=== PATIENT | male | born 1960 | race Caucasian/White ===

== ENCOUNTER 2020-04-20 11:35 | Inpatient (IN) | payer MEDICAID, SELFPAY ==
[2020-04-20] VITALS (10 sets, daily range): BP systolic 98–158; BP diastolic 64–92; PULSE 75–85; RESP 16–21; TEMP 36.3–36.9; O2SAT 93–100; BMI 27.6; BMI 27.1
--- NOTE | 2020-04-20 12:10 | EKG12_ITS ---
Test Reason : DIZZY Blood Pressure : / mmHG Vent. Rate : 075 BPM Atrial Rate : 075 BPM P-R Int : 174 ms QRS Dur : 104 ms QT Int : 422 ms P-R-T Axes : 024 -09 149 degrees QTc Int : 471 ms Normal sinus rhythm T wave abnormality, consider lateral ischemia Prolonged QT Abnormal ECG Confirmed by ANDRES CASTELAN, JEYSON ([id number]), editorial cartoonist LAST GARRETT ([id number]) on 04/25/2020 2:17:21 PM Referred By: SUNNI Confirmed By:JEYSON CAMPOS MD
[2020-04-20] MEDS: 0.9% Normal Saline 1,000 ML 1000 ML IV (12:20)
--- NOTE | 2020-04-20 12:25 | RAD_ITS ---
STUDY: X-RAY CHEST REASON FOR EXAM: Male, 59 years old. Presyncope TECHNIQUE: Single AP portable view of the chest. COMPARISON: None. FINDINGS: EKG electrodes are seen. Hyperinflation. The lungs are clear. There is no demonstrated pleural abnormality. Normal size heart. Normal mediastinum and maryellen. Normal visualized pulmonary arteries. Normal visualized aortic arch and descending thoracic aorta. There are degenerative changes of the visualized thoracic spine. Normal visualized ribs, clavicles, and shoulders. There is no demonstrated abnormality of the visualized soft tissue structures of the upper abdomen. RAD/Chest 1 View (Portable) IMPRESSION: Hyperinflation. The lungs are clear. Electronically Signed: Raad Escobar MD at 12:47 EST , Service support ,
[2020-04-20 12:29] LABS: Absolute Lymphocyte Count 2.58 X10^3/uL (0.83-4.51); Absolute Neutrophil Count 13.5 X10^3/uL (2.0-7.7); Basophil# 0.08 X10^3/uL; Basophil% 0.5 % (0-1); Eosinophils% 1.1 % (0-5); Hematocrit 45.9 % (40-54); Hemoglobin 15.4 g/dL (13.0-16.5); Lymphocyte # 2.58 X10^3/ul (4.0); Lymphocyte % 14.7 % (19-41); Mean Corp Hgb Conc 33.6 g/dL (32-36); Mean Corpuscular Volume 86.4 fL (80-94); Mean Platelet Vol. 9.9 fl (6.2-12.0); Monocyte# 1.03 X10^3/uL; Monocyte% 5.9 % (0-10); NRBC Flagged by Analyzer 0 % (0-5); Neutrophil % 77.1 % (47-70); Platelet Count 568 K/mm3 (150-450); RBC Distribution Width CV 12.9 % (11.6-14.6); RBC Distribution Width SD 40.2 fl (35.1-43.9); Red Blood Count 5.31 M/mm3 (4.6-6.2); White Blood Count 17.5 K/mm3 (4.4-11.0)
[2020-04-20] MEDS: 0.9% Normal Saline 1,000 ML 999 ML IV (12:31)
[2020-04-20 12:42] LABS: Anion Gap 8 (5-15); BUN 20 mg/dL (7-18); BUN/Creat Ratio 15.7 RATIO (10-20); Calcium,Total 9.6 mg/dL (8.5-10.1); Chloride 104 mmol/L (98-107); Creatinine, Serum 1.27 mg/dL (0.70-1.30); EST Glomerular Filtration Rate 62 mL/min (>60); Est Glom Filt Rate - Afr Amer 75 mL/min (>60); Estimated Creatinine Clearance 70.44 ml/min; Glucose 197 mg/dL (74-106); Potassium 4.1 mmol/L (3.5-5.1); Sodium Level 138 mmol/L (136-145)
[2020-04-20 12:58] LABS: Lactic Acid 3.4 mmol/L (0.4-1.9)
[2020-04-20] MEDS: Aspirin 81 MG TAB.CHEW PO (13:17)
--- NOTE | 2020-04-20 13:25 | ED.DCSUM_ITS ---
History of Present Illness Chief Complaint: Dizziness Narrative: Patient presenting for evaluation secondary to lightheadedness. Patient has an underlying history of diabetes. Patient states that he was undergoing work-up for surgical clearance for amputation of his left great toe. Patient tells me that he was at the outpatient office and was noted to be hypotensive, to feel lightheaded, and to be acting abnormally. He was recommended to come to the emergency department. Patient denies any history of heart disease and denies any is having any sort of chest pain. Denies that he is having any sort of fevers nausea vomiting or diarrhea associated with this. Patient denies any laterality to his weakness, states that it was general weakness. Review of systems otherwise negative. Past Medical History - Allergies and Home Meds Allergies/Adverse Reactions: Allergies No Known Allergies Allergy (Verified 04/20/20 11:50) Primary Care Physician: Rosalva Grijalva MD [Primary Care Provider] - Prior records reviewed: Yes Past Medical History: - - Pretension, diabetes, hyperlipidemia Lives: Alone Smoking Status: Current every day smoker Alcohol: None Drugs: None Review of Systems All systems negative except as indicated General: Reports: Malaise, - - Lightheadedness Eyes: Denies: Visual changes - bilaterally, Diplopia ENT: Denies: Rhinorrhea, Sore throat Cardiovascular: Denies: Chest pain, Palpitations Respiratory: Denies: Dyspnea, Cough, Dyspnea on exertion Gastrointestinal: Denies: Abdominal pain, Nausea, Vomiting, Diarrhea, Melena, Hematochezia Genitourinary: Denies: Dysuria, Hematuria, Frequency Musculoskeletal: Denies: Back pain, Extremity Pain Skin: Denies: Rash, Wounds Neurological: Denies: Headache, Weakness, Numbness Physical Exam Vital Signs/Narrative: Vital Signs Temp Pulse Pulse Pulse Resp BP BP 04/20/20 13:20 75 85 142/82 H 04/20/20 13:11 97.4 F L 78 18 145/86 H 04/20/20 11:46 97.4 F L 83 19 H 98/67 04/20/20 11:43 97.4 F L 83 21 H 101/64 BP Pulse Ox 04/20/20 13:20 122/83 H 04/20/20 13:11 95 04/20/20 11:46 100 04/20/20 11:43 96 Inital Vital Signs reviewed: Yes General: Well nourished, Well developed, No Acute Distress, - - Unkempt Head: Normocephalic, Atraumatic Eyes: Perrl, EOMI ENT: Moist mucous membranes, No rhinorrhea Neck: Supple, Nontender Cardiovascular: Regular rate, Regular rhythm, No murmurs, - - 2+ radial pulses bilaterally symmetric, 1+ DP pulses bilaterally symmetric Respiratory: No distress, CTA bilaterally, Chest nontender Abdomen: Soft, Nontender, Nondistended, Normal bowel sounds Back: Nontender, Normal Inspection Extremities: Nontender, No edema, - - Dry gangrene is noted of the left great toe Skin: Normal color, No rash Neurological: Alert, Oriented x3, Cranial nerves II-XII grossly intact, Normal Strength, Normal Sensation Psychological: Normal affect, Normal Mood Diagnostic/Tx/Re-eval Chest X-Ray - ED: 1 View, Read by ED Physician, - - Hyperinflation Clinical Impression(s) from Imaging Studies Chest X-Ray 04/20/20 12:25 IMPRESSION: Hyperinflation. The lungs are clear. Electronically Signed: Raad Escobar MD at 12:47 EST , Service support , Laboratory Data 04/20/20 04/20/20 04/20/20 11:44 11:44 12:25 WBC 17.5 H RBC 5.31 Hgb 15.4 Hct 45.9 MCV 86.4 MCH 29.0 MCHC 33.6 RDW Std Deviation 40.2 RDW Coeff of Corina 12.9 Plt Count 568 H MPV 9.9 Immature Gran % (Auto) 0.700 Neut % (Auto) 77.1 H Lymph % (Auto) 14.7 L [place] % (Auto) 5.9 Eos % (Auto) 1.1 Baso % (Auto) 0.5 Absolute Neuts (auto) 13.5 H Absolute Lymphs (auto) 2.58 Nucleated RBC % 0 Sodium 138 Potassium 4.1 Chloride 104 Carbon Dioxide 26.0 Anion Gap 8 BUN 20 H Creatinine 1.27 Estim Creat Clear Calc 70.44 Est GFR (MDRD) Af Amer 75 Est GFR (MDRD) Non-Af 62 BUN/Creatinine Ratio 15.7 Glucose 197 H Lactic Acid 3.4 H* Calcium 9.6 Troponin I 0.020 - EKG Initial EKG Interpretation: - - Sinus rhythm at 75 with significant T wave inversions noted laterally. QTC mildly prolonged at 471. No evidence of significant ST segment deviation. - Medical Decision Making Patient presented secondary to hypotension and feeling lightheaded in the outpatient office. He was given IV fluid boluses and did have improvement of his resting blood pressure but remains orthostatic positive. Patient was noted to have a leukocytosis of 17,000. His troponin was not found to be elevated but his EKG was significantly abnormal compared to a prior EKG in 2002. Patient's lactic acid was also elevated at 3.4 likely indicative that the patient did have significant hypotension. Patient was given Unasyn empirically for the possibility of infection although his toe appears to have dry gangrene and does not appear to be a source of infection currently. He was given aspirin due to his EKG changes. I believe the patient requires admission. - Critical Care Time Critical care time (excluding procedures): 30-74 minutes ED Disposition - Plan for ED Patient: Disposition: Acute Care Hospital [facility] Diagnosis: Hypotension, Acute electrocardiogram changes, Dry gangrene, Leukocytosis, Lactic acidosis
--- NOTE | 2020-04-20 14:29 | HP.PCM_ITS ---
Problem List (1) Hypotension Status: Acute (2) Acute electrocardiogram changes Status: Acute (3) Dry gangrene Status: Acute (4) Leukocytosis Status: Acute (5) Lactic acidosis Status: Acute History of Present Illness Date of Admission: 04/20/20 Chief Complaint: lightheaded The patient is a 59 year old M who for months has been feeling dizzy practically daily. Patient states that he feels dizzy when he stands up he sits or lays down and gets better. Today just was not getting better and apparently was having trouble speaking as well. Presented to Dr. Eldridge's office for preop clearance for dry gangrene. Patient was not looking well and sent to the emergency room. In the emergency room, patient had abnormal labs showing lactic acid of 3.4 white count of 17.5. Patient had dry gangrene on his left great toe I did receive the Unasyn but no cultures were drawn. Patient did receive IV fluids. The hospital service was contacted for admission. Patient did also have a T wave inversions in the lateral leads. Patient is denying any chest pain. [] Past Medical History Medical History: Medical History (Last Updated 04/20/20 @ 14:[address] Virgilio Dunn, DO) DM2 (diabetes mellitus, type 2) E11.9 Neuropathy G62.9 PAD (peripheral artery disease) I73.9 Allergies No Known Allergies Allergy (Verified 04/20/20 11:50) Home Medications: Ambulatory Orders Medication Instructions Recorded Amlodipine [Norvasc] 10 mg PO DAILY 04/20/20 Aspirin E.C. [Ecotrin] 81 mg PO DAILY@0800 04/20/20 Atorvastatin Calcium 20 mg PO QHS 04/20/20 Clopidogrel Bisulfate [Clopidogrel] 75 mg PO DAILY 04/20/20 Glimepiride 8 mg PO DAILY 04/20/20 Lisinopril/Hydrochlorothiazide 1 ea PO BID 04/20/20 [Lisinopril-Hctz 20-12.5 mg Tab] Multivitamin with Minerals 1 tab PO DAILY 04/20/20 [Multiple Vitamin] metFORMIN (XR) [Glucophage Xr] 1,000 mg PO DAILY 04/20/20 Lives: Alone Smoking Status: Current every day smoker Tobacco Use: Cigarettes, Cigars, Chew Alcohol: None Drugs: None - *Family History Maternal History Items: - - no heart dz or stroke Review of Systems Constitutional: Denies: Anorexia, Chills, Fever, Night Sweats, Malaise, Weakness Eyes: Denies: Blurred vision, Double vision HEENT: Denies: Head Aches, Sinus Congestion, Sinus Drainage Cardiovascular: Denies: Chest Pain, Palpitations Respiratory: Denies: Cough, Shortness of breath at rest, Sputum production Gastrointestinal: Denies: Abdominal Pain, Nausea, Vomiting Genitourinary: Denies: Dysuria Musculoskeletal: Denies: Joint Pain, Joint Tenderness Skin: Denies: Rash, Wounds Hematologic/ Lymphatic: Denies: Easy Bruising, Easy Bleeding, Hx of blood clot Comment: All review of systems were negative except as mentioned above in the history of present illness and the other review of systems. VTE Information - Inpt Only VTE Present on Admission: No VTE Mechan Device Prophylaxis: None VTE Pharm Prophylaxis ordered?: Yes Reason prophylaxis not ordered:: Treatment Not Indicated Patient Problems: Active and Suspected Problems Hypotension (Acute) Acute electrocardiogram changes (Acute) Dry gangrene (Acute) Leukocytosis (Acute) Lactic acidosis (Acute) - Physical Exam Vitals/I&O's: Vital Signs Temp Pulse Resp BP Pulse Ox 36.6 C 78 20 H 152/71 H 93 04/20/20 14:09 04/20/20 14:09 04/20/20 14:09 04/20/20 14:09 04/20/20 14:09 Oxygen Delivery Method Room Air Weight: 90.7 kg Body Mass Index (BMI) 27.1 Intake and Output for Last 24 Hours 04/18/20 04/19/20 04/20/20 23:59 23:59 23:59 Intake Total 1999 Balance 1999 General: Alert, No apparent distress, Well developed, Well nourished HEENT: Atraumatic, PERRLA, EOMI, Normocephalic Oral: Moist Mucosa, No Gingival or Mucosal Lesions/ Ulcerations Neck: No Nodes, Thyroid Normal Size and Texture Lungs: Clear to auscultation, Normal air movement, No rhonchi, No wheeze, No rales Cardiovascular: Regular rate, Regular Rhythm, Normal S1, Normal S2, No murmurs Abdomen: Bowel Sounds Present, Soft, Non Tender, Non-Distended, No Hepato- splenomegaly Extremities: No edema, No Calf Tenderness, Diminished Peripheral Pulses - Dorsalis pedal bilaterally Skin: No rashes, No breakdown Musculoskeletal: No Tenderness to Palpation of Joints or Extremities, No Muscle Wasting Neurological: Cranial nerves II-XII grossly intact, Motor Exam 5/5 strength throughout Psych/Mental Status: Normal Affect, Appropriate Laboratory Results 04/20/20 11:44: WBC 17.5 H, RBC 5.31, Hgb 15.4, Hct 45.9, MCV 86.4, MCH 29.0, MCHC 33.6, RDW Std Deviation 40.2, RDW Coeff of Corina 12.9, Plt Count 568 H, MPV 9.9, Immature Gran % (Auto) 0.700, Neut % (Auto) 77.1 H, Lymph % (Auto) 14.7 L, [place] % (Auto) 5.9, Eos % (Auto) 1.1, Baso % (Auto) 0.5, Absolute Neuts (auto) 13.5 H, Absolute Lymphs (auto) 2.58, Nucleated RBC % 0 04/20/20 11:44: Sodium 138, Potassium 4.1, Chloride 104, Carbon Dioxide 26.0, Anion Gap 8, BUN 20 H, Creatinine 1.27, Estim Creat Clear Calc 70.44, Est GFR (MDRD) Af Amer 75, Est GFR (MDRD) Non-Af 62, BUN/Creatinine Ratio 15.7, Glucose 197 H, Calcium 9.6, Troponin I 0.020 04/20/20 12:25: Lactic Acid 3.4 H* Chest x-ray personally reviewed showed no acute process with infiltrate or effusions. EKG first reviewed showed normal sinus rhythm with lateral T wave inversions. Current Medications Sodium Chloride (0.9% Saline Lock 10 Ml Syringe) 10 - 40 ml IV UD PRN PRN Reason: SALINE FLUSH Assessment/Plan All Active Problems Hypotension (Acute) Acute electrocardiogram changes (Acute) Dry gangrene (Acute) Leukocytosis (Acute) Lactic acidosis (Acute) 1. Near syncope Appears the patient has been having what sounds like orthostatic hypotension has been going on for months possibly exacerbated by his underlying antihypertensive medications but patient had a protracted case today. Whether or not that was just related with his orthostatic hypotension or some other disease process is unclear at this time. Plan: * Hold his antihypertensives for now which is amlodipine and lisinopril/HCTZ * Check orthostatic vital signs * Patient does not have any focal deficits but will check a head CT. If that is negative would not proceed with any additional neurologic work-up unless new deficits arise. 2. Abnormal EKG Unclear if new versus old Plan: * Patient already on aspirin and clopidogrel and will continue * Check a nuclear chemical stress test in the morning, this will also serve as preop clearance for his ventral right great toe gangrene * Cycle troponins 3. Systemic inflammatory response syndrome Do not suspect any active infectious process the patient did receive ampicillin/sulbactam in the emergency room. Plan * Hold off antibiotics for now * Check blood cultures * Follow-up labs 4. Lactic acidosis I do not suspect severe sepsis as patient clinically appears very stable at this time I am concerned that the Metformin that the patient is taking was at least a contributing factor to the lactic acidosis and that will be held 5. Dry gangrene of the left great toe Patient is already seen vascular surgery and has been referred to Dr. Allen of podiatry. Plan is for the patient follow-up with Dr. Allen as outpatient unless acute needs arise that warrant urgent podiatry involvement while in the hospital. 6. VTE prophylaxis: With low molecular weight heparin 7. Advanced care planning: Discussed with the patient. Patient wishes to be full CODE STATUS at this time. Inpatient E&M: 76580 Init Hosp L3
--- NOTE | 2020-04-20 15:29 | CT_ITS ---
STUDY: CT BRAIN WITHOUT CONTRAST REASON FOR EXAM: Male, 59 years old. syncope RADIATION DOSAGE (If Supplied By Facility): CTDIvol = ( 44.99 ) mGy, DLP = ( 914.22 ) mGycm TECHNIQUE: Transaxial CT imaging of the brain was performed without administration of intravenous contrast material. Individualized dose optimization techniques were used for this CT. COMPARISON: No relevant priors. FINDINGS: Normal soft tissue structures. Normal calvarium. Normal size ventricles and extra-axial spaces for the patient''s age. Mild periventricular white matter ischemic changes.. Normal basal ganglia and thalami. Normal brainstem. Normal cerebellum. There is no intracranial hemorrhage. There are no findings of an acute ischemic infarction. Postsurgical changes of left orbit. Normal visualized paranasal sinuses. CT/Brain/Head without Contrast IMPRESSION: Mild curvature white matter ischemic changes. No evidence for acute bleed . If concern for acute infarct MRI recommended. Electronically Signed: David Perera MD at 16:50 EST , Service support ,
--- NOTE | 2020-04-20 15:29 | EKG12_ITS ---
Test Reason : AM EKG Blood Pressure : / mmHG Vent. Rate : 074 BPM Atrial Rate : 074 BPM P-R Int : 174 ms QRS Dur : 104 ms QT Int : 406 ms P-R-T Axes : 028 -11 053 degrees QTc Int : 450 ms Normal sinus rhythm Nonspecific T wave abnormality Abnormal ECG Confirmed by ANDRES CASTELAN, JEYSNO ([id number]), publishing editor LAST GARRETT ([id number]) on 04/25/2020 2:46:30 PM Referred By: KEKE Confirmed By:JEYSON CAMPOS MD
[2020-04-20 16:28] LABS: Reflex Lactate? Y
[2020-04-20 17:01] LABS: Bacteria 0 SEEN /hpf (None Seen); Mucous, Urine 0 SEEN /hpf (<or=2+); Red Blood Cells-Urine 0 SEEN /hpf (0-5); Squamous Epithelial Cells - UA 0 SEEN /hpf (0-5); White Blood Cells 0 SEEN /hpf (0-5)
[2020-04-20 17:04] LABS: Color, Urine Yellow (Yellow); Glucose, Dipstick Normal (Normal); Ketone-Dipstick Negative (Negative); Leukocyte Esterase-Dipstick Negative /ul (Negative); Nitrite-Dipstick Negative (Negative); Occult Blood-Urine Negative /ul (Negative); Protein-Dipstick 30 mg/dl (Negative); Urine Bilirubin Dipstick Negative (Negative); Urine Clarity Clear (Clear); Urine Urobilinogen Normal (Normal)
[2020-04-20 17:20] LABS: Lactic Acid 1.1 mmol/L (0.4-1.9)
[2020-04-20 17:35] LABS: Bedside Glucose 140 mg/dL (70-110)
[2020-04-20] MEDS: 0.9% Normal Saline 1,000 ML 150 ML IV (18:27)
[2020-04-20 22:15] LABS: Bedside Glucose 135 mg/dL (70-110)
[2020-04-20] MEDS: Atorvastatin Calcium 20 MG Tablet PO (22:16)
[2020-04-21] VITALS (8 sets, daily range): BP systolic 142–164; BP diastolic 76–95; PULSE 65–94; RESP 16–18; TEMP 36.3–36.9; O2SAT 97–100
--- NOTE | 2020-04-21 05:36 | EKG12_ITS ---
Test Reason : CP ADMIT Blood Pressure : / mmHG Vent. Rate : 077 BPM Atrial Rate : 077 BPM P-R Int : 170 ms QRS Dur : 100 ms QT Int : 390 ms P-R-T Axes : 022 007 123 degrees QTc Int : 441 ms Normal sinus rhythm T wave abnormality, consider inferolateral ischemia Abnormal ECG Confirmed by ANDRES CASTELAN, JEYSON ([id number]), restaurant expeditor LAST GARRETT ([id number]) on 04/25/2020 2:47:44 PM Referred By: KEKE Confirmed By:JEYSON CAMPOS MD
[2020-04-21] MEDS: Aspirin E.C. 81 MG Tablet PO (06:30)
[2020-04-21] MEDS: Clopidogrel Bisulfate 75 MG Tablet PO (06:30)
[2020-04-21 06:56] LABS: Absolute Lymphocyte Count 2.99 X10^3/uL (0.83-4.51); Absolute Neutrophil Count 10.3 X10^3/uL (2.0-7.7); Basophil# 0.09 X10^3/uL; Basophil% 0.6 % (0-1); Eosinophil# 0.31 X10^3/uL; Eosinophils% 2.1 % (0-5); Hematocrit 43.1 % (40-54); Hemoglobin 14.4 g/dL (13.0-16.5); Lymphocyte # 2.99 X10^3/ul (4.0); Lymphocyte % 20.5 % (19-41); Mean Corp Hgb Conc 33.4 g/dL (32-36); Mean Corpuscular Hgb 28.9 pg (27.0-32.0); Mean Corpuscular Volume 86.4 fL (80-94); Mean Platelet Vol. 9.5 fl (6.2-12.0); Monocyte# 0.81 X10^3/uL; Monocyte% 5.5 % (0-10); NRBC Flagged by Analyzer 0 % (0-5); Neutrophil # 10.32 X10^3/uL (2.7-7.7); Neutrophil % 70.6 % (47-70); Platelet Count 490 K/mm3 (150-450); RBC Distribution Width CV 12.9 % (11.6-14.6); Red Blood Count 4.99 M/mm3 (4.6-6.2); White Blood Count 14.6 K/mm3 (4.4-11.0)
[2020-04-21 07:06] LABS: Bedside Glucose 165 mg/dL (70-110)
[2020-04-21 07:24] LABS: Anion Gap 5 (5-15); BUN 19 mg/dL (7-18); Calcium,Total 8.9 mg/dL (8.5-10.1); Chloride 109 mmol/L (98-107); Cholesterol 118 mg/dL (200); Creatinine, Serum 0.76 mg/dL (0.70-1.30); EST Glomerular Filtration Rate 112 mL/min (>60); Est Glom Filt Rate - Afr Amer 136 mL/min (>60); Glucose 145 mg/dL (74-106); High Density Lipoprotein 29 mg/dL; Potassium 3.7 mmol/L (3.5-5.1); Sodium Level 140 mmol/L (136-145); Triglycerides 161 mg/dL; Very Low Density Lipoprotein 32 mg/dL (5-40)
--- NOTE | 2020-04-21 11:30 | CASEMGMT ---
HALEY SANTOS assessment: Face to Face with patient for initial transition planning/care coordination assessment. RN DANIELLE introduced self and role at [facility], pt voices understanding and consents to assessment. Pt is lying in bed on room air in no distress. Pt is A/Ox4 and answers all questions appropriately at this time. Pt was at Dr. Eldridge's office getting med clearance for toe surgery scheduled for 04/28/[address] Allen and was sent to [facility] ED. Care providers, pharmacy, and demographics verified. Presentation: Pt sent by PCP for weakness/dizziness, hypotensive per EMS. Pt states this started after shower this am. Pt states has only had coffee today. Admitting dx: Syncope, Falls, SIRS, Toe gangrene PCP: Valentine Specialists: Tiffany, podiatry; Caleb Vascular surgeon Preferred Pharmacy: [facility] Insurance: [employer]z Prescription Benefit: Schulz Living Will/HPOA: Pt states does not have LW/HPOA and declines AD info at this time. LNOK: Lesly Hernandez, mother Living Arrangements: Pt states lives alone in apartment with 17 steps to enter and states no concerns at home. Pt states is normally independent with ADL's. Transportation: Pt states he can drive but his cousin drives most of time and states no transportation concerns. DME/HHC: Pt states has a cane and shower chair. Pt states no need for any further DME. Pt states no hx of HHC or SNF in the past. Pt states no concerns with going home at time of discharge. Pt states is currently unemployed. Pt states smokes cigarettes 'off and on' and states does not drink ETOH. Pt states no further concerns/needs. CM to follow for any further discharge planning/needs. Advised pt to ask for CM if any further questions/concerns/needs arise, voices understanding. Pt Goal: Home Plan: [place] HALEY SANTOS
--- NOTE | 2020-04-21 11:30 | PCM.PN.HOSP ---
Patient Problems: Active and Suspected Problems (Last Updated 04/20/20 @ 14:[address] Virgilio Dunn, DO) Hypotension (Acute) Acute electrocardiogram changes (Acute) Dry gangrene (Acute) Leukocytosis (Acute) Lactic acidosis (Acute) Vitals/I&O's: Vital Signs Temp Pulse Resp BP Pulse Ox 97.5 F L 73 16 149/76 H 100 04/21/20 10:23 04/21/20 11:18 04/21/20 10:23 04/21/20 10:23 04/21/20 10:23 Oxygen Delivery Method Room Air Weight: 90.7 kg Body Mass Index (BMI) 27.1 Intake and Output for Last 24 Hours 04/19/20 04/20/20 04/21/20 23:59 23:59 23:59 Intake Total 2290 / 2410 1120 / 1120 Output Total 200 / 200 Balance 2290 / 2210 920 / 920 Laboratory Results 04/20/20 11:44: WBC 17.5 H, RBC 5.31, Hgb 15.4, Hct 45.9, MCV 86.4, MCH 29.0, MCHC 33.6, RDW Std Deviation 40.2, RDW Coeff of Corina 12.9, Plt Count 568 H, MPV 9.9, Immature Gran % (Auto) 0.700, Neut % (Auto) 77.1 H, Lymph % (Auto) 14.7 L, [place] % (Auto) 5.9, Eos % (Auto) 1.1, Baso % (Auto) 0.5, Absolute Neuts (auto) 13.5 H, Absolute Lymphs (auto) 2.58, Nucleated RBC % 0 04/20/20 11:44: Sodium 138, Potassium 4.1, Chloride 104, Carbon Dioxide 26.0, Anion Gap 8, BUN 20 H, Creatinine 1.27, Estim Creat Clear Calc 70.44, Est GFR (MDRD) Af Amer 75, Est GFR (MDRD) Non-Af 62, BUN/Creatinine Ratio 15.7, Glucose 197 H, Calcium 9.6, Troponin I 0.020 04/20/20 12:25: Lactic Acid 3.4 H* 04/20/20 16:19: Troponin I 0.018 04/20/20 16:40: Lactic Acid 1.1 04/20/20 16:55: Urine Color Yellow, Urine Clarity Clear, Urine pH 6.0, Ur Specific [place] 1.010, Urine Protein 30 H, Urine Glucose (UA) Normal, Urine Ketones Negative, Urine Occult Blood Negative, Urine Nitrite Negative, Urine Bilirubin Negative, Urine Urobilinogen Normal, Ur Leukocyte Esterase Negative, Urine RBC 0 SEEN, Urine WBC 0 SEEN, Ur Squamous Epith Cells 0 SEEN, Urine Bacteria 0 SEEN, Urine Mucus 0 SEEN 04/20/20 17:05: POC Glucose 140 H 04/20/20 18:37: Troponin I 0.019 04/20/20 22:10: POC Glucose 135 H 04/20/20 22:30: Troponin I 0.023 04/21/20 06:25: WBC 14.6 H, RBC 4.99, Hgb 14.4, Hct 43.1, MCV 86.4, MCH 28.9, MCHC 33.4, RDW Std Deviation 40.0, RDW Coeff of Corina 12.9, Plt Count 490 H, MPV 9.5, Immature Gran % (Auto) 0.700, Neut % (Auto) 70.6 H, Lymph % (Auto) 20.5, [place] % (Auto) 5.5, Eos % (Auto) 2.1, Baso % (Auto) 0.6, Absolute Neuts (auto) 10.3 H, Absolute Lymphs (auto) 2.99, Nucleated RBC % 0 04/21/20 06:25: Sodium 140, Potassium 3.7, Chloride 109 H, Carbon Dioxide 26.0, Anion Gap 5, BUN 19 H, Creatinine 0.76, Estim Creat Clear Calc 117.70, Est GFR (MDRD) Af Amer 136, Est GFR (MDRD) Non-Af 112, BUN/Creatinine Ratio 25.0 H, Glucose 145 H, Calcium 8.9, Triglycerides 161, Cholesterol 118, LDL Cholesterol 57, VLDL Cholesterol 32, HDL Cholesterol 29 L 04/21/20 06:36: POC Glucose 165 H Current Medications Acetaminophen (Acetaminophen 325 Mg Tablet) 650 mg PO Q6H PRN PRN PRN Reason: Pain Score 1-10/Temp > 100.7 F Aspirin (Aspirin E.C. 81 Mg Tablet) 81 mg PO DAILY@0800 [place] Last Admin: 04/21/20 06:30 Dose: 81 mg Documented by: Atorvastatin Calcium (Atorvastatin Calcium 20 Mg Tablet) 20 mg PO QHS [facility] Last Admin: 04/20/20 22:16 Dose: 20 mg Documented by: Clopidogrel Bisulfate (Clopidogrel Bisulfate 75 Mg Tablet) 75 mg PO DAILY [facility] Last Admin: 04/21/20 06:30 Dose: 75 mg Documented by: Enoxaparin Sodium (Enoxaparin 40 Mg/0.4 Ml Syringe) 40 mg SC DAILY [facility] Glimepiride (Glimepiride 4 Mg Tablet) 8 mg PO DAILYCM [facility] Insulin Human Lispro (Insulin Lispro 100 Unit/Ml Insuln.Pen) 0 unit SC TIDAC [facility]; Protocol Last Admin: 04/21/20 06:38 Dose: Not Given Documented by: Multivitamins/Minerals (Multivitamins,Ther W-Minerals Tablet) 1 tablet PO DAILY@0800 [facility] Nitroglycerin (Nitroglycerin (Inpatient Use) 0.4 Mg Tab.Subl) 0.4 mg SUBLINGUAL Q5M PRN PRN Reason: CARDIAC/CHEST PAIN Ondansetron HCl (Ondansetron 4 Mg/2 Ml Vial) 4 mg IV Q8H PRN PRN PRN Reason: NAUSEA/VOMITING STROKE Vital Signs/Narrative: Vital Signs Temp Pulse Resp BP Pulse Ox 04/21/20 11:18 73 04/21/20 10:23 97.5 F L 65 16 149/76 H 100 Medical Necessity - Tobacco Use Smoking Status: Current every day smoker Tobacco Use: Cigarettes, Cigars, Chew Assessment/Plan All Active Problems (Last Updated 04/20/20 @ 14:[address] Virgilio Dunn, DO) Hypotension (Acute) Acute electrocardiogram changes (Acute) Dry gangrene (Acute) Leukocytosis (Acute) Lactic acidosis (Acute) Inpatient E&M: 85949 Subs Hosp L2
[2020-04-21] MEDS: Glimepiride 4 MG Tablet 8 MG PO (12:32)
[2020-04-21] MEDS: Multivitamins,Ther W-Minerals Tablet 1 TABLET PO (12:33)
--- NOTE | 2020-04-21 13:15 | STRESSREP ---
Stress Test Report Date: 04-21-2020 Procedure: Pharmacologic stress nuclear imaging study Indications: Abnormal ECG Consent: Per the patient Procedure: The patient underwent pharmacologic (Regadenoson 0.4mg ) evaluation with a peak heart rate of 105 beats per minute (64%predicted maximal heart rate) and a peak blood pressure of 160/90 mmHg. The baseline ECG demonstrated sinus rhythm; nonspecific ST/T wave abnormality. The peak pharmacologic ECG demonstrated no obvious ECG changes. There were no cardiac dysrhythmias pretest, during pharmacologic infusion, or recovery. There was no complaint of chest discomfort during pharmacologic infusion or recovery. The examination was discontinued secondary to completion of protocol. Impression: 1. Pharmacologic (Regadenoson) evaluation 2. Peak pharmacologic ECG with no obvious ECG changes. 3. There were no cardiac dysrhythmias pretest, during pharmacologic infusion, or recovery. 4. Nuclear images pending Myocardial perfusion imaging study: Technique: The patient was injected with 11.7 millicuries of technetium 99m Cardiolite and subsequently rest SPECT Cardiolite nuclear imaging was obtained in the horizontal long, vertical long, and short axis views. The patient underwent pharmacologic (Regadenoson) evaluation with a peak heart rate of 105 beats per minute (64% percent predicted maximal heart rate) and a peak blood pressure of 160/90 mmHg. The patient was injected with 34.2 millicuries of technetium 99m Cardiolite and subsequently stress SPECT Cardiolite nuclear imaging was obtained in the horizontal long, vertical long, and short axis views. A gated Cardiolite study at peak stress was not obtained. Interpretation: Rest and stress SPECT Cardiolite nuclear imaging status post realignment, normalization, and attenuation correction demonstrate relative uniform tracer uptake and myocardial perfusion appearing within normal limits. Impression: 1. Rest and stress SPECT Cardiolite nuclear imaging demonstrate relative uniform tracer uptake and myocardial perfusion appearing within normal limits. 2. The gated Cardiolite study at peak stress was not obtained. This note was generated with iSSimpleation software. It may contain incorrect words, spelling, and punctuation that were not noted in checking the note before signing.
[2020-04-21 14:51] LABS: Bedside Glucose 175 mg/dL (70-110)
--- NOTE | 2020-04-21 15:11 | CHAPLAIN ---
Type of Pastoral Visit _x__ Initial Visit ___ Follow-up Visit ___ On-call Visit ___ General Patient Visit ___ Spiritual Assessment ___ Family Conference ___ Bereavement ___ Rapid Response ___ Code Blue ___ Other (describe below) Pastoral Care Referral From _x__ Patient ___ Family ___ Nurse ___ Physician ___ Air Sealing Technician ___ Advisory Services Associate ___ Other (describe below) Sacrament/Intervention _x__ Active listening ___ Anointing ___ Gnosticism ___ Bereavement ___ Communion ___ Holley exploration ___ _x__ Life review _x__ Prayer ___ Reconciliation ___ Sacrament of Sick _x__ Supportive presence ___ Wedding ___ Other (describe below) Pastoral Comments patient speaks of needing to know information
--- NOTE | 2020-04-21 17:04 | DCINST_ITS ---
- Discharge Diagnoses Current Active Problems: Current Active and Chronic Problems (Last Updated 04/20/20 @ 14:[address] Virgilio Dunn, DO) Hypotension (Acute) Acute electrocardiogram changes (Acute) Dry gangrene (Acute) Leukocytosis (Acute) Lactic acidosis (Acute) Reason(s) for Visit for Discharge Instructions: Near syncope You will use the following diet at home:: Cardiac Your food should be the consistency of: Regular Your liquids should be the consistency of: Regular/Thin Discharge Activity: Return to Normal Activity Additional Instructions: Take of changes in your medications. Your metformin has been held because your lactic acid was elevated at admission. Allergies/Adverse Reactions: Allergies No Known Allergies Allergy (Verified 04/20/20 11:50) Medications to take at Discharge Amlodipine [Norvasc] 10 mg PO DAILY 04/20/20 Aspirin E.C. [Ecotrin] 81 mg PO DAILY@0800 04/20/20 Atorvastatin Calcium 20 mg PO QHS 04/20/20 Clopidogrel Bisulfate [Clopidogrel] 75 mg PO DAILY 04/20/20 Lisinopril/Hydrochlorothiazide [Lisinopril-Hctz 20-12.5 mg Tab] 1 ea PO BID 04/20/20 Multivitamin with Minerals [Multiple Vitamin] 1 tab PO DAILY 04/20/20 Glimepiride 8 mg PO DAILY 30 Days #60 tab 04/21/20 Primary Care Physician: Rosalva Grijalva MD [Primary Care Provider] - Please follow up with your Primary Care Physician in: within 1 weeks Test Results: Test results from this visit will be discussed in further detail at your follow- up appointment, if applicable. Please Follow Up With: Bharti Allen DPM When: follow-up as scheduled Proposed Discharge Date: 04/21/20
--- NOTE | 2020-04-21 17:20 | DS.PCM_ITS ---
Discharge Date and Diagnosis - Problem List Patient Problems: Active and Suspected Problems (Last Updated 04/20/20 @ 14:[address] Virgilio Dunn DO) Hypotension (Acute) Acute electrocardiogram changes (Acute) Dry gangrene (Acute) Leukocytosis (Acute) Lactic acidosis (Acute) Date of Admission: 04/20/20 Date of Discharge: 04/21/20 - Primary Discharge Diagnosis Acute Problems: Active Problems (Last Updated 04/20/20 @ 14:[address] Virgilio Dunn DO) Near syncope Orthostatic hypotension Abnormal EKG Lactic acidosis Dry gangrene of the left great toe Hospital Course and Treatment Imaging Results: Clinical Impression(s) from Imaging Studies Chest X-Ray 04/20/20 12:25 IMPRESSION: Hyperinflation. The lungs are clear. Electronically Signed: Raad Escobar MD at 12:47 EST , Service support , Brain CT 04/20/20 15:29 IMPRESSION: Mild curvature white matter ischemic changes. No evidence for acute bleed . If concern for acute infarct MRI recommended. Electronically Signed: David Perera MD at 16:50 EST , Service support , Podiatry Operations: None Procedures: Stress test Summary of Care Provided: The patient is a 59 year old M male with past medical history of type II DM complicated by peripheral neuropathy, PAD who presents to his primary care doctor's office for preop clearance for dry gangrene. Patient had complained of feeling dizzy when he stands up or sits up. It gets better when he lays down. This persisted and he was sent to the emergency room. In the emergency room, his WBC count was 17.5, lactic acid was 3.4. Patient did have some T wave inversions in the lateral leads. He denied any chest pain. His antihypertensives were held at discharge. CT of the head was unremarkable. Patient underwent a nuclear stress test and that was unremarkable. His orthostatic vitals were rechecked He received IV fluids. Discussed with podiatry, patient already has a scheduled appointment in the o utpatient. He was discharged to follow-up as scheduled. Patient Problems: Active and Suspected Problems (Last Updated 04/20/20 @ 14:[address] Virgilio Dunn, DO) Hypotension (Acute) Acute electrocardiogram changes (Acute) Dry gangrene (Acute) Leukocytosis (Acute) Lactic acidosis (Acute) Subjective: On the day of discharge, patient was seen and examined. Denied any pain in his foot. He had a stress test that was negative. Discussed in detail with Dr. Allen, patient to be followed up in the outpatient. Objective: Physical exam: General: Alert, No apparent distress, Well developed, Well nourished HEENT: Atraumatic, PERRLA, EOMI, Normocephalic Oral: Moist Mucosa, No Gingival or Mucosal Lesions/ Ulcerations Neck: No Nodes, Thyroid Normal Size and Texture Lungs: Clear to auscultation, Normal air movement, No rhonchi, No wheeze, No rales Cardiovascular: Regular rate, Regular Rhythm, Normal S1, Normal S2, No murmurs Abdomen: Bowel Sounds Present, Soft, Non Tender, Non-Distended, No Hepato- splenomegaly Extremities: No edema, No Calf Tenderness, Diminished Peripheral Pulses - Dorsalis pedal bilaterally Skin: No rashes, No breakdown Musculoskeletal: No Tenderness to Palpation of Joints or Extremities, No Muscle Wasting Neurological: Cranial nerves II-XII grossly intact, Motor Exam 5/5 strength throughout Psych/Mental Status: Normal Affect, Appropriate - Physical Exam Vitals/I&O's: Vital Signs Temp Pulse Resp BP Pulse Ox 97.5 F L 94 16 149/76 H 100 04/21/20 10:23 04/21/20 15:00 04/21/20 10:23 04/21/20 10:23 04/21/20 10:23 Oxygen Delivery Method Room Air Weight: 90.7 kg Body Mass Index (BMI) 27.1 Intake and Output for Last 24 Hours 04/19/20 04/20/20 04/21/20 23:59 23:59 23:59 Intake Total 2290 / 2410 1120 / 1120 Output Total 200 / 200 Balance 2290 / 2210 920 / 920 Laboratory Results 04/20/20 16:40: Lactic Acid 1.1 04/20/20 16:55: Urine RBC 0 SEEN, Urine WBC 0 SEEN, Ur Squamous Epith Cells 0 SEEN, Urine Bacteria 0 SEEN, Urine Mucus 0 SEEN 04/20/20 17:05: POC Glucose 140 H 04/20/20 18:37: Troponin I 0.019 04/20/20 22:10: POC Glucose 135 H 04/20/20 22:30: Troponin I 0.023 04/21/20 06:25: WBC 14.6 H, RBC 4.99, Hgb 14.4, Hct 43.1, MCV 86.4, MCH 28.9, MCHC 33.4, RDW Std Deviation 40.0, RDW Coeff of Corina 12.9, Plt Count 490 H, MPV 9.5, Immature Gran % (Auto) 0.700, Neut % (Auto) 70.6 H, Lymph % (Auto) 20.5, Bleckley % (Auto) 5.5, Eos % (Auto) 2.1, Baso % (Auto) 0.6, Absolute Neuts (auto) 10.3 H, Absolute Lymphs (auto) 2.99, Nucleated RBC % 0 04/21/20 06:25: Sodium 140, Potassium 3.7, Chloride 109 H, Carbon Dioxide 26.0, Anion Gap 5, BUN 19 H, Creatinine 0.76, Estim Creat Clear Calc 117.70, Est GFR (MDRD) Af Amer 136, Est GFR (MDRD) Non-Af 112, BUN/Creatinine Ratio 25.0 H, Glucose 145 H, Calcium 8.9, Triglycerides 161, Cholesterol 118, LDL Cholesterol 57, VLDL Cholesterol 32, HDL Cholesterol 29 L 04/21/20 06:36: POC Glucose 165 H 04/21/20 12:31: POC Glucose 175 H Current Medications Acetaminophen (Acetaminophen 325 Mg Tablet) 650 mg PO Q6H PRN PRN PRN Reason: Pain Score 1-10/Temp > 100.7 F Aspirin (Aspirin E.C. 81 Mg Tablet) 81 mg PO DAILY@0800 [facility] Last Admin: 04/21/20 06:30 Dose: 81 mg Documented by: Atorvastatin Calcium (Atorvastatin Calcium 20 Mg Tablet) 20 mg PO QHS [facility] Last Admin: 04/20/20 22:16 Dose: 20 mg Documented by: Clopidogrel Bisulfate (Clopidogrel Bisulfate 75 Mg Tablet) 75 mg PO DAILY [facility] Last Admin: 04/21/20 06:30 Dose: 75 mg Documented by: Enoxaparin Sodium (Enoxaparin 40 Mg/0.4 Ml Syringe) 40 mg SC DAILY [facility] Glimepiride ([facility] 4 Mg Tablet) [facility] Admin: 04/21/20 12:32 Dose: 8 mg Documented by: Insulin Human Lispro (Insulin Lispro 100 Unit/Ml Insuln.Pen) 0 unit SC TIDAC [facility]; Protocol Last Admin: 04/21/20 12:33 Dose: Not Given Documented by: Multivitamins/Minerals (Multivitamins,Ther W-Minerals Tablet) 1 tablet PO DAILY@0800 [facility] Last Admin: 04/21/20 12:33 Dose: 1 tablet Documented by: Nitroglycerin (Nitroglycerin (Inpatient Use) 0.4 Mg Tab.Subl) 0.4 mg SUBLINGUAL Q5M PRN PRN Reason: CARDIAC/CHEST PAIN Ondansetron HCl (Ondansetron 4 Mg/2 Ml Vial) 4 mg IV Q8H PRN PRN PRN Reason: NAUSEA/VOMITING Discharge Diet: Low fat/ Low Cholesterol, 2000 mg Sodium Diet Discharge Activity: Return to Normal Activity Home Medications: Medications to take at Discharge Amlodipine [Norvasc] 10 mg PO DAILY 04/20/20 Aspirin E.C. [Ecotrin] 81 mg PO DAILY@0800 04/20/20 Atorvastatin Calcium 20 mg PO QHS 04/20/20 Clopidogrel Bisulfate [Clopidogrel] 75 mg PO DAILY 04/20/20 Lisinopril/Hydrochlorothiazide [Lisinopril-Hctz 20-12.5 mg Tab] 1 ea PO BID 04/20/20 Multivitamin with Minerals [Multiple Vitamin] 1 tab PO DAILY 04/20/20 Glimepiride 8 mg PO DAILY 30 Days #60 tab 04/21/20 Following Prescriptions Were Given to Patient: Glimepiride 8 mg PO DAILY 30 Days #60 tab Transmission Status: Received by [id number] Primary Care Physician: Rosalva Grijalva MD [Primary Care Provider] - Please follow up with your Primary Care Physician in: within 1 weeks Please Follow Up With: Bharti Allen DPM When: follow-up as scheduled Disposition: Home Minutes spent on discharge:: 40 Patient Condition:: Stable Medical Necessity - Tobacco Use Smoking Status: Current every day smoker Tobacco Use: Cigarettes, Cigars, Chew Meaningful Use Info Meaningful Use Diagnoses (Choose all that apply): None applicable Inpatient E&M: 38364 Disch Hosp
== END 2020-04-21 18:34 | disposition home or self-care (01) | DRG 204 ==
LOC: ED 13:31 → PCU 14:32
PROVIDERS: Emergency Provider Emergency Medicine; PCP Family Medicine; Visit Provider Internal Medicine
DX: I95.1 Orthostatic hypotension (principal); R94.31 Abnormal electrocardiogram [ECG] [EKG]; E87.2 Acidosis; E11.52 Type 2 diabetes mellitus with diabetic peripheral angiopathy with gangrene; E11.42 Type 2 diabetes mellitus with diabetic polyneuropathy; Z79.84 Long term (current) use of oral hypoglycemic drugs; F17.210 Nicotine dependence, cigarettes, uncomplicated; F17.220 Nicotine dependence, chewing tobacco, uncomplicated; R65.10 Systemic inflammatory response syndrome (SIRS) of non-infectious origin without acute organ dysfunction
CPT/HCPCS: 36415; 70450; 71045; 78452; 80048; 80061; 81001; 82962; 83605; 84484; 85025; 87040; 93005; 93017; 99285; A9500; J7030; A4216; J2785; J3490

== ENCOUNTER 2020-04-28 13:35 | Day surgery (SDC) | payer MEDICAID, SELFPAY ==
[2020-04-20 14:16] VITALS: BMI 27.1
[2020-04-28] VITALS (10 sets, daily range): BP systolic 94–133; BP diastolic 56–83; PULSE 80–94; RESP 16–18; TEMP 36.4–37.1; O2SAT 96–100; BMI 26.6
[2020-04-28 14:06] LABS: Bedside Glucose 178 mg/dL (70-110)
[2020-04-28] MEDS: Lactated Ringers 1,000 ML 100 ML IV (14:30)
--- NOTE | 2020-04-28 14:36 | DCINST_ITS ---
Discharge Diet: No Restrictions Discharge Activity: - - Nonweightbearing to surgical limb to minimal heel weightbearing patient has walker at home that he is to use Weight Bearing Status: No weight bearing Keep extremity elevated above heart level: Operative Extremity Call your doctor if your incision/area has: Sudden Increased Bleeding, Increased Pain/ Swelling, Increased Redness, Foul Smelling Discharge Call your doctor if you observe: Fever of 101 or Higher, Shortness of breath, Dizziness, Fainting spells, Chest pain, Increased palpitations (irregular heartbeat), Uncontrolled pain Cleanse incision/area with: Keep Dressing Clean & Dry Allergies/Adverse Reactions: Allergies No Known Allergies Allergy (Verified 04/25/20 14:59) Medications to take at Discharge Amlodipine [Norvasc] 10 mg PO DAILY 04/20/20 Aspirin E.C. [Ecotrin] 81 mg PO DAILY@0800 04/20/20 Atorvastatin Calcium 20 mg PO QHS 04/20/20 Clopidogrel Bisulfate [Clopidogrel] 75 mg PO DAILY 04/20/20 Lisinopril/Hydrochlorothiazide [Lisinopril-Hctz 20-12.5 mg Tab] 1 ea PO BID 04/20/20 Multivitamin with Minerals [Multiple Vitamin] 1 tab PO DAILY 04/20/20 Glimepiride 8 mg PO DAILY 30 Days #60 tab 04/21/20 Hydrocodone Bitart/Apap 5-325 [Crosby 5MG-325MG] 1 tablet PO Q6H PRN PRN 7 Days #40 tablet 04/28/20 The following prescriptions were given: Hydrocodone Bitart/Apap 5-325 [Crosby 5MG-325MG] 1 tablet PO Q6H PRN PRN 7 Days #40 tablet PRN Reason: Pain Transmission Status: Sent to [id number] Primary Care Physician: Rosalva Grijalva MD [Primary Care Provider] - Test Results: Test results from this visit will be discussed in further detail at your follow- up appointment, if applicable. Please Follow Up With: Bharti Allen DPM When: 1 week Proposed Discharge Date: 04/28/20
--- NOTE | 2020-04-28 14:39 | PCM.OPRPT ---
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 Pain left foot. PVD. Nicotine abuse Post-Operative Diagnosis: Same Surgery/Procedure Performed:: Amputation partial first ray left foot Description of Surgical Findings:: Materials 3-0 Vicryl, 4-0 Vicryl, 3-0 nylon Hemostasis: Ankle tourniquet 200 mmHg Gangrenous changes left great toe natural resources technician: Bharti Allen - Surgeon: Bharti Allen D.P.M., certified first assistant: Karma Barr PGY1 Type of Anesthesia:: Local MAC Specimen's removed: Left great toe Estimated Blood Loss (mL): <10cc Description of Procedure: Indication for procedure: Patient was seen in the clinical setting for worsening gangrene to the left great toe. Patient has been seen Dr. Ellis a vascular surgeon for intervention. Patient is currently optimized for amputation of the left great toe. Patient is a chronic smoker. Patient has been counseled on the importance of smoking cessation. Discussed with patient that given the severity of his gangrene that is unlikely that patient will be able to heal the wound. It should be noted that the wound has demarcated at this time. Discussed that this would need to be removed surgically and that given his approval from his vascular surgeon that we can proceed with that at this time. There is currently no signs of infection. Discussed all risks, benefits, alternatives, and complications including but not limited to infection delayed healing nonhealing need for further surgery or amputation with the patient. No guarantees were given or implied. Patient agreed to proceed with the procedure. Patient relates that his cousin Krishna will take him to and from surgery. All questions answered. Description of the procedure: Patient was seen in the preoperative holding area where the chart was reviewed and patient was examined all questions were answered to patient satisfaction. Patient was then transferred to the OR placed on the OR table in the supine position. After administration of IV line IV sedation an additional 10 cc of local anesthetic was injected in a Lara block type fashion patient's left foot. A well-padded ankle tourniquet was applied but not inflated at this time. The left foot and ankle wre then prepped and draped in the usual sterile fashion. A racquet type incision was drawn out to the first metatarsal phalangeal joint area encompassing completely all the necrotic tissue. A 15 blade was then introduced and going down to level of bone through the dermal and epidermal and subcutaneous tissue with all vital neurovascular retracted or cauterized as necessary. The toe was disarticulated at the level of the metatarsophalangeal joint. The site was then inspected and there was noted that there is adequate skin coverage to allow for skin closure without necessitating further resection of bone. The toe was sent to pathology as specimen. The remaining first metatarsal head was healthy in appearance with no signs of infection noted. The site was then closed after being flushed with copious muscle normal sterile saline and layered suture fashion. This was accomplished with 3-0 Vicryl and 3-0 nylon in a layered suture fashion with deep closure of subcutaneous tissue and skin closure. The skin edges at the incision line had some bleeding noted but not as much as I would expect in a non-PVD patient. It should be noted that patient was instructed to continue anticoagulation medications up to and through surgery. It should be noted that the wound edges had prompt brisk capillary refill time. It should be noted the tourniquet was never inflated. The patient was then transferred from the OR to PACU with vital signs stable and vascular status intact. It was brought to my attention after the surgery that the patient while having a ride to and from the hospital is not going to have anyone to stay with him or to stay with anyone after the surgery. This was also not discovered during preoperative evaluation. I was under the impression the patient would have his cousin who is his ride with him initially after surgery. The cousin was contacted and verbally stated that this is not the case. The cousin also expressed concerns over patient being able to take care of himself at home and states that his house is messy. The cousin has some concern about the patient being able to do any dressing changes at home or any other needed care for his foot. I discussed with the cousin that the dressing placed today should stay on his foot until his follow-up appointment next week. Cousin related that he would be the one bringing the patient to his follow-up appointment. Discussed with the nursing staff about getting case management involved to see if there is anything that they might be able to do to assist with the patient and his home living situation. Unfortunately case management was gone for the day but the on-will call order clerk was contacted and we were told that there would be nothing that they would be able to do for the patient. While this is not an ideal situation patient is of sound mind and is oriented and expresses desire to return home. Patient will be discharged with the following written and oral postoperative instructions: 1 patient is to keep dressing clean, dry, and intact 2 patient is to follow-up in office in [address] Allen 3 patient take all medications as prescribed 4 patient is to be nonweightbearing to the operative limb 5 patient is to watch for signs of infection including nausea, fever, vomiting, chills, chest pain, or shortness of breath and if seen patient is contact doctor's office or the emergency room. Patient is also contact doctor's office if there is any questions or concerns. It should be noted that a significant portion of the above procedure was performed by the attending physician with basic simple parts such as closure performed by the resident physician under the direct supervision of the attending physician - Complications none - Admit VTE Documentation VTE Mechan Device Prophylaxis: SCD's VTE Pharm Prophylaxis ordered?: Yes
[2020-04-28] MEDS: Cefazolin 2 GM in 0.9% Normal Saline 100 ML IV (14:56)
--- NOTE | 2020-04-28 15:00 | BON_PTH ---
PATIENT: JO ANN MADDOX LOC: [facility] – [place] U#:[id number] AGE/SX: 59/M ROOM: RE04/28/[address]: Dr. Bharti Allen DPM : 1960 BED: DIS: 04/28/2020 SPEC #: [id number] RECD: 04/29/20 07:51 STATUS: SOFÍA REGabriela #: [id number] MUKUND: 04/28/20 15:[address]: Bharti Allen DEPT: SURGICAL PATHOLOGY RECD BY: Kenzie Craig ENTERED: 04/29/20 08:30 SP TYPE: Bone OTHR DR: Dr. Rosalva Grijalva MD Tissues: Toe, NOS Procedures: Decalcification bone/plaque Surgery Specimen Level IV HEADER OPERATION: Amputation, partial first ray, possible bone biopsy PRE-OP DIAGNOSIS: Gangrene of toe left foot; dry gangrene TISSUE SUBMITTED: Left great toe MICROSCOPIC DIAGNOSIS Left great toe, amputation: Skin and soft tissue with ulceration, acute and chronic inflammation and gangrenous necrosis. Bone with acute osteomyelitis. AM:blanche 05/04/2020 MICROSCOPIC DESCRIPTION Slides are reviewed. GROSS DESCRIPTION Received in fixative is one container labeled with the patient's name and designated left great toe. The specimen consists of a portion of toe measuring 7 x 3 x 2.5 cm. Most of the skin shows brownish-black gangrenous area including plantar pathways and also tip and dorsal surface. The nail appears atrophic. Assignment Editor sections are submitted in four cassettes as follows: 1 - gangrenous area, 2 - resection margin, 3 & 4 - longitudinal section of the toe after decalcification. / JN:blanche 04/29/20 TC:2 CPT: 58149, 69160
[2020-04-28] MEDS: Lidocaine 1% (20 ml mdv) 20 ML Vial INFILT (15:20)
[2020-04-28] MEDS: Bupivacaine Mpf 0.5% 30 ML VIAL INFILT (15:20)
--- NOTE | 2020-04-28 16:13 | EKG12_ITS ---
Test Reason : POST OP Blood Pressure : / mmHG Vent. Rate : 080 BPM Atrial Rate : 080 BPM P-R Int : 166 ms QRS Dur : 102 ms QT Int : 420 ms P-R-T Axes : 029 013 000 degrees QTc Int : 484 ms Sinus rhythm with frequent Premature ventricular complexes in a pattern of bigeminy Nonspecific T wave abnormality Prolonged QT Abnormal ECG When compared with ECG of 21-APR-2020 05:49, Premature ventricular complexes are now Present Confirmed by ZACK CASTELAN, AL ([id number]), editor in chief LAST GARRETT ([id number]) on 05/02/2020 11:54:07 A M Referred By: Bharti Allen Confirmed By:KASI DIXON MD
--- NOTE | 2020-04-28 16:20 | RAD_ITS ---
STUDY: X-RAY - LEFT FOOT CLINICAL: Male, 59 years old. Postop. TECHNIQUE: 3 view(s) of the foot. COMPARISON: None. FINDINGS: Normal talus, calcaneus, and tarsal bones. Probable talus and tarsal bones. Normal metatarsi. There is absence of the great toe at the level of the metatarsophalangeal joint. There is slight irregularity of overlying soft tissues. Normal second through fifth metatarsophalangeal joints. Normal interphalangeal joints and phalanges of the lesser toes. The soft tissue structures are unremarkable. RAD/Foot min 3 Views IMPRESSION: Absent great toe with mildly irregular overlie soft tissue. Electronically Signed: Alton Tay DO at 17:16 EST Tel [phone], Service support ,
[2020-04-28 17:51] LABS: Potassium 3.8 mmol/L (3.5-5.1)
== END 2020-04-28 18:10 | disposition home or self-care (01) ==
LOC: SDC 13:36 → AC 13:37
PROVIDERS: Anesthesiology; PCP Family Medicine; Referring Provider Podiatrist Foot & Ankle Surgery; Visit Provider Podiatrist Foot & Ankle Surgery
PROC: (CPT 28820; principal; 2020-04-28 14:45)
DX: E11.52 Type 2 diabetes mellitus with diabetic peripheral angiopathy with gangrene (principal); I96 Gangrene, not elsewhere classified; E11.69 Type 2 diabetes mellitus with other specified complication; M86.172 Other acute osteomyelitis, left ankle and foot; E78.00 Pure hypercholesterolemia, unspecified; F32.9 Major depressive disorder, single episode, unspecified; I10 Essential (primary) hypertension; F17.210 Nicotine dependence, cigarettes, uncomplicated; Z79.84 Long term (current) use of oral hypoglycemic drugs; Z20.822 Contact with and (suspected) exposure to COVID-19; Z79.899 Other long term (current) drug therapy
CPT/HCPCS: 28820; 73630; 82962; 83735; 84132; 84484; 87426; 88305; 88311; 93005; C9803

== ENCOUNTER → 2021-12-04 | Outpatient (CLI) | payer MEDICAID, SELFPAY ==
--- NOTE | 2021-12-04 13:13 | VDLE_ITS ---
Reason For Study: PVD RIGHT LEFT GSV is normal. GSV is normal. CFV is compressible, spontaneous, phasic, CFV is compressible, spontaneous, phasic, competent and demonstrates normal competent, and demonstrates normal augmentation. augmentation. FV is compressible, spontaneous, phasic, FV is compressible, spontaneous, phasic, competent and demonstrates normal competent and demonstrates normal augmentation. augmentation. POP V is compressible, spontaneous, phasic, POP V is compressible, spontaneous, phasic, competent and demonstrates normal competent and demonstrates normal augmentation. augmentation. T/P Trunk is compressible. T/P Trunk is compressible. PTV is compressible. PTV is compressible. RT PerV is compressible. LT PerV is compressible. Lymph Node noted in right inguinal canal Lymph Node noted in left inguinal canal measuring approximately 1.84cm x 0.92cm. measuring approximately 2.18cm x 0.75cm. Procedure This is a venous duplex using B-mode, color flow and spectral Doppler. Exam performed in department. The exam was diagnostic. A preliminary report was called and/or faxed to Office of Dr. Noble Khan. VL/Venous Duplex US - José Extrem Interpretation Summary Deep veins of the lower extremities are bilaterally patent and compressible seg mentally. There is no evidence of deep vein thrombosis on either side. Valvular competence appears in tact within the proximal deep venous systems bilaterally. The great saphenous veins appear bila terally patent and compressible segmentally. An enlarged lymph node is noted in the right and left inguinal region, with dimensions as noted above. Clinical correlation is advised. Ordering Physician: Noble Khan Referring Physician: Noble Khan Performed By: Raghu Ochoa, T
[2021-12-04 14:09] LABS: Vitamin B12 770 pg/mL (211-911); Vitamin D,25 Hydroxy 12.5 ng/mL
[2021-12-04 14:12] LABS: Erythrocyte Sedimentation Rate 9 mm/hr (0-20)
[2021-12-04 14:14] LABS: Absolute Lymphocyte Count 2.77 X10^3/uL (0.83-4.51); Absolute Neutrophil Count 10.6 X10^3/uL (2.0-7.7); Basophil# 0.12 X10^3/uL; Basophil% 0.8 % (0-1); Eosinophil# 0.48 X10^3/uL; Eosinophils% 3.2 % (0-5); Hematocrit 40.6 % (40-54); Hemoglobin 13.4 g/dL (13.0-16.5); Lymphocyte # 2.77 X10^3/ul (0.83-4.51); Lymphocyte % 18.7 % (19-41); Mean Corpuscular Hgb 29.5 pg (27.0-32.0); Mean Corpuscular Volume 89.2 fL (80-94); Mean Platelet Vol. 10.6 fl (6.2-12.0); Monocyte% 5.4 % (0-10); NRBC Flagged by Analyzer 0 % (0-5); Neutrophil # 10.56 X10^3/uL (2.7-7.7); Neutrophil % 71.5 % (47-70); Platelet Count 458 K/mm3 (150-450); RBC Distribution Width CV 15.2 % (11.6-14.6); RBC Distribution Width SD 50.4 fl (35.1-43.9); Red Blood Count 4.55 M/mm3 (4.6-6.2); White Blood Count 14.8 K/mm3 (4.4-11.0)
[2021-12-04 14:19] LABS: ALB/GLOB Ratio 0.9 RATIO (0.9-2.4); AST(SGOT) 12 U/L (15-37); Alanine Aminotransfer ALT/SGPT 17 U/L (16-61); Albumin, Serum 3.4 g/dL (3.2-5.0); Alkaline Phosphatase 104 U/L (45-117); Anion Gap 5 (5-15); BUN 19 mg/dL (7-18); BUN/Creat Ratio 21.5 RATIO (10-20); CRP 3.57 mg/L (0.0-3.0); Chloride 109 mmol/L (98-107); Creatinine, Serum 0.88 mg/dL (0.70-1.30); EST Glomerular Filtration Rate 94 mL/min (>60); Est Glom Filt Rate - Afr Amer 113 mL/min (>60); Free T3 1.9 pg/mL (2.18-3.98); Globulin 3.9 g/dL (2.2-4.2); Glucose 138 mg/dL (74-106); Protein, Total 7.3 g/dL (6.4-8.2); Sodium Level 142 mmol/L (136-145); T4 Total, Thyroxin 8.6 ug/dL (4.5-12.1); Thyroid Stim Hormone (TSH) 1.85 uIU/mL (0.358-3.74)
[2021-12-04 14:31] LABS: Hemoglobin A1c 5.7 % (3.8-5.6)
== END | disposition home or self-care (01) ==
PROVIDERS: PCP Physician Assistant; Referring Provider Student in an Organized Health Care Education/Training Program; Visit Provider Student in an Organized Health Care Education/Training Program
DX: I73.89 Other specified peripheral vascular diseases (principal); E11.42 Type 2 diabetes mellitus with diabetic polyneuropathy
CPT/HCPCS: 36415; 80053; 82306; 82607; 82746; 83036; 84436; 84439; 84443; 84481; 85025; 85652; 86140; 93970

== ENCOUNTER 2021-12-27 10:13 | Outpatient (CLI) | payer MEDICAID, SELFPAY ==
[2021-12-27] VITALS (9 sets, daily range): BP systolic 170–185; BP diastolic 75–89; PULSE 70–88; RESP 15–28; TEMP 36.6–36.8; O2SAT 93–99; BMI 29.5
--- NOTE | 2021-12-27 10:23 | ART_ITS ---
Reason For Study: PVD Procedure A bilateral lower extremity continuous wave Doppler with analog waveform analysis,segmental pressures,and ankle brachial indexes without exercise. Left Segmental Pressures Left brachial= 185mmHg. Left thigh = 193mmHg. Left calf = 156mmHg. Left posterior tibial artery = 171mmHg. Left dorsalis pedis artery = 159mmHg. The left dorsalis pedis waveforms are biphasic. The left posterior tibial artery waveforms are triphasic. Right Segmental Pressures Right brachial= 186mmHg. Right thigh = 167mmHg. Right calf = 100mmHg. Right posterior tibial artery = 72mmHg. Right dorsalis pedis artery = 75mmHg. The right dorsalis pedis waveforms are monophasic. The right posterior tibial artery waveforms are monophasic. Indices The right ankle brachial index by the dorsalis pedis is 0.40. The right ankle brachial index by the posterior tibial artery is 0.39. The left ankle brachial index by the dorsalis pedis is 0.85. The left ankle brachial index by the posterior tibial artery is 0.92. VL/Lower Ext Art Exam w/o Exercis Interpretation Summary Right NED 0.4, severe arterial insufficiency. Doppler/PVR waveforms of the righ t leg reveal distal SFA/popliteal disease. Left NED 0.92, mild arterial insufficieny. Doppler/PVR waveforms of the left le g reveal distal SFA/popliteal disease Ordering Physician: Noble Khan Referring Physician: Herberth Abdalla Performed By: Tamie Hatfield RVT
--- NOTE | 2021-12-27 18:23 | OP.PCM_ITS ---
Report of Operation Date of Procedure: 12/27/21 Pre-Operative Diagnosis: Atherosclerosis with gangrene of the right lower extre mity Post-Operative Diagnosis: Same Surgery/Procedure Performed:: Aortogram right lower extremity runoff Atherectomy drug-coated balloon angioplasty and stenting of the right above-knee popliteal artery Description of Surgical Findings:: Short segment above-knee popliteal occlusion with otherwise preserved right lower extremity vasculature. Pedal level disease. Surgeon: Virgilio Sol Type of Anesthesia: Sedation,Conscious Estimated Blood Loss (mL): 10 Description of Procedure: HPI: Patient is a 61-year-old male who developed right fifth digit dry gangrene. He was seen by podiatry who found him to have absent pedal pulses and monophasic signals. He had preoperative noninvasive vascular labs which revealed severe arterial insufficiency with distal SFA popliteal distribution. He is taken now for aortogram with right lower extremity runoff and possible invention. Description of procedure: Upon obtaining form consent and verification correct patient procedure site patient was taken to the Fixed Capital Clerk where he was positioned prepped and draped in usual fashion. Time was then performed and conscious sedation administered with intermittent doses of Versed and fentanyl. Also used evaluate the left common femoral artery which was patent with some anterior calcification. Skin was anesthetized 1% lidocaine and the common femoral artery accessed in retrograde fashion a microneedle wire. This was changed out for micropuncture sheath through which injection femoral angiogram revealed satisfactory placement with no extravasation or dissection. Through the micro sheath Bentson wire was advanced abdominal aorta and micropuncture sheath exchanged out for a short 5 Malawian sheath. Through the 5 Malawian sheath a Omni Flush catheter advanced abdominal aorta and the distraction aortogram pelvic angiogram was performed. With a navigated contralateral external leg artery with a Bentson wire and Omni Flush catheter and performed sequential right lower extremity subtraction angiography. This revealed a short segment popliteal occlusion was felt to be appropriate for endovascular intervention. Bentson wires and readvanced the Omni Flush catheter advanced into the distal SFA. Omni Flush catheter then withdrawn and the short 5 Malawian sheath exchanged out for a 6 Malawian destination sheath. This was advanced into the mid superficial femoral artery, and the patient was then heparinized lasted for 3 minutes. Through the new 6 Malawian sheath Bentson wire and angled glide catheter used to navigate and traverse the occlusion maintaining true lumen. Cath was then advanced and the wire withdrawn with backbleeding through the catheter, and injection subtraction angiography confirmed true lumen beyond the occlusion. An 0.014 wire was advanced and the glide catheter withdrawn. A Hernandez Spangler rotational atherectomy device was then brought in the field and prepped for manufactures instructions. This was then advanced over the wire and positioned above the lesion. This was then engaged in 4 quadrants across the lesion and the device withdrawn. Repeat angiography revealed luminal gain and flow channel through the occlusion. Next the occlusion and a distal lesion were balloon angioplastied with scoring balloon 5 x 100. This inflated for 3 minutes then deflated withdrawn. Repeat angiography revealed significant luminal gain with no residual stenosis, however there was focal dissection at 2 locations. Hope was these will be improved with prolonged balloon inflation, so a 5 x 60 Bard paclitaxel coated balloon was brought into the field and prep for news technical director instructions. This was then advanced to the distal extent of the lesion inflated further to 3 minutes then deflated withdrawn. This was then followed by a 6 x 60 Bard paclitaxel coated balloon advanced the proximal extent of the lesion, inflated for 3 minutes then deflated withdrawn. Unfortunately continue persistent dissection, so a Intean [place] arterial tack device and then brought to field prep for news technical director instructions. This was then deployed with a single tack at the distal dissection and to tack to the proximal dissection. This was then postdilated 6 mm balloon, and completion angiography revealed resolution of the dissection. There is now brisk contrast flow across the area of treatment and no residual stenosis. The long 6 Malawian sheath and exchanged for short 6 Malawian sheath, and a minx closure device deployed followed by 2 minutes of manual pressure with satisfactory stasis noted. The inclusion the case patient was awakened with sedation taken to the PCU for observation and bedrest before discharge. Radiograph interpretation: Aorta normal caliber with no significant atherosclerosis or stenosis. Left common and external iliac arteries patent with no significant atherosclerosis or stenosis Left common femoral artery widely patent lessening of atherosclerosis or stenosis. Proximal profunda and superficial femoral arteries with moderate focal atherosclerosis. Right common iliac and external leg arteries widely patent with no atherosclerosis or stenosis Right common femoral profundofemoral and superficial femoral arteries patent with no significant atherosclerosis or stenosis. Short segment total occlusion of the above-knee popliteal approximately 4 cm in length, with reconstitution of the more distal above-knee popliteal with some mild focal disease. Distal popliteal, tibioperoneal trunk, anterior tibial and posterior tibial arteries patent with no significant atherosclerosis or stenosis. The pedal arch was visualized, however, there were no visualized branches exiting the pedal arch into the digit vessels. This may have been due to impaired inflow as it was not reimaged after intervention.
--- NOTE | 2021-12-27 20:55 | NURSING ---
patient d/c and IV removed after post heart cath walk. Discharge plans went over w/ the patient and being picked up by sister. pt. ambulated out of hospital.
== END 2021-12-27 20:52 | disposition home or self-care (01) ==
LOC: CVS 17:38 → PCU 17:50
PROVIDERS: PCP Physician Assistant; Referring Provider Surgery Trauma Surgery; Visit Provider Surgery Trauma Surgery
DX: I73.9 Peripheral vascular disease, unspecified (principal)
CPT/HCPCS: 93923

== ENCOUNTER 2021-12-27 10:15 | Day surgery (SDC) | payer MEDICAID, SELFPAY ==
[2021-12-26 09:07] VITALS: BMI 32.3
--- NOTE | 2021-12-27 18:47 | EKG12_ITS ---
Test Reason : post pcii Blood Pressure : / mmHG Vent. Rate : 073 BPM Atrial Rate : 073 BPM P-R Int : 180 ms QRS Dur : 102 ms QT Int : 414 ms P-R-T Axes : 023 -03 029 degrees QTc Int : 456 ms Normal sinus rhythm Normal ECG When compared with ECG of 28-APR-2020 16:24, Premature ventricular complexes are no longer Present Nonspecific T wave abnormality has replaced inverted T waves in Lateral leads Confirmed by JACLYN CASTELAN, MARLENE ([id number]), editor news LAST GARRETT ([id number]) on 01/05/2022 7:22:48 AM Referred By: Bill Confirmed By:MARLENE ANAYA MD
== END 2021-12-27 23:59 | disposition home or self-care (01) ==
PROVIDERS: PCP Physician Assistant; Visit Provider Surgery Trauma Surgery
DX: I96 Gangrene, not elsewhere classified (principal); E11.51 Type 2 diabetes mellitus with diabetic peripheral angiopathy without gangrene; E11.42 Type 2 diabetes mellitus with diabetic polyneuropathy; I73.9 Peripheral vascular disease, unspecified; F17.200 Nicotine dependence, unspecified, uncomplicated; Z79.899 Other long term (current) drug therapy
CPT/HCPCS: 36200; 36245; 37225; 37227; 75625; 75710; 76937; 93005; 93923; 99152; 99153; C1724; C1725; C1760; C1769; C2623; J7040; Q9967; C1876; C1887; C1894

== ENCOUNTER → 2022-01-18 | Outpatient (CLI) | payer MEDICAID, SELFPAY ==
[2022-01-18 12:18] LABS: Absolute Lymphocyte Count 2.54 X10^3/uL (0.83-4.51); Basophil# 0.13 X10^3/uL; Basophil% 0.9 % (0-1); Eosinophil# 0.45 X10^3/uL; Eosinophils% 3.2 % (0-5); Hematocrit 38.8 % (40-54); Hemoglobin 12.5 g/dL (13.0-16.5); Lymphocyte # 2.54 X10^3/ul (0.83-4.51); Mean Corp Hgb Conc 32.2 g/dL (32-36); Mean Corpuscular Hgb 28.4 pg (27.0-32.0); Mean Corpuscular Volume 88.2 fL (80-94); Mean Platelet Vol. 10.3 fl (6.2-12.0); Monocyte# 0.95 X10^3/uL; Monocyte% 6.7 % (0-10); NRBC Flagged by Analyzer 0 % (0-5); Neutrophil # 10.01 X10^3/uL (2.7-7.7); Neutrophil % 70.8 % (47-70); Platelet Count 417 K/mm3 (150-450); RBC Distribution Width CV 14.6 % (11.6-14.6); RBC Distribution Width SD 47.3 fl (35.1-43.9); White Blood Count 14.1 K/mm3 (4.4-11.0)
== END | disposition home or self-care (01) ==
LOC: LAB 11:34
PROVIDERS: PCP Physician Assistant; Visit Provider Physician Assistant
DX: I96 Gangrene, not elsewhere classified (principal)
CPT/HCPCS: 36415; 85025

== ENCOUNTER → 2022-02-13 | Outpatient (CLI) | payer MEDICAID, SELFPAY ==
[2022-02-13 15:09] LABS: Absolute Lymphocyte Count 1.96 X10^3/uL (0.83-4.51); Absolute Neutrophil Count 7.8 X10^3/uL (2.0-7.7); Basophil# 0.08 X10^3/uL; Basophil% 0.7 % (0-1); Eosinophil# 0.56 X10^3/uL; Hematocrit 41.6 % (40-54); Hemoglobin 13.2 g/dL (13.0-16.5); Lymphocyte # 1.96 X10^3/ul (0.83-4.51); Lymphocyte % 17.4 % (19-41); Mean Corp Hgb Conc 31.7 g/dL (32-36); Mean Corpuscular Hgb 28.1 pg (27.0-32.0); Mean Corpuscular Volume 88.7 fL (80-94); Mean Platelet Vol. 10.8 fl (6.2-12.0); Monocyte% 7.1 % (0-10); NRBC Flagged by Analyzer 0 % (0-5); Neutrophil # 7.82 X10^3/uL (2.7-7.7); Neutrophil % 69.4 % (47-70); Platelet Count 398 K/mm3 (150-450); RBC Distribution Width CV 14.6 % (11.6-14.6); RBC Distribution Width SD 47.3 fl (35.1-43.9); Red Blood Count 4.69 M/mm3 (4.6-6.2); White Blood Count 11.3 K/mm3 (4.4-11.0)
[2022-02-13 15:43] LABS: ALB/GLOB Ratio 0.9 RATIO (0.9-2.4); AST(SGOT) 10 U/L (15-37); Alanine Aminotransfer ALT/SGPT 28 U/L (16-61); Albumin, Serum 3.4 g/dL (3.2-5.0); Alkaline Phosphatase 101 U/L (45-117); Anion Gap 8 (5-15); BUN 23 mg/dL (7-18); BUN/Creat Ratio 24.2 RATIO (10-20); Calcium,Total 8.8 mg/dL (8.5-10.1); Chloride 104 mmol/L (98-107); Creatinine, Serum 0.95 mg/dL (0.70-1.30); EST Glomerular Filtration Rate 86 mL/min (>60); Est Glom Filt Rate - Afr Amer 104 mL/min (>60); Globulin 3.6 g/dL (2.2-4.2); Glucose 146 mg/dL (74-106); Potassium 3.3 mmol/L (3.5-5.1); Sodium Level 139 mmol/L (136-145); Thyroid Stim Hormone (TSH) 1.48 uIU/mL (0.358-3.74)
== END | disposition home or self-care (01) ==
LOC: BIMLAB 13:17
PROVIDERS: PCP Internal Medicine; Referring Provider Nurse Practitioner Family; Visit Provider Nurse Practitioner Family
DX: Z01.818 Encounter for other preprocedural examination (principal); I10 Essential (primary) hypertension
CPT/HCPCS: 36415; 80053; 84443; 85025

== ENCOUNTER 2022-02-16 11:17 | Day surgery (SDC) | payer MEDICAID, SELFPAY ==
--- NOTE | 2022-02-13 13:45 | RAD_ITS ---
STUDY: X-RAY CHEST REASON FOR EXAM: Male, 61 years old. Preoperative migration. TECHNIQUE: Frontal and lateral views of the chest. COMPARISON: April 20, 2020. FINDINGS: The lungs are clear and expanded. There is no demonstrated pleural abnormality. Stable cardiomegaly. Normal mediastinum and maryellen. Normal visualized pulmonary arteries. Aortic tortuosity unchanged. Diffuse mild thoracic spondylosis, unchanged. Stable bone island in the proximal left humerus. There is no demonstrated abnormality of the visualized soft tissue structures of the upper abdomen. RAD/Chest PA and Lateral IMPRESSION: Stable cardiomegaly with aortic tortuosity. No active or acute cardiopulmonary disease. Electronically Signed: Tucker Lombardo, at 14:04 EST ,
[2022-02-16 11:54] VITALS: BP 155/88; PULSE 78; RESP 16; TEMP 36.6; O2SAT 100; BMI 31.1
--- NOTE | 2022-02-16 12:00 | RAD_ITS ---
STUDY: X-RAY RIGHT FOOT, FIFTH TOE REASON FOR EXAM: Male, 61 years old. Fifth toe amputation. TECHNIQUE: 7 intraoperative digital documentation view(s) of the toe were obtained. COMPARISON: None. FINDINGS: 7 intraoperative digital documentation views show amputation of the phalanges of the right fifth metatarsal. RAD/Toe(s) Min 2 Views IMPRESSION: Digital documentation views of amputation as described. Electronically Signed: Tucker Lombardo, at 14:10 EST ,
[2022-02-16] MEDS: Lactated Ringers 1,000 ML 15 ML IV (12:01)
[2022-02-16 12:35] LABS: Bedside Glucose 119 mg/dL (74-106)
--- NOTE | 2022-02-16 13:00 | TISS_PTH ---
PATIENT: JO ANN MADDOX LOC: [facility] U#:[id number] AGE/SX: 61/M ROOM: RE02/16/[address]: Dr. Noble Khan DPM : 1960 BED: DIS: 02/16/2022 SPEC #: [id number] RECD: 02/20/22 09:34 STATUS: SOFÍA REGabriela #: [id number] MUKUND: 02/16/22 13:[address]: Noble Khan DEPT: SURGICAL PATHOLOGY RECD BY: Kenzie Craig ENTERED: 02/20/22 09:35 SP TYPE: Tissue Bx NIK DR: MD Ridge Alaniz SOLAR PV INSTALLER-C Tissues: A - Toe, NOS B - Toe, NOS Procedures: Decalcification bone/plaque Surgery Specimen Level III Surgery Specimen Level IV HEADER OPERATION: Fifth toe amputation PRE-OP DIAGNOSIS: Arthrosclerosis right lower extremity with gangrene fifth digit TISSUE SUBMITTED: A ? Fifth digit tissue right foot, B - Fifth digit bone right foot MICROSCOPIC DIAGNOSIS A. Fifth digit tissue right foot: Focal ulceration and associated fibrinopurulent exudation and acute and chronic inflammation. Pseudoepitheliomatous hyperplasia. B. Fifth digit bone right foot: Pieces of bone with chronic inflammation and reactive changes. Negative for acute osteomyelitis. SJ:blanche 02/26/2022 MICROSCOPIC DESCRIPTION Slides are reviewed. GROSS DESCRIPTION A - Received in fixative is one container labeled with the patient's name and designated fifth digit tissue. The specimen consists of two irregular fragments of skin with attached soft tissue that in aggregate measure 3 x 1.5 x 0.7 cm. Both fragments are bisected and totally submitted in one cassette. B - Received in fixative is one container labeled with the patient's name and designated fifth digit bone. The specimen consists of two irregular fragments of welch bone ranging in size from 1.5 to 1.7 cm. No mass lesions are identified. Competitive Shopper sections from both bones are submitted in one cassette after decalcification. / AM:blanche 02/20/2022 The rest of the specimen is submitted in one cassette after decalcification. / SJ:blanche 02/23/2022 TC:2 CPT: 49521, 55714, 42287
[2022-02-16] MEDS: Cefazolin 2 GM in 0.9% Normal Saline 100 ML IV (13:13)
[2022-02-16] MEDS: Lidocaine 1% (20 ml mdv) 20 ML Vial (13:20)
--- NOTE | 2022-02-16 14:05 | DCINST_ITS ---
Discharge Instructions Diet Discharge Diet: No restrictions Activity Discharge Activity: May Shower (utilize cast bag covering on right foot. Keep dressings, clean, dry, and intact to right foot) Weight Bearing Status: Partial weight bearing (Weight bearing to Right heel in surgical shoe) Keep extremity elevated above heart level: Right Leg (Elevevate lower extremity at all times of rest.) Dressing / Incision Call your doctor if you observe: Fever of 101 or Higher, Chest pain, Calf discomfort and Uncontrolled pain Change Dressing in: leave in place till F/U (Physician will change dressings at first post-op visit) Remove Dressing in: leave in place till F/U (DO NOT CHANGE DRESSINGS) Cleanse incision/area with: Do not get Incision Wet and Keep Dressing Clean & Dry (Keep dressing clean, dry, and intact to right foot) Follow Up Care Please Follow Up With: Noble Khan DPM When: Patient has first post-operative appointment Test Results: Test results from this visit will be discussed in further detail at your follow- up appointment, if applicable. Discharge Plan Admission Attending Provider: Noble Khan Primary Care Provider: Kylie Anderson Consulting Providers: Ridge [address] DEPARTMENT DISPATCHER Discharge Orders/Prescriptions Prescriptions: New oxycodone-acetaminophen 5-325 mg tablet 1 tab PO Q6H PRN (Reason: pain) 7 Days Qty: 28 0RF No Action atorvastatin [Lipitor] 20 mg tablet 40 mg PO QHS Qty: 180 3RF lisinopril-hydrochlorothiazide 20-25 mg tablet 1 tab PO DAILY Qty: 90 1RF ergocalciferol (vitamin D2) 1,250 mcg (50,000 unit) capsule 50,000 unit PO QWEEK Qty: 8 1RF varenicline [Chantix Starting Month Box] 0.5 mg (11)- 1 mg (42) tablets,dose pack See Rx Instructions PO PER PKG DIR Qty: 53 0RF Rx Instructions: PO PER PKG DIR clopidogrel [Plavix] 75 mg tablet 75 mg PO DAILY Qty: 90 3RF aspirin 81 mg Tablet,Chewable 81 mg PO DAILY cholecalciferol (vitamin D3) [Vitamin D3] 125 mcg (5,000 unit) Tablet 50,000 unit PO TU lisinopril 20 mg tablet 20 mg PO QHS potassium chloride 10 mEq capsule, extended release 10 meq PO DAILY Qty: 90 1RF Referrals / Follow Up: Kylie Anderson MD [Primary Care Provider] - Disposition Disposition (needs filled in before D/C Order can be placed): Home, Self Care
--- NOTE | 2022-02-16 14:12 | OP.PCM_ITS ---
Problems Associated Problem List Diagnoses (1) Osteomyelitis, unspecified: (2) Dry gangrene: Report of Operation Date of Procedure: 02/16/22 Pre-Operative Diagnosis: Osteomyelitis distal fifth digit, Right foot Post-Operative Diagnosis: Osteomyelitis fifth digit right foot Surgery/Procedure Performed:: Fifth digit amputation of the right foot Description of Surgical Findings:: See operative note for findings Surgeon: Noble Khan transmissions systems operator: Chris Landis DPM PGY-2 Type of Anesthesia: Local (10 cc 1%Lidocaine plain and 10cc 0.25% Marcaine plain) and MAC Specimen's removed: Tissue fifth digit Right foot Bone fifth digit Right foot Drains: None Estimated Blood Loss (mL): < 5mL Description of Procedure: HPI\Indication: Patient is a 61-year-old male who presented to the office in November 2021 with a gangrenous right fifth digit. He has history of diabetes with peripheral polyneuropathy and peripheral vascular disease. Digit was dark and necrotic in nature extending from the proximal phalanx to the distal tip. On examination had absent pedal pulses and complained of cramping in the legs while walking. Referral was made to vascular surgeon and patient underwent vascular intervention on 12/27/2021. Blood flow was successfully reestablished to the right lower extremity. There was improvement noted in tissue perfusion and healing of the fifth digit at the time of our surgical discussion with only the distal tip gangrenous with exposed fifth distal phalanx. Discussion was had that this is not an elective procedure and is a limb salvage procedure to amputate the fifth digit to prevent further spread of osteomyelitis. Patient voiced understanding and was agreeable to this. Procedure was discussed in great detail. I discussed all possible risks with the patient included but not limited to: Pain, continued pain, CRPS, phantom pain, infection, recurrence, swelling, neuritis, numbness, scarring, poor cosmetic result, need for further surgery/procedure, nonhealing/delayed healing, dehiscence, blood clots, allergic reaction, transfer lesions, loss of function, stroke, loss of limb, and loss of life. Patient voices understanding of these and was able to repeat these back. Patient is in agreement and wishes to proceed forward with the surgical intervention. Surgery was delayed until he could establish a primary care physician as he previously did not follow with a physician. He was established with a new PCP and underwent surgical clearance. He was scheduled to undergo amputation of the fifth digit of the right foot at [facility] on 02/16/2022. Procedure: Under mild sedation patient was brought in the operating placed on table in supine position. Following induction of IV anesthesia a pneumatic ankle tourniquet was placed about the patient's right ankle. A local anesthetic block was then performed about the fifth metatarsal consisting of 10 cc 1% lidocaine plain. The foot was then scrubbed, prepped, and draped in the usual aseptic manner. Pneumatic tourniquet was in place however never inflated during the duration of this case. At this time attention was directed to the to the fifth digit of the right foot. Fluoroscopic imaging was obtained prior to incision in multiple views confirming presence of osteomyelitis of the distal phalanx and middle phalanx of the fifth digit. A racquet shaped incision was then performed utilizing a #15 blade straight to bone overlying the fifth metatarsal head carried distally and encompassing the fifth digit. During sharp dissection it was noted that the head of the proximal phalanx of the fifth digit was dusky in appearance and soft consistent with osteomyelitis. Thus the digit was sharply disarticulated at the fifth metatarsophalangeal joint and transferred from the operative field to the table in toto. Swab cultures were obtained about the fifth metatarsal head to be sent to microbiology. Tissue culture of the fifth digit was also obtained with 1 sample going to microbiology and another going to pathology for analysis. The distal phalanx and middle phalanx were sent to microbiology for analysis with the head of the proximal phalanx sent to pathology for analysis. Any nonviable tissue remaining was sharply debrided from the surgical site to healthy bleeding viable tissue. The site was then irrigated with 3000 cc pulse lavage. The head of the fifth metatarsal was then inspected with the cartilage intact and shiny in appearance with the head of the fifth metatarsal noted to be of hard viability consistent with healthy bone. The remaining tissue appeared to be healthy and with viable bleeding. All tendons to the fifth digit were identified and transected sharply as far proximal as possible. The site was then again irrigated with copious amounts of normal sterile saline. The subcutaneous tissue was then closed with a 4-0 Monocryl and the skin was reapproximated with a 3-0 Prolene. Patient tolerated the anesthesia and procedure well and was transported to PACU with vital signs stable and vascular status intact to the Right foot. Patient was instructed to be nonweightbearing with assistance of crutches to the right foot however he may utilize the right heel to aid in balance as he stands. He was instructed to elevate the foot at all times of rest and keep his dressings clean, dry, and intact. He understands his postoperative course from our discussion and also knows that this is outlined in his postoperative discharge instructions. He has his first postoperative appointment in office next week. Grafts/Implants Used: None Complications None Admit VTE Documentation VTE Present on Admission: No VTE Mechan Device Prophylaxis: SCD's VTE Pharm Prophylaxis ordered?: No Reason prophylaxis not ordered:: Procedure Not Indicated
[2022-02-16 14:15] VITALS: BP 137/79; BP 155/88; PULSE 65; RESP 16; TEMP 36.6; O2SAT 96
[2022-02-16 14:20] VITALS: BP 142/79; BP 155/88; PULSE 65; RESP 16; O2SAT 96
[2022-02-16 14:25] VITALS: BP 138/80; BP 155/88; PULSE 62; RESP 16; O2SAT 96
[2022-02-16 14:30] VITALS: BP 155/88; BP 176/86; PULSE 60; RESP 16; TEMP 36.7; O2SAT 96
--- NOTE | 2022-02-16 14:30 | RAD_ITS ---
STUDY: X-RAY - RIGHT FOOT CLINICAL: Male, 61 years old. Postop, with fifth digit amputation. TECHNIQUE: 3 view(s) of the foot. COMPARISON: Right toes, February 16, 2022. FINDINGS: There is a plantar calcaneal spur. Normal visualized subtalar, talonavicular, calcaneocuboid, tarsal and tarsometatarsal articulations. Normal metatarsi. Normal metatarsophalangeal joint of the great toe. Normal tibial and fibular sesamoid bones. Normal interphalangeal joint of the great toe. Normal phalanges of the great toe. Normal second through fourth metatarsophalangeal joints. Normal second through fourth interphalangeal joints and phalanges of the lesser toes. Is amputation of the fifth digit at the level of the metatarsophalangeal joint. The soft tissue structures are unremarkable. RAD/Foot min 3 Views IMPRESSION: Status post amputation of the fifth toe. Electronically Signed: Alton Tay DO at 16:27 EST ,
[2022-02-16 15:00] VITALS: BP 155/88
== END 2022-02-16 15:05 | disposition home or self-care (01) ==
LOC: SDC 11:17 → AC 11:18
PROVIDERS: PCP Internal Medicine; Referring Provider Internal Medicine; Visit Provider Student in an Organized Health Care Education/Training Program
PROC: (CPT 28820; principal; 2022-02-16 12:45)
DX: M86.9 Osteomyelitis, unspecified (principal); I70.261 Atherosclerosis of native arteries of extremities with gangrene, right leg; E11.42 Type 2 diabetes mellitus with diabetic polyneuropathy; I10 Essential (primary) hypertension; E55.9 Vitamin D deficiency, unspecified; E78.00 Pure hypercholesterolemia, unspecified; F17.210 Nicotine dependence, cigarettes, uncomplicated
CPT/HCPCS: 28820; 01470; 71046; 73630; 73660; 76000; 82962; 87015; 87070; 87075; 87102; 87116; 87176; 87205; 87206; 88304; 88305; 88311; J7120; J2405

== ENCOUNTER → 2022-05-10 | Outpatient (CLI) | payer MEDICAID, SELFPAY | END | disposition home or self-care (01) | LOC: LAB 12:36 | PROVIDERS: PCP Internal Medicine; Referring Provider Physician Assistant; Visit Provider Physician Assistant | DX: Z00.00 Encounter for general adult medical examination without abnormal findings (principal) | CPT/HCPCS: 36415; 82565 ==

== ENCOUNTER → 2022-05-15 | Outpatient (CLI) | payer MEDICAID, SELFPAY ==
--- NOTE | 2022-05-15 12:31 | ART_ITS ---
Reason For Study: S/P Rt Pop A Stent Procedure A bilateral lower extremity continuous wave Doppler with analog waveform analysis and ankle brachial indexes. Left Segmental Pressures Left brachial= 145mmHg. Left posterior tibial artery = 28mmHg. Left dorsalis pedis artery = 54mmHg. Left digit = 0 mmHg. The left posterior tibial artery waveforms are monophasic. The left dorsalis pedis waveforms are monophasic. Right Segmental Pressures Right brachial= 144mmHg. Right posterior tibial artery = 135mmHg. Right dorsalis pedis artery = 143mmHg. The right posterior tibial artery waveforms are triphasic. The right dorsalis pedis waveforms are triphasic. Indices The right ankle brachial index by the posterior tibial artery is 0.19. The right ankle brachial index by the dorsalis pedis is 0.37. The left ankle brachial index by the posterior tibial artery is 0.93. The left ankle brachial index by the dorsalis pedis is 0.99. VL/Ankle Brachial Index Interpretation Summary Right NED 0.37, severe arterial insufficiency. Doppler/PVR waveforms severely d iminished. Left NED 0.99, mild arterial insufficiency. Doppler/PVR waveforms of the left a nkle normal at rest. Ordering Physician: Beth Matta Referring Physician: Kylie Anderson Performed By: Raghu Ochoa RVT
--- NOTE | 2022-05-15 12:31 | ADUL_ITS ---
Reason For Study: S/P Rt Pop Stent Right Velocities Ext. Iliac Artery, dist = 128.3 cm./sec. Common Femoral Artery, mid = 178.6 cm./sec. Supf Femoral Artery, prox = 43.4 cm./sec. Supf Femoral Artery, mid = 45.3 cm./sec. Supf Femoral Artery, dist. = 22.0 cm./sec. Profunda Femoral Artery = 77.2 cm./sec. Prox/Mid Pop A stent appears occluded. Collateral flow noted and appears to reconstitute at Distal Pop A. Popliteal Artery, dist = 13.5 cm./sec. Post. Tibial Artery, prox = 27.7 cm./sec. Post. Tibial Artery, mid = 16.6 cm./sec. Post. Tibial Artery, dist = 20.1 cm./sec. Peroneal Artery, prox = 9.1 cm./sec. Peroneal Artery, mid = 6.9 cm./sec. Peroneal Artery,dist = 6.3 cm./sec. Ant. Tibial Artery, prox = 29.1 cm./sec. Ant. Tibial Artery, mid = 14.1 cm./sec. Ant. Tibial Artery, dist = 11.9 cm./sec. Procedure The exam was diagnostic. Exam performed in department. Stat results reported to [facility] - Vascular Surgery RN. /US Art Duplex Unilat Lower Ext Interpretation Summary Right popliteal artery stent occluded. Ordering Physician: Beth Matta Referring Physician: Kylie Anderson Performed By: Raghu Ochoa, RVT
== END | disposition home or self-care (01) ==
LOC: CVS 12:28
PROVIDERS: PCP Internal Medicine; Visit Provider Physician Assistant
DX: I70.261 Atherosclerosis of native arteries of extremities with gangrene, right leg (principal); Z48.812 Encounter for surgical aftercare following surgery on the circulatory system
CPT/HCPCS: 93922; 93926

== ENCOUNTER 2022-05-21 09:29 | Day surgery (SDC) | payer MEDICAID, SELFPAY ==
[2022-05-21 09:52] LABS: Hematocrit 42.4 % (40-54); Hemoglobin 14.1 g/dL (13.0-16.5); Mean Corp Hgb Conc 33.3 g/dL (32-36); Mean Corpuscular Hgb 28.8 pg (27.0-32.0); Mean Corpuscular Volume 86.7 fL (80-94); Platelet Count 645 K/mm3 (150-450); RBC Distribution Width CV 13.6 % (11.6-14.6); RBC Distribution Width SD 43.3 fl (35.1-43.9); Red Blood Count 4.89 M/mm3 (4.6-6.2); White Blood Count 17.2 K/mm3 (4.4-11.0)
[2022-05-21 10:05] LABS: Anion Gap 6 (5-15); BUN 24 mg/dL (7-18); BUN/Creat Ratio 18.2 RATIO (10-20); Calcium,Total 9.4 mg/dL (8.5-10.1); Chloride 106 mmol/L (98-107); Creatinine, Serum 1.32 mg/dL (0.70-1.30); EST Glomerular Filtration Rate 59 mL/min (>60); Est Glom Filt Rate - Afr Amer 71 mL/min (>60); Glucose 143 mg/dL (74-106); Potassium 3.6 mmol/L (3.5-5.1); Sodium Level 138 mmol/L (136-145)
--- NOTE | 2022-05-21 14:20 | OP.PCM_ITS ---
Report of Operation Date of Procedure: 05/21/22 Pre-Operative Diagnosis: atherosclerosis with rest pain, right lower extremity Post-Operative Diagnosis: same, acute thrombosis of recurrent stenosis Surgery/Procedure Performed:: aortogram right lower extremity runoff thrombectomy sfa/popliteal, TP trunk angioplasty/stent right sfa/popliteal Surgeon: Virgilio Sol Type of Anesthesia: Local and Sedation,Conscious Estimated Blood Loss (mL): 75 Description of Procedure: HPI: Patient is a 61-year-old male who approximately 5 months prior underwent right popliteal artery atherectomy and drug-coated balloon angioplasty for nonhealing foot wound that ultimately required toe amputation. The amputation healed well and he been doing well until recently. He has been inconsistent with his antiplatelet medication, is still smoking, and never follow-up for his surveillance imaging. Approximately 1 week prior he presented with a week of return of right lower extremity pain at rest and a duplex revealed occluded popliteal artery with an NED of 0.37. It is suspected that there is some element of acute thrombus given the abrupt onset was taken now for angiogram with possible intervention including percutaneous thrombectomy. Description of procedure: Upon obtaining form consent and verification correct patient procedure site the patient was taken to the [facility] where he was positioned prepped and draped in usual sterile fashion. Timeout was performed and conscious sedation was administered with Versed and fentanyl. Skin overlying the left common femoral artery was anesthetized with 1% lidocaine and the vessel was accessed under ultrasound guidance with a micropuncture needle and wire in retrograde fashion. This was then exchanged out for micropuncture sheath through which injection femoral angiogram was performed revealed satisfactory positioning with no extravasation or dissection. Through the micropuncture sheath a starter wire was advanced and the micropuncture sheath exchanged out for short 6 Bahamian sheath. Through the 6 Bahamian sheath a Glidewire was advanced into the abdominal aorta followed by an Omni Flush catheter. A digital subtraction aortogram pelvic angiogram was performed and with a navigated to the contralateral iliac system where sequential subtraction angiography was performed of the right lower extremity. Patient was found to have a moderate length segment popliteal occlusion with reconstitution of the below-knee popliteal artery. This was similar distribution of his previous occlusion and is felt this was appropriate for endovascular intervention. The patient was then heparinized and allowed to circulate for 3 minutes after which a Glidewire was advanced via the Omni Flush catheter navigated into the superfic ial femoral artery. The Omni Flush catheter was then advanced and the Glidewire exchanged for a J-wire which was then used to exchange the catheter and short 6 Bahamian sheath for a 6 Bahamian 55 Rabie sheath which was advanced into the mid superficial femoral artery. From this position using a quick cross catheter and a J-wire we were able to traverse the total occlusion and once her catheter was advanced beyond the occlusion the wire was withdrawn and hand-injection angiography confirmed satisfactory positioning with no extravasation or dissection. An [employer] bare wire was advanced through the quick cross catheter and the catheter withdrawn. An [employer] georgina 6 was then deployed below the occlusion in the tibioperoneal trunk. I then advanced a 6 Bahamian intravascular ultrasound probe over the wire and recorded pullback of the tibial peroneal trunk, popliteal and SFA was performed which confirmed that there was acute thrombus within the lesion as well as some more chronic disease versus intimal hyperplasia. The [employer] Jeti percutaneous mechanical thrombectomy device was then prepped per blender's instructions and then advanced over the filter wire into position above the lesion. This was then engaged for 2 passes across the total occlusion with satisfying thrombus returned from both the popliteal artery and TP trunk artery. Repeat angiography revealed significant luminal gain, with what appeared to be recurrent stenosis diffusely throughout the lesion. 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 We then advanced an angio sculpt scoring balloon 6 x 100 over the filter wire and performed sequential angioplasty across the entirety of the lesion to nominal at each inflation. After preliminary angioplasty repeat angiography and intravascular ultrasound was performed which revealed somewhat resistant segments of continued stenosis greater than 50% was felt that simple drug-coated balloon angioplasty would not alter the response of the lesion acutely so felt that some extent of stenting would be required. The proximal segment of the lesion actually measured approximately 8 mm so this was again angioplastied with a 7 mm scoring balloon followed by a 7 x 80 Cook Zilver PTX paclitaxel coated stent. This was deployed in position in the proximal popliteal artery. For the more distal portion of the lesion the plan was ultimately for Supera stent but in order to diminish potential for restenosis the vessel will be prepped with a drug-coated balloon. A 6 x 120 [employer] paclitaxel coated angioplasty balloon was then advanced the position distally into the distal popliteal artery at the distal extent of the lesion, proximally with overlap into the Zilver stent. This was inflated to nominal for 2 minutes, pulled back to post dilate the entirety of the Zilver, and then withdrawn. Next a superior a 6 x 60 self-expanding stent was advanced in the position and the P1 and P2 segments of the popliteal artery and then deployed. Repeat angiography revealed some potential debris just above the filter so the Jeti thrombectomy catheter was then readvanced and suction thrombectomy above the filter performed after which the debris was no longer visualized. The filter was then recaptured and withdrawn and a 6 Bahamian sheath exchanged for short 6 Bahamian sheath after which a minx device was deployed followed by 2 minutes of manual pressure. The patient was then taken recovery room with dissipated discharge to home. Grafts/Implants Used: Zilver PTX 7x80 Supera 6x60
[2022-05-21 15:50] VITALS: BP 176/85; PULSE 75; RESP 16; TEMP 36.7; O2SAT 100
--- NOTE | 2022-05-21 15:57 | NURSING ---
Bedside report from Bharti DE LEON who informed that pt is now on hourly site checks.
[2022-05-21 16:04] VITALS: BP 172/95; PULSE 78; RESP 15; O2SAT 98
[2022-05-21 16:25] VITALS: BP 178/83; PULSE 77; RESP 15; O2SAT 97
[2022-05-21 16:43] VITALS: BP 169/85; PULSE 77; RESP 14; O2SAT 97
[2022-05-21 17:14] VITALS: BP 172/84; PULSE 77; RESP 14; O2SAT 96
[2022-05-21 17:54] VITALS: BP 173/61; PULSE 86; RESP 14; O2SAT 97
--- NOTE | 2022-05-21 18:06 | NURSING ---
This RN took out IV before patient is discharged.
[2022-05-22 16:36] LABS: ACT Activated Clotting Time 251 sec (74-137)
[2022-05-22 16:37] LABS: ACT Activated Clotting Time 209 sec (74-137)
[2022-05-22 16:38] LABS: ACT Activated Clotting Time 197 sec (74-137)
== END 2022-05-21 18:06 | disposition home or self-care (01) ==
LOC: CLSP 14:33 → PCU 15:49
PROVIDERS: PCP Internal Medicine; Referring Provider Surgery Trauma Surgery; Visit Provider Surgery Trauma Surgery
DX: E11.51 Type 2 diabetes mellitus with diabetic peripheral angiopathy without gangrene (principal); Z89.422 Acquired absence of other left toe(s); I70.221 Atherosclerosis of native arteries of extremities with rest pain, right leg; I82.431 Acute embolism and thrombosis of right popliteal vein; I82.441 Acute embolism and thrombosis of right tibial vein; E78.00 Pure hypercholesterolemia, unspecified; F17.210 Nicotine dependence, cigarettes, uncomplicated; Z79.82 Long term (current) use of aspirin; Z79.02 Long term (current) use of antithrombotics/antiplatelets; Z79.899 Other long term (current) drug therapy
CPT/HCPCS: 36200; 36245; 36415; 37184; 37185; 37226; 37252; 37253; 75625; 75710; 76937; 80048; 85027; 85347; 86850; 86900; 86901; 99152; 99153; C1725; C1753; C1760; C1769; C1874; C1884; C1887; C2623; J7040; Q9967; C1757; C1876; C1894

== ENCOUNTER → 2022-06-13 | Outpatient (CLI) | payer MEDICAID, SELFPAY ==
--- NOTE | 2022-06-13 09:06 | ART_ITS ---
Reason For Study: Atherosclerosis Procedure A bilateral lower extremity continuous wave Doppler with analog waveform analysis and ankle brachial indexes. Left Segmental Pressures Left brachial= 177mmHg. Left posterior tibial artery = 181mmHg. Left dorsalis pedis artery = 199mmHg. The left dorsalis pedis waveforms are triphasic. The left posterior tibial artery waveforms are triphasic. Right Segmental Pressures Right brachial= 176mmHg. Right posterior tibial artery = 204mmHg. Right dorsalis pedis artery = 205mmHg. Right digit = 86 mmHg. The right dorsalis pedis waveforms are triphasic. The right posterior tibial artery waveforms are triphasic. Indices The right ankle brachial index by the dorsalis pedis is 1.16. The right ankle brachial index by the posterior tibial artery is 1.15. The right digital-brachial index is 0.49. The left ankle brachial index by the dorsalis pedis is 1.12. The left ankle brachial index by the posterior tibial artery is 1.02. VL/Ankle Brachial Index Interpretation Summary Right NED 1.16, normal. Doppler/PVR waveforms of the right leg normal at rest. TBI and digit waveforms diminished, pedal/digit disease vs spasm. Left NED 1.12, normal. Doppler/PVR waveforms of the left leg normal at rest. Ordering Physician: Virgilio Sol Referring Physician: Kylie Anderson Performed By: Tamie Hatfield RVT
--- NOTE | 2022-06-13 09:06 | ADUL_ITS ---
Reason For Study: Atherosclerosis Right Velocities Ext. Iliac Artery, dist = 161.9 cm./sec. Common Femoral Artery, mid = 219.3 cm./sec. Supf Femoral Artery, prox = 160.4 cm./sec. SFA mid, prox to stent, 152.7 cm/sec. SFA mid, Prox Stent 1, 65 cm/sec. SFA mid/distal, Mid Stent 1, 77.2 cm/sec. SFA distal, Distal Stent 1, 67.4 cm/sec. SFA distal Prox Stent 2, 96.6 cm/sec. Remberto prox, Mid Stent 2, 93 cm/sec. Remberto mid, Distal Stent 2, 100.3 cm/sec. Remberto distal, distal to stent, 105.8 cm/sec. Profunda Femoral Artery = 98.6 cm./sec. Post. Tibial Artery, prox = 89.3 cm./sec. Post. Tibial Artery, mid = 102.1 cm./sec. Post. Tibial Artery, dist = 69.9 cm./sec. Peroneal Artery, prox = 52.7 cm./sec. Peroneal Artery, mid = 47.8 cm./sec. Peroneal Artery,dist = 23.2 cm./sec. Ant. Tibial Artery, prox = 315.2 cm./sec. Ant. Tibial Artery, mid = 71.1 cm./sec. Ant. Tibial Artery, dist = 102.1 cm./sec. Procedure Exam performed in department. VL/US Art Duplex Unilat Lower Ext Interpretation Summary Right external iliac, common femoral, profunda femoral, SFA/popliteal arteries patent with normal waveforms and velocities. No evidence of stenosis. Right posterior tibial artery patent with normal waveforms and velocities. No e vidence of stenosis Right peroneal artery with diminished waveforms and velocities Right anterior tibial artery with stenosis, elevated velocities proximal Ordering Physician: Virgilio Sol Referring Physician: Kylie Andesron Performed By: Tamie Hatfield RVT
== END | disposition home or self-care (01) ==
LOC: CVS 09:04
PROVIDERS: PCP Internal Medicine; Referring Provider Surgery Trauma Surgery; Visit Provider Surgery Trauma Surgery
DX: I70.221 Atherosclerosis of native arteries of extremities with rest pain, right leg (principal)
CPT/HCPCS: 93922; 93926

== ENCOUNTER → 2022-06-27 | Outpatient (CLI) | payer MEDICAID, SELFPAY ==
[2022-06-27 17:23] LABS: Microalbumin,Random Urine 92.3 mg/L (NO RANGE EST.); Microalbumin:Creatinine Ratio 34.2 mg/g CRE (<30 mg/g CRE)
== END | disposition home or self-care (01) ==
PROVIDERS: PCP Internal Medicine; Referring Provider Nurse Practitioner Family; Visit Provider Internal Medicine
DX: E11.9 Type 2 diabetes mellitus without complications (principal)
CPT/HCPCS: 82043; 82570

== ENCOUNTER → 2022-07-03 | Outpatient (CLI) | payer MEDICAID, SELFPAY ==
[2022-07-03 15:30] LABS: Absolute Lymphocyte Count 2.73 X10^3/uL (0.83-4.51); Absolute Neutrophil Count 13.5 X10^3/uL (2.0-7.7); Basophil# 0.11 X10^3/uL; Basophil% 0.6 % (0-1); Eosinophil# 0.48 X10^3/uL; Eosinophils% 2.7 % (0-5); Hematocrit 38.8 % (40-54); Hemoglobin 12.4 g/dL (13.0-16.5); Lymphocyte # 2.73 X10^3/ul (0.83-4.51); Lymphocyte % 15.3 % (19-41); Mean Corpuscular Hgb 28.7 pg (27.0-32.0); Mean Corpuscular Volume 89.8 fL (80-94); Mean Platelet Vol. 10.5 fl (6.2-12.0); Monocyte# 0.93 X10^3/uL; Monocyte% 5.2 % (0-10); NRBC Flagged by Analyzer 0 % (0-5); Neutrophil % 75.6 % (47-70); Platelet Count 509 K/mm3 (150-450); RBC Distribution Width CV 14.9 % (11.6-14.6); RBC Distribution Width SD 49.3 fl (35.1-43.9); Red Blood Count 4.32 M/mm3 (4.6-6.2); White Blood Count 17.9 K/mm3 (4.4-11.0)
[2022-07-03 16:27] LABS: Vitamin D,25 Hydroxy 27.5 ng/mL
[2022-07-03 16:32] LABS: AST(SGOT) 14 U/L (15-37); Alanine Aminotransfer ALT/SGPT 21 U/L (16-61); Albumin, Serum 3.6 g/dL (3.2-5.0); Alkaline Phosphatase 104 U/L (45-117); Anion Gap 8 (5-15); BUN 37 mg/dL (7-18); BUN/Creat Ratio 29.6 RATIO (10-20); Calcium,Total 9.1 mg/dL (8.5-10.1); Chloride 108 mmol/L (98-107); Creatinine, Serum 1.25 mg/dL (0.70-1.30); EST Glomerular Filtration Rate 63 mL/min (>60); Est Glom Filt Rate - Afr Amer 76 mL/min (>60); Globulin 3.7 g/dL (2.2-4.2); Glucose 88 mg/dL (74-106); Potassium 3.3 mmol/L (3.5-5.1); Protein, Total 7.3 g/dL (6.4-8.2); Sodium Level 141 mmol/L (136-145); Thyroid Stim Hormone (TSH) 2.28 uIU/mL (0.358-3.74)
[2022-07-03 19:41] LABS: Cholesterol 133 mg/dL (200); High Density Lipoprotein 44 mg/dL; Triglycerides 142 mg/dL; Very Low Density Lipoprotein 28 mg/dL (5-40)
== END | disposition home or self-care (01) ==
PROVIDERS: PCP Internal Medicine; Referring Provider Nurse Practitioner Family; Visit Provider Nurse Practitioner Family
DX: Z01.812 Encounter for preprocedural laboratory examination (principal); I96 Gangrene, not elsewhere classified; E55.9 Vitamin D deficiency, unspecified
CPT/HCPCS: 36415; 80053; 80061; 82306; 84443; 85025

== ENCOUNTER 2022-07-06 10:19 | Day surgery (SDC) | payer MEDICAID, SELFPAY ==
[2022-07-06] VITALS (7 sets, daily range): BP systolic 139–170; BP diastolic 75–94; PULSE 71–77; RESP 16–18; TEMP 36.7–37.3; O2SAT 95–100; BMI 30.2
[2022-07-06] MEDS: Lactated Ringers 1,000 ML 15 ML IV (11:02)
[2022-07-06 11:41] LABS: Bedside Glucose 108 mg/dL (74-106)
--- NOTE | 2022-07-06 11:48 | EKG12_ITS ---
Test Reason : PREOP Blood Pressure : / mmHG Vent. Rate : 073 BPM Atrial Rate : 073 BPM P-R Int : 186 ms QRS Dur : 104 ms QT Int : 436 ms P-R-T Axes : 030 -07 051 degrees QTc Int : 480 ms Normal sinus rhythm Prolonged QT Abnormal ECG No previous ECGs available Confirmed by JACLYN CASTELAN, MARLENE ([id number]), associate entertainment editor LAST GARRETT ([id number]) on 07/10/2022 9:13:22 AM Referred By: Noble Khan Confirmed By:MARLENE ANAYA MD
--- NOTE | 2022-07-06 11:48 | DCINST_ITS ---
Discharge Instructions Diet Discharge Diet: No restrictions Activity Discharge Activity: May Shower (May shower with cast bag covering right lower extremity. Keep dressings clean, dry, and intact to the right foot.) Weight Bearing Status: Partial weight bearing (Weightbearing to heel in surgical shoe to right foot) Keep extremity elevated above heart level: Right Leg (Keep right leg elevated at all times of rest for postoperative edema control) Dressing / Incision Call your doctor if you observe: Fever of 101 or Higher, Chest pain, Calf discomfort and Uncontrolled pain Change Dressing in: do not change dressing Remove Dressing in: leave in place till F/U (Physician will change dressing at first postop appointment) Cleanse incision/area with: Do not get Incision Wet and Keep Dressing Clean & Dry (Keep dressings clean, dry, and intact to the right foot) Follow Up Care Please Follow Up With: Noble Khan DPM When: Patient has first postoperative appointment in office next week Test Results: Test results from this visit will be discussed in further detail at your follow- up appointment, if applicable. Discharge Plan Admission Attending Provider: Noble Khan Primary Care Provider: Kylie Anderson Discharge Orders/Prescriptions Prescriptions: New oxycodone-acetaminophen 5-325 mg tablet 1 tab PO Q6H PRN (Reason: pain) 7 Days Qty: 28 0RF doxycycline hyclate 100 mg capsule 100 mg PO BID Qty: 10 0RF No Action clopidogrel [Plavix] 75 mg tablet 75 mg PO DAILY Qty: 90 3RF Xarelto 2.5 mg tablet 2.5 mg PO BID Qty: 180 3RF lisinopril 20 mg tablet 20 mg PO QHS Qty: 90 3RF lisinopril-hydrochlorothiazide 20-25 mg tablet 1 tab PO DAILY Qty: 90 1RF atorvastatin 40 mg tablet 40 mg PO DAILY Qty: 90 3RF potassium chloride 10 mEq capsule, extended release 10 meq PO DAILY Qty: 90 1RF potassium chloride 10 mEq capsule, extended release 10 meq PO BID Qty: 90 1RF Referrals / Follow Up: Kylie Anderson MD [Primary Care Provider] - Disposition Disposition (needs filled in before D/C Order can be placed): Home, Self Care
--- NOTE | 2022-07-06 12:00 | BON_PTH ---
PATIENT: JO ANN MADDOX LOC: [facility] [place] U#:[id number] AGE/SX: 62/M ROOM: RE07/06/[address]: Dr. Noble Khan DPM : 1960 BED: DIS: 07/06/2022 SPEC #: [id number] RECD: 07/09/22 08:44 STATUS: SOFÍA REGabriela #: [id number] MUKUND: 07/06/22 12:[address]: Noble Khan DEPT: SURGICAL PATHOLOGY RECD BY: Kenzie Craig ENTERED: 07/09/22 10:04 SP TYPE: Bone OTHR DR: Dr. Kylie Anderson MD Tissues: Toe, NOS Procedures: Decalcification bone/plaque Surgery Specimen Level IV HEADER OPERATION: Amputation fourth digit PRE-OP DIAGNOSIS: Gas gangrene right fourth toe TISSUE SUBMITTED: Fourth right toe MICROSCOPIC DIAGNOSIS Fourth right toe, amputation: Skin and soft tissue with ulceration and associated gangrenous necrosis. Bone with acute osteomyelitis. AM:blanche 07/11/2022 MICROSCOPIC DESCRIPTION Slides are reviewed. GROSS DESCRIPTION Received in fixative is one container labeled with the patient's name and designated fourth right toe. The specimen consists of a portion of toe measuring 5.0 x 2.5 x 1.5 cm. The distal portion of the skin is brownish-black and gangrenous. Also present in the container are detached pieces of soft tissue measuring in aggregate 1.5 x 1.0 x 0.3 cm. Flavor Tank Tender sections are submitted in three cassettes as follows: 1 ? detached pieces of tissue and gangrenous area, 2 & 3 ? bone after decalcification. The resection margin is inked black. / SJ:blanche 07/09/2022 TC:2 CPT: 98554, 69199
--- NOTE | 2022-07-06 16:20 | RAD_ITS ---
INDICATION: AMPUTATION 4TH DIGIT EXAMINATION/TECHNIQUE: X-RAY - RIGHT XR Foot 2 Views. 4 views. COMPARISON: None. FINDINGS: Total fluoroscopy time: 6 seconds Total cGy*cm2: 0.6140 Fluoroscopic support post amputation of the fourth digit, 4 images obtained, 2 prior to amputation and 2 post amputation. RAD/Foot 2 Views IMPRESSION: Fluoroscopic support post 4th digit amputation. Electronically Signed: Sedrick Polanco MD at 18:02 EDT ,
[2022-07-06] MEDS: Cefazolin 2 GM in 0.9% Normal Saline 100 ML IV (16:45)
[2022-07-06] MEDS: Bupivacaine 0.5% PF 10 ML VIAL (16:50)
[2022-07-06] MEDS: Lidocaine 1% (20 ml mdv) 20 ML Vial (16:50)
--- NOTE | 2022-07-06 17:43 | OP.PCM_ITS ---
Problems Associated Problem List Diagnoses (1) Gangrene of toe of right foot: (2) Atherosclerosis of right lower extremity: (3) Dry gangrene: (4) Atherosclerosis of right lower extremity with gangrene: (5) Nicotine abuse: Report of Operation Date of Procedure: 07/06/22 Pre-Operative Diagnosis: 1. Dry gangrene fourth digit right foot Post-Operative Diagnosis: 1. Dry gangrene fourth digit right foot Surgery/Procedure Performed:: Amputation of fourth digit right foot Description of Surgical Findings:: See operative note for findings Surgeon: Noble Khan cotton farmworker: Dominga Lara DPM PGY-1 Type of Anesthesia: Local (10 cc one-to-one mixture 1% lidocaine plain and 0.5% Marcaine plain) and MAC Specimen's removed: Fourth digit of the right foot Drains: None Estimated Blood Loss (mL): < 15mL Description of Procedure: HPI/indication: Patient is a 62-year-old male with history of atherosclerosis of the right lower extremity with dry gangrene of the right fourth digit. He und erwent amputation of the fifth digit of the right foot on 02/16/[address] Sol on 12/27/2021. Patient continues to smoke and had new onset of claudication in the legs and did see Dr. Sol for a second angioplasty with placement of 2 stents. He had been cleared by vascular to proceed forward with fourth digit amputation of the right foot to treat his dry gangrene. Patient stated that following intervention is when the digit turned black. Patient did present to the office to discuss surgical intervention. He understands that this is a limb salvage procedure and wishes to proceed forward with the amputation of the fourth digit of the right foot. I discussed the procedure in great detail. Reviewed conditions and reviewed treatment options. Discussed that this is not an elective procedure but is a limb salvage procedure. Reviewed the rationale of this with the patient in great detail. We discussed the possible benefits versus risk of potential complications in detail. Advised patient the risk include, but are not limited to the following: Pain, continued pain, complex regional pain syndrome, deformity, continued deformity, recurrence, numbness/neuritis, phantom limb pain, swelling, scarring, poor cosmetic result, bleeding, need for further surgery/procedures, fracture, nonhealing/delayed healing, dehiscence, infection, blood clot, allergic reaction, transfer lesions, weakness, shoe gear problems, inability to walk, inability to wear shoes, stroke, heart attack, addiction to pain medication, loss of function, loss of limb, and loss of life. Patient expressed understanding and agreement of these. Patient was able to repeat these back. The alternative options were discussed with the patient in great detail. Reviewed all of the risks versus possible benefits of all options. Typical postoperative course was reviewed with the patient. Patient expressed understanding and agreement. The consent forms were reviewed and patient signed them freely. No guarantees were given. No promises were made. He voices understanding of our surgical discussion. He did undergo clearance by his PCP prior to surgical intervention. Reviewed all diagnostic data prior to surgery. Operative limb was signed prior to entering the OR. He was scheduled to undergo amputation of the fourth digit of the right foot on 07/06/2022 at [facility]. Procedure: Under mild sedation patient was brought into the operating placed on the table in a supine position. Following IV anesthesia a pneumatic ankle tourniquet was placed about the patient's right ankle but not inflated. A bump was placed under the right hip. A local anesthetic block was performed about the proximal portion of the fourth ray consisting of 10 cc one-to-one mixture of 1% lidocaine plain and 0.5% Marcaine plain. The foot was then scrubbed, prepped, and draped in the usual aseptic manner. Fluoroscopy was utilized prior to incision demonstrating fourth digit of the right foot and multiple fluoroscopic views. The fourth digit demonstrated dry gangrene from the level of the mid shaft of the proximal phalanx extending distally encompassing the digit. At this time attention was directed to the dry, gangrenous fourth digit of the right foot where a fishmouth shaped incision was performed about the fourth digit utilizing a #15 blade. Incision was made straight to bone and deepened utilizing sharp dissection. The digit was then sharply disarticulated at the metatarsophalangeal joint and passed from the field to the table in toto. Digit was sent to pathology for analysis. The extensor tendon was next identified and retracted with a hemostat and sectioned as far proximal as possible. The flexor tendon was then identified and retracted with a hemostat dissection as far proximal as possible. The remaining surrounding soft tissues were noted to be of healthy, bleeding, and viable tissue. The fourth metatarsal head was noted to be of hard consistency and shiny cartilage intact. Next, the site was irrigated with copious amounts of normal sterile saline. Again surrounding tissues were examined and noted to be of healthy, bleeding, and viable tissue. Fluoroscopic imaging was again obtained in multiple views demonstrating amputation of the fourth digit. Next, the subcutaneous tissues were closed with a 4-0 Vicryl. The skin was then reapproximated utilizing 3-0 Prolene in simple interrupted fashion. The surgical site was dressed with Betadine soaked Adaptic, 4 x 4 gauze, Kerlix, and a 4 inch Lemuel wrap rolled onto the foot. The patient tolerated the procedure and anesthesia well was transported to PACU with vital signs stable vascular status intact to the digits of the right foot. Postoperative films obtained in PACU and reviewed prior to leaving. Discharge instructions were given to patient and family outlining postoperative care. Patient is to keep dressings clean, dry, and intact to the right foot. He is to continue elevating the right foot at all times of rest for postoperative edema control. He may ambulate to the heel of the right foot with the assistance of a surgical shoe. These are out postoperative instructions. Patient understands the need per our discussion to stop smoking. Given patient's history and lack of cleanliness he was placed on oral antibiotics following procedure. He has first postoperative appointment with me in office next week. Grafts/Implants Used: None Complications None Admit VTE Documentation VTE Present on Admission: Yes VTE Mechan Device Prophylaxis: SCD's VTE Pharm Prophylaxis ordered?: No Reason prophylaxis not ordered:: Procedure Not Indicated (Patient already on anticoagulant therapy. He will resume medication tomorrow.)
--- NOTE | 2022-07-06 17:45 | RAD_ITS ---
INDICATION: Postop fourth digit amputation EXAMINATION/TECHNIQUE: X-RAY - RIGHT XR Foot Min 3 Views 3 VIEWS COMPARISON: Right foot x-rays 02/16/2022. FINDINGS: BONES: Interval amputation of the fourth digit at the MTP joint level. Prior amputation of the fifth digit at the MTP joint. No acute fracture. Calcaneal spurs at the plantar and Achilles insertion sites. JOINTS: No dislocation. SOFT TISSUES: Soft tissue swelling overlying the surgical site with small focus of air in soft tissues. RAD/Foot min 3 Views IMPRESSION: Postop amputation of the fourth digit at the MTP joint. Prior fifth digit amputation. Electronically Signed: Mindy Maloney MD at 23:37 EDT ,
== END 2022-07-06 18:41 | disposition home or self-care (01) ==
LOC: SDC 10:20 → AC 10:22
PROVIDERS: PCP Internal Medicine; Referring Provider Student in an Organized Health Care Education/Training Program; Visit Provider Student in an Organized Health Care Education/Training Program
PROC: (CPT 28820; principal; 2022-07-06 11:45)
DX: I70.261 Atherosclerosis of native arteries of extremities with gangrene, right leg (principal); F17.210 Nicotine dependence, cigarettes, uncomplicated; E78.00 Pure hypercholesterolemia, unspecified; I10 Essential (primary) hypertension; Z79.899 Other long term (current) drug therapy; Z79.01 Long term (current) use of anticoagulants
CPT/HCPCS: 28820; 01470; 73620; 73630; 76000; 82962; 88305; 88311; 93005; J7120

== ENCOUNTER → 2022-11-28 | Outpatient (CLI) | payer MEDICAID, SELFPAY ==
--- NOTE | 2022-11-28 09:50 | ART_ITS ---
Reason For Study: S/P right SFA/Pop/TP Trunk angioplasty Procedure A bilateral lower extremity continuous wave Doppler with analog waveform analysis and ankle brachial indexes. Left Segmental Pressures Left brachial= 192mmHg. Left posterior tibial artery = 202mmHg. Left dorsalis pedis artery = 200mmHg. The left dorsalis pedis waveforms are triphasic. The left posterior tibial artery waveforms are triphasic. Right Segmental Pressures Right brachial= 186mmHg. Right posterior tibial artery = 217mmHg. Right dorsalis pedis artery = 232mmHg. Right digit = 163 mmHg. The right dorsalis pedis waveforms are triphasic. The right posterior tibial artery waveforms are triphasic. Indices The right ankle brachial index by the dorsalis pedis is 1.21. The right ankle brachial index by the posterior tibial artery is 1.13. The right digital-brachial index is 0.85. The left ankle brachial index by the dorsalis pedis is 1.04. The left ankle brachial index by the posterior tibial artery is 1.05. VL/Ankle Brachial Index Interpretation Summary Right NED 1.21, normal. TBI and Doppler/PVR waveforms of the right leg normal a t rest. Left NED 1.05, normal. Doppler/PVR waveforms of the left leg normal at rest. Ordering Physician: Beth Hill Referring Physician: Kylie Anderson Performed By: aTmie Hatfield RVT
--- NOTE | 2022-11-28 09:55 | ADUL_ITS ---
Reason For Study: S/P right SFA/Pop/TP Trunk angioplasty Right Velocities Ext. Iliac Artery, dist = 254.6 cm./sec. Common Femoral Artery, mid = 337.1 cm./sec. SFA origin, 177.5 cm/sec. SFA prox, 222.7 cm/sec. SFA mid, prox to stent, 180.7 cm/sec. SFA mid, Prox Stent 1, 227.2 cm/sec. SFA mid/distal, Mid Stent 1, 90.5 cm/sec. SFA distal, Distal Stent 1, 74.7 cm/sec. SFA distal Prox Stent 2, 124 cm/sec. Remberto prox, Mid Stent 2, 151.2 cm/sec. R[place]to mid, Distal Stent 2, 140.3 cm/sec. [place]to distal, distal to stent, 127.1 cm/sec. Profunda Femoral Artery = 119 cm./sec. Post. Tibial Artery, prox = 89.3 cm./sec. Post. Tibial Artery, mid = 96.6 cm./sec. Post. Tibial Artery, dist = 76.5 cm./sec. Peroneal Artery, prox = 18.6 cm./sec. Peroneal Artery, mid = 42.7 cm./sec. Peroneal Artery,dist = 19.1 cm./sec. Ant. Tibial Artery, prox = 127.1 cm./sec. Ant. Tibial Artery, mid = 94.2 cm./sec. Ant. Tibial Artery, dist = 129.3 cm./sec. Procedure Exam performed in department. VL/US Art Duplex Unilat Lower Ext Interpretation Summary Right lower extremity arteries patent with mildly elevated velocities in the pr oximal SFA stent with normal waveforms throughout. Ordering Physician: Beth Hill Referring Physician: Kylie Anderson Performed By: Tamie Hatfield RVT
== END | disposition home or self-care (01) ==
PROVIDERS: PCP Internal Medicine; Referring Provider Physician Assistant; Visit Provider Physician Assistant
DX: I70.201 Unspecified atherosclerosis of native arteries of extremities, right leg (principal); Z48.812 Encounter for surgical aftercare following surgery on the circulatory system
CPT/HCPCS: 93922; 93926

== ENCOUNTER 2023-06-25 15:11 | Inpatient (IN) | payer SELFPAY ==
[2023-06-25 15:12] VITALS: BP 183/68; PULSE 84; RESP 24; TEMP 35.9; O2SAT 100; BMI 33.0
--- NOTE | 2023-06-25 15:43 | EDS_ITS ---
HPI History of Present Illness Chief Complaint: Lower Extremity Injury PFSH
--- NOTE | 2023-06-25 15:43 | EX.ED.DYSGE1 ---
HPI History of Present Illness Chief Complaint: Lower Extremity Injury [facility] Medical History Amputation of left great toe (~03/2019) Atherosclerosis of right lower extremity with rest pain Detached retina (~05/2019) Diabetes DM2 (diabetes mellitus, type 2) Former smoker Gangrene of toe of right foot Hepatitis High cholesterol History of stress test Hx of retinal detachment Infected pilonidal cyst Neuropathy Open wound PAD (peripheral artery disease) Preoperative clearance Vitamin D deficiency Wears glasses Home Medications potassium chloride 10 mEq capsule,extended release 10 meq PO DAILY #90 caps 02/13/22 [Rx Last Taken Unknown] clopidogrel 75 mg tablet (Plavix) 75 mg PO DAILY #90 tabs 06/07/22 [Rx Last Taken 07/03/22] rivaroxaban 2.5 mg tablet (Xarelto) 2.5 mg PO BID #180 tabs 06/07/22 [Rx Last Taken 07/03/22] atorvastatin 40 mg tablet 40 mg PO DAILY #90 tabs 06/27/22 [Rx Last Taken Unknown] lisinopril 20 mg tablet 20 mg PO QHS #90 tabs 06/27/22 [Rx Last Taken 07/06/22] lisinopril 20 mg-hydrochlorothiazide 25 mg tablet 1 tab PO DAILY #90 tabs 06/27/22 [Rx Last Taken Unknown] potassium chloride 10 mEq capsule,extended release 10 meq PO BID #90 caps 07/04/22 [Rx Last Taken Unknown] doxycycline hyclate 100 mg capsule 100 mg PO BID #10 caps 07/06/22 [Rx Last Taken Unknown] oxycodone-acetaminophen 5 mg-325 mg tablet 1 tab PO Q6H PRN pain 7 days #28 tabs 07/06/22 [Rx Last Taken Unknown] Allergy/AdvReac Type Severity Reaction Status Date / Time No Known Allergies Allergy Verified 07/06/22 10:58 Family History Mother No significant family history Surgical History History of amputation of left great toe Hx of angioplasty Hx of cataract surgery Hx of detached retina repair Social History household members: none housing: apartment current occupational status: employed 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 sexually active: No Smoking Status: Current every day smoker tobacco type: cigarettes Electronic Cigarette Use: not used quit status: considering quitting alcohol intake: never substance use type: does not use what type of physical activity do you participate in: none seatbelt use: always do you feel safe at home: Yes EXAM Physical Exam Const Vital Signs: 06/25/23 15:12 06/25/23 16:33 Temperature 96.6 F L Temperature Source Temporal Pulse Rate 84 72 Respiratory Rate 24 H 14 Blood Pressure 183/68 H 172/82 H Blood Pressure Mean 106 112 Pulse Ox 100 94 Oxygen Delivery Method Room Air Room Air MDM MDM MDM Narrative Medical decision making narrative: HISTORY OF PRESENT ILLNESS: 63-year-old male presents with leg pain. Notes right leg pain history of stents. Further states he has crampy pain with exertion. Denies any falls or trauma. Notes compliance with Xarelto although he states he missed taking it today. Denies any bleeding diathesis. Denies any rash fever. Denies any calf tenderness or leg swelling. REVIEW OF SYSTEMS: Pertinent positives: Leg pain Pertinent negatives: Fever, vomiting, rash PHYSICAL EXAM: Nursing triage notes reviewed, Vital signs reviewed Constitutional: please see mdm HENT: MMM Eyes: Pupils equal round and reactive to light, Extraocular muscles intact Neck: No stridor, no JVD, full neck ROM Lungs: Clear to auscultation, No wheezing or rales. No increased work of breathing, no conversational dyspnea, no accessory muscle use, no nasal flaring. No respiratory distress noted Heart: Regular rate and rhythm, No murmurs, No rubs and No gallops, 2+ distal pulses (radial, femoral, posterior tibial) in 3 extremities, right lower EXTR without palpable o or dopplerable pulses Abdomen: Soft, there is no tenderness, rigidity, rebound or guarding, no obvious peritoneal signs, no palpable pulsatile abdominal masses, no auscultated abdominal bruit : No CVAT Extremities: No edema Neuro: No focal neurological deficits, cranial nerves II through XII intact, 5/5 strength in all extremities. Intact sensation to light touch in all extremities, 2+ reflexes bilateral patella tendons. Normal gait. No ataxia. Skin: N slight discoloration and dusky appearance of right lower extremity MEDICAL DECISION MAKING: Chief Complaint: Leg pain External records reviewed: Prior ABIs reviewed: Indices The right ankle brachial index by the dorsalis pedis is 1.21. The right ankle brachial index by the posterior tibial artery is 1.13. The right digital-brachial index is 0.85. The left ankle brachial index by the dorsalis pedis is 1.04. The left ankle brachial index by the posterior tibial artery is 1.05. Factors affecting care: Peripheral vascular disease Social determinants of health: Tobacco abuse History obtained from others: none Consults: Vascular Surgery ([facility] working with Dr. Sol) MDM Narrative: Patient was initially hypertensive and tachypnea afebrile nontoxic-appearing. Right lower extremity with dusky appearance and no palpable or dopplerable pulses. I considered the following differential diagnosis: Arterial occlusion, fracture dislocation, cellulitis, necrotizing fasciitis, DVT The patient's clinical exam is most consistent with acute arterial occlusion I start the patient empirically on heparin and I obtained labs to assess the patient's coagulation status, anemia status, signs of muscle damage as well as an image of the aorta with runoff to determine extent of occlusion ALL IMAGES (IF OBTAINED) HAVE BEEN PERSONALLY REVIEWED AND INTERPRETED BY MYSELF. CBC with leukocytosis suggestive of systemic inflammation, mild anemia, no thrombocytopenia No coagulopathy noted BMP without evidence of significant electrolyte abnormalities, no anion gap, no acute kidney injury. CK within normal limits CT of the aorta with runoff was read reviewed by myself and vascular surgery JESUS Campos. Concern for stent reocclusion. Patient continued on heparin admitted under vascular surgery service to the PCU per Dr. Sol's instructions. The patient and/or family, caregivers express understanding. The patient and/or family, caregivers agrees with the plan. Shared decision making: I will have a discussion with the patient and or visitors regarding risk/benefits of further testing or admission. They will be made aware of of the risk/benefits inherent in this decision they will be given the opportunity to voice understanding. Total critical care time today provided was at least 35 minutes. This excludes separately billable procedures. Critical care time (if documented) is secondary to the patient having high probability of clinically significant/life threatening deterioration in the patient's condition which required my urgent intervention. Impression: 1. Acute limb ischemia 2. History of peripheral artery disease 3. Hypertension Dispo: Admit This note was generated with Take the Interviewation software. It may contain incorrect words, spelling, and punctuation that were not noted in review of the chart prior to signing. Lab Data Labs: Laboratory Results - last 24 hr 06/25/23 06/25/23 06/25/23 16:20 16:20 16:20 WBC 15.8 H RBC 4.51 L Hgb 12.5 L Hct 38.1 L MCV 84.5 MCH 27.7 MCHC 32.8 RDW Std Deviation 45.8 H RDW Coeff of Corina 14.9 H Plt Count 369 MPV 10.6 Immature Gran % (Auto) 0.800 Neut % (Auto) 83.0 H Lymph % (Auto) 7.9 L [place] % (Auto) 7.1 Eos % (Auto) 0.8 Baso % (Auto) 0.4 Absolute Neuts (auto) 13.1 H Absolute Lymphs (auto) 1.24 Nucleated RBC % 0 PT Cancelled 13.8 INR Cancelled 1.1 APTT Cancelled Sodium Potassium Chloride Carbon Dioxide Anion Gap BUN Creatinine Estim Creat Clear Calc Est GFR (MDRD) Af Amer Est GFR (MDRD) Non-Af BUN/Creatinine Ratio Glucose Calcium Total Creatine Kinase 06/25/23 16:20 WBC RBC Hgb Hct MCV MCH MCHC RDW Std Deviation RDW Coeff of Corina Plt Count MPV Immature Gran % (Auto) Neut % (Auto) Lymph % (Auto) [place] % (Auto) Eos % (Auto) Baso % (Auto) Absolute Neuts (auto) Absolute Lymphs (auto) Nucleated RBC % PT INR APTT 33.5 Sodium 138 Potassium 3.7 Chloride 108 H Carbon Dioxide 24.0 Anion Gap 6 BUN 26 H Creatinine 1.26 Estim Creat Clear Calc 79.03 Est GFR (MDRD) Af Amer 75 Est GFR (MDRD) Non-Af 62 BUN/Creatinine Ratio 20.6 H Glucose 125 H Calcium 9.0 Total Creatine Kinase 96 Discharge Plan Triage Chief Complaint: Lower Extremity Injury ED Provider: Aston Mcclure Dx/Rx/DC Orders Prescriptions: No Action clopidogrel [Plavix] 75 mg tablet 75 mg PO DAILY Qty: 90 3RF Xarelto 2.5 mg tablet 2.5 mg PO BID Qty: 180 3RF lisinopril 20 mg tablet 20 mg PO QHS Qty: 90 3RF lisinopril-hydrochlorothiazide 20-25 mg tablet 1 tab PO DAILY Qty: 90 1RF atorvastatin 40 mg tablet 40 mg PO DAILY Qty: 90 3RF oxycodone-acetaminophen 5-325 mg tablet 1 tab PO Q6H PRN (Reason: pain) 7 Days Qty: 28 0RF doxycycline hyclate 100 mg capsule 100 mg PO BID Qty: 10 0RF potassium chloride 10 mEq capsule, extended release 10 meq PO DAILY Qty: 90 1RF potassium chloride 10 mEq capsule, extended release 10 meq PO BID Qty: 90 1RF Primary Care Provider: Kylie Anderson Referrals: Kylie Anderson MD [Primary Care Provider] -
--- NOTE | 2023-06-25 16:06 | CT_ITS ---
We are attempting to reach an attending provider to discuss findings. An addendum with communication details will be sent when the communication is complete. STUDY: CTA OF THE ABDOMINAL AORTA AND BILATERAL LOWER EXTREMITIES REASON FOR EXAM: Male, 63 years old. right leg ishcemia RADIATION DOSAGE (If Supplied By Facility): CTDIvol = ( 9.47 ) mGy, DLP = ( 1854.08 ) mGycm TECHNIQUE: Axial CT angiography multi-detector data acquisition was obtained from the to the following intravenous administration of IV 100mL Isovue-370. Axial images and MIP images were reconstructed from the axial data set. Post-processing of the angiographic images was performed, with multiplanar reformation and 3D reconstruction. Individualized dose optimization techniques were used for this CT. TECHNICAL QUALITY: Good COMPARISON: None. Descriptors of Narrowing: None (0%) Mild (< 50%) Moderate (50-70%) Severe (70-90%) Subtotal/Total Occlusion (90-100%) Non-Evaluable (technically non-diagnostic FINDINGS: Abdominal aorta: Mild diffuse soft and calcific plaquing without significant narrowing. Celiac and superior mesenteric arteries: No demonstrated narrowing. Inferior mesenteric artery: No demonstrated narrowing. Right renal artery(arteries): No demonstrated narrowing. Left renal artery(arteries): No demonstrated narrowing. Right common iliac artery: Mild calcific plaquing without significant narrowing. Right external iliac artery: No demonstrated narrowing. Right internal iliac artery: No demonstrated narrowing. Left common iliac artery: Mild calcific plaquing without significant narrowing. Left external iliac artery: No demonstrated narrowing. Left internal iliac artery: No demonstrated narrowing. RIGHT LOWER EXTREMITY Right common femoral artery: No demonstrated narrowing. Right profundus femoris: No demonstrated narrowing. Right superficial femoral: Mild soft and calcific plaquing without significant narrowing. There is occlusion of the mid superficial femoral proximal to stent Right popliteal artery: There is an occluded mid superficial femoral-popliteal stent. Reconstituted distal popliteal Right tibioperoneal trunk: No demonstrated narrowing. Right anterior tibial artery: No demonstrated narrowing. Right posterior tibial artery: No demonstrated narrowing. Right peroneal artery: No demonstrated narrowing. LEFT LOWER EXTREMITY Left common femoral artery: Mild soft and calcific plaquing without significant narrowing. Left profundus femoris: No demonstrated narrowing. Left superficial femoral: Mild calcific plaquing without significant narrowing. Left popliteal artery: No demonstrated narrowing. Left tibioperoneal trunk: No demonstrated narrowing. Left anterior tibial artery: No demonstrated narrowing. Left posterior tibial artery: No demonstrated narrowing. Left peroneal artery: No demonstrated narrowing. CT/CTA Abd w/Runoff W/WO Contrast IMPRESSION: Atherosclerotic changes with most severe involvement of the right lower extremity. There is occlusion of the mid superficial femoral artery just proximal to a stent which also becomes occluded with reconstitution of the distal popliteal and calf vessels. Electronically Signed: David Perera MD at 18:53 EDT ,
[2023-06-25 16:33] VITALS: BP 172/82; PULSE 72; RESP 14; O2SAT 94
[2023-06-25] MEDS: Lisinopril 20 MG Tablet PO (16:33)
[2023-06-25 16:41] LABS: Absolute Lymphocyte Count 1.24 X10^3/uL (0.83-4.51); Absolute Neutrophil Count 13.1 X10^3/uL (2.0-7.7); Basophil# 0.06 X10^3/uL; Basophil% 0.4 % (0-1); Eosinophil# 0.13 X10^3/uL; Eosinophils% 0.8 % (0-5); Hematocrit 38.1 % (40-54); Hemoglobin 12.5 g/dL (13.0-16.5); Lymphocyte # 1.24 X10^3/ul (0.83-4.51); Lymphocyte % 7.9 % (19-41); Mean Corp Hgb Conc 32.8 g/dL (32-36); Mean Corpuscular Hgb 27.7 pg (27.0-32.0); Mean Corpuscular Volume 84.5 fL (80-94); Mean Platelet Vol. 10.6 fl (6.2-12.0); Monocyte# 1.12 X10^3/uL; Monocyte% 7.1 % (0-10); NRBC Flagged by Analyzer 0 % (0-5); Neutrophil # 13.08 X10^3/uL (2.7-7.7); Platelet Count 369 K/mm3 (150-450); RBC Distribution Width CV 14.9 % (11.6-14.6); RBC Distribution Width SD 45.8 fl (35.1-43.9); Red Blood Count 4.51 M/mm3 (4.6-6.2); White Blood Count 15.8 K/mm3 (4.4-11.0)
--- NOTE | 2023-06-25 16:45 | NURSING ---
GOSIA, VASCULAR, IN ROOM
[2023-06-25 16:50] LABS: International Normalized Ratio 1.1; Prothrombin Time (Protime)PT. 13.8 SECONDS (11.7-14.9)
[2023-06-25 16:51] LABS: Partial Thromboplast Time 33.5 Seconds (24.1-36.2)
[2023-06-25] MEDS: Heparin Injection (Vial) 5,000 UNIT/ML VIAL 4000 UNIT IV (17:03)
[2023-06-25] MEDS: HEPARIN/D5w 25,000 UNITS 25,000 UNITS/250 ML IV.SOLN. 10 UNITS CONT INF (17:07)
[2023-06-25 17:11] LABS: Anion Gap 6 (5-15); BUN 26 mg/dL (7-18); BUN/Creat Ratio 20.6 RATIO (10-20); CPK Total, Creatine Kinase 96 U/L (39-308); Chloride 108 mmol/L (98-107); Creatinine, Serum 1.26 mg/dL (0.70-1.30); EST Glomerular Filtration Rate 62 mL/min (>60); Est Glom Filt Rate - Afr Amer 75 mL/min (>60); Estimated Creatinine Clearance 79.03 ml/min; Glucose 125 mg/dL (74-106); Potassium 3.7 mmol/L (3.5-5.1); Sodium Level 138 mmol/L (136-145)
--- NOTE | 2023-06-25 17:45 | EX.PCM.CON.S ---
Assessment & Plan Assessment/Plan (1) Atherosclerosis of right lower extremity with rest pain: (2) Occlusion of stent of peripheral artery: PLAN: Plan CTA images were reviewed and show occlusion of his prior R SFA stent with distal reconstitution with runoff into the foot. His physical exam shows intact sensory and motor function. 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 Continue therapeutic heparin drip per protocol. NPO after midnight. Due to increased pain with RLE dependency, will also obtain a venous duplex to r/o associated DVT. This will not alter current plans for intervention but will inform anticoagulation regimen at d/c. HPI Consult Data Date of Consult: 06/25/23 HPI Narrative HPI Narrative: JO ANN MADDOX, is a 63 M who presented to the [facility] ER today with acute RLE rest pain from the knee down. The pain is a severe aching/cramping sensation. It started all of a sudden this morning with no identifiable trigger. he denies any claudication in the weeks/months leading up to this. He does have neuropathy at baseline, he does not feel he has any numbness/paresthesias worse than usual. He is able to move his toes and foot and feels his strength is at baseline. Fortunately, no new wounds. Curiously, he reports his foot actually feels worse with dangling and feels better resting on the bed. He reports that he has been taking his Xarelto 2.5mg BID but did miss these doses yesterday/today. He has not been taking ASA or Plavix, unclear why. He does continue to smoke. He did miss his office follow-up and 6-month imaging last month, he reports he was too busy with work and not having any issues at the time. He is also hypertensive. He states that he takes his blood pressure medications most of the time. He does not check his blood pressures at home. He denies any CP, SOB, RUBI, vision changes, palpitations. He has no other complaints today. He is not diabetic. He denies any other significant medical history. FOR[facility]LY [facility], [facility] Medical History (Updated 06/25/23 @ 18:02 by JESUS Anguiano) Amputation of left great toe (~03/2019) Atherosclerosis of right lower extremity with rest pain Detached retina (~05/2019) Diabetes DM2 (diabetes mellitus, type 2) Former smoker Gangrene of toe of right foot Hepatitis High cholesterol History of stress test Hx of retinal detachment Infected pilonidal cyst Neuropathy Open wound PAD (peripheral artery disease) Preoperative clearance Vitamin D deficiency Wears glasses Home Medications clopidogrel 75 mg tablet (Plavix) 75 mg PO DAILY blood thinner #90 tabs 06/07/22 [Rx Last Taken 06/24/23] rivaroxaban 2.5 mg tablet (Xarelto) 2.5 mg PO BID blood thinner #180 tabs 06/07/22 [Rx Last Taken 06/24/23] atorvastatin 40 mg tablet 40 mg PO DAILY cholesterol #90 tabs 06/27/22 [Rx Last Taken 06/24/23] lisinopril 20 mg tablet 20 mg PO QHS blood pressure #90 tabs 06/27/22 [Rx Last Taken 06/24/23] lisinopril 20 mg-hydrochlorothiazide 25 mg tablet 1 tab PO DAILY blood thinner #90 tabs 06/27/22 [Rx Last Taken 06/24/23] aspirin 81 mg tablet,delayed release (Adult Aspirin Regimen) 81 mg PO DAILY heart health 06/25/23 [History Last Taken 06/24/23] Allergy/AdvReac Type Severity Reaction Status Date / Time No Known Allergies Allergy Verified 07/06/22 10:58 Family History Mother No significant family history Surgical History History of amputation of left great toe Hx of angioplasty Hx of cataract surgery Hx of detached retina repair Social History household members: none housing: apartment current occupational status: employed 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 sexually active: No Smoking Status: Current every day smoker tobacco type: cigarettes Electronic Cigarette Use: not used quit status: considering quitting alcohol intake: never substance use type: does not use what type of physical activity do you participate in: none seatbelt use: always do you feel safe at home: Yes Physical Exam Const alert, oriented x3 and no apparent distress General Appearance: cooperative HEENT normocephalic, head/scalp atraumatic, hearing grossly normal bilaterally, external ears normal and external nose normal Nose: external nose normal Eyes EOMs intact bilaterally General Eye: normal appearance of both eyes Neck General: normal visual inspection and trachea midline Resp normal respiratory effort, normal air movement, no retractions, no use of accessory muscles and clear to auscultation bilaterally Effort and Inspection: able to speak in complete sentences; Negative for labored or stridor Auscultation: diminished lung sounds Cardio regular rate, regular rhythm and no murmurs Extremity Extremity Narrative: RLE with some pallor in the R foot. R foot is mildly cooler than L. Sensation is intact to his baseline. Motor function and strength intact. No palpable or dopplerable pulse in the R foot. There is a dopplerable popliteal pulse with good signal. R calf nontender and soft to palpation. Skin no rashes or lesions noted Wounds: amputation other R fifth digit amputation, well healed. Neuro oriented x3, CN's II-XII intact bilaterally, moves all extremities, no focal motor deficits and no sensory deficits noted Motor Exam: strength 5/5 throughout Psych mental status grossly normal Appearance: grossly normal Attitude: calm and engaged Activity / Motor Behavior: appropriate eye contact Speech: normal speech Mood & Affect: euthymic mood Lab / Micro Data 06/25/23 16:20 06/25/23 16:20 Labs: Laboratory Results - last 24 hr 06/25/23 16:20: WBC 15.8 H, RBC 4.51 L, Hgb 12.5 L, Hct 38.1 L, MCV 84.5, MCH 27.7, MCHC 32.8, RDW Std Deviation 45.8 H, RDW Coeff of Corina 14.9 H, Plt Count 369, MPV 10.6, Immature Gran % (Auto) 0.800, Neut % (Auto) 83.0 H, Lymph % (Auto) 7.9 L, [place] % (Auto) 7.1, Eos % (Auto) 0.8, Baso % (Auto) 0.4, Absolute Neuts (auto) 13.1 H, Absolute Lymphs (auto) 1.24, Nucleated RBC % 0, PT Cancelled 06/25/23 16:20: PT 13.8, INR Cancelled 06/25/23 16:20: INR 1.1, APTT Cancelled 06/25/23 16:20: APTT 33.5, Sodium 138, Potassium 3.7, Chloride 108 H, Carbon Dioxide 24.0, Anion Gap 6, BUN 26 H, Creatinine 1.26, Estim Creat Clear Calc 79.03, Est GFR (MDRD) Af Amer 75, Est GFR (MDRD) Non-Af 62, BUN/Creatinine Ratio 20.6 H, Glucose 125 H, Calcium 9.0, Total Creatine Kinase 96
--- NOTE | 2023-06-25 18:02 | NURSING ---
PCU ARACELY ARTERIAL OCCLUSION, STENT THROMBOSIS
--- NOTE | 2023-06-25 18:05 | EKG12_ITS ---
Test Reason : ARHYTHMIA Blood Pressure : / mmHG Vent. Rate : 070 BPM Atrial Rate : 070 BPM P-R Int : 184 ms QRS Dur : 108 ms QT Int : 424 ms P-R-T Axes : 012 -05 044 degrees QTc Int : 457 ms Sinus rhythm with Premature atrial complexes Minimal voltage criteria for LVH, may be normal variant ( [place] product ) Borderline ECG Confirmed by JACLYN CASTELAN, MARLENE ([id number]), offline editor MELISSA PALMA ([id number]) on 06/27/2023 6:56:12 AM Referred By: TA Confirmed By:MARLENE ANAYA MD
[2023-06-25 18:45] VITALS: BP 169/93; PULSE 68; RESP 17; TEMP 36.8; O2SAT 94
[2023-06-25 19:38] VITALS: BMI 33.3
[2023-06-25 20:01] VITALS: BP 183/90; PULSE 70; RESP 16; TEMP 36.8; O2SAT 97
[2023-06-25] MEDS: Atorvastatin Calcium 40 MG Tablet PO (21:34)
[2023-06-25] MEDS: hydroCHLOROthiazide 25 MG Tablet PO (23:12)
[2023-06-25 23:32] LABS: Partial Thromboplast Time 35.4 Seconds (24.1-36.2)
[2023-06-26] VITALS (19 sets, daily range): BP systolic 128–182; BP diastolic 64–85; PULSE 65–81; RESP 14–18; TEMP 36.2–36.9; O2SAT 94–99; BMI 33.3
[2023-06-26] MEDS: Heparin Injection (Vial) 5,000 UNIT/ML VIAL IV ×2 (00:12→07:41)
[2023-06-26] MEDS: hydrALAZINE 20 MG/ML Vial 10 MG IV ×3 (05:04→18:08)
--- NOTE | 2023-06-26 05:55 | EKG12_ITS ---
Test Reason : AM EKG Blood Pressure : / mmHG Vent. Rate : 066 BPM Atrial Rate : 066 BPM P-R Int : 186 ms QRS Dur : 110 ms QT Int : 432 ms P-R-T Axes : 026 013 025 degrees QTc Int : 452 ms Normal sinus rhythm Minimal voltage criteria for LVH, may be normal variant ( [place] product ) Borderline ECG When compared with ECG of 25-JUN-2023 18:15, MANUAL COMPARISON REQUIRED, DATA IS UNCONFIRMED Confirmed by JACLYN CASTELAN, MARLENE ([id number]), photo editor LAST GARRETT ([id number]) on 06/26/2023 1:08:29 PM Referred By: Confirmed By:MARLENE ANAYA MD
[2023-06-26 06:39] LABS: Absolute Lymphocyte Count 1.42 X10^3/uL (0.83-4.51); Absolute Neutrophil Count 10.5 X10^3/uL (2.0-7.7); Basophil# 0.08 X10^3/uL; Basophil% 0.6 % (0-1); Eosinophil# 0.29 X10^3/uL; Eosinophils% 2.1 % (0-5); Hematocrit 38.6 % (40-54); Hemoglobin 12.5 g/dL (13.0-16.5); Lymphocyte # 1.42 X10^3/ul (0.83-4.51); Lymphocyte % 10.4 % (19-41); Mean Corp Hgb Conc 32.4 g/dL (32-36); Mean Corpuscular Hgb 27.8 pg (27.0-32.0); Mean Corpuscular Volume 85.8 fL (80-94); Mean Platelet Vol. 11.2 fl (6.2-12.0); Monocyte# 1.19 X10^3/uL; Monocyte% 8.8 % (0-10); NRBC Flagged by Analyzer 0 % (0-5); Neutrophil # 10.52 X10^3/uL (2.7-7.7); Neutrophil % 77.4 % (47-70); Platelet Count 370 K/mm3 (150-450); RBC Distribution Width CV 14.9 % (11.6-14.6); RBC Distribution Width SD 47.1 fl (35.1-43.9); White Blood Count 13.6 K/mm3 (4.4-11.0)
[2023-06-26 06:49] LABS: Partial Thromboplast Time 38.3 Seconds (24.1-36.2)
[2023-06-26 07:05] LABS: International Normalized Ratio 1.1; Prothrombin Time (Protime)PT. 14.1 SECONDS (11.7-14.9)
--- NOTE | 2023-06-26 07:07 | VDLE_ITS ---
Reason For Study: Right leg pain RIGHT LEFT GSV is normal. CFV is compressible, spontaneous, phasic, CFV is compressible, spontaneous, phasic, competent, and demonstrates normal competent and demonstrates normal augmentation. augmentation. FV is compressible, spontaneous, phasic, competent and demonstrates normal augmentation. POP V is compressible, spontaneous, phasic, competent and demonstrates normal augmentation. T/P Trunk is compressible. PTV is compressible. RT PerV is compressible. Procedure This is a venous duplex using B-mode, color flow and spectral Doppler. Exam performed portable in patient room. A preliminary report was called and/or faxed to Beth LEE. VL/Venous Duplex US, Unilateral Interpretation Summary Deep veins of the right lower extremity are patent and compressible segmentally . There is no evidence of right lower extremity deep vein thrombosis. The right great sapheno us vein appears patent and compressible segmentally. Ordering Physician: Beth Hill Referring Physician: Kylie Anderson Performed By: Tamie Hatfield RVT and Student
[2023-06-26 07:21] LABS: Anion Gap 4 (5-15); BUN 22 mg/dL (7-18); BUN/Creat Ratio 21.4 RATIO (10-20); Chloride 110 mmol/L (98-107); Creatinine, Serum 1.03 mg/dL (0.70-1.30); EST Glomerular Filtration Rate 78 mL/min (>60); Est Glom Filt Rate - Afr Amer 94 mL/min (>60); Estimated Creatinine Clearance 94.36 ml/min; Glucose 121 mg/dL (74-106); Potassium 3.7 mmol/L (3.5-5.1); Sodium Level 138 mmol/L (136-145)
[2023-06-26] MEDS: Clopidogrel Bisulfate 75 MG Tablet PO (10:01)
[2023-06-26] MEDS: Aspirin E.C. 81 MG Tablet PO (10:01)
[2023-06-26] MEDS: Lisinopril 20 MG Tablet PO (10:01)
[2023-06-26] MEDS: hydroCHLOROthiazide 25 MG Tablet PO (10:03)
--- NOTE | 2023-06-26 10:15 | CASEMGMT ---
HALEY SANTOS assessment: HALEY SANTOS to room to meet with patient for initial transition planning/care coordination assessment. HALEY SANTOS introduced self and role at [facility], pt voices understanding and consents to assessment. Pt is lying in bed on room air in no distress. Pt is alert/oriented and answers all questions appropriately at this time. Care providers, pharmacy, and demographics verified. PCP: Dr Anderson Specialists: Dr Sol-vascular [facility] @ [facility]. Otherwise, uses [facility] Insurance: Pt states he thought he still had [employer] insurance but was told when he got [facility] to [facility] that it is not active. He states he has the phone # to call [employer] and plans to call soon. EDITH, Linh, made aware. Pt instructed to ask for SW if he needs any assitance. Prescription Benefit: Pt thought he still had [employer] insurance w/Rx benefits. If he is now inactive, then no Rx benefits currently. Living Will/HPOA: Pt states does not have LW/HPOA and declines AD info at this time. LNOK: Lesly Hernandez, mother. Father is and he has no children. Living Arrangements: Pt states lives alone in apartment with 17 steps to enter and states no concerns at home. Pt states is normally independent with ADL's and IADL's and manages his own medications and appts. Pt works full-time. Transportation: Pt states he drives. His mother will take him home @ discharge. DME/HHC/SNF: Pt states has a shower chair that he uses. He has a glucometer w/supplies but states he has not checked his BS in awhile. He also has a cane, walker, and crutches available, but does not use. Pt states no need for any further DME. Pt states no hx of HHC or SNF in the past. He has went to OP OT in the past. Pt states no concerns with going home at time of discharge. Pt states he smokes 10 cigars a day states does not drink ETOH. He states he has been provided w/smoking cessation info this hospital admission. Pt states no further concerns/needs. CM to follow for any further discharge planning/needs. Advised pt to ask for CM if any further questions/concerns/needs arise, voices understanding. Plan: Home Lauren YODER RN, CM
[2023-06-26] MEDS: HEPARIN/D5w 25,000 UNITS 25,000 UNITS/250 ML IV.SOLN. 14 UNITS CONT INF (12:54)
--- NOTE | 2023-06-26 16:51 | OP.PCM_ITS ---
Report of Operation Date of Procedure: 06/26/23 Pre-Operative Diagnosis: acute ischemia right lower extremity, thrombosed popli teal stent Post-Operative Diagnosis: same Surgery/Procedure Performed:: aortogram, RLE runoff IVUS TP trunk, popliteal aspiration thrombectomy popliteal, posterior tibial angioplasty/stent popliteal Surgeon: Virgilio Sol Type of Anesthesia: Local and Sedation,Conscious Estimated Blood Loss (mL): 15
--- NOTE | 2023-06-26 16:51 | PCM.OPRPT ---
Report of Operation Date of Procedure: 06/26/23 Pre-Operative Diagnosis: acute ischemia right lower extremity, thrombosed popliteal stent Post-Operative Diagnosis: same Surgery/Procedure Performed:: aortogram, RLE runoff IVUS TP trunk, popliteal aspiration thrombectomy popliteal, posterior tibial angioplasty/stent popliteal Surgeon: Virgilio Sol Type of Anesthesia: Local and Sedation,Conscious Estimated Blood Loss (mL): 15 Description of Procedure: HPI: Patient is a 63-year-old male with arterial insufficiency with prior ulceration and gangrene of the right lower extremity he had multiple prior interventions. He has been noncompliant with his antiplatelet and anticoagulation medication and continues to smoke. He presented with abrupt onset of right lower extremity pain that was similar to when he had previously occluded his popliteal artery. He presented to the emergency department where a CT scan revealed occlusion of the stented segment as well as for several centimeters proximal and distal to the stents. He had reconstitution of the tibial vessels. He is taken now for angiogram with possible thrombectomy and further intervention based on findings. Description of procedure: Upon obtaining form consent and verification correct patient procedure site patient taken to the Surgical Asst where he was positioned prepped and draped in you sterile fashion. Time was performed consultation administered Versed and fentanyl. Skin overlying left common femoral artery was Nestabs 1% lidocaine the vessel accessed in retrograde fashion with micropuncture needle wire under ultrasound guidance. This was exchanged for micropuncture sheath through which injection iliofemoral angiogram revealed satisfactory position with no extravasation dissection. Through the micropuncture sheath Bentson wire advanced into the abdominal aorta the micropuncture exchanged out for a short 7 Tuvaluan sheath. Through the 7 Tuvaluan sheath and Omni Flush cath was advanced into the abdominal aorta and digital subtraction angiogram pelvic angiograms performed. We then navigated the contralateral iliac system advancing her cath into the distal external artery. From this position digital subtraction right lower extremity aortogram was performed which confirmed occlusion of the proximal popliteal artery just proximal to the stent with reconstitution of the below the knee popliteal artery. Bentson wire was then readvanced and the Omni Flush and short 7 Tu[place]uan sheath exchanged for a long 7 Tu[place]uan sheath advanced into the distal SFA. From this position using a angled quick cross catheter Bentson wire we were able to traverse the occluded segment with essentially no resistance which was suggestive of more acute thrombus rather than chronic occlusion. The catheter was then withdrawn and a 7 Tu[place]uan penumbra aspiration thrombectomy device was then brought in the field prepped for manufactures instructions. This was then advanced over the wire and positioned cephalad to the occlusion. The wire was withdrawn and the thrombectomy device engaged for multiple passes across the area of occlusion. After we had seemingly cleared all the segments of thrombus repeat angiogram revealed significant improved flow channel with some evidence of in-stent stenosis that was less consistent with thrombus but also some segments that appeared to have some retained thrombus. Quick cross catheter then advanced in a command 18 wire used to navigate across the newly opened segment and the quick cross catheter withdrawn. An 018 intravascular ultrasound probe was then advanced over the wire and recorded pullback performed of the tibioperoneal trunk and the popliteal artery. This confirmed that there was some residual acute thrombus but that the majority of the stent did not stenosis was chronic in-stent stenosis consistent with intimal hyperplasia or plaque deposition. The ultrasound probe was then withdrawn and the aspiration thrombectomy device readvanced and engaged for further passes in the segments that had thrombus appearing changes on the IVUS. Repeat angiogram revealed satisfactory improvement of the segments but also revealed what appeared to be embolization into the popliteal bifurcation. Given that there was risk of embolization of some of the material whenever we perform a balloon angioplasty we chose to balloon the segments with in-stent stenosis with a 6 mm x 80 gela angioplasty balloon advanced into each segment inflated to nominal for 3 minutes then deflated withdrawn. Repeat angiogram revealed satisfactory lesion response with no significant residual stenosis remaining within the prior stented segments. Next the penumbra device was then readvanced and aspiration thrombectomy performed of the tibioperoneal trunk and the posterior tibial artery. This was then withdrawn and repeat imaging revealed satisfactory resolution of any of the occlusive embolization product within the tibial vessels. Next a 6 mm x 5 Somers Viabahn self-expanding covered stent was advanced in position in the segment within the residual chronic appearing thrombus within the segment between the prior stents. This was then deployed. A MedNewslla Andres drug-coated angioplasty balloon 6 x 80 was then advanced and positioned in the distal segment of the popliteal and then inflated to nominal for 3 minutes and deflated withdrawn. Distal withdrawn and a second 6 x 120 advanced in the proximal segment and then inflated nominal deflated and withdrawn. Completion angiography revealed satisfactory resolution of any of these in-stent stenosis segments with brisk contrast transit no extravasation or dissection. The Viabahn stent was well wall opposed and overlap satisfactory into the prior stents. There was also preserved runoff through the tibial vessels with some minimal luminal irregularity in the anterior tibial which may have been atherosclerosis or some minimal embolic material was difficult to determine. There was brisk contrast transit through this vessel so I felt that no further intervention was warranted. The long 7 Tuvaluan sheath was exchanged for a short 7 Tuvaluan sheath and a minx closure device deployed followed by 2 minutes of manual pressure. Patient was then taken to the PCU for bedrest and recovery.
[2023-06-26 16:58] LABS: ACT Activated Clotting Time 207 sec (74-137)
[2023-06-26 16:58] LABS: ACT Activated Clotting Time 269 sec (74-137)
[2023-06-26 16:58] LABS: ACT Activated Clotting Time 214 sec (74-137)
[2023-06-26] MEDS: Atorvastatin Calcium 40 MG Tablet PO (21:31)
[2023-06-26] MEDS: Acetaminophen 500 MG Tablet 1000 MG PO (21:31)
[2023-06-26] MEDS: HEPARIN/D5w 25,000 UNITS 25,000 UNITS/250 ML IV.SOLN. 5 UNITS CONT INF (23:01)
[2023-06-27 03:01] VITALS: BP 144/68; PULSE 73; RESP 18; TEMP 36.5; O2SAT 97
[2023-06-27] MEDS: Acetaminophen 500 MG Tablet 1000 MG PO (05:56)
[2023-06-27 07:00] VITALS: BP 155/75; PULSE 66; RESP 16; TEMP 36.7; O2SAT 95
--- NOTE | 2023-06-27 07:51 | PN.SURG_ITS ---
Subjective Subjective Patient was seen resting comfortably in bed this morning. He reports that his RLE pain has resolved. He denies any significant pain, drainage at the access site. He has no complaints. His BP have been elevated, but he does note that his home regimen is lisinopril- HCTZ in the AM and then lisinopril 20mg in the PM typically. He does not know what his BP usually runs with this regimen. Objective Data Objective Data Vital Signs: Vital Signs Temp Pulse Resp BP Pulse Ox O2 Del Method 98.0 F 66 16 155/75 H 95 Room Air 06/27/23 07:00 06/27/23 07:00 06/27/23 07:00 06/27/23 07:00 06/27/23 07:00 06/27/23 07:00 Oxygen Delivery Method Room Air Weight: 239 lb 3.225 oz Body Mass Index (BMI) 33.3 Intake & Output: Intake and Output for Last 24 Hours 06/25/23 06/26/23 06/27/23 23:59 23:59 23:59 Intake Total 293.70 / 293.70 Balance 293.70 / 293.70 Lab / Micro Data 06/26/23 06:00 06/26/23 06:00 Labs: Laboratory Results - last 24 hr 06/26/23 06:00: Hemoglobin A1c 6.0 H 06/26/23 14:45: Activated Clotting Time 269 H 06/26/23 15:26: Activated Clotting Time 207 H 06/26/23 15:58: Activated Clotting Time 214 H Physical Exam Const alert, oriented x3 and no apparent distress General Appearance: cooperative and comfortable HEENT normocephalic, head/scalp atraumatic, hearing grossly normal bilaterally, external ears normal and external nose normal Eyes EOMs intact bilaterally General Eye: normal appearance of both eyes Neck General: normal visual inspection and trachea midline Resp normal respiratory effort and no use of accessory muscles Effort and Inspection: able to speak in complete sentences; Negative for labored, stridor, actively coughing or audible wheezes Cardio regular rate and regular rhythm Extremity Extremity Narrative: R DPl pulse is palpable, R PT diminished to palpation with good doppler signal. L groin access site with pressure dressing C/D/I; no bleed-through, ecchymosis, erythema, significant focal swelling. Skin no rashes or lesions noted Neuro oriented x3, CN's II-XII intact bilaterally, moves all extremities and no focal motor deficits Speech: speech normal Psych mental status grossly normal Attitude: calm and engaged Activity / Motor Behavior: appropriate eye contact Speech: normal speech Mood & Affect: euthymic mood Assessment & Plan Assessment/Plan (1) Occlusion of stent of peripheral artery: (2) Atherosclerosis of right lower extremity: PLAN: Plan He is s/p aspiration thrombectomy of the R popliteal and R posterior tibial and angioplasty/stent of the R popliteal on 06/26/23. He now has palpable pedal pulses. He has had resolution of his rest pain. He has been on low-dose heparin overnight with no apparent signs of bleeding on exam this morning. Will increase to therapeutic heparin drip. If this is tolerated without bleeding then will transition to Xarelto 20mg daily later this morning/early afternoon. He will also continue with ASA and Plavix. BP have been slightly elevated, but the PM lisinopril had been on hold. Will plan to discharge on his usual regimen and have him check BP at home. Anticipate discharge this afternoon.
[2023-06-27] MEDS: HEPARIN/D5w 25,000 UNITS 25,000 UNITS/250 ML IV.SOLN. 15 UNITS CONT INF (08:51)
[2023-06-27 09:00] LABS: Partial Thromboplast Time 32.3 Seconds (24.1-36.2)
[2023-06-27 10:54] VITALS: BP 153/62; PULSE 68; RESP 16; TEMP 36.6; O2SAT 97
[2023-06-27] MEDS: Clopidogrel Bisulfate 75 MG Tablet PO (10:57)
[2023-06-27] MEDS: Aspirin E.C. 81 MG Tablet PO (10:57)
[2023-06-27] MEDS: Lisinopril 20 MG Tablet PO (10:57)
[2023-06-27] MEDS: hydroCHLOROthiazide 25 MG Tablet PO (10:57)
--- NOTE | 2023-06-27 11:53 | PCM.DC.SUM ---
Providers Date of Admission: 06/25/23 Primary Care Physician: Dr. Kylie Anderson MD Reason For Visit: RLE ATHEROSCLEROSIS WITH IN STENT THROMBOSIS Diagnosis Discharge Diagnosis (1) Occlusion of stent of peripheral artery: Status: Acute Code(s): T82.599A - Other mechanical complication of unspecified cardiac and vascular devices and implants, initial encounter (2) Atherosclerosis of right lower extremity: Status: Acute Code(s): I70.201 - Unspecified atherosclerosis of [place] arteries of extremities, right leg Plan He is s/p aspiration thrombectomy of the R popliteal and R posterior tibial and angioplasty/stent of the R popliteal on 06/26/23. He now has palpable pedal pulses. He has had resolution of his rest pain. He has been on low-dose heparin overnight with no apparent signs of bleeding on exam this morning. Will increase to therapeutic heparin drip. If this is tolerated without bleeding then will transition to Xarelto 20mg daily later this morning/early afternoon. He will also continue with ASA and Plavix. BP have been slightly elevated, but the PM lisinopril had been on hold. Will plan to discharge on his usual regimen and have him check BP at home. Anticipate discharge this afternoon. Medications at Discharge Home Medications atorvastatin 40 mg tablet 40 mg PO DAILY cholesterol #90 tabs 06/27/22 lisinopril 20 mg tablet 20 mg PO QHS blood pressure #90 tabs 06/27/22 lisinopril 20 mg-hydrochlorothiazide 25 mg tablet 1 tab PO DAILY blood thinner #90 tabs 06/27/22 aspirin 81 mg tablet,delayed release (Adult Aspirin Regimen) 81 mg PO DAILY [facility] 06/25/23 clopidogrel 75 mg tablet (Plavix) 75 mg PO DAILY blood thinner #90 tabs 06/27/23 rivaroxaban 20 mg tablet (Xarelto) 20 mg PO DAILY #30 tabs 06/27/23 Hospital Course Summary of Care Provided Hospital Course: Mr. Bruce Kohler is a 63 y/o male who presented to the [facility] ER on 06/25/23 with acute onset RLE rest pain from the knee down. He was noted to have not been taking his ASA or Plavix. He was taking Xarelto 2.5mg BID but with missed doses. CTA revealed in-stent stenosis of prior distal SFA/popliteal artery stents. He was started on heparin drip. He underwent RLE angiogram on 06/26/23 with aspiration thrombectomy popliteal and posterior tibial, and angioplasty/stent popliteal artery. He tolerated the procedure well and good result was attained. Following the procedure, he had resolution of his rest pain and had palpable DP pulse and good signal in the PT. He was re-initiated on low-dose heparin overnight after the procedure. This morning he was without any signs/symptoms of bleeding so he was increased to therapeutic weight-based heparin and remained stable. For discharge, he was transitioned to Xarelto 20mg daily which he will continue in addition to Plavix 75mg daily and ASA 81mg daily. He is medically stable for discharge home today. He will return to the office for follow-up in 2 weeks. Physical Exam Const alert, oriented x3 and no apparent distress General Appearance: cooperative and comfortable HEENT normocephalic, head/scalp atraumatic, hearing grossly normal bilaterally, external ears normal and external nose normal Eyes EOMs intact bilaterally General Eye: normal appearance of both eyes Neck General: normal visual inspection and trachea midline Resp normal respiratory effort and no use of accessory muscles Effort and Inspection: able to speak in complete sentences; Negative for labored, stridor, actively coughing or audible wheezes Cardio regular rate and regular rhythm Extremity Extremity Narrative: R DPl pulse is palpable, R PT diminished to palpation with good doppler signal. L groin access site with pressure dressing C/D/I; no bleed-through, ecchymosis, erythema, significant focal swelling. Skin no rashes or lesions noted Neuro oriented x3, CN's II-XII intact bilaterally, moves all extremities and no focal motor deficits Speech: speech normal Psych mental status grossly normal Attitude: calm and engaged Activity / Motor Behavior: appropriate eye contact Speech: normal speech Mood & Affect: euthymic mood Weight / BMI Weight Weight: 239 lb 3.225 oz Body Mass Index (BMI) 33.3 ABG / Lab / Microbiology Data 06/26/23 06:00 06/26/23 06:00 Laboratory: Laboratory Results - last 24 hr 06/26/23 14:45: Activated Clotting Time 269 H 06/26/23 15:26: Activated Clotting Time 207 H 06/26/23 15:58: Activated Clotting Time 214 H 06/27/23 08:40: APTT 32.3 D/C Instructions Discharge Diet: No restrictions May shower in (days): 1 Weight Bearing Status: Weight bearing as tolerated Lifting Restricted to (Lbs): 20 Lifting Restrictions: Do not lift greater than 20 pounds for 2 weeks Call your doctor if your incision/area has: Sudden Increased Bleeding, Increased Pain/ Swelling and Foul Smelling Discharge Call your doctor if you observe: Fever of 101 or Higher and Uncontrolled pain Remove Dressing in: 1 day Additional Instructions: There is a pressure-dressing over the left groin access site. You may remove this tomorrow. If there is any drainage/mild spotting then you may re-apply a band-aid or dry gauze dressing and change daily. Otherwise, you may leave open to air. You may take Tylenol as needed for pain. You should not lift greater than 20 pounds for 2 weeks. Otherwise, you may proceed with activity as tolerated. You have been prescribed a new medication Xarelto 20mg tablet to be taken once daily. This is an anticoagulant (blood thinner). You are to take this IN ADDITION TO the Plavix (clopidogrel) 75mg tablet once daily AND Aspirin 81mg tablet once daily. You are to STOP the Xarelto 2.5mg tablets twice daily. Please continue with your current blood pressure medications. Please check your blood pressures at home 1-2 times daily. If the systolic blood pressure (top number) remains >140 then please call or visit your PCP so that your BP medication regimen can be adjust to improve BP control. You have a follow-up appointment in the office on 07/11/23 at 9:00 AM. If you need to change this appointment or have any other questions/concerns please call the office at [phone]. Please Follow Up With: Beth Hill PA When: 07/11/23 at 9:00 AM Meaningful Use Info Meaningful Use Meaningful Use Diagnoses (Choose all that apply): None applicable Ischemic Stroke Statin Dosing Therapy Reference: STATIN DOSE THERAPY REFERENCE: * Patients > 75 years receive moderate or high dose statin therapy. * Patients 75 years or YOUNGER should receive HIGH intensity statin dose unless contraindicated. You will be required to document reason for non-treatment if statin daily dose does not meet guidelines. HIGH DOSE STATIN THERAPY DAILY Atorvastatin > than or = to 40 mg Rosuvastatin > than or = to 20 mg Amlodipine + Atorvastatin > than or = to 2.5/40 mg Ezetimibe + Simvastatin 10/80 mg Simvastatin 80mg Discharge Plan Admission Admit Date/Time: 06/25/23 18:13 Primary Reason for Your Visit: R SFA/pop in-stent thrombosis Attending Provider: Virgilio Sol Primary Care Provider: Kylie Anderson Instructions Additional Instructions / Restrictions: There is a pressure-dressing over the left groin access site. You may remove this tomorrow. If there is any drainage/mild spotting then you may re-apply a band-aid or dry gauze dressing and change daily. Otherwise, you may leave open to air. You may take Tylenol as needed for pain. You should not lift greater than 20 pounds for 2 weeks. Otherwise, you may proceed with activity as tolerated. You have been prescribed a new medication Xarelto 20mg tablet to be taken once daily. This is an anticoagulant (blood thinner). You are to take this IN ADDITION TO the Plavix (clopidogrel) 75mg tablet once daily AND Aspirin 81mg tablet once daily. You are to STOP the Xarelto 2.5mg tablets twice daily. Please continue with your current blood pressure medications. Please check your blood pressures at home 1-2 times daily. If the systolic blood pressure (top number) remains >140 then please call or visit your PCP so that your BP medication regimen can be adjust to improve BP control. You have a follow-up appointment in the office on 07/11/23 at 9:00 AM. If you need to change this appointment or have any other questions/concerns please call the office at [phone]. Discharge Orders/Prescriptions Prescriptions: New Xarelto 20 mg tablet 20 mg PO DAILY Qty: 30 2RF Rx Instructions: must administer with evening meal Continued lisinopril 20 mg tablet 20 mg PO QHS Qty: 90 3RF lisinopril-hydrochlorothiazide 20-25 mg tablet 1 tab PO DAILY Qty: 90 1RF atorvastatin 40 mg tablet 40 mg PO DAILY Qty: 90 3RF aspirin [Adult Aspirin Regimen] 81 mg tablet,delayed release (DR/EC) 81 mg PO DAILY clopidogrel [Plavix] 75 mg tablet 75 mg PO DAILY Qty: 90 3RF Discontinued Xarelto 2.5 mg tablet 2.5 mg PO BID Qty: 180 3RF Referrals / Follow Up: Kylie Anderson MD [Primary Care Provider] - Disposition Disposition (needs filled in before D/C Order can be placed): Home, Self Care
--- NOTE | 2023-06-27 12:45 | CASEMGMT ---
HALEY SANTOS NOTE: Discharge order is in. HALEY SANTOS to room. Pt resting in bed. He states someone from [facility] [employer] from [facility] has been in to talk w/him about his insurance and he has not called [employer] yet to inquire about his insurance, but still plans to do so. HALEY SANTOS provided pt w/[facility] info as well, in case his insurance does not get reinstated. Rx's for Xarelto and Plavix have been e-scribed to [facility]. HALEY SANTOS called the pharmacy. Xarelto 30-day savings card has been applied and there will be no cost for this medication for pt today for 30-day supply. Cost of Plavix is $22.09. Pt made aware and statets he can afford this and would like meds delivered to his room. Pharmacy made aware and will call pt to take payment over the phone. Pt denies having other discharge needs/concerns. Lauren YODER RN, CM
[2023-06-27] MEDS: Rivaroxaban 20 MG Tablet PO (12:49)
[2023-06-27] MEDS: 0.9% Saline Lock 10 ML Syringe IV (13:56)
--- NOTE | 2023-06-27 14:25 | PHA.DC.MR.R ---
Pharmacy [place] Med Reconciliation Pharmacy Service has performed discharge medication reconciliation for this patient. Previously taking Xarelto, dose change, did not clinical mental health counselor. Medications reviewed. The patient's discharge medication list was reviewed for discrepancies and discrepancies were resolved. Medications at Discharge Home Medications atorvastatin 40 mg tablet 40 mg PO DAILY cholesterol #90 tabs 06/27/22 lisinopril 20 mg tablet 20 mg PO QHS blood pressure #90 tabs 06/27/22 lisinopril 20 mg-hydrochlorothiazide 25 mg tablet 1 tab PO DAILY blood thinner #90 tabs 06/27/22 aspirin 81 mg tablet,delayed release (Adult Aspirin Regimen) [address] [facility] 06/25/23 clopidogrel 75 mg tablet (Plavix) 75 mg PO DAILY blood thinner #90 tabs 06/27/23 rivaroxaban 20 mg tablet (Xarelto) 20 mg PO DAILY #30 tabs 06/27/23
== END 2023-06-27 14:24 | disposition home or self-care (01) | DRG 271 ==
LOC: ED 17:49 → PCU 18:41
PROVIDERS: Anesthesiology; Physician Assistant; Admitting Provider Surgery Trauma Surgery; Emergency Provider Emergency Medicine; PCP Internal Medicine; Visit Provider Surgery Trauma Surgery
DX: T82.856A Stenosis of peripheral vascular stent, initial encounter (principal); I74.3 Embolism and thrombosis of arteries of the lower extremities; E11.40 Type 2 diabetes mellitus with diabetic neuropathy, unspecified; I70.221 Atherosclerosis of native arteries of extremities with rest pain, right leg; E11.51 Type 2 diabetes mellitus with diabetic peripheral angiopathy without gangrene; I10 Essential (primary) hypertension; E78.00 Pure hypercholesterolemia, unspecified; F17.210 Nicotine dependence, cigarettes, uncomplicated; Z89.422 Acquired absence of other left toe(s); Y71.2 Prosthetic and other implants, materials and accessory cardiovascular devices associated with adverse incidents; Z91.148 Patient's other noncompliance with medication regimen for other reason; T45.516A Underdosing of anticoagulants, initial encounter; T45.526A Underdosing of antithrombotic drugs, initial encounter; Z79.899 Other long term (current) drug therapy
CPT/HCPCS: 36200; 36245; 36415; 37184; 37185; 37226; 37252; 37253; 75625; 75635; 75710; 76937; 80048; 82550; 83036; 85025; 85347; 85610; 85730; 93005; 93971; 99152; 99153; 99283; C1725; C1757; C1760; C1769; C1874; C1887; C1894; C2623; J7030; J7040; Q9967; A4216

== ENCOUNTER 2023-11-15 14:31 | Emergency (ER) | payer SELFPAY ==
[2023-11-15] VITALS (28 sets, daily range): BP systolic 124–180; BP diastolic 77–94; PULSE 63–80; RESP 13–21; TEMP 36.3; O2SAT 92–100; BMI 34.8
--- NOTE | 2023-11-15 16:55 | EX.ED.DYSGE1 ---
HPI History of Present Illness Chief Complaint: Lower Extremity Injury [facility] Medical History Smoker DVT (deep venous thrombosis) Atherosclerosis of right lower extremity with rest pain Preoperative clearance Wears glasses Open wound Diabetes Hepatitis High cholesterol Former smoker History of stress test Infected pilonidal cyst Vitamin D deficiency Hx of retinal detachment Gangrene of toe of right foot Amputation of left great toe (~03/2019) Detached retina (~05/2019) PAD (peripheral artery disease) DM2 (diabetes mellitus, type 2) Neuropathy Home Medications ?Medication ?Instructions ?Recorded ?Last Taken ?Type aspirin 81 mg tablet,delayed 81 mg PO DAILY heart health 06/25/23 06/24/23 History release (Adult Aspirin Regimen) clopidogrel 75 mg tablet (Plavix) 75 mg PO DAILY blood thinner #90 06/27/23 Unknown Rx tabs rivaroxaban 20 mg tablet (Xarelto) 20 mg PO DAILY #30 tabs 06/27/23 Unknown Rx atorvastatin 40 mg tablet 40 mg PO DAILY cholesterol #90 tabs 07/22/23 Unknown Rx lisinopril 20 mg tablet 20 mg PO QHS blood pressure #90 07/22/23 Unknown Rx tabs lisinopril 20 1 tab PO DAILY blood thinner #90 07/22/23 Unknown Rx mg-hydrochlorothiazide 25 mg tablet tabs Allergy/AdvReac Type Severity Reaction Status Date / Time No Known Allergies Allergy Verified 11/15/23 14:32 Family History Mother No significant family history Surgical History Hx of angioplasty Hx of detached retina repair Hx of cataract surgery History of amputation of left great toe Social History (Updated 07/22/23 @ 10:[address] 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 sexually active: No Smoking Status: Current every day smoker tobacco type: cigarettes and cigars Tobacco: How many years used: 40 Electronic Cigarette Use: not used quit status: considering quitting alcohol intake: never substance use type: does not use what type of physical activity do you participate in: none seatbelt use: always do you feel safe at home: Yes EXAM Physical Exam Const Vital Signs: 11/15/23 14:32 11/15/23 16:43 11/15/23 18:00 Temperature 97.3 F L Temperature Source Temporal Pulse Rate 80 71 Respiratory Rate 14 18 Blood Pressure 124/79 H 159/82 H 180/89 H Blood Pressure Mean 94 107 119 Pulse Ox 100 97 Oxygen Delivery Method Room Air Room Air Room Air 11/15/23 18:23 11/15/23 18:30 11/15/23 18:45 Temperature Temperature Source Pulse Rate 70 71 Respiratory Rate 16 13 Blood Pressure Blood Pressure Mean Pulse Ox 97 98 96 Oxygen Delivery Method 11/15/23 19:01 11/15/23 19:15 11/15/23 19:30 Temperature Temperature Source Pulse Rate 68 Respiratory Rate 17 Blood Pressure Blood Pressure Mean Pulse Ox 96 97 96 Oxygen Delivery Method 11/15/23 19:45 11/15/23 20:00 11/15/23 20:15 Temperature Temperature Source Pulse Rate 72 73 70 Respiratory Rate 14 16 16 Blood Pressure Blood Pressure Mean Pulse Ox 96 94 Oxygen Delivery Method 11/15/23 20:20 11/15/23 20:21 11/15/23 20:30 Temperature Temperature Source Pulse Rate 68 68 Respiratory Rate 21 H 16 Blood Pressure 155/89 H 155/89 H 152/82 H Blood Pressure Mean 106 111 104 Pulse Ox 93 95 Oxygen Delivery Method 11/15/23 20:45 11/15/23 21:00 11/15/23 21:15 Temperature Temperature Source Pulse Rate 69 63 69 Respiratory Rate 14 19 H 18 Blood Pressure 173/92 H 155/87 H 173/94 H Blood Pressure Mean 117 107 118 Pulse Ox 93 95 94 Oxygen Delivery Method 11/15/23 21:30 11/15/23 21:45 11/15/23 22:00 Temperature Temperature Source Pulse Rate 67 67 Respiratory Rate 18 15 Blood Pressure 166/93 H 146/87 H 168/84 H Blood Pressure Mean 113 107 108 Pulse Ox 93 95 Oxygen Delivery Method 11/15/23 22:15 11/15/23 22:30 11/15/23 22:45 Temperature Temperature Source Pulse Rate 68 68 67 Respiratory Rate 17 16 15 Blood Pressure 158/77 H Blood Pressure Mean 98 Pulse Ox 96 95 94 Oxygen Delivery Method 11/15/23 23:00 11/15/23 23:15 11/15/23 23:30 Temperature Temperature Source Pulse Rate 70 68 70 Respiratory Rate 17 15 17 Blood Pressure 169/88 H 152/85 H Blood Pressure Mean 113 106 Pulse Ox 93 92 92 Oxygen Delivery Method 11/15/23 23:45 11/16/23 00:00 Temperature Temperature Source Pulse Rate 70 64 Respiratory Rate 17 15 Blood Pressure 194/85 H Blood Pressure Mean 114 Pulse Ox 95 95 Oxygen Delivery Method [facility] [place] Medical decision making narrative: HISTORY OF PRESENT ILLNESS: 63-year-old male presents with pain in right leg. Notes history of stents in his right leg. Notes he is not been taking Xarelto, aspirin or Plavix for last month. Notes deep pain in the right leg. No falls or trauma. Notes some discoloration of the right leg as well. REVIEW OF SYSTEMS: Pertinent positives: Leg pain Pertinent negatives: Syncope, chest pain PHYSICAL EXAM: Nursing triage notes reviewed, Vital signs reviewed Constitutional: please see mdm HENT: MMM Eyes: Pupils equal round and reactive to light, Extraocular muscles intact Neck: No stridor, no JVD, full neck ROM Lungs: Clear to auscultation, No wheezing or rales. No increased work of breathing, no conversational dyspnea, no accessory muscle use, no nasal flaring. No respiratory distress noted Heart: Regular rate and rhythm, No murmurs, No rubs and No gallops, 2+ distal pulses (radial, femoral, posterior tibial) in all extremities Abdomen: Soft, there is no tenderness, rigidity, rebound or guarding, no obvious peritoneal signs, no palpable pulsatile abdominal masses, no auscultated abdominal bruit : No CVAT Extremities: No edema, cool to touch, pale discoloration, noted prior amputation of the lateral toes. Could palpate a pulse. Good Doppler pulse. Neuro: No focal neurological deficits, cranial nerves II through XII intact, 5/5 strength in all extremities. Intact sensation to light touch in all extremities, 2+ reflexes bilateral patella tendons. Normal gait. No ataxia. Skin: Dusky appearance of right lower extremity MEDICAL DECISION MAKING: Chief Complaint: Leg pain External records reviewed: Prior imaging reviewed: CTA of the aorta with runoff from June 2023 shows atherosclerotic changes more severe involving the right lower extremity, occlusion of the mid superficial femoral artery noted.. Read prior operative note. Patient underwent angiogram with possible thrombectomy by Dr. Sol in June 2023 Factors affecting care: History of atherosclerosis of the right lower extremity with gangrene, peripheral vascular disease, Social determinants of health: Tobacco abuse History obtained from others: The patient's mother Consults: Vascular surgery (Dr. Julien, Dr. Lam) MDM Narrative: Patient was hemodynamically stable, afebrile, nontoxic-appearing. Exam with a cool dusky appearing limb concerning for acute limb ischemia/stent occlusion given medication noncompliance however could Doppler a pulse in right lower extremity. I considered the following differential diagnosis: Medication noncompliance acute limb ischemia, rhabdomyolysis, cellulitis I obtained a broad lab and imaging workup to further elucidate etiology the patient complaints. ALL IMAGES (IF OBTAINED) HAVE BEEN PERSONALLY REVIEWED AND INTERPRETED BY MYSELF. Lactate is wnl indicating no end-organ hypoperfusion and/or hypoxia. EKG with normal sinus rhythm, normal axis, normal intervals, no obvious STEMI, occasional PVCs CBC with leukocytosis suggestive of systemic inflammation, mild anemia, no thrombocytopenia noted No coagulopathy noted CK within normal limits no evidence of rhabdomyolysis BMP with slight renal insufficiency, but no evidence of metabolic acidosis or endorgan hypoperfusion with a normal bicarb and anion gap. CTA of the abdomen with runoff showed evidence of stent occlusion but there was collateral runoff Given sign of stent occlusion patient was started on heparin. We do not have vascular surgery on today so I opted to transfer the patient to receive immediate vascular surgery evaluation. Discussed the case with [facility] Transfer center as well as [facility] Vascular surgeon Dr. Julien. Dr. Tabor noted she did not think the patient needed immediate operative management but would recommend heparinizing him and admitting him. The transfer center at [facility] Noted there were no beds at this time and they put him on a wait list and suggest we call other facilities. We spoke to [facility] spoke to Dr. Lam (vascular surgery) who recommended admission to their service. Patient was transferred in stable condition. The patient and/or family, caregivers express understanding. The patient and/or family, caregivers agrees with the plan. Shared decision making: I will have a discussion with the patient and or visitors regarding risk/benefits of further testing or admission. They will be made aware of of the risk/benefits inherent in this decision they will be given the opportunity to voice understanding. Total critical care time today provided was at least 35 minutes. This excludes separately billable procedures. Critical care time (if documented) is secondary to the patient having high probability of clinically significant/life threatening deterioration in the patient's condition which required my urgent intervention. Impression: 1. Right leg pain 2. History of peripheral vascular disease 3. Vascular stent occlusion Dispo: transfer This note was generated with [employer] dictation software. It may contain incorrect words, spelling, and punctuation that were not noted in review of the chart prior to signing. Lab Data Labs: Laboratory Results - last 24 hr 11/15/23 11/15/23 11/15/23 17:10 17:10 17:10 WBC Cancelled 14.7 H Corrected WBC Cancelled RBC Cancelled 4.29 L Hgb Cancelled Hct MCV MCH MCHC RDW Std Deviation RDW Coeff of Corina Plt Count MPV Immature Gran % (Auto) Neut % (Auto) Lymph % (Auto) [place] % (Auto) Eos % (Auto) Baso % (Auto) Absolute Neuts (auto) Absolute Lymphs (auto) Total Counted Neutrophils % (Manual) Band Neutrophils % Lymphocytes % (Manual) Monocytes % (Manual) Eosinophils % (Manual) Basophils % (Manual) Metamyelocytes % Myelocytes % Promyelocytes % Blast Cells % Plasma Cell % (Manual) Other Cells % Nucleated RBC % Nucleated RBCs/100 WBC Differential Comment Diff Path Review Hypersegmented Neuts Atypical Lymphocytes Reactive Lymphocytes Smudge Cells Toxic Granulation Toxic Vacuolation Dohle Bodies Glenn Rods Platelet Estimate Plt Morphology Comment RBC Morphology Polychromasia Hypochromasia Basophilic Stippling Anisocytosis Microcytosis Macrocytosis Spherocytes Sickle Cells Target Cells Tear Drop Cells Ovalocytes Stomatocytes [place] Bodies Michelle Cells Bite Cells Crenated Cell Acanthocytes (Spur) Rouleaux Schistocytes PT INR APTT Sodium Potassium Chloride Carbon Dioxide Anion Gap BUN Creatinine Estim Creat Clear Calc Est GFR (MDRD) Af Amer Est GFR (MDRD) Non-Af BUN/Creatinine Ratio Glucose Lactic Acid Calcium Total Creatine Kinase 11/15/23 11/15/23 11/15/23 17:10 17:10 17:10 WBC Corrected WBC RBC Hgb 11.9 L Hct Cancelled 37.2 L MCV Cancelled 86.7 MCH Cancelled MCHC RDW Std Deviation RDW Coeff of Corina Plt Count MPV Immature Gran % (Auto) Neut % (Auto) Lymph % (Auto) [place] % (Auto) Eos % (Auto) Baso % (Auto) Absolute Neuts (auto) Absolute Lymphs (auto) Total Counted Neutrophils % (Manual) Band Neutrophils % Lymphocytes % (Manual) Monocytes % (Manual) Eosinophils % (Manual) Basophils % (Manual) Metamyelocytes % Myelocytes % Promyelocytes % Blast Cells % Plasma Cell % (Manual) Other Cells % Nucleated RBC % Nucleated RBCs/100 WBC Differential Comment Diff Path Review Hypersegmented Neuts Atypical Lymphocytes Reactive Lymphocytes Smudge Cells Toxic Granulation Toxic Vacuolation Dohle Bodies Glenn Rods Platelet Estimate Plt Morphology Comment RBC Morphology Polychromasia Hypochromasia Basophilic Stippling Anisocytosis Microcytosis Macrocytosis Spherocytes Sickle Cells Target Cells Tear Drop Cells Ovalocytes Stomatocytes [place] Bodies [place] Cells Bite Cells Crenated Cell Acanthocytes (Spur) Rouleaux Schistocytes PT INR APTT Sodium Potassium Chloride Carbon Dioxide Anion Gap BUN Creatinine Estim Creat Clear Calc Est GFR (MDRD) Af Amer Est GFR (MDRD) Non-Af BUN/Creatinine Ratio Glucose Lactic Acid Calcium Total Creatine Kinase 11/15/23 11/15/23 11/15/23 17:10 17:10 17:10 WBC Corrected WBC RBC Hgb Hct MCV MCH 27.7 MCHC Cancelled 32.0 RDW Std Deviation Cancelled 47.9 H RDW Coeff of Corina Cancelled Plt Count MPV Immature Gran % (Auto) Neut % (Auto) Lymph % (Auto) [place] % (Auto) Eos % (Auto) Baso % (Auto) Absolute Neuts (auto) Absolute Lymphs (auto) Total Counted Neutrophils % (Manual) Band Neutrophils % Lymphocytes % (Manual) Monocytes % (Manual) Eosinophils % (Manual) Basophils % (Manual) Metamyelocytes % Myelocytes % Promyelocytes % Blast Cells % Plasma Cell % (Manual) Other Cells % Nucleated RBC % Nucleated RBCs/100 WBC Differential Comment Diff Path Review Hypersegmented Neuts Atypical Lymphocytes Reactive Lymphocytes Smudge Cells Toxic Granulation Toxic Vacuolation Dohle Bodies Glenn Rods Platelet Estimate Plt Morphology Comment RBC Morphology Polychromasia Hypochromasia Basophilic Stippling Anisocytosis Microcytosis Macrocytosis Spherocytes Sickle Cells Target Cells Tear Drop Cells Ovalocytes Stomatocytes [place] Bodies [place] Cells Bite Cells Crenated Cell Acanthocytes (Spur) Rouleaux Schistocytes PT INR APTT Sodium Potassium Chloride Carbon Dioxide Anion Gap BUN Creatinine Estim Creat Clear Calc Est GFR (MDRD) Af Amer Est GFR (MDRD) Non-Af BUN/Creatinine Ratio Glucose Lactic Acid Calcium Total Creatine Kinase 11/15/23 11/15/23 11/15/23 17:10 17:10 17:10 WBC Corrected WBC RBC Hgb Hct MCV MCH MCHC RDW Std Deviation RDW Coeff of Corina 15.1 H Plt Count Cancelled 430 MPV Cancelled 10.4 Immature Gran % (Auto) Cancelled Neut % (Auto) Lymph % (Auto) [place] % (Auto) Eos % (Auto) Baso % (Auto) Absolute Neuts (auto) Absolute Lymphs (auto) Total Counted Neutrophils % (Manual) Band Neutrophils % Lymphocytes % (Manual) Monocytes % (Manual) Eosinophils % (Manual) Basophils % (Manual) Metamyelocytes % Myelocytes % Promyelocytes % Blast Cells % Plasma Cell % (Manual) Other Cells % Nucleated RBC % Nucleated RBCs/100 WBC Differential Comment Diff Path Review Hypersegmented Neuts Atypical Lymphocytes Reactive Lymphocytes Smudge Cells Toxic Granulation Toxic Vacuolation Dohle Bodies Glenn Rods Platelet Estimate Plt Morphology Comment RBC Morphology Polychromasia Hypochromasia Basophilic Stippling Anisocytosis Microcytosis Macrocytosis Spherocytes Sickle Cells Target Cells Tear Drop Cells Ovalocytes Stomatocytes [place] Bodies [place] Cells Bite Cells Crenated Cell Acanthocytes (Spur) Rouleaux Schistocytes PT INR APTT Sodium Potassium Chloride Carbon Dioxide Anion Gap BUN Creatinine Estim Creat Clear Calc Est GFR (MDRD) Af Amer Est GFR (MDRD) Non-Af BUN/Creatinine Ratio Glucose Lactic Acid Calcium Total Creatine Kinase 11/15/23 11/15/23 11/15/23 17:10 17:10 17:10 WBC Corrected WBC RBC Hgb Hct MCV MCH MCHC RDW Std Deviation RDW Coeff of Corina Plt Count MPV Immature Gran % (Auto) 0.500 Neut % (Auto) Cancelled 72.3 H Lymph % (Auto) Cancelled 17.7 L [place] % (Auto) Cancelled Eos % (Auto) Baso % (Auto) Absolute Neuts (auto) Absolute Lymphs (auto) Total Counted Neutrophils % (Manual) Band Neutrophils % Lymphocytes % (Manual) Monocytes % (Manual) Eosinophils % (Manual) Basophils % (Manual) Metamyelocytes % Myelocytes % Promyelocytes % Blast Cells % Plasma Cell % (Manual) Other Cells % Nucleated RBC % Nucleated RBCs/100 WBC Differential Comment Diff Path Review Hypersegmented Neuts Atypical Lymphocytes Reactive Lymphocytes Smudge Cells Toxic Granulation Toxic Vacuolation Dohle Bodies Glenn Rods Platelet Estimate Plt Morphology Comment RBC Morphology Polychromasia Hypochromasia Basophilic Stippling Anisocytosis Microcytosis Macrocytosis Spherocytes Sickle Cells Target Cells Tear Drop Cells Ovalocytes Stomatocytes [place] Bodies Michelle Cells Bite Cells Crenated Cell Acanthocytes (Spur) Rouleaux Schistocytes PT INR APTT Sodium Potassium Chloride Carbon Dioxide Anion Gap BUN Creatinine Estim Creat Clear Calc Est GFR (MDRD) Af Amer Est GFR (MDRD) Non-Af BUN/Creatinine Ratio Glucose Lactic Acid Calcium Total Creatine Kinase 11/15/23 11/15/23 11/15/23 17:10 17:10 17:10 WBC Corrected WBC RBC Hgb Hct MCV MCH MCHC RDW Std Deviation RDW Coeff of Corina Plt Count MPV Immature Gran % (Auto) Neut % (Auto) Lymph % (Auto) [place] % (Auto) 5.9 Eos % (Auto) Cancelled 2.8 Baso % (Auto) Cancelled 0.8 Absolute Neuts (auto) Cancelled Absolute Lymphs (auto) Total Counted Neutrophils % (Manual) Band Neutrophils % Lymphocytes % (Manual) Monocytes % (Manual) Eosinophils % (Manual) Basophils % (Manual) Metamyelocytes % Myelocytes % Promyelocytes % Blast Cells % Plasma Cell % (Manual) Other Cells % Nucleated RBC % Nucleated RBCs/100 WBC Differential Comment Diff Path Review Hypersegmented Neuts Atypical Lymphocytes Reactive Lymphocytes Smudge Cells Toxic Granulation Toxic Vacuolation Dohle Bodies Glenn Rods Platelet Estimate Plt Morphology Comment RBC Morphology Polychromasia Hypochromasia Basophilic Stippling Anisocytosis Microcytosis Macrocytosis Spherocytes Sickle Cells Target Cells Tear Drop Cells Ovalocytes Stomatocytes [place] Bodies [place] Cells Bite Cells Crenated Cell Acanthocytes (Spur) Rouleaux Schistocytes PT INR APTT Sodium Potassium Chloride Carbon Dioxide Anion Gap BUN Creatinine Estim Creat Clear Calc Est GFR (MDRD) Af Amer Est GFR (MDRD) Non-Af BUN/Creatinine Ratio Glucose Lactic Acid Calcium Total Creatine Kinase 11/15/23 11/15/23 11/15/23 17:10 17:10 17:10 WBC Corrected WBC RBC Hgb Hct MCV MCH MCHC RDW Std Deviation RDW Coeff of Corina Plt Count MPV Immature Gran % (Auto) Neut % (Auto) Lymph % (Auto) [place] % (Auto) Eos % (Auto) Baso % (Auto) Absolute Neuts (auto) 10.6 H Absolute Lymphs (auto) Cancelled 2.60 Total Counted Cancelled Neutrophils % (Manual) Cancelled Band Neutrophils % Cancelled Lymphocytes % (Manual) Cancelled Monocytes % (Manual) Cancelled Eosinophils % (Manual) Cancelled Basophils % (Manual) Cancelled Metamyelocytes % Cancelled Myelocytes % Cancelled Promyelocytes % Cancelled Blast Cells % Cancelled Plasma Cell % (Manual) Cancelled Other Cells % Cancelled Nucleated RBC % Cancelled 0 Nucleated RBCs/100 WBC Cancelled Differential Comment Cancelled Diff Path Review Cancelled Hypersegmented Neuts Cancelled Atypical Lymphocytes Cancelled Reactive Lymphocytes Cancelled Smudge Cells Cancelled Toxic Granulation Cancelled Toxic Vacuolation Cancelled Dohle Bodies Cancelled Glenn Rods Cancelled Platelet Estimate Cancelled Plt Morphology Comment Cancelled RBC Morphology Cancelled Polychromasia Hypochromasia Basophilic Stippling Anisocytosis Microcytosis Macrocytosis Spherocytes Sickle Cells Target Cells Tear Drop Cells Ovalocytes Stomatocytes [place] Bodies [place] Cells Bite Cells Crenated Cell Acanthocytes (Spur) Rouleaux Schistocytes PT INR APTT Sodium Potassium Chloride Carbon Dioxide Anion Gap BUN Creatinine Estim Creat Clear Calc Est GFR (MDRD) Af Amer Est GFR (MDRD) Non-Af BUN/Creatinine Ratio Glucose Lactic Acid Calcium Total Creatine Kinase 11/15/23 17:10 WBC Corrected WBC RBC Hgb Hct MCV MCH MCHC RDW Std Deviation RDW Coeff of Corina Plt Count MPV Immature Gran % (Auto) Neut % (Auto) Lymph % (Auto) [place] % (Auto) Eos % (Auto) Baso % (Auto) Absolute Neuts (auto) Absolute Lymphs (auto) Total Counted Neutrophils % (Manual) Band Neutrophils % Lymphocytes % (Manual) Monocytes % (Manual) Eosinophils % (Manual) Basophils % (Manual) Metamyelocytes % Myelocytes % Promyelocytes % Blast Cells % Plasma Cell % (Manual) Other Cells % Nucleated RBC % Nucleated RBCs/100 WBC Differential Comment Diff Path Review Hypersegmented Neuts Atypical Lymphocytes Reactive Lymphocytes Smudge Cells Toxic Granulation Toxic Vacuolation Dohle Bodies Glenn Rods Platelet Estimate Plt Morphology Comment RBC Morphology Cancelled Polychromasia Cancelled Hypochromasia Cancelled Basophilic Stippling Cancelled Anisocytosis Cancelled Microcytosis Cancelled Macrocytosis Cancelled Spherocytes Cancelled Sickle Cells Cancelled Target Cells Cancelled Tear Drop Cells Cancelled Ovalocytes Cancelled Stomatocytes Cancelled [place] Bodies Cancelled Michelle Cells Cancelled Bite Cells Cancelled Crenated Cell Cancelled Acanthocytes (Spur) Cancelled Rouleaux Cancelled Schistocytes Cancelled PT 14.2 INR 1.1 APTT 27.7 Sodium 137 Potassium 3.9 Chloride 104 Carbon Dioxide 27.0 Anion Gap 5 BUN 22 H Creatinine 1.45 H Estim Creat Clear Calc 66.47 Est GFR (MDRD) Af Amer 64 Est GFR (MDRD) Non-Af 53 L BUN/Creatinine Ratio 15.2 Glucose 114 H Lactic Acid 1.2 Calcium 9.0 Total Creatine Kinase 191 Radiography Diagnostic Testing: Clinical Impression(s) from Imaging Studies Abdomen/Pelvis CTA 11/15/23 16:57 IMPRESSION: 1. Redemonstration of a endovascular stent within the mid to distal RIGHT SFA extending into the RIGHT popliteal artery. The stent is occluded without interval change. There is muscular reconstitution of the RIGHT tibial peroneal trunk with contrast opacification/flow documented in the ILIA, SAW SETTER and peroneal arteries to the level of the ankle. 2. Soft and calcified plaque in the proximal LEFT SFA estimated at moderate to severe likely greater than 70% stenosis without mansi occlusion. Remaining LEFT lower extremity arterial tree is patent to the level of the ankle. 3. Unchanged appearance of the abdominal aorta and visceral vessels with scattered calcifications without aneurysmal dilatation or dissection. 4. No masses or bowel obstruction. Diverticulosis noted without evidence diverticulitis. Normal appendix. 5. No evidence cholelithiasis or biliary duct dilatation. 6. 2-3 mm nonobstructing RIGHT renal calcification. No evidence of obstructive uropathy. Electronically Signed: Bruce Cuba MD at 19:57 EDT , Discharge Plan Triage Chief Complaint: Lower Extremity Injury ED Provider: Aston Mcclure Dx/Rx/DC Orders Prescriptions: No Action atorvastatin 40 mg tablet 40 mg PO DAILY Qty: 90 1RF lisinopril 20 mg tablet 20 mg PO QHS Qty: 90 1RF lisinopril-hydrochlorothiazide 20-25 mg tablet 1 tab PO DAILY Qty: 90 1RF aspirin [Adult Aspirin Regimen] 81 mg tablet,delayed release (DR/EC) 81 mg PO DAILY Xarelto 20 mg tablet 20 mg PO DAILY Qty: 30 2RF Rx Instructions: must administer with evening meal clopidogrel [Plavix] 75 mg tablet 75 mg PO DAILY Qty: 90 3RF Primary Care Provider: Kylie Anderson Referrals: Kylie Anderson MD [Primary Care Provider] - Print Language: Romanian
--- NOTE | 2023-11-15 16:57 | CT_ITS ---
INDICATION: right leg pain hx of PVD EXAMINATION: CTA OF THE ABDOMEN AND PELVIS WITH IV CONTRAST CTA Abdominal Aorta and Bilateral Iliofemoral LE Runoff W/ Contrast Injection (and W/O Contrast Image TECHNIQUE: Helically acquired images were obtained of the abdomen and pelvis following IV contrast. A dose lowering technique was used using automated exposure control, adjustment of mA and/or kV according to the patient''s size and the use of iterative reconstruction technique Postcontrast imaging, planar and 3-dimensional reconstructions obtained. IV Contrast dosage and agent: 100 mL Isovue-370 Oral contrast: None. Radiation Dose (provided by facility) CTDIvol (10.29 ) mGy, DLP ( 1879.03) mGy-cm COMPARISON: 06/25/2023 FINDINGS: CTA ANGIOGRAM: ABDOMINAL AORTA: Scattered vascular calcifications in the aorta without evidence of stenosis occlusion or dissection. VISCERAL VESSELS: There is normal orientation of the origin of the celiac and SMA without focal stenosis or occlusion. Normal patency of the visualized proximal HILL. RENAL ARTERIES: No stenosis or occlusion bilaterally. Normal patency of the renal arteries bilaterally. ILIAC VESSELS: Scattered vascular calcifications without stenosis occlusion or intraluminal filling defects bilaterally. RIGHT LOWER EXTREMITY: 1. There is mild soft or calcified plaque at the RIGHT common iliac artery without stenosis or occlusion. Normal appearance of the deep femoral artery. 2. Diffuse soft and calcified plaque in the proximal SFA, there is however occlusion of the RIGHT SFA immediately proximal to the endovascular stent extending from the mid to distal SFA to the popliteal artery. There has been negligible change. 3. The mid popliteal artery is occluded, there is muscular reconstitution of the tibial peroneal trunk with contrast present within the ILIA and INSPECTOR SUBASSEMBLIES to the level of the ankle. There is contrast opacification of the mid to distal peroneal artery. LEFT LOWER EXTREMITY: 1. Scattered soft and calcified plaque in the common femoral artery. There is short segment stenosis of the LEFT proximal SFA estimated at severe (greater than 70%), and estimated approximately 72 cm by NASCET criteria. There is normal appearance of the deep femoral artery. 2. The remaining LEFT SFA, LEFT popliteal, and 3 vessels (ILIA, INSPECTOR SUBASSEMBLIES, and peroneal artery are patent to the level of the ankle. CT ABDOMEN AND PELVIS: LOWER THORAX: Lungs are clear. HEPATOBILIARY: Liver: The liver is homogeneous and shows no evidence of focal lesion. There is a calcification in the RIGHT hepatic lobe. Gallbladder: The gallbladder is unremarkable. Pancreas: Pancreas is normal size configuration and density. No mass is noted. Spleen: The spleen is homogeneous and normal in size. . BOWEL: Stomach: The stomach is normal in size configuration, no evidence of focal masses, abnormal calcifications. No hiatal hernia noted. Bowel: Small and large have normal configuration, no masses or bowel obstruction noted. Scattered diverticula are present without evidence diverticulitis. Appendix: The visualized appendix is normal appearance.: GENITOURINARY: Adrenals: Both adrenal glands are normal in size, no masses or abnormal enhancement noted.. Kidneys: Kidneys appear symmetric in size. There is a small approximately 2 to 3 mm nonobstructing calcification in the RIGHT kidney without change. No evidence of obstructive uropathy. Bladder: Normal Pelvic organs: The visualized pelvic organs are normal in size and configuration. No masses or adenopathy noted. RETROPERITONEUM: Normal appearance the retroperitoneum. Scattered calcifications in the aorta. No aneurysmal dilatation. Normal appearance the IVC. PERITONEAL CAVITY: No ascites noted ANTERIOR ABDOMINAL WALL: Normal, no hernia identified. BONES AND SOFT TISSUES: The skeleton shows no evidence for fractures or destructive lesions. OTHER: None CT/CTA Abd w/Runoff W/WO Contrast IMPRESSION: 1. Redemonstration of a endovascular stent within the mid to distal RIGHT SFA extending into the RIGHT popliteal artery. The stent is occluded without interval change. There is muscular reconstitution of the RIGHT tibial peroneal trunk with contrast opacification/flow documented in the ILIA, INSPECTOR [employer]ASSEMBLIES and peroneal arteries to the level of the ankle. 2. Soft and calcified plaque in the proximal LEFT SFA estimated at moderate to severe likely greater than 70% stenosis without mansi occlusion. Remaining LEFT lower extremity arterial tree is patent to the level of the ankle. 3. Unchanged appearance of the abdominal aorta and visceral vessels with scattered calcifications without aneurysmal dilatation or dissection. 4. No masses or bowel obstruction. Diverticulosis noted without evidence diverticulitis. Normal appendix. 5. No evidence cholelithiasis or biliary duct dilatation. 6. 2-3 mm nonobstructing RIGHT renal calcification. No evidence of obstructive uropathy. Electronically Signed: Bruce Cuba MD at 19:57 EDT ,
--- NOTE | 2023-11-15 16:58 | EKG12_ITS ---
Test Reason : LEG PAIN Blood Pressure : / mmHG Vent. Rate : 072 BPM Atrial Rate : 072 BPM P-R Int : 168 ms QRS Dur : 098 ms QT Int : 422 ms P-R-T Axes : 021 -09 -08 degrees QTc Int : 462 ms Sinus rhythm with Premature atrial complexes with Aberrant conduction Possible Left atrial enlargement Nonspecific T wave abnormality Prolonged QT Abnormal ECG Confirmed by JACLYN CASTELAN, MARLENE ([id number]), acquisition editor COLEMAN MCLAIN ([id number]) on 11/19/2023 2:09:41 PM Referred By: Confirmed By:MARLENE ANAYA MD
[2023-11-15 17:37] LABS: Anion Gap 5 (5-15); BUN 22 mg/dL (7-18); BUN/Creat Ratio 15.2 RATIO (10-20); CPK Total, Creatine Kinase 191 U/L (39-308); Chloride 104 mmol/L (98-107); Creatinine, Serum 1.45 mg/dL (0.70-1.30); EST Glomerular Filtration Rate 53 mL/min (>60); Est Glom Filt Rate - Afr Amer 64 mL/min (>60); Estimated Creatinine Clearance 66.47 ml/min; Glucose 114 mg/dL (74-106); International Normalized Ratio 1.1; Partial Thromboplast Time 27.7 Seconds (24.1-36.2); Potassium 3.9 mmol/L (3.5-5.1); Prothrombin Time (Protime)PT. 14.2 SECONDS (11.7-14.9); Sodium Level 137 mmol/L (136-145)
[2023-11-15 17:50] LABS: Lactic Acid 1.2 mmol/L (0.4-1.9)
[2023-11-15] MEDS: Heparin Injection (Vial) 5,000 UNIT/ML VIAL IV (21:57)
[2023-11-15] MEDS: HEPARIN/D5w 25,000 UNITS 25,000 UNITS/250 ML IV.SOLN. 10 UNITS CONT INF (21:59)
[2023-11-15 22:22] LABS: Absolute Neutrophil Count 10.6 X10^3/uL (2.0-7.7); Basophil# 0.11 X10^3/uL; Basophil% 0.8 % (0-1); Eosinophil# 0.41 X10^3/uL; Eosinophils% 2.8 % (0-5); Hematocrit 37.2 % (40-54); Hemoglobin 11.9 g/dL (13.0-16.5); Lymphocyte % 17.7 % (19-41); Mean Corpuscular Hgb 27.7 pg (27.0-32.0); Mean Corpuscular Volume 86.7 fL (80-94); Mean Platelet Vol. 10.4 fl (6.2-12.0); Monocyte# 0.86 X10^3/uL; Monocyte% 5.9 % (0-10); NRBC Flagged by Analyzer 0 % (0-5); Neutrophil # 10.59 X10^3/uL (2.7-7.7); Neutrophil % 72.3 % (47-70); Platelet Count 430 K/mm3 (150-450); RBC Distribution Width CV 15.1 % (11.6-14.6); RBC Distribution Width SD 47.9 fl (35.1-43.9); Red Blood Count 4.29 M/mm3 (4.6-6.2); White Blood Count 14.7 K/mm3 (4.4-11.0)
[2023-11-16] VITALS: BP 194/85; PULSE 64; RESP 15; O2SAT 95
[2023-11-16] MEDS: hydroCHLOROthiazide 25 MG Tablet PO (00:35)
[2023-11-16 00:44] VITALS: BP 171/77; PULSE 63; RESP 13; TEMP 36.6; O2SAT 95
== END 2023-11-16 02:05 | disposition short-term general hospital (02) ==
PROVIDERS: Emergency Provider Emergency Medicine; PCP Internal Medicine; Visit Provider Emergency Medicine
DX: M79.604 Pain in right leg (principal); E11.52 Type 2 diabetes mellitus with diabetic peripheral angiopathy with gangrene; E11.40 Type 2 diabetes mellitus with diabetic neuropathy, unspecified; F17.210 Nicotine dependence, cigarettes, uncomplicated; E78.00 Pure hypercholesterolemia, unspecified; N28.89 Other specified disorders of kidney and ureter; T82.856A Stenosis of peripheral vascular stent, initial encounter; Y71.8 Miscellaneous cardiovascular devices associated with adverse incidents, not elsewhere classified; I73.9 Peripheral vascular disease, unspecified
CPT/HCPCS: 75635; 80048; 82550; 83605; 85025; 85610; 85730; 93005; 99285; J7050; Q9967; A4216

== ENCOUNTER 2023-11-30 08:14 | Emergency (ER) | payer OTHER, SELFPAY ==
[2023-11-30 08:15] VITALS: BP 152/73; PULSE 85; RESP 18; TEMP 36.8; O2SAT 99
[2023-11-30 08:20] VITALS: BMI 33.5
--- NOTE | 2023-11-30 08:34 | CT_ITS ---
EXAM: CT ANGIOGRAPHY ABDOMEN AND PELVIS WITH RUNOFF TO THE LOWER EXTREMITIES WITH INTRAVENOUS CONTRAST CLINICAL INDICATION: right lower leg pain with stent hx TECHNIQUE: Helically acquired angiography images were obtained of the abdomen, pelvis and lower extremities with intravenous contrast using CTA runoff protocol. This CT exam was performed using one or more of the following dose reduction techniques: automated exposure control, adjustment of the mA and/or kV according to patient size, and/or use of iterative reconstruction technique. MIP reconstructed images were created and reviewed. CONTRAST: IV 100mL Isovue-370 COMPARISON: No relevant prior studies available. FINDINGS: VASCULATURE: AORTA: No acute findings. Normal caliber abdominal aorta. No occlusion or significant stenosis. No dissection. CELIAC TRUNK AND MESENTERIC ARTERIES: No acute findings. No occlusion or significant stenosis. No dissection. RENAL ARTERIES: No acute findings. No occlusion or significant stenosis. No dissection. RIGHT ILIAC ARTERIES: No acute findings. No occlusion or significant stenosis. No dissection. RIGHT FEMORAL/POPLITEAL ARTERIES: The right superficial femoral artery is occluded. The arterial stent along the right superficial femoral and popliteal arteries is also occluded. RIGHT CALF/FOOT ARTERIES: Single vessel runoff on the right via the anterior tibial artery which fills via geniculate collaterals. LEFT ILIAC ARTERIES: No acute findings. No occlusion or significant stenosis. No dissection. LEFT FEMORAL/POPLITEAL ARTERIES: No acute findings. No occlusion or significant stenosis. No dissection. LEFT CALF/FOOT ARTERIES: No acute findings. No occlusion or significant stenosis. LOWER THORAX: Mild cardiomegaly. Lung bases are clear. No significant pericardial effusion. ABDOMEN: LIVER: Normal. Homogeneous. No focal mass. PANCREAS: Normal. No focal cystic or solid mass. SPLEEN: Normal. Normal size without focal cystic or solid mass. ADRENALS: Normal. No nodules. KIDNEYS AND URETERS: Normal. Normal renal size and position. No hydronephrosis. STOMACH AND BOWEL: Normal. No stomach or bowel distention. No focal inflammatory change. PELVIS: APPENDIX: Appendix is visualized and normal in appearance. BLADDER: Normal. REPRODUCTIVE: Unremarkable as visualized. No mass. ABDOMEN, PELVIS and LOWER EXTREMITIES: INTRAPERITONEAL SPACE: Normal. No ascites or other fluid collection. No free air. BONES/JOINTS: Normal. No suspicious lytic or blastic abnormality. SOFT TISSUES: Incidentally noted is a 4 cm lipoma within the right gluteus minimus muscle. No discrete abdominal or pelvic wall hernia. LYMPH NODES: Normal. No enlarged lymph nodes. CT/CTA Abd w/Runoff W/WO Contrast IMPRESSION: 1. Occlusion of the right superficial femoral artery. 2. Occlusion of the arterial graft of the right superficial femoral and popliteal arteries. 3. Single vessel runoff to the right foot and ankle via the anterior tibial artery which fills via geniculate collateral. 4. Mild cardiomegaly. Electronically Signed: Tarik Norton MD at 10:02 EDT ,
--- NOTE | 2023-11-30 08:38 | EDS_ITS ---
HPI History of Present Illness HPI Narrative: 63-year-old male history of peripheral arterial disease. Recently had stenting done of his right lower extremity due to blockage. He has had a history of multiple procedures done on that leg. He said procedure was done about 10 days ago. Maybe longer now. In the entire time he had pain in his leg. He is on the blood thinner Pradaxa. Denies any fall injury or trauma. Chief Complaint: Lower Extremity Injury Informant: patient Occured/Mechanism Mechanism/Context: No injury and No blunt trauma Onset/Context/Timing Onset: Days Context: Gradual Onset Timing: Continuous Current Severity: Mild Maximum Severity: Mild Associated Symptoms Associated Symptoms: Positive for Parasthesia; Negative for Weakness or Loss of Funtion Narrative Narrative: 63-year-old male known history of peripheral arterial disease and diabetes. Multiple prior right lower extremity vascular procedures and stenting. No prior bypass. He is on Pradaxa. His most recent stenting was about 10 days ago to 2 weeks ago at [facility]. He has had pain since that time. Prior similar symptoms: Yes Recent Illness/Hospitalization: Yes PFSH PFS Medical History Smoker DVT (deep venous thrombosis) Atherosclerosis of right lower extremity with rest pain Preoperative clearance Wears glasses Open wound Diabetes Hepatitis High cholesterol Former smoker History of stress test Infected pilonidal cyst Vitamin D deficiency Hx of retinal detachment Gangrene of toe of right foot Amputation of left great toe (~03/2019) Detached retina (~05/2019) PAD (peripheral artery disease) DM2 (diabetes mellitus, type 2) Neuropathy Home Medications ?Medication ?Instructions ?Recorded ?Last Taken ?Type clopidogrel 75 mg tablet (Plavix) 75 mg PO DAILY blood thinner #90 06/27/23 Unknown Rx tabs rivaroxaban 20 mg tablet (Xarelto) 20 mg PO DAILY #30 tabs 06/27/23 Unknown Rx lisinopril 20 mg tablet 20 mg PO QHS blood pressure #90 07/22/23 Unknown Rx tabs lisinopril 20 1 tab PO DAILY blood thinner #90 07/22/23 Unknown Rx mg-hydrochlorothiazide 25 mg tablet tabs Allergy/AdvReac Type Severity Reaction Status Date / Time No Known Allergies Allergy Verified 11/30/23 08:14 Family History Mother No significant family history Surgical History Hx of angioplasty Hx of detached retina repair Hx of cataract surgery History of amputation of left great toe Social History household members: none housing: apartment current occupational status: employed 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 Right leg pain for more than a week. Constitutional Constitutional ED: Denies chills or fever(s) Eyes Eyes: Denies blurry vision ENT ENT ED: Denies ear pain Cardiovascular Cardiovascular: Denies chest pain Respiratory/Chest Respiratory/Chest: Denies cough Gastrointestinal Gastrointestinal: Denies abdominal pain Genitourinary Genitourinary ED: Denies dysuria Musculoskeletal Musculoskeletal: Denies arthralgias Integumentary Denies abscess Neurologic Neurologic: Denies headache(s) Psychiatric Psychiatric: Denies anxiety Endocrine Endocrinology: Denies polydipsia Hematologic/Lymphatic Hematologic/Lymphatic: Denies lymphadenopathy Allergic/Immunologic Allergic/Immunologic ED: Denies mouth swelling, tongue swelling or urticaria EXAM Physical Exam Narrative Exam Narrative: 63-year-old male no acute distress. Vital signs stable afebrile. H EENT exam unremarkable. Neck nontender. Lungs clear. Heart regular rhythm rate about 85 no murmur. Chest wall nontender. Abdomen soft nontender. Moving all 4 extremities. He has well-healing incisions on his right lower leg and also just above his right medial ankle. They are clean and dry. He has had prior amputated lateral toes on his right foot. His right lower leg is cool to the touch compared to the left. I do not palpate either DP pulse in either the right or the left leg. He has strong femoral pulses. He has chronic neuropathies in both feet, he can feel touch but he has decreased sensation. Patient is awake and alert. Const Vital Signs: 11/30/23 08:15 Temperature 98.3 F Temperature Source Oral Pulse Rate 85 Respiratory Rate 18 Blood Pressure 152/73 H Blood Pressure Mean 99 Pulse Ox 99 Oxygen Delivery Method Room Air Positive well nourished and well developed; Negative for cachectic, contractures or unkempt General Appearance ED: well developed and NAD; Negative for unkempt, cachectic or contractures Nutritional Appearance: Negative for cachectic HEENT Reports moist mucous membranes normocephalic and atraumatic; Negative for trauma or tenderness Eyes PERRL Neck full ROM and supple Thyroid: Negative for tender Lymph Lymphatic: Negative for other Chest Wall inspection of chest normal and palpation of chest normal Chest: Negative for other Resp normal respiratory effort and no retractions Effort and Inspection: Negative for pain with movement Cardio regular rate, regular rhythm, S1 normal heart sound, S2 normal heart sound and no murmurs Rate: Negative for bradycardia or tachycardic Rhythm: Negative for abnormal rhythm Bruits: Negative for other GI non-tender, non-distended and no masses Inspection: Negative for abdominal distention Auscultation: normoactive bowel sounds Palpation: soft; Negative for tender, guarding or rebound tenderness present Back/Spine no CVA tenderness General Back: Negative for CVA tenderness Cervical Spine: Negative for cervical spine tenderness Thoracic Spine / Upper Back: Negative for thoracic spinal tenderness Lumbar Spine / Lower Back: Negative for lumbar spinal tenderness Extremity normal to inspection and full ROM Extremity Narrative: Bilateral palpable femoral pulses. Right lower leg below the knee is cooler to the touch than the left. Well-healing incisions x 2 on the right proximal lower leg on the right medial lower leg. Dry and clean. I cannot palpate either DP pulse in the right or the left. Prior amputated toes in the right foot. Chronic neuropathy but does have some sensation of both lower extremities. General Extremety ED: Negative for edema General Extremity: Negative for edema Neuro oriented x3, CN's II-XII intact bilaterally and moves all extremities Sensorium / Orientation: alert, oriented to person, oriented to place and oriented to time; Negative for orientation impaired, confused, lethargic or stuporous Motor Exam: strength 5/5 throughout; Negative for general weakness or strength abnormal Psych mental status grossly normal Appearance: Negative for unkempt Skin no wounds Lesions: no lesions Rashes: no rashes Trauma: Negative for abrasion MDM MDM MDM Narrative Medical decision making narrative: 63-year-old male known peripheral arterial disease right leg with prior multiple stenting. Recent stent procedure done at 10 to 14 days ago. Complaining of chronic pain. He does not have a palpable DP pulse in either lower extremity. He has bilateral palpable femoral pulses. We tried to Doppler his popliteal and his dorsalis pedis on the right were unable to get either. Obtain a CTA of his leg screening labs and pain meds and go from there. If he does have acute occlusion I will speak to his vascular surgeon. Repeat exam at 10:18 AM unchanged. Patient's right leg is still mildly cool. He does not have palpable pulses. Nurses tried to Doppler him they could not get either his popliteal or his DP on the right. He is more comfortable with the morphine. I have transfer line on page I think the patient will need to be set up there and be reevaluated by the vascular team. I spoke to their vascular surgeon on-call Dr. Bernard. Patient will receive heparin bolus and drip per his request. I also spoke to their ER physician. He will go ER to ER for vascular evaluation. We will electronically send his CTA to . History & Record Review Discussion w/independent historian: Patient Additional record(s) reviewed:: Prior inpatient record, Prior outpatient record, Prior ED visit and Prior labs Lab Data Attestation: I reviewed the patient's lab results. Lab results narrative: CBC shows a white count of 21.4. H&H of 10.4 and 32.9. Platelets 566. Chemistries show gap 6. BUN and creatinine 34 and 1.2. Glucose 156. CPK 289. CTA of the abdomen runoff shows occlusion of his right superficial femoral artery and the graft. Consistent with his exam. Labs: Laboratory Results - last 24 hr 11/30/23 08:25 WBC 21.4 H RBC 3.75 L Hgb 10.4 L Hct 32.9 L MCV 87.7 MCH 27.7 MCHC 31.6 L RDW Std Deviation 48.1 H RDW Coeff of Corina 15.0 H Plt Count 566 H MPV 10.4 Immature Gran % (Auto) 1.000 H Neut % (Auto) 83.2 H Lymph % (Auto) 8.1 L [place] % (Auto) 6.5 Eos % (Auto) 0.9 Baso % (Auto) 0.3 Absolute Neuts (auto) 17.8 H Absolute Lymphs (auto) 1.73 Nucleated RBC % 0 Sodium 137 Potassium 4.3 Chloride 104 Carbon Dioxide 27.0 Anion Gap 6 BUN 34 H Creatinine 1.29 Estim Creat Clear Calc 73.32 Est GFR (MDRD) Af Amer 73 Est GFR (MDRD) Non-Af 60 BUN/Creatinine Ratio 26.4 H Glucose 156 H Calcium 9.6 Total Creatine Kinase 289 Radiography Diagnostic Testing: Clinical Impression(s) from Imaging Studies Abdomen/Pelvis CTA 11/30/23 08:34 IMPRESSION: 1. Occlusion of the right superficial femoral artery. 2. Occlusion of the arterial graft of the right superficial femoral and popliteal arteries. 3. Single vessel runoff to the right foot and ankle via the anterior tibial artery which fills via geniculate collateral. 4. Mild cardiomegaly. Electronically Signed: Tarik Norton MD at 10:02 EDT , Discharge Plan Triage Chief Complaint: Lower Extremity Injury ED Provider: Oswaldo Geronimo Dx/Rx/DC Orders Clinical Impression: Acute pain of right lower extremity, Acute occlusion of artery, History of vascular surgery, Chronic anticoagulation Prescriptions: No Action lisinopril 20 mg tablet 20 mg PO QHS Qty: 90 1RF lisinopril-hydrochlorothiazide 20-25 mg tablet 1 tab PO DAILY Qty: 90 1RF Xarelto 20 mg tablet 20 mg PO DAILY Qty: 30 2RF Rx Instructions: must administer with evening meal clopidogrel [Plavix] 75 mg tablet 75 mg PO DAILY Qty: 90 3RF Primary Care Provider: Kylie Anderson Referrals: Kylie Anderson MD [Primary Care Provider] - Print Language: [place] Disposition Disposition: Acute Care Hospital
[2023-11-30 08:49] LABS: Absolute Lymphocyte Count 1.73 X10^3/uL (0.83-4.51); Absolute Neutrophil Count 17.8 X10^3/uL (2.0-7.7); Basophil# 0.07 X10^3/uL; Basophil% 0.3 % (0-1); Eosinophils% 0.9 % (0-5); Hematocrit 32.9 % (40-54); Hemoglobin 10.4 g/dL (13.0-16.5); Lymphocyte # 1.73 X10^3/ul (0.83-4.51); Lymphocyte % 8.1 % (19-41); Mean Corp Hgb Conc 31.6 g/dL (32-36); Mean Corpuscular Hgb 27.7 pg (27.0-32.0); Mean Corpuscular Volume 87.7 fL (80-94); Mean Platelet Vol. 10.4 fl (6.2-12.0); Monocyte% 6.5 % (0-10); NRBC Flagged by Analyzer 0 % (0-5); Neutrophil # 17.77 X10^3/uL (2.7-7.7); Neutrophil % 83.2 % (47-70); Platelet Count 566 K/mm3 (150-450); RBC Distribution Width SD 48.1 fl (35.1-43.9); Red Blood Count 3.75 M/mm3 (4.6-6.2); White Blood Count 21.4 K/mm3 (4.4-11.0)
[2023-11-30] MEDS: Ondansetron 4 MG/2 ML Vial IV (08:52)
[2023-11-30] MEDS: morphine 8 MG/ML Syringe 6 MG IV (08:52)
[2023-11-30 09:09] LABS: Anion Gap 6 (5-15); BUN 34 mg/dL (7-18); BUN/Creat Ratio 26.4 RATIO (10-20); CPK Total, Creatine Kinase 289 U/L (39-308); Calcium,Total 9.6 mg/dL (8.5-10.1); Chloride 104 mmol/L (98-107); Creatinine, Serum 1.29 mg/dL (0.70-1.30); EST Glomerular Filtration Rate 60 mL/min (>60); Est Glom Filt Rate - Afr Amer 73 mL/min (>60); Estimated Creatinine Clearance 73.32 ml/min; Glucose 156 mg/dL (74-106); Potassium 4.3 mmol/L (3.5-5.1); Sodium Level 137 mmol/L (136-145)
[2023-11-30] MEDS: HEPARIN/D5w 25,000 UNITS 25,000 UNITS/250 ML IV.SOLN. 5 UNITS CONT INF (11:05)
--- NOTE | 2023-11-30 11:32 | ED.RN ---
updated ETA 40 min
[2023-11-30 12:28] VITALS: BP 148/76; PULSE 79; RESP 18; TEMP 36.6; O2SAT 99
== END 2023-11-30 12:31 | disposition short-term general hospital (02) ==
PROVIDERS: Emergency Provider Emergency Medicine; PCP Internal Medicine; Visit Provider Emergency Medicine
DX: T82.856A Stenosis of peripheral vascular stent, initial encounter (principal); I70.221 Atherosclerosis of native arteries of extremities with rest pain, right leg; E11.51 Type 2 diabetes mellitus with diabetic peripheral angiopathy without gangrene; E11.40 Type 2 diabetes mellitus with diabetic neuropathy, unspecified; Y71.2 Prosthetic and other implants, materials and accessory cardiovascular devices associated with adverse incidents; G89.29 Other chronic pain; E78.00 Pure hypercholesterolemia, unspecified; F17.210 Nicotine dependence, cigarettes, uncomplicated; Z79.01 Long term (current) use of anticoagulants; Z79.02 Long term (current) use of antithrombotics/antiplatelets; Z79.899 Other long term (current) drug therapy
CPT/HCPCS: 75635; 80048; 82550; 85025; 96374; 96375; 99284; Q9967; A4216; J2405

== ENCOUNTER 2024-06-03 10:33 | Inpatient (IN) | payer MEDICAID, SELFPAY ==
[2024-06-03] VITALS (8 sets, daily range): BP systolic 124–208; BP diastolic 60–96; PULSE 65–89; RESP 14–24; TEMP 36.6–36.9; O2SAT 94–97; BMI 36.9; BMI 35.6
--- NOTE | 2024-06-03 10:55 | EKG12_ITS ---
Test Reason : Blood Pressure : */* mmHG Vent. Rate : 87 BPM Atrial Rate : 87 BPM P-R Int : 156 ms QRS Dur : 100 ms QT Int : 420 ms P-R-T Axes : 18 -2 46 degrees QTcB Int : 505 ms Sinus rhythm with Premature atrial complexes Minimal voltage criteria for LVH, may be normal variant ( [place] product ) Prolonged QT Abnormal ECG Confirmed by Noble Crow ([id number]), brands editor LAST GARRETT ([id number]) on 06/05/2024 6:57:12 AM Referred By: AISHWARYA/SHELLIE Confirmed By: Noble Crow
--- NOTE | 2024-06-03 10:56 | EDS_ITS ---
HPI History of Present Illness Chief Complaint: Lower Extremity Injury Informant: patient Narrative Narrative: 63-year-old male history of peripheral vascular disease presenting to the emergency room chief complaint of ischemic leg. Patient states that about 2 we eks ago he developed a blister over the plantar medial aspect of the right great toe. He states he did not pop. He let it start to heal. That skin is now turned black. Over the weekend he began to have a lot of pain just below the knee distally. He states that the foot started turning colors and is now extremely painful for him. He has seen Dr. Sol in [facility] for peripheral vascular care in the past. He states he is currently on blood thinning shots. [facility] Medical History Smoker DVT (deep venous thrombosis) Atherosclerosis of right lower extremity with rest pain Preoperative clearance Wears glasses Open wound Diabetes Hepatitis High cholesterol Former smoker History of stress test Infected pilonidal cyst Vitamin D deficiency Hx of retinal detachment Gangrene of toe of right foot Amputation of left great toe (~03/2019) Detached retina (~05/2019) PAD (peripheral artery disease) DM2 (diabetes mellitus, type 2) Neuropathy Home Medications ?Medication ?Instructions ?Recorded ?Last Taken ?Type lisinopril 20 mg tablet 20 mg PO QHS blood pressure #90 07/22/23 Unknown Rx tabs lisinopril 20 1 tab PO DAILY blood thinner #90 07/22/23 Unknown Rx mg-hydrochlorothiazide 25 mg tablet tabs atorvastatin 40 mg tablet 40 mg PO DAILY cholesterol 0 06/03/24 Unknown History Allergy/AdvReac Type Severity Reaction Status Date / Time No Known Allergies Allergy Verified 06/03/24 10:36 Family History Mother No significant family history Surgical History Hx of angioplasty Hx of detached retina repair Hx of cataract surgery History of amputation of left great toe Social History household members: none housing: apartment current occupational status: employed 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 sexually active: No Smoking Status: Former smoker Tobacco: How many years used: 40 Electronic Cigarette Use: not used quit status: considering quitting alcohol intake: never substance use type: does not use what type of physical activity do you participate in: none seatbelt use: always do you feel safe at home: Yes ROS ROS ED Constitutional Constitutional ED: Denies chills or weight loss Eyes Eyes: Denies change in vision or diplopia ENT ENT ED: Denies ear pain, rhinorrhea or sore throat Cardiovascular Cardiovascular: Denies chest pain, orthopnea, palpitations or racing heartbeat Respiratory/Chest Respiratory/Chest: Denies cough, dyspnea or orthopnea Gastrointestinal Gastrointestinal: Denies abdominal pain, diarrhea, nausea or vomiting Genitourinary Genitourinary ED: Denies dysuria, hematuria or urinary frequency Musculoskeletal Musculoskeletal: Reports other Details: See history of present illness ; Denies arthralgias or myalgias Integumentary Reports other Details: See history of present illness ; Denies abscess or rash Neurologic Neurologic: Denies headache(s) or weakness Psychiatric Psychiatric: Denies anxiety, depression, suicidal ideation or suicidal thoughts Endocrine Endocrinology: Denies polydipsia, polyphagia or polyuria Allergic/Immunologic Allergic/Immunologic ED: Denies mouth swelling, tongue swelling or urticaria EXAM Physical Exam Const Vital Signs: 06/03/24 10:34 06/03/24 11:31 06/03/24 12:17 Temperature 97.8 F Temperature Source Oral Pulse Rate 89 79 Respiratory Rate 24 H 18 Blood Pressure 124/66 H 177/86 H 208/77 H Blood Pressure Mean 85 116 120 Pulse Ox 94 95 Oxygen Delivery Method Room Air Room Air Positive well nourished and well developed General Appearance ED: well developed HEENT Reports normocephalic, head/scalp atraumatic and moist mucous membranes Eyes PERRL and EOMs intact bilaterally Neck no lymphadenopathy, supple and no JVD Resp normal respiratory effort and clear to auscultation bilaterally Cardio regular rate, regular rhythm and no murmurs GI normal to inspection, nondistended, normoactive bowel sounds and non-tender Palpation: soft Back/Spine no CVA tenderness and normal ROM Extremity Extremity Narrative: There is a 2 and half centimeter black eschar plantar medial surface of the distal right great toe. The foot itself is very dusky. Poor capillary refill of greater than 5 seconds. The skin blanches White and does not quickly refill. There is some erythema about mid coppola distally. There are healed surgical incisions. Neuro oriented x3 and CN's II-XII intact bilaterally Sensorium / Orientation: alert Motor Exam: strength 5/5 throughout Psych mental status grossly normal Mood & Affect: Negative for depressed or tearful Skin no rashes or lesions noted and no wounds MDM MDM MDM Narrative Medical decision making narrative: Differential diagnosis includes but not limited to acute ischemic leg, peripheral vascular disease DVT cellulitis After my initial H&P I spoke with vascular surgery. We are going to obtain a CTA Place him on a heparin drip. I am going to hold the bolus as he is on what I assume is Lovenox shots. Patient's white count is 24,000 hemoglobin 12.1 platelet count 689. INR 1.1 PTT 36.2. Lactic acid is normal at 1.9 total bilirubin 0.67 with direct bili of 0.36 otherwise normal LFTs. Creatinine 1.27. EKG shows sinus rhythm with PACs CTA of the leg does not demonstrate distal leg flow. I spoke with vascular surgery and let them know that the CTA is complete. he has received pain medication. Vascular surgery will be back down to evaluate the patient in for admission.. History & Record Review Discussion w/independent historian: Patient Lab Data Attestation: I reviewed the patient's lab results. Labs: Laboratory Results - last 24 hr 06/03/24 06/03/24 11:00 11:08 WBC 24.0 H RBC 4.69 Hgb 12.1 L Hct 37.1 L MCV 79.1 L MCH 25.8 L MCHC 32.6 RDW Std Deviation 47.3 H RDW Coeff of Corina 16.5 H Plt Count 689 H MPV 9.6 Immature Gran % (Auto) 0.800 Neut % (Auto) 88.7 H Lymph % (Auto) 4.3 L [place] % (Auto) 5.5 Eos % (Auto) 0.3 Baso % (Auto) 0.4 Absolute Neuts (auto) 21.3 H Absolute Lymphs (auto) 1.03 Nucleated RBC % 0 Differential Comment COMMENT PT 14.5 INR 1.1 APTT 36.2 Sodium 136 Potassium 3.8 Chloride 99 Carbon Dioxide 23.0 Anion Gap 14 BUN 14 Creatinine 1.27 H Estim Creat Clear Calc 78.24 Est GFR (MDRD) Non-Af 64 BUN/Creatinine Ratio 11.2 Glucose 177 H Lactic Acid 1.9 Calcium 9.3 Total Bilirubin 0.67 Direct Bilirubin 0.36 H AST 23 ALT 7 Alkaline Phosphatase 110 Total Protein 7.4 Albumin 3.5 Globulin 3.9 Radiography Diagnostic Testing: Clinical Impression(s) from Imaging Studies Abdomen/Pelvis CTA 06/03/24 11:47 IMPRESSION: Occlusion of the right superficial femoral artery and popliteal artery. Occluded stents. No flow identified in the distal right leg. Reading Location: [place] [id number] EKG Initial EKG: Attestation: I personally reviewed and interpreted this EKG as follows: Comments: Sinus rhythm at a ventricular rate of 87 bpm. PACs noted. Management Discussion w/another healthcare provider: Pipe Fitter Apprentice (Vascular Surgery ([facility])) Critical Care Time Critical Care Time: Yes Critical care time (excluding procedures): 30-74 minutes (35 min), Including time spent:, Discussing w/Patient &/or Family/Professor Of Business Administration, Discussing w/Consultants, Arranging Admission or Transfer and Performing Direct Patient Care at Bedside Discharge Plan Dx/Rx/DC Orders Clinical Impression: Vascular occlusion, Acute pain of right lower extremity Disposition Disposition: Acute Care [facility]
[2024-06-03 11:10] LABS: Absolute Lymphocyte Count 1.03 X10^3/uL (0.83-4.51); Absolute Neutrophil Count 21.3 X10^3/uL (2.0-7.7); Basophil% 0.4 % (0-1); Eosinophil# 0.07 X10^3/uL; Eosinophils% 0.3 % (0-5); Hematocrit 37.1 % (40-54); Hemoglobin 12.1 g/dL (13.0-16.5); Lymphocyte # 1.03 X10^3/ul (0.83-4.51); Lymphocyte % 4.3 % (19-41); Mean Corp Hgb Conc 32.6 g/dL (32-36); Mean Corpuscular Hgb 25.8 pg (27.0-32.0); Mean Corpuscular Volume 79.1 fL (80-94); Mean Platelet Vol. 9.6 fl (6.2-12.0); Monocyte# 1.33 X10^3/uL; Monocyte% 5.5 % (0-10); NRBC Flagged by Analyzer 0 % (0-5); Neutrophil # 21.31 X10^3/uL (2.7-7.7); Neutrophil % 88.7 % (47-70); POSITIVE DIFFERENTIAL YES; Platelet Count 689 K/mm3 (150-450); RBC Distribution Width CV 16.5 % (11.6-14.6); RBC Distribution Width SD 47.3 fl (35.1-43.9); Red Blood Count 4.69 M/mm3 (4.6-6.2)
[2024-06-03 11:11] LABS: Differential Indicated SCAN CRITERIA MET
[2024-06-03] MEDS: 0.9% Normal Saline (1000mL) 1,000 ML 1000 ML IV (11:13)
[2024-06-03] MEDS: HYDROmorphone 1 MG/ML Syringe IV (11:13)
[2024-06-03 11:24] LABS: International Normalized Ratio 1.1; Prothrombin Time (Protime)PT. 14.5 SECONDS (11.7-14.9)
[2024-06-03 11:25] LABS: Partial Thromboplast Time 36.2 Seconds (24.1-36.2)
[2024-06-03] MEDS: HEPARIN/D5w 25,000 UNITS 25,000 UNITS/250 ML IV.SOLN. 16 UNITS CONT INF (11:27)
[2024-06-03] MEDS: Heparin Injection (Vial) 5,000 UNIT/ML VIAL IV (11:27)
[2024-06-03 11:33] LABS: AST(SGOT) 23 U/L (<=37); Alanine Aminotransfer ALT/SGPT 7 U/L (<=46); Albumin, Serum 3.5 g/dL (3.4-4.8); Alkaline Phosphatase 110 U/L (40-129); Anion Gap 14 (5-15); BUN 14 mg/dL (4-19); BUN/Creat Ratio 11.2 RATIO (10-20); Bilirubin, Direct 0.36 mg/dL (0.00-0.30); Calcium,Total 9.3 mg/dL (7.6-11.0); Chloride 99 mmol/L (98-108); Creatinine, Serum 1.27 mg/dL (0.70-1.20); EST Glomerular Filtration Rate 64 (>60); Estimated Creatinine Clearance 78.24 ml/min (50-250); Globulin 3.9 g/dL (2.2-4.2); Glucose 177 mg/dL (70-99); Potassium 3.8 mmol/L (3.3-5.1); Protein, Total 7.4 g/dL (5.9-8.4); Sodium Level 136 mmol/L (133-145); Total Bilirubin 0.67 mg/dL (0.00-1.30)
--- NOTE | 2024-06-03 11:47 | CT_ITS ---
PROCEDURE: CTA ABD W/RUNOFF W/WO CONTRAST 06/03/2024 REASON FOR EXAM: RIGHT LEG ARTERIAL OCCLUSION History of prior stent placement. TECHNIQUE: CTA imaging of the abdomen, pelvis, and lower extremities with intravenous contrast. Coronal and Sagittal reconstruction series were provided. 3D, 3D post processing, 3D reconstructions, Maximum intensity projection (MIPs) Volume rendering and Shaded surface rendering was provided. One or more dose reduction techniques were used (e.g., Automated exposure control, adjustment of the mA and/or kV according to patient size, use of iterative reconstruction technique). CONTRAST: Isovue-300 70 VOLUME: 100 mL RADIATION DOSE SUMMARY: CTDlvol: 11.5 mGy DLP: 1829.82 mGycm COMPARISON: None FINDINGS: Aorta: Mild scattered calcific plaques. Celiac: Non stenotic calcific plaque seen at the origin of the celiac artery. SMA: Unremarkable HILL : Unremarkable Right Renal: Unremarkable Left Renal: Unremarkable RIGHT Iliac Arteries: Common Iliac: Mild calcific nonobstructive plaque. External Iliac: Mild nonobstructive plaque. Internal Iliac: Unremarkable Postsurgical changes are seen in the right groin most likely secondary to prior vascular surgery. Small lymph nodes are seen in the right groin. LEFT Iliac Arteries: Common Iliac: Mild mixed calcified and soft plaque identified. External Iliac: Mild mixed calcified and soft plaque identified. Internal Iliac: Unremarkable RIGHT Lower Extremity: Common Femoral: Mild mixed calcified and soft plaque identified. Superficial Femoral: Stent visualized. No flow Deep Femoral: Unremarkable Popliteal: Stent in-situ. No flow Anterior Tibial: Not identified Tibioperoneal Trunk: Not identified Posterior Tibial: Not identified Peroneal: Not identified Dorsalis Pedis: Not opacified. LEFT Lower Extremity: Common Femoral: Mild mixed calcified and soft plaque identified. Superficial Femoral: Mild mixed calcified and soft plaque identified. Deep Femoral: Unremarkable Popliteal: Unremarkable Anterior Tibial: Unremarkable Tibioperoneal Trunk: Unremarkable Posterior Tibial: Unremarkable Peroneal: Unremarkable Dorsalis Pedis: Not opacified. Other Findings: Fatty infiltration of the liver. Sigmoid diverticulosis. CT/CTA Abd w/Runoff W/WO Contrast IMPRESSION: Occlusion of the right superficial femoral artery and popliteal artery. Occlud ed stents. No flow identified in the distal right leg. Reading Location: [facility]
[2024-06-03 12:19] LABS: Lactic Acid 1.9 mmol/L (0.0-2.0)
--- NOTE | 2024-06-03 12:37 | HP.PCM_ITS ---
HPI - General General Date of Admission: 06/03/24 Chief Complaint: Acute RLE ischemia HPI Narrative JO ANN MADDOX, is a 63 M who presented to the [facility] ER 06/03/24 with RLE pain and pallor concerning for acute RLE ischemia. In ER, he was initiated on heparin drip. CTA Abd/runoff revealed occluded prior synthetic femoral-tibial bypass and occluded prior SFA stents. Patient reports that about 2 weeks ago he noticed a blister on his R great toe; he reports he was applying peroxide to this at home and it has since progressed to this ulceration. Around that time he'd also had a bit of cramping in his R calf. Then Fri/Sat, he developed acutely worsened pain to the right lower leg which was present at rest. The pain continued to worsen and his foot looked worse leading him to present today. On my exam, he has reportedly stable chronic numbness in the toes, has sensation from the mid-foot upwards and is able to move his toes and foot. He reports pain is more tolerable with the medications he is receiving here. Patient has had at least 3 other events of acute RLE ischemia with multiple prior revascularization procedures, endovascular and open. Most recently 11/2023 at which time he presented to [facility] but had to be transferred to . It sounds like he'd had occlusion of his prior stents at that time; he reports they tried to open these emotiovascularly but this failed in short interval so he then had a bypass, he thinks this was in December 2023. He reports since December 2023 he has been on Lovenox instead of Xarelto. He reports that he does not think he has missed any doses though is not certain; reports his last dose was this morning. He also states he quit smoking in 2023 as he was also diagnosed with stage II lung cancer; he reports they are planning for possible surgical resection. [facility] Medical History Smoker DVT (deep venous thrombosis) Atherosclerosis of right lower extremity with rest pain Preoperative clearance Wears glasses Open wound Diabetes Hepatitis High cholesterol Former smoker History of stress test Infected pilonidal cyst Vitamin D deficiency Hx of retinal detachment Gangrene of toe of right foot Amputation of left great toe (~03/2019) Detached retina (~05/2019) PAD (peripheral artery disease) DM2 (diabetes mellitus, type 2) Neuropathy Home Medications ?Medication ?Instructions ?Recorded ?Last Taken ?Type lisinopril 20 mg tablet 20 mg PO QHS blood pressure #90 07/22/23 06/02/24 Rx tabs lisinopril 20 1 tab PO DAILY blood thinner #90 07/22/23 06/02/24 Rx mg-hydrochlorothiazide 25 mg tablet tabs aspirin 81 mg chewable tablet 1 tab PO DAILY 06/03/24 06/02/24 History atorvastatin 40 mg tablet 40 mg PO QHS cholesterol 06/02/24 History enoxaparin 100 mg/mL subcutaneous 100 mg subcut Q12H B LOOD THINNER 06/03/24 06/03/24 History syringe (Lovenox) Allergy/AdvReac Type Severity Reaction Status Date / Time No Known Allergies Allergy Verified 06/03/24 10:36 Family History Mother No significant family history Surgical History Hx of angioplasty Hx of detached retina repair Hx of cataract surgery History of amputation of left great toe Social History household members: none housing: apartment current occupational status: employed 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 sexually active: No Smoking Status: Former smoker Tobacco: How many years used: 40 Electronic Cigarette Use: not used quit status: considering quitting alcohol intake: never substance use type: does not use what type of physical activity do you participate in: none seatbelt use: always do you feel safe at home: Yes Vital Signs Vital Signs Vital Signs: 06/03/24 10:34 06/03/24 11:31 06/03/24 12:17 Temperature 97.8 F Temperature Source Oral Pulse Rate 89 79 Respiratory Rate 24 H 18 Blood Pressure 124/66 H 177/86 H 208/77 H Blood Pressure Mean 85 116 120 Pulse Ox 94 95 Oxygen Delivery Method Room Air Room Air Weight Weight: 257 lb 11.526 oz Body Mass Index (BMI) 36.9 Physical Exam Const alert and oriented x3 General Appearance: cooperative HEENT normocephalic, hearing grossly normal bilaterally, external ears normal and external nose normal Eyes EOMs intact bilaterally General Eye: normal appearance of both eyes Neck General: normal visual inspection and trachea midline Resp normal respiratory effort, no retractions and no use of accessory muscles Effort and Inspection: able to speak in complete sentences; Negative for labored, grunting or stridor Cardio regular rate and regular rhythm Extremity Extremity Narrative: R DP, PT, popliteal pulses nondopplerable R toes and forefoot with pallor, R lower leg with cyanotic discoloration; R forefoot cool to touch R toes numb; Intact sensation from R forefoot up the RLE; motor function intact to the R toes and foot Skin Wounds: wounds noted Wound Narrative: R great toe with ulceration on the lateral tip, no surrounding erythema, focal edema, drainage Neuro oriented x3, CN's II-XII intact bilaterally and no focal motor deficits Speech: speech normal Psych mental status grossly normal Appearance: grossly normal Attitude: calm and engaged Activity / Motor Behavior: appropriate eye contact Speech: normal speech Mood & Affect: euthymic mood Results Lab / Micro Data 06/03/24 11:00 06/03/24 11:00 Labs: Laboratory Results - last 24 hr 06/03/24 11:00: WBC 24.0 H, RBC 4.69, Hgb 12.1 L, Hct 37.1 L, MCV 79.1 L, MCH 25.8 L, MCHC 32.6, RDW Std Deviation 47.3 H, RDW Coeff of Corina 16.5 H, Plt Count 689 H, MPV 9.6, Immature Gran % (Auto) 0.800, Neut % (Auto) 88.7 H, Lymph % (Auto) 4.3 L, [place] % (Auto) 5.5, Eos % (Auto) 0.3, Baso % (Auto) 0.4, Absolute Neuts (auto) 21.3 H, Absolute Lymphs (auto) 1.03, Nucleated RBC % 0, Differential Comment COMMENT, Sodium 136, Potassium 3.8, Chloride 99, Carbon Dioxide 23.0, Anion Gap 14, BUN 14, Creatinine 1.27 H, Estim Creat Clear Calc 78.24, Est GFR (MDRD) Non-Af 64, BUN/Creatinine Ratio 11.2, Glucose 177 H, Lactic Acid 1.9, Calcium 9.3, Total Bilirubin 0.67, Direct Bilirubin 0.36 H, AST 23, ALT 7, Alkaline Phosphatase 110, Total Protein 7.4, Albumin 3.5, Globulin 3.9 06/03/24 11:08: PT 14.5, INR 1.1, APTT 36.2 Imaging Radiology Impression Abdomen/Pelvis CTA 06/03/24 11:47 IMPRESSION: Occlusion of the right superficial femoral artery and popliteal artery. Occluded stents. No flow identified in the distal right leg. Reading Location: [id number] Assessment & Plan Assessment/Plan (1) Ischemia of right lower extremity: (2) Occlusion of right femoral artery: (3) Failing vascular bypass graft: (4) Open wound of right great toe: (5) Hypertension: PLAN: Plan CTA images reviewed. Patient appears to have had R femoral to anterior tibial bypass with PTFE since he was last seen here; this is occluded. Prior R SFA stents occluded. Unfortunately, remaining revascularization options are very limited and not likely to be durable. At this point, recommendation is for amputation; in his case, would require R AKA. This was discussed with patient at length. He understands the situation and prognosis, is agreeable to scheduled for amputation tomorrow. Continue heparin drip. NPO after midnight. Plan for R AKA in the OR tomorrow; timing pending OR availability. For his HTN, will continue home meds. Add PRN hydralazine and labetalol for now. Will check A1c; not on any diabetic medications at home but has had elevated sugars here in the past.
[2024-06-03] MEDS: hydrALAZINE 20 MG/ML Vial IV (12:55)
[2024-06-03] MEDS: oxyCODONE 5 MG Tablet PO ×2 (17:16→23:07)
[2024-06-03] MEDS: Acetaminophen 500 MG Tablet 1000 MG PO ×2 (17:16→23:07)
[2024-06-03] MEDS: 0.9% Normal Saline (1000mL) 1,000 ML 50 ML IV (18:43)
[2024-06-03 18:55] LABS: Partial Thromboplast Time 52.4 Seconds (24.1-36.2)
[2024-06-03 19:39] LABS: Hemoglobin A1c 7.1 % (<=5.6)
[2024-06-03] MEDS: Lisinopril 20 MG Tablet PO (23:07)
[2024-06-03] MEDS: Atorvastatin Calcium 40 MG Tablet PO (23:07)
[2024-06-04] VITALS (14 sets, daily range): BP systolic 150–169; BP diastolic 63–82; PULSE 66–88; RESP 14–20; TEMP 36.2–37.3; O2SAT 92–99; BMI 35.6
[2024-06-04 01:18] LABS: Partial Thromboplast Time 48.4 Seconds (24.1-36.2)
[2024-06-04] MEDS: Heparin Injection (Vial) 5,000 UNIT/ML VIAL IV (01:44)
[2024-06-04] MEDS: HEPARIN/D5w 25,000 UNITS 25,000 UNITS/250 ML IV.SOLN. 18 UNITS CONT INF (01:46)
[2024-06-04] MEDS: Acetaminophen 500 MG Tablet 1000 MG PO ×2 (05:24→21:41)
[2024-06-04] MEDS: oxyCODONE 5 MG Tablet PO ×3 (05:25→21:41)
[2024-06-04 08:04] LABS: Absolute Lymphocyte Count 1.33 X10^3/uL (0.83-4.51); Absolute Neutrophil Count 19.2 X10^3/uL (2.0-7.7); Basophil# 0.11 X10^3/uL; Basophil% 0.5 % (0-1); Eosinophil# 0.24 X10^3/uL; Eosinophils% 1.1 % (0-5); Hematocrit 35.4 % (40-54); Hemoglobin 11.5 g/dL (13.0-16.5); Lymphocyte # 1.33 X10^3/ul (0.83-4.51); Lymphocyte % 5.9 % (19-41); Mean Corp Hgb Conc 32.5 g/dL (32-36); Mean Corpuscular Volume 79.9 fL (80-94); Mean Platelet Vol. 10.2 fl (6.2-12.0); Monocyte% 6.2 % (0-10); NRBC Flagged by Analyzer 0 % (0-5); Neutrophil % 85.7 % (47-70); Platelet Count 695 K/mm3 (150-450); RBC Distribution Width CV 16.8 % (11.6-14.6); RBC Distribution Width SD 48.5 fl (35.1-43.9); Red Blood Count 4.43 M/mm3 (4.6-6.2); White Blood Count 22.4 K/mm3 (4.4-11.0)
--- NOTE | 2024-06-04 08:08 | PCM.PN.SRG ---
Subjective Subjective I saw Mr. Kohler resting in bed this morning; having significant pain but tolerable with current pain medications. We again discussed recommendation for R AKA as Dr. Sol had extensively discussed with him yesterday afternoon. We discussed the procedure details, risks, benefits, alternative options. We particularly discussed the recovery process as well and that he would need rehab/SNF placement for initial recovery. I addressed all of his questions to his apparent satisfaction. He verbalizes understanding of the risks, benefits, and recovery process and that he does wish to proceed with R above knee amputation. Objective Data Objective Data Vital Signs: Vital Signs Temp Pulse Resp BP Pulse Ox O2 Del Method 98.6 F 82 16 165/72 H 96 Room Air 06/04/24 05:30 06/04/24 05:30 06/04/24 05:30 06/04/24 05:30 06/04/24 05:30 06/04/24 05:30 Oxygen Delivery Method Room Air Weight: 248 lb 14.43 oz Body Mass Index (BMI) 35.6 Intake & Output: Intake and Output for Last 24 Hours 06/02/24 06/03/24 06/04/24 23:59 23:59 23:59 Intake Total 1220 / 1220 115.93 / 115.93 Output Total 400 / 400 500 / 500 Balance 820 / 820 -384.07 / -384.07 Lab / Micro Data 06/04/24 07:38 06/03/24 11:00 Labs: Laboratory Results - last 24 hr 06/03/24 11:00: WBC 24.0 H, RBC 4.69, Hgb 12.1 L, Hct 37.1 L, MCV 79.1 L, MCH 25.8 L, MCHC 32.6, RDW Std Deviation 47.3 H, RDW Coeff of Corina 16.5 H, Plt Count 689 H, MPV 9.6, Immature Gran % (Auto) 0.800, Neut % (Auto) 88.7 H, Lymph % (Auto) 4.3 L, [place] % (Auto) 5.5, Eos % (Auto) 0.3, Baso % (Auto) 0.4, Absolute Neuts (auto) 21.3 H, Absolute Lymphs (auto) 1.03, Nucleated RBC % 0, Differential Comment COMMENT, Sodium 136, Potassium 3.8, Chloride 99, Carbon Dioxide 23.0, Anion Gap 14, BUN 14, Creatinine 1.27 H, Estim Creat Clear Calc 78.24, Est GFR (MDRD) Non-Af 64, BUN/Creatinine Ratio 11.2, Glucose 177 H, Lactic Acid 1.9, Calcium 9.3, Total Bilirubin 0.67, Direct Bilirubin 0.36 H, AST 23, ALT 7, Alkaline Phosphatase 110, Total Protein 7.4, Albumin 3.5, Globulin 3.9 06/03/24 11:08: PT 14.5, INR 1.1, APTT 36.2 06/03/24 18:10: APTT 52.4 H, Hemoglobin A1c 7.1 H 06/04/24 00:57: APTT 48.4 H 06/04/24 07:38: WBC 22.4 H, RBC 4.43 L, Hgb 11.5 L, Hct 35.4 L, MCV 79.9 L, MCH 26.0 L, MCHC 32.5, RDW Std Deviation 48.5 H, RDW Coeff of Corina 16.8 H, Plt Count 695 H, MPV 10.2, Immature Gran % (Auto) 0.600, Neut % (Auto) 85.7 H, Lymph % (Auto) 5.9 L, [place] % (Auto) 6.2, Eos % (Auto) 1.1, Baso % (Auto) 0.5, Absolute Neuts (auto) 19.2 H, Absolute Lymphs (auto) 1.33, Nucleated RBC % 0 Radiography Diagnostic Testing: Radiology Impression Abdomen/Pelvis CTA 06/03/24 11:47 IMPRESSION: Occlusion of the right superficial femoral artery and popliteal artery. Occluded stents. No flow identified in the distal right leg. Reading Location: [place] [id number] Physical Exam Const alert and oriented x3 General Appearance: cooperative HEENT normocephalic, hearing grossly normal bilaterally, external ears normal and external nose normal Eyes EOMs intact bilaterally General Eye: normal appearance of both eyes Neck General: normal visual inspection and trachea midline Resp normal respiratory effort, no retractions and no use of accessory muscles Effort and Inspection: able to speak in complete sentences; Negative for labored, grunting or stridor Cardio regular rate and regular rhythm Extremity Extremity Narrative: R DP, PT, popliteal pulses nondopplerable R toes and forefoot with pallor, R lower leg with cyanotic discoloration; R forefoot cool to touch R toes numb; Intact sensation from R forefoot up the RLE; motor function intact to the R toes and foot Skin Wounds: wounds noted Wound Narrative: R great toe with ulceration on the lateral tip, no surrounding erythema, focal edema, drainage Neuro oriented x3, CN's II-XII intact bilaterally and no focal motor deficits Speech: speech normal Psych mental status grossly normal Appearance: grossly normal Attitude: calm and engaged Activity / Motor Behavior: appropriate eye contact Speech: normal speech Mood & Affect: euthymic mood Assessment & Plan Assessment/Plan (1) Ischemia of right lower extremity: (2) Occlusion of right femoral artery: (3) Failing vascular bypass graft: (4) Open wound of right great toe: (5) Hypertension: PLAN: Plan Plan for R AKA in the OR, at present scheduled for 1200. NPO. Discontinue heparin drip. Charges/Coding Visit Charges Inpatient E&M: 13263 Subs Hosp L1
[2024-06-04 08:29] LABS: AST(SGOT) 22 U/L (<=37); Alanine Aminotransfer ALT/SGPT 9 U/L (<=46); Albumin, Serum 3.1 g/dL (3.4-4.8); Alkaline Phosphatase 103 U/L (40-129); Anion Gap 10 (5-15); BUN 15 mg/dL (4-19); BUN/Creat Ratio 15.4 RATIO (10-20); Bilirubin, Direct 0.32 mg/dL (0.00-0.30); Carbon Dioxide 24.5 mmol/L (21.0-32.0); Chloride 104 mmol/L (98-108); Creatinine, Serum 0.95 mg/dL (0.70-1.20); EST Glomerular Filtration Rate 91 (>60); Estimated Creatinine Clearance 102.75 ml/min (50-250); Glucose 125 mg/dL (70-99); Potassium 3.6 mmol/L (3.3-5.1); Protein, Total 7.1 g/dL (5.9-8.4); Sodium Level 138 mmol/L (133-145); Total Bilirubin 0.51 mg/dL (0.00-1.30)
--- NOTE | 2024-06-04 11:50 | PCM.PRE.AN2 ---
ASA Classification* ASA Classification ASA Classification: 3 Assessment & Plan Anesthesia* Anesthesia Assessment Anesthesia Assessment: Discussed sedation and/or anesthesia options, risks, benefits, and alternatives with patient/parents/legal guardian/POA. Questions invited. The patient/parents/legal guardian/POA seems to understand and agrees to proceed with anesthesia plan. Reviewed the physical assessment, medical history, allergy history and patient home medications list prior to surgery/procedure/anesthetic and documented any changes. Performed airway and anesthesia risk assessments. Anesthesia Type Anesthesia Type: General History Source History Obtained from:: Patient and Chart Anesthesia Focused Assessment* Temperature: 97.4 F Pulse Rate: 70 Blood Pressure: 157/82 Respiratory Rate: 16 Pulse Ox: 98 Oxygen Delivery Method: Room Air Airway Assessment Mouth opens: >3 cm Mallampati Score: III Teeth Condition: Missing (Patient has several missing teeth. Rest of the teeth are tight.) Neck Range of motion (ROM): Full ROM Focused Labs Anesthesia Preop lab: CBC WBC 22.4 K/mm3 (4.4-11.0) H 06/04/24 07:38 06/04/24 RBC 4.43 M/mm3 (4.6-6.2) L 06/04/24 07:38 06/04/24 Hgb 11.5 g/dL (13.0-16.5) L 06/04/24 07:38 06/04/24 Hct 35.4 % (40-54) L 06/04/24 07:38 06/04/24 Plt Count 695 K/mm3 (150-450) H 06/04/24 07:38 06/04/24 CHEMISTRY Potassium 3.6 mmol/L (3.3-5.1) 06/04/24 07:38 06/04/24 Sodium 138 mmol/L (133-145) 06/04/24 07:38 06/04/24 Magnesium 2.0 mg/dL (1.6-2.6) 04/28/20 16:40 04/28/20 BUN 15 mg/dL (4-19) 06/04/24 07:38 06/04/24 Creatinine 0.95 mg/dL (0.70-1.20) 06/04/24 07:38 06/04/24 Glucose 125 mg/dL (70-99) H 06/04/24 07:38 06/04/24 POC Glucose 108 mg/dL (74-106) H 07/06/22 10:42 07/06/22 TSH 2.28 uIU/mL (0.358-3.74) 07/03/22 14:42 07/03/22 COAG PT 14.5 SECONDS (11.7-14.9) 06/03/24 11:08 06/03/24 Pre-Assessment Diagnosis/Proposed Procedure Planned Operative Procedure(s): Amputation above right knee. Right lower extremity targeted muscle reinnervation versus regenerative nerve interface in conjunction with above-knee amputation. 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 When Was Last Pacemaker Check QUESTION #4 FULL TEXT: You/Your Family Experience fever (hyperthermia) with Anesthesia Last Oral Intake Last Oral intake: Last Oral Intake NPO since 00:00 06/04/24 04:14 Meds taken in AM with sips of Yes 06/04/24 04:14 water? Meds patient instructed to Tylenol 06/04/24 04:14 take am of surgery PONV PONV - environmental test technician: PONV - environmental test technician Female HX of Motion Sickness HX of N/V After Surgery Non-Smoker Duration of Surgery greater than 60 minutes Number of Risk Factors PONV Score Height & Weight Height & Weight: Anesthesia: Height & Weight Height 5 ft 10 in 06/04/24 11:06 Weight: 112.9 kg 06/04/24 11:06 Body Mass Index (BMI) 35.6 06/04/24 04:14 Respiratory Assessment Respiratory Assessment - environmental test technician: Respiratory Tract Infection Hx - environmental test technician Hx Respiratory Tract Infection No 06/04/24 02:18 STOP Sleep Apnea STOP Sleep Apnea - environmental test technician: STOP Sleep Apnea - environmental test technician Hx Hypertension Yes 06/03/24 16:32 Hx Sleep Apnea No 06/03/24 16:32 CPAP BIPAP Do you snore loudly (louder No 06/03/24 16:32 than talking or can be heard Do you often feel tired/ No 06/03/24 16:32 fatigued/ sleepy during daytime? Has anyone observed you stop No 06/03/24 16:32 breathing during sleep? STOP Results Negative 06/03/24 16:32 QUESTION #5 FULL TEXT : Do you snore loudly (louder than talking or can be heard through closed doors)? 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 Specify any problems Hx of Preganancy in last 3 N/A 06/03/24 16:32 Months Nurse Filling Out Transfusion HHARTZLER 06/03/24 16:32 & Questions: Date: 06/03/24 06/03/24 16:32 Time: 17:15 06/03/24 16:32 Patient unable to answer at this time (ie. confused, unrespo /Reproduction History /Reproductive History - environmental test technician: /Reproductive Hx- environmental test technician Hx Now No 06/04/24 02:18 Gestational Age (in weeks): EDC: Hx Hx Para Hx Section SAB No 06/04/24 02:18 Active Medications Active Medications: Current Medications Generic Name Dose Route Start Last Admin Trade Name Freq PRN Reason Stop Dose Admin Acetaminophen 1,000 mg 06/03/24 17:00 06/04/24 05:24 Acetaminophen 500 Mg Tablet PO 1,000 mg Q8 FRANKLIN Administration Al Hydroxide/Mg Hydroxide 30 ml 06/03/24 16:31 Mag Hydrox/Al Hydrox/Simeth 30 Ml Udc PO Q6H PRN PRN Gastric Burning Albuterol Sulfate 2.5 mg 06/03/24 16:31 Albuterol 2.5 Mg/3 Ml Vial.Neb. INHALATION Q2H PRN PRN SOB &/OR WHEEZING Aspirin 81 mg 06/04/24 08:00 06/04/24 08:20 Aspirin 81 Mg Tab.Chew PO Not Given BREAKFAST FRANKLIN Atorvastatin Calcium 40 mg 06/03/24 22:00 06/03/24 23:07 Atorvastatin Calcium 40 Mg Tablet PO 40 mg QHS FRANKLIN Administration Docusate Sodium 100 mg 06/03/24 16:31 Docusate Sodium 100 Mg Capsule PO BID PRN PRN Constipation Heparin Sodium (Porcine) 0 unit 06/03/24 11:20 06/04/24 01:44 Heparin Injection (Vial) 5,000 Unit/Ml Vial IV 1,000 unit UD PRN Administration dose adjustment Protocol Hydralazine HCl 10 mg 06/03/24 16:31 Hydralazine 20 Mg/Ml Vial IV Q2H PRN SBP GREATER THAN 170 Protocol Hydrochlorothiazide 25 mg 06/04/24 10:00 06/04/24 09:05 Hydrochlorothiazide 25 Mg Tablet PO Not Given DAILY FRANKLIN Hydromorphone HCl 0.2 mg 06/03/24 16:31 Hydromorphone Inj 0.2 Mg/Ml Syringe IV Q3H PRN PRN Pain Score 6-10 Sodium Chloride 1,000 mls @ 50 mls/hr 06/03/24 16:31 06/03/24 18:43 IV 50 mls/hr .Q20H FRANKLIN Administration Sodium Chloride 100 mls @ 15 mls/hr 06/03/24 16:33 IV .Q6H40M PRN Saline Flush Sodium Chloride 100 mls @ 15 mls/hr 06/03/24 16:33 IV .Q6H40M PRN Additional IVPB Infusion Labetalol HCl 10 mg 06/03/24 16:31 Labetalol 20mg/4ml Syringe IV Q4H PRN PRN SBP GREATER THAN 170 Protocol Lisinopril 20 mg 06/03/24 22:00 06/03/24 23:07 Lisinopril 20 Mg Tablet PO 20 mg QHS FRANKLIN Administration Protocol Lisinopril 20 mg 06/04/24 10:00 06/04/24 09:05 Lisinopril 20 Mg Tablet PO Not Given DAILY FRANKLIN Melatonin 3 mg 06/03/24 16:31 Melatonin 3 Mg Tablet PO QHS PRN PRN INSOMNIA Nutritional Formula (Lactose Free) 120 ml 06/04/24 08:00 06/04/24 08:20 Ensure Plus High Protein 120 Ml Liquid PO Not Given TIDCM FRANKLIN Ondansetron HCl 4 mg 06/03/24 16:31 Ondansetron 4 Mg/2 Ml Vial IV Q8H PRN PRN NAUSEA/VOMITING Oxycodone HCl 5 mg 06/03/24 16:31 06/04/24 05:25 Oxycodone 5 Mg Tablet PO 5 mg Q4H PRN PRN Administration Pain Score 4-10 Sodium Chloride 10 - 40 ml 06/03/24 16:33 0.9% Saline Lock 10 Ml Syringe IV UD PRN SALINE FLUSH Throat Lozenges 1 lozenge 06/03/24 16:31 Benzocaine/Menthol 1 Lozenge MUCOUS MEM Q2H PRN PRN SORE THROAT PFSH Medical History Smoker DVT (deep venous thrombosis) Atherosclerosis of right lower extremity with rest pain Preoperative clearance Wears glasses Open wound Diabetes Hepatitis High cholesterol Former smoker History of stress test Infected pilonidal cyst Vitamin D deficiency Hx of retinal detachment Gangrene of toe of right foot Amputation of left great toe (~03/2019) Detached retina (~05/2019) PAD (peripheral artery disease) DM2 (diabetes mellitus, type 2) Neuropathy Home Medications ?Medication ?Instructions ?Recorded ?Last Taken ?Type lisinopril 20 mg tablet 20 mg PO QHS blood pressure #90 07/22/23 06/02/24 Rx tabs lisinopril 20 1 tab PO DAILY blood thinner #90 07/22/23 06/02/24 Rx mg-hydrochlorothiazide 25 mg tablet tabs aspirin 81 mg chewable tablet 1 tab PO DAILY 06/03/24 06/02/24 History atorvastatin 40 mg tablet 40 mg PO QHS cholesterol 06/03/24 06/02/24 History enoxaparin 100 mg/mL subcutaneous 100 mg subcut Q12H BLOOD THINNER 06/03/24 06/03/24 History syringe (Lovenox) Allergy/AdvReac Type Severity Reaction Status Date / Time No Known Allergies Allergy Verified 06/03/24 10:36 Family History Mother No significant family history Surgical History Hx of angioplasty Hx of detached retina repair Hx of cataract surgery History of amputation of left great toe Social History household members: none housing: apartment current occupational status: employed 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
--- NOTE | 2024-06-04 11:55 | CASEMGMT ---
RN DANIELLE NOTE: RN CM to room to complete assessment. Pt out of room at this time @ OR. Assessment to be completed at a later time. Lauren BSN HALEY CM
--- NOTE | 2024-06-04 12:00 | AMP_PTH ---
PATIENT: JO ANN MADDOX LOC: [facility] U#:[id number] AGE/SX: 64/M ROOM: [facility] RE06/03/[address]: JESUS Anguiano : 1960 BED: 1 DIS: 06/09/2024 SPEC #: [id number] RECD: 06/04/24 14:38 STATUS: SOFÍA REGabriela #: [id number] MUKUND: 06/04/24 12:[address]: Virgilio Sol DEPT: SURGICAL PATHOLOGY RECD BY: Tiffany Partida ENTERED: 06/04/24 15:02 SP TYPE: Amputation OTHR DR: MD Beth Alaniz PA Tissues: A - Right leg Procedures: Decalcification bone/plaque Surgery Specimen Level V HEADER OPERATION: Amputation, above knee PRE-OP DIAGNOSIS: Ischemia of right lower extremity, occlusion of right femoral artery, failing vascular bypass graft, open wound of right great toe TISSUE SUBMITTED: A- Right leg MICROSCOPIC DIAGNOSIS A. Right leg, [id number] amputation: * Great toe with cutaneous ulceration, soft tissue necrosis, and reactive/degenerative changes of bone with focal osteomyelitis. * Well-healed scar, medial malleolus. * Viable skin/soft tissue resection margin without significant inflammation. * Viable bone and bone marrow with trilineage hematopoiesis, femoral resection margin. * Patent crow femoral vessels with femoral artery stent. * Status post remote amputation of toes 4 and 5 with well-healed amputation sites. MICROSCOPIC DESCRIPTION Slides are reviewed. GROSS DESCRIPTION A. Received fresh in a bag labeled with the patient's name, date of , and right leg is a white-welch, right above-knee amputation with attached right foot. The specimen is approximately 49 cm in length by 13 x 12 cm, with an attached foot measuring 25 cm in length by 9 x 6 cm. The 4th and 5th digits of the foot are previously removed with well-healed amputation sites. A toenail is absent on the hallux, and the 2nd and 3rd digits exhibit welch-yellow, thickened toenails. The soft tissue resection margin appears grossly viable. The femoral margin is smooth and firm measuring 4 cm in diameter. The femoral artery margin is identified with a 0.7 cm patent lumen. Embedded within the femoral artery from the surgical margin to the popliteal fossa is a metal stent. The skin of the hallux is notable for a blackened, firm, and mummified wound measuring 2.5 x 2.0 cm. Sectioning reveals firm underlying bone. The skin exhibits a moderate amount of red-purple mottling scattered throughout, situated at least 15 cm from the soft tissue margin. Sectioning reveals firm underlying bone. An irregular well-healed scar is identified at the medial malleolus (approximately 3 cm), and a linear well-healed scar is identified at the medial condyle (approximately 10 cm in length). Seed District Sales Manager sections:A1. Soft tissue resection marginA2. Mummified wound at hallux, mottled skin at anterior leg, and scar of medial malleolusA3. Femoral arteryA4. Bone underlying mummified wound at hallux, bone under scar of medial malleolus, decalcificationA5. Reamings at femoral bone margin, decalcification [facility] 06-04-2024 CPT:[id number]
--- NOTE | 2024-06-04 12:09 | CON.PCM.SX_ITS ---
Assessment & Plan Assessment/Plan (1) Open wound of right great toe: (2) Occlusion of right femoral artery: (3) Atherosclerosis of right lower extremity with gangrene: QUALIFIERS: Peripheral atherosclerosis artery type: [place] artery Qualified Code(s): I70.261 - Atherosclerosis of [place] arteries of extremities with gangrene, right leg PLAN: Plan I talked to the patient extensively about the risks of surgery, including bleeding, infection, damage to surrounding structures, poor scaring, phantom limb pain, residual limb pain, surgical site dehiscence and wound formation, need for wound care, need for repeat operations, failure to obtain the desired result (phantom limb pain and residual nerve pain), DVT/PE, and the risks of anesthesia including , including stroke (from low blood pressure/ischemia or clot). The risk of anesthesia and systemic complications are increased with prolonged operative time which is a main risk of targeted muscle reinnervation and regenerative peripheral nerve interface application and lower extremity amputations (Discussed with patient). There is no guarantee that it will work or help, but we discussed about how these procedures have been shown to improve phantom limb pain and residual nerve pain. In general, the benefits and alternatives of this surgery were also discussed. All of their questions were answered, and they agreed to proceed with surgery and wanted to attempt an intervention on the nerve to prevent residual limb pain and phantom limb pain. Plastic surgery will assist with amputation and our PPNI versus TMR HPI Consult Data Date of Consult: 06/04/24 HPI Narrative HPI Narrative: JO ANN MADDOX is a 63-year-old male with past medical history of multiple right lower extremity vascular interventions for peripheral arterial disease for whom plastic surgery is being consulted by vascular surgery team for potential targeted muscle reinnervation versus regenerative peripheral nerve interface in the setting of planned right lower extremity above-knee amputation today in the operating room. I talked to the patient extensively about the procedure. All his questions were answered. [facility] Medical History Smoker DVT (deep venous thrombosis) Atherosclerosis of right lower extremity with rest pain Preoperative clearance Wears glasses Open wound Diabetes Hepatitis High cholesterol Former smoker History of stress test Infected pilonidal cyst Vitamin D deficiency Hx of retinal detachment Gangrene of toe of right foot Amputation of left great toe (~03/2019) Detached retina (~05/2019) PAD (peripheral artery disease) DM2 (diabetes mellitus, type 2) Neuropathy Home Medications ?Medication ?Instructions ?Recorded ?Last Taken ?Type lisinopril 20 mg tablet 20 mg PO QHS blood pressure #90 07/22/23 06/02/24 Rx tabs lisinopril 20 1 tab PO DAILY blood thinner #90 07/22/23 06/02/24 Rx mg-hydrochlorothiazide 25 mg tablet tabs aspirin 81 mg chewable tablet 1 tab PO DAILY 06/03/24 06/02/24 History atorvastatin 40 mg tablet 40 mg PO QHS cholesterol 06/02/24 History enoxaparin 100 mg/mL subcutaneous 100 mg subcut Q12H B LOOD THINNER 06/03/24 06/03/24 History syringe (Lovenox) Allergy/AdvReac Type Severity Reaction Status Date / Time No Known Allergies Allergy Verified 06/03/24 10:36 Family History Mother No significant family history Surgical History Hx of angioplasty Hx of detached retina repair Hx of cataract surgery History of amputation of left great toe Social History household members: none housing: apartment current occupational status: employed 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 sexually active: No Smoking Status: Former smoker Tobacco: How many years used: 40 Electronic Cigarette Use: not used quit status: considering quitting alcohol intake: never substance use type: does not use what type of physical activity do you participate in: none seatbelt use: always do you feel safe at home: Yes Physical Exam Narrative Const alert and oriented x3 General Appearance: cooperative HEENT normocephalic, hearing grossly normal bilaterally, external ears normal and external nose normal Eyes EOMs intact bilaterally General Eye: normal appearance of both eyes Neck General: normal visual inspection and trachea midline Resp normal respiratory effort, no retractions and no use of accessory muscles Effort and Inspection: able to speak in complete sentences; Negative for labored, grunting or stridor Cardio regular rate and regular rhythm Extremity Extremity Narrative: Right lower extremity vascular exam: DP, PT, popliteal pulses nondopplerable Right toes and forefoot with pallor, R lower leg with cyanotic discoloration; R forefoot cool to touch Right toes numb; Intact sensation from R forefoot up the RLE; motor function intact to the R toes and foot Skin Wounds: wounds noted Wound Narrative: R great toe with ulceration on the lateral tip, no surrounding erythema, focal edema, drainage Neuro oriented x3, CN's II-XII intact bilaterally and no focal motor deficits Speech: speech normal Psych mental status grossly normal Appearance: grossly normal Attitude: calm and engaged Activity / Motor Behavior: appropriate eye contact Speech: normal speech Mood & Affect: euthymic mood Lab / Micro Data 06/04/24 07:38 06/04/24 07:38 Labs: Laboratory Results - last 24 hr 06/03/24 11:00: Lactic Acid 1.9 06/03/24 18:10: APTT 52.4 H, Hemoglobin A1c 7.1 H, Blood Type O NEGATIVE, Antibody Screen NEGATIVE, Crossmatch See Detail 06/04/24 00:57: APTT 48.4 H 06/04/24 07:38: WBC 22.4 H, RBC 4.43 L, Hgb 11.5 L, Hct 35.4 L, MCV 79.9 L, MCH 26.0 L, MCHC 32.5, RDW Std Deviation 48.5 H, RDW Coeff of Corina 16.8 H, Plt Count 695 H, MPV 10.2, Immature Gran % (Auto) 0.600, Neut % (Auto) 85.7 H, Lymph % (Auto) 5.9 L, [place] % (Auto) 6.2, Eos % (Auto) 1.1, Baso % (Auto) 0.5, Absolute Neuts (auto) 19.2 H, Absolute Lymphs (auto) 1.33, Nucleated RBC % 0, APTT 55.0 H , Sodium 138, Potassium 3.6, Chloride 104, Carbon Dioxide 24.5, Anion Gap 10, BUN 15, Creatinine 0.95, Estim Creat Clear Calc 102.75, Est GFR (MDRD) Non-Af 91, BUN/Creatinine Ratio 15.4, Glucose 125 H, Calcium 9.0, Total Bilirubin 0.51, Direct Bilirubin 0.32 H, AST 22, ALT 9, Alkaline Phosphatase 103, Total Protein 7.1, Albumin 3.1 L, Globulin 4.0 Imaging Radiology Impression Abdomen/Pelvis CTA 06/03/24 11:47 IMPRESSION: Occlusion of the right superficial femoral artery and popliteal artery. Occluded stents. No flow identified in the distal right leg. Reading Location: [facility]
[2024-06-04] MEDS: Cefazolin 2 GM in Syringe IV (12:20)
--- NOTE | 2024-06-04 15:21 | PCM.OPRPT ---
Operative Report (Standard) Operative Information Date of Procedure: 06/04/24 Pre-Operative Diagnosis: recurrent acute ischemia right lower extremity Post-Operative Diagnosis: same Surgery/Procedure Performed: right above knee amputation marine engineer: Yes Fishing Vessel Operator: Charlene Lafleur Tasks completed by first cook: Opening, Closing, Opening & closing, Hemostasis: Tie, Hemostasis: Electrocautery and Retracting Type of Anesthesia: General RN Documented Start/Stop Times: Operation Date: 06/04/24 12:00 Case Time Into Pre-Op 06/04/24 11:05 Anesthesia Start 06/04/24 12:12 Into Room 06/04/24 12:12 Procedure Start 06/04/24 12:44 Procedure End 06/04/24 15:10 Anesthesia End 06/04/24 15:14 Out of Room 06/04/24 15:14 Into Recovery 06/04/24 15:16 Procedure Start Time: 12:44 Procedure Stop Time: 15:10 Select all DRAINS/GRAFTS/IMPLANTS that apply: None Estimated Blood Loss: 500 Specimen collected: Yes Description of specimen(s) removed: right leg Description of surgery: HPI: Patient is a 63-year-old male with recurrent acute limb ischemia of the right lower extremity with multiple failed percutaneous and the open revascularization efforts. Given the multiple failed efforts, the current state of his foot, and his potential options he is felt to be most appropriate for amputation. He is taken now for [id number] amputation. Description of procedure: Upon today informed consent and verification correct patient procedure site patient taken to the operating was placed under general anesthesia. He was then positioned prepped and draped in usual sterile fashion time was performed. Skin was marked with a [place] orientation and incision made with a 10 blade. Bovie electrocautery was then used to dissect down through subcutaneous tissue to the level of the fascia on the anterior aspect of the thigh. The fascia was incised and the musculature of the extensor was divided with Bovie electrocautery. The prior failed femoral to anterior tibial synthetic bypass was then ligated with silk ties and divided. Further dissection was then carried down to the femur and connective tissue divided and mobilized. Musculature and connective tissue on the medial aspect thigh was then divided and the femoral neurovascular bundle identified. The femoral vein was was clamped, divided, and ligated with 5-0 Prolene in a running fashion. The occluded superficial femoral artery was then ligated with silk ties and divided. The remaining musculature on the medial and posterior aspect of the thigh was then divided with Bovie and the sciatic nerve identified. At this point the femur was divided with a reciprocating saw with an anterior bevel. Dr. Pham then performed his nerve reinnervation and nerve interface procedure which she will dictate separately. The wound was then inspected for hemostasis and holes drilled in the anterior and lateral aspect of the femur for muscle anchor sutures. Muscles of the abductor group were then anchored to the lateral femur with 0 PDS pursestring suture. The muscles of the semimembranosus and semitendinosis were then secured to the anterior femur with a separate 0 PDS. Muscle of the anterior aspect of the thigh was then trimmed to debulk and provide a tension-free closure of the fascia. Fascia was then closed with 2-0 PDS followed by deep dermal suture and thomas. Wound VAC was then applied followed by dry sterile dressing. The patient was then awakened from anesthesia taken recovery room with anticipated return to the PCU. Surgical Findings: see above Complications Complications: No
--- NOTE | 2024-06-04 15:54 | PCM.POST.ANE ---
Anesthesia: Postop Eval I Current Vital Signs Temperature: 98.4 F Pulse Rate: 80 Blood Pressure: 159/69 Respiratory Rate: 16 Pulse Ox: 94 Oxygen Delivery Method: Room Air Assessment Airway patent: Yes Spontaneous unlabored respirations: Yes Mental status: Awake nausea: No Vomiting: No Anesthesia Complication: No Fluid Hydration Crystalloid volume administer (ml): 2,000 Total IV fluid infused: 2,000 Progress Note Anesthesia document: Postop Eval 1 completed: Yes
[2024-06-04] MEDS: 0.45% Normal Saline 1,000 ML 100 ML IV (16:20)
--- NOTE | 2024-06-04 17:47 | PCM.OPRPT ---
Operative Report (Standard) Operative Information Date of Procedure: 06/04/24 Pre-Operative Diagnosis: Right lower extremity ischemia Post-Operative Diagnosis: Same Surgery/Procedure Performed: 1) Targeted muscle reinnervation (TMR), tibial nerve fibers of the sciatic nerve to motor branch of the semimembranosus, right thigh (CPT Code: 49586) 2) Regenerative Peripheral Nerve Interface (RPNI), peroneal nerve fibers the sciatic nerve, (CPT Codes: 01288 (muscle harvest for tissue graft) and 26027 (implantation of nerve into muscle)) casting trucker: Yes Business Transformation Consultant: Charlene Lafleur Tasks completed by senior underwriting assistant: Closing and Retracting Additional field assistant?: Yes Additional Security Solutions Architect #2: Virgilio Sol Tasks completed by field assistant #2: Other (Security Solutions Architect Surgeon. I assisted him with the above-knee amputation and he assisted me with the targeted muscle reinnervation and regenerative peripheral nerve interface) Type of Anesthesia: General RN Documented Start/Stop Times: Operation Date: 06/04/24 12:00 Case Time Into Pre-Op 06/04/24 11:05 Anesthesia Start 06/04/24 12:12 Into Room 06/04/24 12:12 Procedure Start 06/04/24 12:44 Procedure End 06/04/24 15:10 Anesthesia End 06/04/24 15:14 Out of Room 06/04/24 15:14 Into Recovery 06/04/24 15:16 Out of Recovery 06/04/24 15:55 Procedure Start Time: 12:44 Procedure Stop Time: 15:10 Select all DRAINS/GRAFTS/IMPLANTS that apply: None Estimated Blood Loss: 500 cc Specimen collected: Yes Description of specimen(s) removed: Amputated right lower extremity Description of surgery: INDICATIONS: Bruce Kohler is a 63-year-old male with past medical history of multiple lower extremity salvage vascular interventions for poor perfusion to the right leg who presents today for definitive treatment with 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 Sol from vascular surgery. The risks and benefits were discussed with the patient and they were in agreement with proceeding to surgery. I was asked to assist with amputation and with management of the nerves to prevent phantom limb pain and residual limb pain. We discussed in particular bleeding, infection, wound problems with need for repeat surgeries (possible limb shortening), and phantom limb pain/neuroma pain/residual limb pain (and no guarantees that interventions on the nerves will prevent these problems). The patient elected to proceed with the surgery. He understood the risks of increased operative time. OPERATIVE DETAILS: Patient was correctly identified in preoperative holding and taken back to the operating room where a timeout was performed. They were administered general anesthesia and prepped and the right leg was prepped and draped in sterile fashion with a stockinette placed over the foot. Care was taken to pad all bony prominences and protect the peripheral nerves for safe surgery. A timeout was performed. I assisted Dr. Sol with the above-knee amputation portion of the procedure. Please see his separate operative note for details. Attention was then turned to management of the sciatic nerve. Intraneural neurolysis was performed under loupe magnification 3.5x. With careful dissection using a Anali dissector and forceps, I was able to separate the sciatic nerve into tibial and peroneal nerve contributions. I also dissected the sciatic nerve proximally to find a branch going to the semimembranosus muscle. I confirmed that this was a branch to this hamstring muscle with the checkpoint nerve stimulator. To deal with the size mismatch between the nerves, the semimembranosus motor branch, after it was transected proximally, was positioned into the central portion of the tibial nerve with a horizontal mattress 7-0 Prolene suture under loupe magnification. Once the motor branch was centered into the tibial nerve, several epineurial 7-0 Prolene interrupted sutures were used between epineurium of the motor branch and the tibial nerve stump. Attention was then turned to the peroneal nerve. No other easily identifiable motor branches to the hamstring muscles were identified, and therefore decision was made to perform an RPNI for the peroneal nerve. A small muscle graft from the long axis of the vastus lateralis muscle (from amputated limb) in line with the fibers was created with sharp dissection using scissors. The graft measured 1 x 3 cm and was 0.5 cm thick. The peroneal nerve was inserted into the middle of the muscle using a 7-0 Prolene suture. The muscle grafts were then wrapped around the stump with a 4-0 Vicryl suture, and the nerve were implanted deep within the AKA (at the base of the wound) so as not to rest in a pressure location and be posterior to the bony prominences. The fascia of the anterior and posterior muscle flaps were approximated with interrupted 0 PDS [id number] sutures over the femur. The skin/subcutaneous tissue was approximated with 2-0 PDS deep fascial sutures followed by 3-0 Monocryl deep dermal sutures and thomas. A wound VAC over the incision was placed with care taken to place nonadherent petroleum gauze as an interface. Kerlix and an Lemuel wrap was applied. The patient tolerated the procedure well. All counts were correct at the end of the case. They were taken to the PACU in stable condition. Surgical Findings: Operative time for my portion of procedure was approximately 1 hour including closure We are able to find 1 motor branch to the semimembranosus which was available for greater muscle reinnervation. This was confirmed with the checkpoint nerve stimulator Complications Complications: No Admit VTE Documentation VTE Mechan Device Prophylaxis: SCD's (On the left lower extremity)
--- NOTE | 2024-06-04 20:32 | POSTOPAN2_ITS ---
Anesthesia Postop Eval I Sum Postop Eval Completion status Anesthesia document: Postop Eval 1 completed: Yes Anesthesia Postop Eval I Summary Anesthesia Postop Eval I Summary: Anesthesia Postop Eval I: Assessment Summary Airway patent Yes 06/04/24 15:55 TUBE CUTTER [email or web address] Spontaneous unlabored Yes 06/04/24 15:55 TUBE CUTTER OPERATOR.ACAR respirations Mental status Awake 06/04/24 15:55 TUBE CUTTER [email or web address].ACAR nausea No 06/04/24 15:55 TUBE CUTTER OPERATOR.ACAR Vomiting No 06/04/24 15:55 TUBE CUTTER OPERATOR.ACAR Anesthesia Postop Eval I: Fluid Summary Crystalloid volume administer 2,000 06/04/24 15:55 TUBE CUTTER [email or web address].ACAR (ml) Colloids volume administered ( ml) Blood Product volume administered (ml) Total IV fluid infused 2,000 06/04/24 15:55 TUBE CUTTER [email or web address].ACAR Anesthesia Postop Eval I: Summary Notes Anesthesia Complication No 06/04/24 15:55 TUBE CUTTER OPERATOR.ACAR Anesthesia Complication Comment: Post-operative progress note Anesthesia: Postop Eval II Evaluation Mental status: Awake and Calm Pain Level: 2 nausea: No Vomiting: No Complications Anesthesia Complication: No
--- NOTE | 2024-06-04 20:32 | PCM.POSTANE2 ---
Anesthesia Postop Eval I Sum Postop Eval Completion status Anesthesia document: Postop Eval 1 completed: Yes Anesthesia Postop Eval I Summary Anesthesia Postop Eval I Summary: Anesthesia Postop Eval I: Assessment Summary Airway patent Yes 06/04/24 15:55 PRODUCE [email or web address] Spontaneous unlabored Yes 06/04/24 15:55 PRODUCE [email or web address].ACAR respirations Mental status Awake 06/04/24 15:55 PRODUCE [email or web address].ACAR nausea No 06/04/24 15:55 PRODUCE [email or web address].ACAR Vomiting No 06/04/24 15:55 PRODUCE [email or web address].ACAR Anesthesia Postop Eval I: Fluid Summary Crystalloid volume administer 2,000 06/04/24 15:55 PRODUCE [email or web address].ACAR (ml) Colloids volume administered ( ml) Blood Product volume administered (ml) Total IV fluid infused 2,000 06/04/24 15:55 PRODUCE [email or web address].ACAR Anesthesia Postop Eval I: Summary Notes Anesthesia Complication No 06/04/24 15:55 PRODUCE [email or web address].ACAR Anesthesia Complication Comment: Post-operative progress note Anesthesia: Postop Eval II Evaluation Mental status: Awake and Calm Pain Level: 2 nausea: No Vomiting: No Complications Anesthesia Complication: No
[2024-06-04] MEDS: Atorvastatin Calcium 40 MG Tablet PO (21:47)
[2024-06-04] MEDS: Lisinopril 20 MG Tablet PO (21:48)
[2024-06-04] MEDS: Cefazolin 1 GM/50 ML BAG IV (21:53)
[2024-06-04] MEDS: HYDROmorphone 1 MG/ML Syringe IV (22:38)
[2024-06-05] VITALS (10 sets, daily range): BP systolic 162–193; BP diastolic 66–102; PULSE 76–87; RESP 16–20; TEMP 36.8–37.1; O2SAT 92–95
[2024-06-05 00:51] LABS: Bedside Glucose 118 mg/dL (74-106)
[2024-06-05] MEDS: HYDROmorphone 1 MG/ML Syringe IV ×4 (02:02→23:43)
[2024-06-05] MEDS: 0.9% Saline Lock 10 ML Syringe IV ×7 (02:02→23:43)
[2024-06-05] MEDS: Acetaminophen 500 MG Tablet 1000 MG PO ×3 (05:07→22:16)
[2024-06-05] MEDS: Cefazolin 1 GM/50 ML BAG IV (05:08)
[2024-06-05] MEDS: hydrALAZINE 20 MG/ML Vial 10 MG IV ×3 (05:21→22:25)
[2024-06-05 06:20] LABS: Absolute Lymphocyte Count 1.71 X10^3/uL (0.83-4.51); Absolute Neutrophil Count 21.2 X10^3/uL (2.0-7.7); Basophil# 0.07 X10^3/uL; Basophil% 0.3 % (0-1); Eosinophil# 0.14 X10^3/uL; Eosinophils% 0.6 % (0-5); Hematocrit 34.1 % (40-54); Hemoglobin 10.9 g/dL (13.0-16.5); Lymphocyte # 1.71 X10^3/ul (0.83-4.51); Lymphocyte % 6.8 % (19-41); Mean Corpuscular Hgb 26.3 pg (27.0-32.0); Mean Corpuscular Volume 82.2 fL (80-94); Mean Platelet Vol. 10.3 fl (6.2-12.0); Monocyte# 1.62 X10^3/uL; Monocyte% 6.5 % (0-10); NRBC Flagged by Analyzer 0 % (0-5); Neutrophil % 84.9 % (47-70); POSITIVE DIFFERENTIAL YES; Platelet Count 643 K/mm3 (150-450); RBC Distribution Width CV 16.9 % (11.6-14.6); RBC Distribution Width SD 50.4 fl (35.1-43.9); Red Blood Count 4.15 M/mm3 (4.6-6.2)
[2024-06-05 06:26] LABS: Differential Indicated SCAN CRITERIA MET
--- NOTE | 2024-06-05 06:48 | PN.SURG_ITS ---
Subjective Subjective Doing well overall this morning except for phantom ankle pain on the right. It is a burning sensation. He has had some hypertension overnight as well which could be associated with the pain. Vascular surgery placing him on Neurontin this morning. Objective Data Objective Data Vital Signs: Vital Signs Temp Pulse Resp BP Pulse Ox O2 Del Method O2 Flow Rate 98.8 F 80 18 180/77 H 92 Room Air 2 06/05/24 05:15 06/05/24 05:21 06/05/24 05:15 06/05/24 05:21 06/05/24 05:15 06/05/24 05:15 06/04/24 16:08 Oxygen Flow Rate (L/min) 2 Oxygen Delivery Method Room Air Weight: 248 lb 14.43 oz Body Mass Index (BMI) 35.6 Intake & Output: Intake and Output for Last 24 Hours 06/03/24 06/04/24 06/05/24 23:59 23:59 23:59 Intake Total 1220 / 1220 3821.13 / 3821.13 1450 / 1450 Output Total 400 / 400 1350 / 1350 150 / 150 Balance 820 / 820 2471.13 / 2471.13 1300 / 1300 Lab / Micro Data 06/05/24 05:38 06/05/24 05:38 Labs: Laboratory Results - last 24 hr 06/03/24 18:10: Blood Type O NEGATIVE, Antibody Screen NEGATIVE, Crossmatch See Detail 06/04/24 07:38: WBC 22.4 H, RBC 4.43 L, Hgb 11.5 L, Hct 35.4 L, MCV 79.9 L, MCH 26.0 L, MCHC 32.5, RDW Std Deviation 48.5 H, RDW Coeff of Corina 16.8 H, Plt Count 695 H, MPV 10.2, Immature Gran % (Auto) 0.600, Neut % (Auto) 85.7 H, Lymph % (Auto) 5.9 L, Nicholas % (Auto) 6.2, Eos % (Auto) 1.1, Baso % (Auto) 0.5, Absolute Neuts (auto) 19.2 H, Absolute Lymphs (auto) 1.33, Nucleated RBC % 0, APTT 55.0 H , Sodium 138, Potassium 3.6, Chloride 104, Carbon Dioxide 24.5, Anion Gap 10, BUN 15, Creatinine 0.95, Estim Creat Clear Calc 102.75, Est GFR (MDRD) Non-Af 91, BUN/Creatinine Ratio 15.4, Glucose 125 H, Calcium 9.0, Total Bilirubin 0.51, Direct Bilirubin 0.32 H, AST 22, ALT 9, Alkaline Phosphatase 103, Total Protein 7.1, Albumin 3.1 L, Globulin 4.0 06/04/24 22:10: POC Glucose 118 H 06/05/24 05:38: WBC 25.0 H, RBC 4.15 L, Hgb 10.9 L, Hct 34.1 L, MCV 82.2, MCH 26.3 L, MCHC 32.0, RDW Std Deviation 50.4 H, RDW Coeff of Corina 16.9 H, Plt Count 643 H, MPV 10.3, Immature Gran % (Auto) 0.900, Neut % (Auto) 84.9 H, Lymph % (Auto) 6.8 L, Nicholas % (Auto) 6.5, Eos % (Auto) 0.6, Baso % (Auto) 0.3, Absolute Neuts (auto) 21.2 H, Absolute Lymphs (auto) 1.71, Nucleated RBC % 0 Physical Exam Narrative Right lower extremity: VAC holding suction over the above-knee amputation. The stump is soft, no bruising. No signs of hematoma. Left lower extremity: SCD on and activated on the left calf. No signs of DVT. He has a warm left foot. Const alert and oriented x3 General Appearance: cooperative Resp normal respiratory effort Cardio regular rate Assessment & Plan Assessment/Plan (1) S/P amputation: PLAN: Postop day 1 Has some phantom nerve pain. Hopefully will improve after maturation of TMR and RPNI over the next several weeks. Agree with Neurontin. Agree with further medical management for hypertension. Plastic surgery will follow Plan for VAC for 1 week over incision, to be removed at bedside on Saturday, 10 June 2024. Charges/Coding Procedures Integumentary 111xxx-113xx: [id number] Global Visit
[2024-06-05 06:51] LABS: Differential Comment SCANNED
--- NOTE | 2024-06-05 07:39 | PN.SURG_ITS ---
Subjective Subjective I saw Mr. Kohler this morning resting in bed. He reports a feeling of tightness/aching within the amputation stump and also some significant phantom pains overnight. He otherwise has no complaints. He reports he is voiding urine without issue, passing gas. Has not really eaten much since surgery, does not have much appetite yet; denies any abdominal pain. His blood sugars have been ~100-120 with checks since surgery, again not eating much. A1c was 7.1. Hgb 10.9, WBC 25. BMP still pending this morning. Objective Data Objective Data Vital Signs: Vital Signs Temp Pulse Resp BP Pulse Ox O2 Del Method O2 Flow Rate 98.8 F 82 18 173/66 H 94 Room Air 2 06/05/24 05:15 06/05/24 06:00 06/05/24 05:15 06/05/24 06:00 06/05/24 06:00 06/05/24 06:00 06/04/24 16:08 Oxygen Flow Rate (L/min) 2 Oxygen Delivery Method Room Air Weight: 248 lb 14.43 oz Body Mass Index (BMI) 35.6 Intake & Output: Intake and Output for Last 24 Hours 06/03/24 06/04/24 06/05/24 23:59 23:59 23:59 Intake Total 1220 / 1220 3821.13 / 3821.13 1450 / 1450 Output Total 400 / 400 1350 / 1350 150 / 150 Balance 820 / 820 2471.13 / 2471.13 1300 / 1300 Lab / Micro Data 06/05/24 05:38 06/05/24 05:38 Labs: Laboratory Results - last 24 hr 06/03/24 18:10: Blood Type O NEGATIVE, Antibody Screen NEGATIVE, Crossmatch See Detail 06/04/24 07:38: WBC 22.4 H, RBC 4.43 L, Hgb 11.5 L, Hct 35.4 L, MCV 79.9 L, MCH 26.0 L, MCHC 32.5, RDW Std Deviation 48.5 H, RDW Coeff of Corina 16.8 H, Plt Count 695 H, MPV 10.2, Immature Gran % (Auto) 0.600, Neut % (Auto) 85.7 H, Lymph % (Auto) 5.9 L, Reagan % (Auto) 6.2, Eos % (Auto) 1.1, Baso % (Auto) 0.5, Absolute Neuts (auto) 19.2 H, Absolute Lymphs (auto) 1.33, Nucleated RBC % 0, APTT 55.0 H , Sodium 138, Potassium 3.6, Chloride 104, Carbon Dioxide 24.5, Anion Gap 10, BUN 15, Creatinine 0.95, Estim Creat Clear Calc 102.75, Est GFR (MDRD) Non-Af 91, BUN/Creatinine Ratio 15.4, Glucose 125 H, Calcium 9.0, Total Bilirubin 0.51, Direct Bilirubin 0.32 H, AST 22, ALT 9, Alkaline Phosphatase 103, Total Protein 7.1, Albumin 3.1 L, Globulin 4.0 06/04/24 22:10: POC Glucose 118 H 06/05/24 05:38: WBC 25.0 H, RBC 4.15 L, Hgb 10.9 L, Hct 34.1 L, MCV 82.2, MCH 26.3 L, MCHC 32.0, RDW Std Deviation 50.4 H, RDW Coeff of Corina 16.9 H, Plt Count 643 H, MPV 10.3, Immature Gran % (Auto) 0.900, Neut % (Auto) 84.9 H, Lymph % (Auto) 6.8 L, Reagan % (Auto) 6.5, Eos % (Auto) 0.6, Baso % (Auto) 0.3, Absolute Neuts (auto) 21.2 H, Absolute Lymphs (auto) 1.71, Nucleated RBC % 0, Differential Comment SCANNED Physical Exam Const alert and oriented x3 General Appearance: cooperative HEENT normocephalic, hearing grossly normal bilaterally, external ears normal and external nose normal Eyes EOMs intact bilaterally General Eye: normal appearance of both eyes Neck General: normal visual inspection and trachea midline Resp normal respiratory effort, no retractions and no use of accessory muscles Effort and Inspection: able to speak in complete sentences; Negative for labored, grunting or stridor Cardio regular rate and regular rhythm Extremity Extremity Narrative: R AKA site with wound vac in place maintaining seal; no drainage in canister, foam does not appear saturated. Some swelling, soft to palpation throughout. No ecchymosis, focal edema, erythema. Visible skin around incision site appears viable. 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 Elevated his RLE on a pillow to improve edema management, would keep elevated as much as tolerated. Wound vac is in place and maintaining good seal. This will remain in place with plan for removal per plastic surgery. Hgb 10.9 today from 11.5 yesterday, expected postoperative decrease but overall stable. WBC increased today, likely reactive; will continue to monitor. A1c was 7.1. Glucose has been fairly stable and he has not been eating much. Will continue with carb control diet for now. He has been hypertensive; certainly in part due to pain but does have a history of hypertension with suboptimal control. Has been receiving PRNs. Will add amlodipine 5mg daily. Due to his phantom pains, will add gabapentin to his pain management regimen. Will start gabapentin 300mg once daily today; plan to increase to twice daily tomorrow as tolerated, three times daily Saturday as tolerated and to effect. Discussed starting bowel regimen but patient would like to defer for now. Will monitor. Charges/Coding Procedures Integumentary 111xxx-113xx: 35605 Global Visit
[2024-06-05 07:46] LABS: Anion Gap 13 (5-15); BUN 16 mg/dL (4-19); BUN/Creat Ratio 15.7 RATIO (10-20); Calcium,Total 8.3 mg/dL (7.6-11.0); Carbon Dioxide 19.2 mmol/L (21.0-32.0); Chloride 102 mmol/L (98-108); EST Glomerular Filtration Rate 86 (>60); Estimated Creatinine Clearance 97.61 ml/min (50-250); Glucose 90 mg/dL (70-99); Potassium 3.5 mmol/L (3.3-5.1); Sodium Level 135 mmol/L (133-145)
[2024-06-05 07:52] LABS: Bedside Glucose 97 mg/dL (74-106)
[2024-06-05] MEDS: oxyCODONE 5 MG Tablet PO (09:22)
[2024-06-05] MEDS: Aspirin 81 MG TAB.CHEW PO (09:22)
[2024-06-05] MEDS: amLODIPine 5 MG Tablet PO (09:22)
[2024-06-05] MEDS: Gabapentin 300 MG Capsule PO (09:22)
[2024-06-05] MEDS: Lisinopril 20 MG Tablet PO ×2 (09:23→22:21)
[2024-06-05] MEDS: Enoxaparin 40 MG/0.4 ML Syringe SC (09:23)
[2024-06-05] MEDS: hydroCHLOROthiazide 25 MG Tablet PO (09:23)
--- NOTE | 2024-06-05 10:15 | CASEMGMT ---
Addendum entered by Katiana Chowdary 06/05/24 12:25: Strata: 3 Original Note: HALEY SANTOS assessment: HALEY SANTOS to room to meet with patient for initial transition planning/care coordination assessment. HALEY SANTOS introduced self and role at [facility]. Pt resting in bed, voicing having pain to RLE. He also stated his mother was supposed to be coming in to take care of plans for rehab. HALEY SANTOS had offered to return later to discuss discharge planning when his pain was better and also offered to call his mother to discuss things w/her but he declined both, stating, What questions do you have? Pt did state he was medicated for pain w/PO medication awhile ago and initially stated the pain was lessening, but during discussion, pt's pain was increasing and pt started getting restless and started swearing. RNTiana, made aware. PCP: Dr Anderson Specialists: Dr Sol-vascular Insurance: [employer] Prescription Benefit: Yes LNOK: Lesly Hernandez, mother. Father is and he has no children. Living Arrangements: Pt lives alone in 2nd-story apartment with 17 steps to enter. Pt is normally independent with ADL's and IADL's. Discussed discharge planning. He wishes to go somewhere for therapy at discharge. Pt states even after therapy he does not think he will ever be able to return to his home d/t all the steps and not having anyone to help him except his mother. Made aware of differences b/w RU's and SNF's. He states would takes a list to review. Therapy evals pending. Plan: RU vs SNF Lauren YODER RN, CM
[2024-06-05] MEDS: oxyCODONE 5 MG Tablet 10 MG PO ×3 (13:59→22:16)
--- NOTE | 2024-06-05 15:51 | CASEMGMT ---
Discharge Planning A list of?RU providers including quality and resource use data and consistent with the patient's preferred geographic region, medical needs, and insurance network was created in [facility] Guide.? This list was provided to the SW. Grisel Stein Discharge Planning Asst.
--- NOTE | 2024-06-05 15:56 | CASEMGMT ---
EDITH spoke with patient and his mom per her request. EDITH talked with her about Acute Rehab. Patient said we already know all of this. EDITH then provided her with a list of Acute Rehab Units. EDITH let them know SW will follow up with them on Saturday. Linh VITALE
[2024-06-05 18:32] LABS: Bedside Glucose 97 mg/dL (74-106)
[2024-06-05] MEDS: Atorvastatin Calcium 40 MG Tablet PO (22:20)
[2024-06-06] VITALS (14 sets, daily range): BP systolic 134–177; BP diastolic 61–81; PULSE 70–84; RESP 16–20; TEMP 36.1–37.2; O2SAT 93–97
[2024-06-06] MEDS: HYDROmorphone 1 MG/ML Syringe IV (00:07)
[2024-06-06 00:11] LABS: Bedside Glucose 99 mg/dL (74-106)
[2024-06-06] MEDS: hydrALAZINE 20 MG/ML Vial 10 MG IV ×2 (01:23→15:53)
[2024-06-06] MEDS: 0.9% Saline Lock 10 ML Syringe IV (01:24)
[2024-06-06] MEDS: oxyCODONE 5 MG Tablet 10 MG PO ×5 (02:22→20:17)
[2024-06-06 06:02] LABS: Absolute Lymphocyte Count 1.48 X10^3/uL (0.83-4.51); Absolute Neutrophil Count 18.7 X10^3/uL (2.0-7.7); Basophil# 0.08 X10^3/uL; Basophil% 0.4 % (0-1); Eosinophils% 1.3 % (0-5); Hematocrit 32.6 % (40-54); Hemoglobin 10.5 g/dL (13.0-16.5); Lymphocyte # 1.48 X10^3/ul (0.83-4.51); Lymphocyte % 6.6 % (19-41); Mean Corp Hgb Conc 32.2 g/dL (32-36); Mean Corpuscular Hgb 25.5 pg (27.0-32.0); Mean Corpuscular Volume 79.3 fL (80-94); Mean Platelet Vol. 11.5 fl (6.2-12.0); Monocyte# 1.72 X10^3/uL; Monocyte% 7.7 % (0-10); NRBC Flagged by Analyzer 0 % (0-5); Neutrophil # 18.65 X10^3/uL (2.7-7.7); Neutrophil % 83.1 % (47-70); POSITIVE COUNT YES; POSITIVE DIFFERENTIAL YES; Platelet Count 529 K/mm3 (150-450); RBC Distribution Width CV 16.7 % (11.6-14.6); RBC Distribution Width SD 47.4 fl (35.1-43.9); Red Blood Count 4.11 M/mm3 (4.6-6.2); White Blood Count 22.4 K/mm3 (4.4-11.0)
[2024-06-06 06:32] LABS: Anion Gap 13 (5-15); BUN 14 mg/dL (4-19); BUN/Creat Ratio 15.9 RATIO (10-20); Calcium,Total 8.7 mg/dL (7.6-11.0); Carbon Dioxide 19.2 mmol/L (21.0-32.0); Chloride 102 mmol/L (98-108); Creatinine, Serum 0.87 mg/dL (0.70-1.20); EST Glomerular Filtration Rate 98 (>60); Estimated Creatinine Clearance 112.19 ml/min (50-250); Glucose 89 mg/dL (70-99); Potassium 3.4 mmol/L (3.3-5.1); Sodium Level 134 mmol/L (133-145)
[2024-06-06] MEDS: Acetaminophen 500 MG Tablet 1000 MG PO ×2 (06:34→13:36)
[2024-06-06 07:06] LABS: Bedside Glucose 95 mg/dL (74-106)
[2024-06-06 07:07] LABS: Differential Indicated SCAN CRITERIA MET
[2024-06-06 07:08] LABS: Differential Comment SCANNED
--- NOTE | 2024-06-06 07:25 | PN.SURG_ITS ---
Subjective Subjective I saw Mr. Kohler resting in bed this morning. He reports that he had a couple rough hours overnight secondary to phantom pain; reports this feels like the ischemic pain he was having in his foot prior to surgery. Otherwise, he feels like the pain at the amputation site is starting to improve, feels less like there is a vice top spotter wrapped around this area. He still does not have much appetite, did not really eat anything yesterday. He denies any abdominal pain, nausea, vomiting. He is passing flatus. He is urinating without issue. He received PRN hydralazine twice overnight. At one point, his BP was 190s/100s, nursing reports this was during the couple hours of severe phantom pain. Otherwise he has been systolic 160s-170s. Objective Data Objective Data Vital Signs: Vital Signs Temp Pulse Resp BP Pulse Ox O2 Del Method O2 Flow Rate 98.1 F 83 20 H 171/72 H 96 Room Air 2 06/06/24 06:30 06/06/24 06:30 06/06/24 06:30 06/06/24 06:30 06/06/24 06:30 06/06/24 06:30 06/04/24 16:08 Oxygen Flow Rate (L/min) 2 Oxygen Delivery Method Room Air Weight: 248 lb 14.43 oz Body Mass Index (BMI) 35.6 Intake & Output: Intake and Output for Last 24 Hours 06/04/24 06/05/24 06/06/24 23:59 23:59 23:59 Intake Total 3821.13 / 3821.13 2350 / 2350 700 / 700 Output Total 1350 / 1350 2250 / 2250 800 / 800 Balance 2471.13 / 2471.13 100 / 100 -100 / -100 Lab / Micro Data 06/06/24 05:11 06/06/24 05:11 Labs: Laboratory Results - last 24 hr 06/05/24 05:38: Sodium 135, Potassium 3.5, Chloride 102, Carbon Dioxide 19.2 L, Anion Gap 13, BUN 16, Creatinine 1.00, Estim Creat Clear Calc 97.61, Est GFR (MDRD) Non-Af 86, BUN/Creatinine Ratio 15.7, Glucose 90, Calcium 8.3 06/05/24 06:19: POC Glucose 97 06/05/24 18:07: POC Glucose 97 06/05/24 23:52: POC Glucose 99 06/06/24 05:11: WBC 22.4 H, RBC 4.11 L, Hgb 10.5 L, Hct 32.6 L, MCV 79.3 L, MCH 25.5 L, MCHC 32.2, RDW Std Deviation 47.4 H, RDW Coeff of Corina 16.7 H, Plt Count 529 H, MPV 11.5, Immature Gran % (Auto) 0.900, Neut % (Auto) 83.1 H, Lymph % (Auto) 6.6 L, [place] % (Auto) 7.7, Eos % (Auto) 1.3, Baso % (Auto) 0.4, Absolute Neuts (auto) 18.7 H, Absolute Lymphs (auto) 1.48, Nucleated RBC % 0, Differential Comment SCANNED, Sodium 134, Potassium 3.4, Chloride 102, Carbon Dioxide 19.2 L, Anion Gap 13, BUN 14, Creatinine 0.87, Estim Creat Clear Calc 112.19, Est GFR (MDRD) Non-Af 98, BUN/Creatinine Ratio 15.9, Glucose 89, Calcium 8.7 06/06/24 06:40: POC Glucose 95 Physical Exam Const alert and oriented x3 General Appearance: cooperative HEENT normocephalic, hearing grossly normal bilaterally, external ears normal and external nose normal Eyes EOMs intact bilaterally General Eye: normal appearance of both eyes Neck General: normal visual inspection and trachea midline Resp normal respiratory effort, no retractions and no use of accessory muscles Effort and Inspection: able to speak in complete sentences; Negative for labored, grunting or stridor Cardio regular rate and regular rhythm GI Palpation: soft; Negative for tender Extremity Extremity Narrative: R AKA site with wound vac in place maintaining seal; no drainage in canister, foam does not appear saturated. Some swelling, soft to palpation throughout. No ecchymosis, focal edema, erythema. Visible skin around incision site appears viable. Neuro oriented x3, CN's II-XII intact bilaterally and no focal motor deficits Speech: speech normal Psych mental status grossly normal Appearance: grossly normal Attitude: calm and engaged Activity / Motor Behavior: appropriate eye contact Speech: normal speech Mood & Affect: euthymic mood Assessment & Plan Assessment/Plan (1) Ischemia of right lower extremity: (2) Occlusion of right femoral artery: (3) Failing vascular bypass graft: (4) Open wound of right great toe: (5) Hypertension: PLAN: Plan Incision site satisfactory in appearance. Wound vac is in place and maintaining good seal. This will remain in place with plan for removal per plastic surgery. Continue to elevate on a pillow as much as possible to manage swelling. Hgb stable at 10.5 today. WBC 22.4 likely reactive, it is downtrending; will continue to monitor. A1c was 7.1. Glucose has again been fairly stable around 100 all yesterday, he has not been eating much. Will continue with carb control diet for now. He has been hypertensive; certainly in part due to pain but does have a history of hypertension with suboptimal control. Has been receiving PRNs. Will increase amlodipine. Increase to gabapentin 300mg BID today, to TID tomorrow as tolerated. Charges/Coding Procedures Integumentary 111xxx-113xx: 53512 Global Visit
[2024-06-06] MEDS: Lisinopril 20 MG Tablet PO ×2 (08:43→20:17)
[2024-06-06] MEDS: Enoxaparin 40 MG/0.4 ML Syringe SC (08:43)
[2024-06-06] MEDS: Aspirin 81 MG TAB.CHEW PO (08:43)
[2024-06-06] MEDS: hydroCHLOROthiazide 25 MG Tablet PO (08:44)
[2024-06-06] MEDS: Gabapentin 300 MG Capsule PO ×2 (08:48→17:00)
[2024-06-06] MEDS: amLODIPine 10 MG Tablet PO (08:48)
--- NOTE | 2024-06-06 09:28 | PCM.PN.SRG ---
Subjective Subjective Doing well overall, but persistent phantom limb pain. Neurontin did not help yesterday, but maybe helping more today (he just took some). Objective Data Objective Data Vital Signs: Vital Signs Temp Pulse Resp BP Pulse Ox O2 Del Method O2 Flow Rate 98.1 F 83 20 H 171/72 H 96 Room Air 2 06/06/24 06:30 06/06/24 06:30 06/06/24 06:30 06/06/24 06:30 06/06/24 07:31 06/06/24 07:31 06/04/24 16:08 Oxygen Flow Rate (L/min) 2 Oxygen Delivery Method Room Air Weight: 248 lb 14.43 oz Body Mass Index (BMI) 35.6 Intake & Output: Intake and Output for Last 24 Hours 06/04/24 06/05/24 06/06/24 23:59 23:59 23:59 Intake Total 3821.13 / 3821.13 2350 / 2350 700 / 700 Output Total 1350 / 1350 2250 / 2250 800 / 800 Balance 2471.13 / 2471.13 100 / 100 -100 / -100 Lab / Micro Data 06/06/24 05:11 06/06/24 05:11 Labs: Laboratory Results - last 24 hr 06/05/24 18:07: POC Glucose 97 06/05/24 23:52: POC Glucose 99 06/06/24 05:11: WBC 22.4 H, RBC 4.11 L, Hgb 10.5 L, Hct 32.6 L, MCV 79.3 L, MCH 25.5 L, MCHC 32.2, RDW Std Deviation 47.4 H, RDW Coeff of Corina 16.7 H, Plt Count 529 H, MPV 11.5, Immature Gran % (Auto) 0.900, Neut % (Auto) 83.1 H, Lymph % (Auto) 6.6 L, [place] % (Auto) 7.7, Eos % (Auto) 1.3, Baso % (Auto) 0.4, Absolute Neuts (auto) 18.7 H, Absolute Lymphs (auto) 1.48, Nucleated RBC % 0, Differential Comment SCANNED, Sodium 134, Potassium 3.4, Chloride 102, Carbon Dioxide 19.2 L, Anion Gap 13, BUN 14, Creatinine 0.87, Estim Creat Clear Calc 112.19, Est GFR (MDRD) Non-Af 98, BUN/Creatinine Ratio 15.9, Glucose 89, Calcium 8.7 06/06/24 06:40: POC Glucose 95 Physical Exam Narrative Right lower extremity: VAC holding suction over the above-knee amputation. The stump is soft, no bruising. No signs of hematoma. Left lower extremity: SCD on and activated on the left calf. No signs of DVT. He has a warm left foot. Const alert and oriented x3 General Appearance: cooperative Resp normal respiratory effort Cardio regular rate Assessment & Plan Assessment/Plan (1) S/P amputation: PLAN: Postop day 2 Has some phantom nerve pain. Hopefully will improve after maturation of TMR and RPNI over the next several weeks. Agree with Neurontin increase. Agree with further medical management for hypertension and increase in BP medication by vascular. Plastic surgery will follow Plan for VAC for 1 week over incision, to be removed at bedside on Saturday, 10 June 2024. Charges/Coding Procedures Integumentary [id number]: [id number] Global Visit
[2024-06-06] MEDS: Ensure Plus High Protein 120 ML LIQUID PO ×2 (11:48→17:00)
[2024-06-06 11:50] LABS: Bedside Glucose 108 mg/dL (74-106)
[2024-06-06 16:28] LABS: Bedside Glucose 149 mg/dL (74-106)
[2024-06-06] MEDS: Atorvastatin Calcium 40 MG Tablet PO (20:17)
[2024-06-06 21:43] LABS: Bedside Glucose 141 mg/dL (74-106)
[2024-06-06] MEDS: MELATONIN 3 MG TABLET PO (22:06)
[2024-06-07] MEDS: oxyCODONE 5 MG Tablet 10 MG PO ×3 (01:27→21:13)
[2024-06-07] MEDS: HYDROmorphone 1 MG/ML Syringe IV (02:27)
[2024-06-07] MEDS: 0.9% Saline Lock 10 ML Syringe IV (02:27)
[2024-06-07 03:00] VITALS: BP 162/78; PULSE 70; RESP 18; TEMP 36.5; O2SAT 95
[2024-06-07] MEDS: Acetaminophen 500 MG Tablet 1000 MG PO ×3 (06:10→21:13)
[2024-06-07 06:30] LABS: Absolute Neutrophil Count 16.4 X10^3/uL (2.0-7.7); Basophil# 0.07 X10^3/uL; Basophil% 0.3 % (0-1); Eosinophil# 0.46 X10^3/uL; Eosinophils% 2.3 % (0-5); Hematocrit 33.3 % (40-54); Hemoglobin 10.9 g/dL (13.0-16.5); Lymphocyte % 7.4 % (19-41); Mean Corp Hgb Conc 32.7 g/dL (32-36); Mean Corpuscular Hgb 25.9 pg (27.0-32.0); Mean Corpuscular Volume 79.1 fL (80-94); Mean Platelet Vol. 10.2 fl (6.2-12.0); Monocyte# 1.55 X10^3/uL; Monocyte% 7.7 % (0-10); NRBC Flagged by Analyzer 0 % (0-5); Neutrophil % 81.2 % (47-70); POSITIVE DIFFERENTIAL YES; Platelet Count 690 K/mm3 (150-450); RBC Distribution Width CV 16.5 % (11.6-14.6); RBC Distribution Width SD 46.6 fl (35.1-43.9); Red Blood Count 4.21 M/mm3 (4.6-6.2); White Blood Count 20.2 K/mm3 (4.4-11.0)
[2024-06-07 06:33] LABS: Bedside Glucose 128 mg/dL (74-106)
[2024-06-07 07:57] LABS: Differential Indicated SCAN CRITERIA MET
[2024-06-07 09:10] VITALS: BP 143/64; PULSE 67; RESP 18; TEMP 36.7; O2SAT 96
[2024-06-07] MEDS: Gabapentin 300 MG Capsule PO ×2 (09:13→16:48)
[2024-06-07] MEDS: Enoxaparin 40 MG/0.4 ML Syringe SC (09:13)
[2024-06-07] MEDS: Lisinopril 20 MG Tablet PO ×2 (09:13→21:12)
[2024-06-07] MEDS: Aspirin 81 MG TAB.CHEW PO (09:13)
[2024-06-07] MEDS: amLODIPine 10 MG Tablet PO (09:14)
[2024-06-07] MEDS: hydroCHLOROthiazide 25 MG Tablet PO (09:14)
[2024-06-07] MEDS: Ensure Plus High Protein 120 ML LIQUID PO ×2 (09:14→16:56)
--- NOTE | 2024-06-07 10:03 | PCM.PN.SRG ---
Subjective Subjective Gradually feeling better. Intermittent phantom pains, less severe and less frequent. Surgical site pain improved. Still poor appetite though trying. Objective Data Objective Data A&O x 3, NAD RRR Resp non labored RLE amputation vac in place/intact Vital Signs: Vital Signs Temp Pulse Resp BP Pulse Ox O2 Del Method O2 Flow Rate 98.1 F 67 18 143/64 H 96 Room Air 2 06/07/24 09:10 06/07/24 09:10 06/07/24 09:10 06/07/24 09:10 06/07/24 09:10 06/07/24 09:40 06/04/24 16:08 Oxygen Flow Rate (L/min) 2 Oxygen Delivery Method Room Air Weight: 248 lb 14.43 oz Body Mass Index (BMI) 35.6 Intake & Output: Intake and Output for Last 24 Hours 06/05/24 06/06/24 06/07/24 23:59 23:59 23:59 Intake Total 2350 / 2350 2000 / 2000 Output Total 2250 / 2250 1750 / 1750 500 / 500 Balance 100 / 100 250 / 250 -500 / -500 Lab / Micro Data 06/07/24 05:23 06/06/24 05:11 Labs: Laboratory Results - last 24 hr 06/03/24 18:10: Crossmatch See Detail 06/06/24 11:28: POC Glucose 108 H 06/06/24 15:44: POC Glucose 149 H 06/06/24 20:27: POC Glucose 141 H 06/07/24 05:23: WBC 20.2 H, RBC 4.21 L, Hgb 10.9 L, Hct 33.3 L, MCV 79.1 L, MCH 25.9 L, MCHC 32.7, RDW Std Deviation 46.6 H, RDW Coeff of Corina 16.5 H, Plt Count 690 H, MPV 10.2, Immature Gran % (Auto) 1.100 H, Neut % (Auto) 81.2 H, Lymph % (Auto) 7.4 L, [place] % (Auto) 7.7, Eos % (Auto) 2.3, Baso % (Auto) 0.3, Absolute Neuts (auto) 16.4 H, Absolute Lymphs (auto) 1.50, Nucleated RBC % 0 06/07/24 06:12: POC Glucose 128 H Assessment & Plan Assessment/Plan (1) S/P amputation: PLAN: -cont vac -neurontin added, hopefully will help quell phantom pain -hgb stable, wbc trending down -we discussed his fairly recent cancer diagnosis; stage II lung CA which has not yet been surgically treated -he would prefer referral to somewhere closer than [place]; will initiate process to get [facility]
[2024-06-07 12:00] LABS: Bedside Glucose 121 mg/dL (74-106)
[2024-06-07 14:55] VITALS: BP 136/68; PULSE 65; RESP 16; TEMP 36.4; O2SAT 96
[2024-06-07 17:13] LABS: Bedside Glucose 127 mg/dL (74-106)
[2024-06-07 21:00] VITALS: BP 144/68; PULSE 70; RESP 18; TEMP 36.8; O2SAT 92
[2024-06-07] MEDS: Atorvastatin Calcium 40 MG Tablet PO (21:13)
[2024-06-07 21:51] LABS: Bedside Glucose 155 mg/dL (74-106)
[2024-06-08 03:00] VITALS: BP 153/67; PULSE 66; RESP 18; TEMP 36.8; O2SAT 96
[2024-06-08] MEDS: Acetaminophen 500 MG Tablet 1000 MG PO ×3 (06:06→21:07)
[2024-06-08 06:49] LABS: Bedside Glucose 126 mg/dL (74-106)
[2024-06-08 09:00] VITALS: BP 147/74; PULSE 78; RESP 18; TEMP 36.7; O2SAT 99
[2024-06-08] MEDS: Aspirin 81 MG TAB.CHEW PO (09:04)
[2024-06-08] MEDS: Enoxaparin 40 MG/0.4 ML Syringe SC (09:04)
[2024-06-08] MEDS: Gabapentin 300 MG Capsule PO ×2 (09:04→16:52)
[2024-06-08] MEDS: hydroCHLOROthiazide 25 MG Tablet PO (09:04)
[2024-06-08] MEDS: Lisinopril 20 MG Tablet PO ×2 (09:04→21:07)
[2024-06-08] MEDS: amLODIPine 10 MG Tablet PO (09:04)
[2024-06-08] MEDS: Ensure Plus High Protein 120 ML LIQUID PO ×3 (09:04→16:52)
--- NOTE | 2024-06-08 09:22 | CASEMGMT ---
Addendum entered by Linh Alexander 06/08/24 10:39: [facility] accepted patient. SW met with patient and let him know. Patient was pleased with this information. SW offered to call patient's mom and let her know. However, patient declined stating she will be in later today. Linh VITALE Original Note: EDITH did make a referral to [facility] as patient and his mom expressed interest. Await response. Linh VITALE
[2024-06-08 11:15] VITALS: BP 148/75
[2024-06-08] MEDS: oxyCODONE 5 MG Tablet 10 MG PO (11:18)
[2024-06-08 12:04] LABS: Bedside Glucose 142 mg/dL (74-106)
--- NOTE | 2024-06-08 12:06 | CASEMGMT ---
EDITH checked with all physicians involved in patient's care and patient is ready for discharge. EDITH asked Gwendolyn to please start the pre-cert. Plan: [facility] pending insurance approval. Linh VITALE
[2024-06-08 16:50] VITALS: BP 136/81; PULSE 67; RESP 18; TEMP 37.3; O2SAT 94
[2024-06-08 17:17] LABS: Bedside Glucose 101 mg/dL (74-106)
--- NOTE | 2024-06-08 17:43 | PCM.PN.SRG ---
Subjective Subjective Doing well, phantom pain improving. Better appetite. Objective Data Objective Data A&O x 3, NAD Resp non labored vac intact, mild stump edema Vital Signs: Vital Signs Temp Pulse Resp BP Pulse Ox O2 Del Method O2 Flow Rate 99.1 F 67 18 136/81 H 94 Room Air 2 06/08/24 16:50 06/08/24 16:50 06/08/24 16:50 06/08/24 16:50 06/08/24 16:50 06/08/24 16:50 06/04/24 16:08 Oxygen Flow Rate (L/min) 2 Oxygen Delivery Method Room Air Weight: 248 lb 14.43 oz Body Mass Index (BMI) 35.6 Intake & Output: Intake and Output for Last 24 Hours 06/06/24 06/07/24 06/08/24 23:59 23:59 23:59 Intake Total 2000 / 2000 1000 / 1000 1400 / 1400 Output Total 1750 / 1750 2700 / 2700 2850 / 2850 Balance 250 / 250 -1700 / -1700 -1450 / -1450 Lab / Micro Data 06/07/24 05:23 06/06/24 05:11 Labs: Laboratory Results - last 24 hr 06/07/24 21:15: POC Glucose 155 H 06/08/24 06:31: POC Glucose 126 H 06/08/24 11:17: POC Glucose 142 H 06/08/24 16:51: POC Glucose 101 Assessment & Plan Assessment/Plan (1) S/P amputation: PLAN: -cont vac -accepted at rehab; awaiting pre-cert
[2024-06-08 19:00] VITALS: PULSE 68
[2024-06-08] MEDS: Atorvastatin Calcium 40 MG Tablet PO (21:07)
[2024-06-08 21:10] VITALS: BP 147/72; PULSE 66; RESP 15; TEMP 36.6; O2SAT 99
[2024-06-08] MEDS: MELATONIN 3 MG TABLET PO (21:10)
[2024-06-08 21:24] LABS: Bedside Glucose 170 mg/dL (74-106)
[2024-06-09] VITALS (7 sets, daily range): BP systolic 143–159; BP diastolic 73–82; PULSE 58–68; RESP 15–17; TEMP 36.2–36.8; O2SAT 94–100
[2024-06-09] MEDS: oxyCODONE 5 MG Tablet 10 MG PO (00:46)
[2024-06-09 01:09] LABS: Magnesium 2.1 mg/dL (1.5-2.2); Phosphorus 3.7 mg/dL (2.7-4.5)
[2024-06-09] MEDS: Acetaminophen 500 MG Tablet 1000 MG PO ×2 (05:48→14:42)
[2024-06-09 07:19] LABS: Bedside Glucose 113 mg/dL (74-106)
[2024-06-09 07:50] LABS: Absolute Lymphocyte Count 1.96 X10^3/uL (0.83-4.51); Basophil# 0.12 X10^3/uL; Basophil% 0.7 % (0-1); Eosinophil# 0.75 X10^3/uL; Eosinophils% 4.3 % (0-5); Hematocrit 32.3 % (40-54); Hemoglobin 10.5 g/dL (13.0-16.5); Lymphocyte # 1.96 X10^3/ul (0.83-4.51); Lymphocyte % 11.3 % (19-41); Mean Corp Hgb Conc 32.5 g/dL (32-36); Mean Corpuscular Hgb 26.1 pg (27.0-32.0); Mean Corpuscular Volume 80.1 fL (80-94); Monocyte# 1.28 X10^3/uL; Monocyte% 7.4 % (0-10); NRBC Flagged by Analyzer 0 % (0-5); Neutrophil # 12.97 X10^3/uL (2.7-7.7); Neutrophil % 74.8 % (47-70); POSITIVE COUNT YES; RBC Distribution Width CV 16.3 % (11.6-14.6); RBC Distribution Width SD 47.4 fl (35.1-43.9); Red Blood Count 4.03 M/mm3 (4.6-6.2); White Blood Count 17.3 K/mm3 (4.4-11.0)
[2024-06-09 07:52] LABS: Differential Indicated SCAN CRITERIA MET; Platelet Count 841 K/mm3 (150-450)
[2024-06-09 08:16] LABS: Differential Comment SCANNED; Platelet Estimate MKD INC (ADEQ)
[2024-06-09 08:18] LABS: Bedside Glucose 111 mg/dL (74-106)
--- NOTE | 2024-06-09 08:54 | PCM.PN.SRG ---
Subjective Subjective I saw Mr. Kohler sitting up at the bedside chair this afternoon. He reports that the incisional site pain has been getting a bit better each day. He reports the phantom pains had been much better yesterday, got a bit worse again overnight. Otherwise, no complaints. His appetite is improving and what he is eating he is tolerating well without N/V or abdominal pain. His blood pressures have been better since adding Amlodipine 10mg daily, 140s-150s average over the last 48 hours. Objective Data Objective Data Vital Signs: Vital Signs Temp Pulse Resp BP Pulse Ox O2 Del Method O2 Flow Rate 97.5 F L 58 L 16 143/73 H 97 Room Air 2 06/09/24 08:08 06/09/24 08:08 06/09/24 08:08 06/09/24 08:08 06/09/24 08:11 06/09/24 08:11 06/04/24 16:08 Oxygen Flow Rate (L/min) 2 Oxygen Delivery Method Room Air Weight: 248 lb 14.43 oz Body Mass Index (BMI) 35.6 Intake & Output: Intake and Output for Last 24 Hours 06/07/24 06/08/24 06/09/24 23:59 23:59 23:59 Intake Total 1000 / 1000 1400 / 1400 Output Total 2700 / 2700 2850 / 2850 2725 / 2725 Balance -1700 / -1700 -1450 / -1450 -2725 / -2725 Lab / Micro Data 06/09/24 06:38 06/09/24 06:38 Labs: Laboratory Results - last 24 hr 06/08/24 11:17: POC Glucose 142 H 06/08/24 16:51: POC Glucose 101 06/08/24 21:06: POC Glucose 170 H 06/09/24 00:47: Phosphorus 3.7, Magnesium 2.1 06/09/24 06:38: WBC 17.3 H, RBC 4.03 L, Hgb 10.5 L, Hct 32.3 L, MCV 80.1, MCH 26.1 L, MCHC 32.5, RDW Std Deviation 47.4 H, RDW Coeff of Corina 16.3 H, Plt Count 841 H*, MPV 10.0, Immature Gran % (Auto) 1.500 H, Neut % (Auto) 74.8 H, Lymph % (Auto) 11.3 L, [place] % (Auto) 7.4, Eos % (Auto) 4.3, Baso % (Auto) 0.7, Absolute Neuts (auto) 13.0 H, Absolute Lymphs (auto) 1.96, Nucleated RBC % 0, Differential Comment SCANNED, Diff Path Review June steve, Platelet Estimate [employer]D INC 06/09/24 06:59: POC Glucose 113 H 06/09/24 07:58: POC Glucose 111 H Physical Exam Const alert and oriented x3 General Appearance: cooperative HEENT normocephalic, hearing grossly normal bilaterally, external ears normal and external nose normal Eyes EOMs intact bilaterally General Eye: normal appearance of both eyes Neck General: normal visual inspection and trachea midline Resp normal respiratory effort, no retractions and no use of accessory muscles Effort and Inspection: able to speak in complete sentences; Negative for labored, grunting or stridor Cardio regular rate and regular rhythm GI Palpation: soft; Negative for tender Extremity Extremity Narrative: R AKA site with wound vac in place maintaining seal; no drainage in canister, foam does not appear saturated. Mild swelling, soft to palpation throughout. No ecchymosis, focal edema, erythema. Visible skin around incision site appears viable. Neuro oriented x3, CN's II-XII intact bilaterally and no focal motor deficits Speech: speech normal Psych mental status grossly normal Appearance: grossly normal Attitude: calm and engaged Activity / Motor Behavior: appropriate eye contact Speech: normal speech Mood & Affect: euthymic mood Assessment & Plan Assessment/Plan (1) Ischemia of right lower extremity: (2) Occlusion of right femoral artery: (3) Failing vascular bypass graft: (4) Hypertension: PLAN: Plan Incision site satisfactory in appearance. Wound vac is in place and maintaining good seal. Discussed with Dr. Pham; plan will be for removal tomorrow on rehab unit as patient is approved to go there today. The incision is closed with thomas which will remain in place another 3-4 weeks prior to removal. Will coordinate with Jackelyn to have stump corporate recycling manager placed later this week after vac removal. Hgb stable at 10.5 today. WBC downtrending at 17.3 today. PLT has been uptrending, 841 today; likely reactive to his ischemia and surgery, he is on prophylactic lovenox and ASA 81mg daily. A1c was 7.1. Glucose has been fairly stable with carb control diet to this point. BPs have been improved with the addition of amlodipine 10mg daily so far. Has tolerated gabapentin well so far, has seen some benefit. Increase to gabapentin 300mg TID for phantom pain. He was accepted to Inpatient Rehab Unit and precert approved. Will plan for discharge to rehab today.
[2024-06-09 09:04] LABS: Anion Gap 12 (5-15); BUN 22 mg/dL (4-19); BUN/Creat Ratio 23.4 RATIO (10-20); Calcium,Total 9.2 mg/dL (7.6-11.0); Carbon Dioxide 25.5 mmol/L (21.0-32.0); Chloride 102 mmol/L (98-108); Creatinine, Serum 0.92 mg/dL (0.70-1.20); EST Glomerular Filtration Rate 94 (>60); Estimated Creatinine Clearance 104.75 ml/min (50-250); Glucose 115 mg/dL (70-99); Potassium 4.2 mmol/L (3.3-5.1); Sodium Level 139 mmol/L (133-145)
[2024-06-09] MEDS: Aspirin 81 MG TAB.CHEW PO (09:53)
[2024-06-09] MEDS: Enoxaparin 40 MG/0.4 ML Syringe SC (09:54)
[2024-06-09] MEDS: Ensure Plus High Protein 120 ML LIQUID PO ×3 (09:54→16:54)
[2024-06-09] MEDS: Gabapentin 300 MG Capsule PO ×2 (09:54→14:42)
[2024-06-09] MEDS: hydroCHLOROthiazide 25 MG Tablet PO (09:54)
[2024-06-09] MEDS: Lisinopril 20 MG Tablet PO (09:55)
[2024-06-09] MEDS: amLODIPine 10 MG Tablet PO (09:55)
--- NOTE | 2024-06-09 11:01 | CASEMGMT ---
Addendum entered by Linh Alexander 06/09/24 12:03: EDITH notified patient that his insurance has approved him to go to the Rehab Unit. Linh VITALE Original Note: Patient was approved to go to [facility] Acute Rehab Unit. EDITH notified physician. Linh VITALE
[2024-06-09 11:42] LABS: Bedside Glucose 153 mg/dL (74-106)
--- NOTE | 2024-06-09 13:17 | DS.PCM_ITS ---
Providers Date of Admission: 06/03/24 Primary Care Physician: Dr. Kylie Anderson MD Reason For Visit: ACUTE RLE ISCHEMIA Diagnosis Discharge Diagnosis (1) Ischemia of right lower extremity: Status: Acute Code(s): I99.8 - Other disorder of circulatory system (2) Occlusion of right femoral artery: Status: Acute Code(s): I70.201 - Unspecified atherosclerosis of apache arteries of extremities, right leg (3) Failing vascular bypass graft: Status: Acute Code(s): T82.599A - Other mechanical complication of unspecified cardiac and vascular devices and implants, initial encounter (4) Hypertension: Status: Chronic Code(s): I10 - Essential (primary) hypertension Plan Incision site satisfactory in appearance. Wound vac is in place and maintaining good seal. Discussed with Dr. Pham; plan will be for removal tomorrow on rehab unit as patient is approved to go there today. The incision is closed with thomas which will remain in place another 3-4 weeks prior to removal. Will coordinate with [employer] to have stump form tamping machine operator placed later this week after vac removal. Hgb stable at 10.5 today. WBC downtrending at 17.3 today. PLT has been uptrending, 841 today; likely reactive to his ischemia and surgery, he is on prophylactic lovenox and ASA 81mg daily. A1c was 7.1. Glucose has been fairly stable with carb control diet to this point. BPs have been improved with the addition of amlodipine 10mg daily so far. Has tolerated gabapentin well so far, has seen some benefit. Increase to gabapentin 300mg TID for phantom pain. He was accepted to Inpatient Rehab Unit and precert approved. Will plan for discharge to rehab today. Medications at Discharge Home Medications aspirin 81 mg chewable tablet 1 tab PO DAILY 06/03/24 atorvastatin 40 mg tablet 40 mg PO QHS cholesterol 06/03/24 acetaminophen 500 mg tablet 1,000 mg (2 x 500 mg) PO Q8 #0 tabs 06/09/24 amlodipine 10 mg tablet 10 mg PO DAILY #0 tabs 06/09/24 docusate sodium 100 mg capsule 100 mg PO BID PRN PRN Constipation #0 caps 06/09/24 enoxaparin 40 mg/0.4 mL subcutaneous syringe 40 mg (0.4 mL) subcut DAILY #0 mL 06/09/24 food supplemt, lactose-reduced 0.08 gram-1.5 kcal/mL oral liquid (Ensure Plus High Protein) 120 ml PO TIDCM #0 mL 06/09/24 gabapentin 300 mg capsule 300 mg PO TID #0 caps 06/09/24 hydrochlorothiazide 25 mg tablet 25 mg PO DAILY #0 tabs 06/09/24 lisinopril 20 mg tablet 20 mg PO DAILY #0 tabs 06/09/24 lisinopril 20 mg tablet 20 mg PO QHS #0 tabs 06/09/24 oxycodone 5 mg tablet 5 - 10 mg (1 - 2 x 5 mg) PO Q6H PRN PRN Pain Score 4-10 7 days #56 tabs 06/09/24 Hospital Course Operations - (R Above Knee Amputation) Summary of Care Provided Hospital Course: Mr. Bruce Kohler is a 64 y/o male who presented to the [facility] ER on 06/03/24 with RLE pain, pallor, and R great toe ulceration concerning for acute RLE ischemia for about 3-4 days prior to presentation. In ER, he was initiated on heparin drip. CTA Abd/runoff revealed occluded prior synthetic femoral-tibial bypass and occluded prior SFA stents. He was admitted to vascular surgery service for further management. He'd had at least 3 other events of acute RLE ischemia with multiple prior revascularization procedures, endovascular and open; most recently he'd had femoral to AT PTFE bypass done at which was occluded on CTA. Given the severity of his RLE ischemia and the failure of this bypass and multiple prior failed interventions as well it was felt that the likelihood of success and/or durability of further vascular intervention was very low and risk for severe ischemic tissue damage was high even with revascularization so definitive R AKA was recommended. Patient underwent R AKA on 06/04/24; this was performed in conjunction with Dr. Pham who performed TMR and RPNI to reduce long-term phantom limb pain. A wound vac was placed over the incision site and is to be removed by Dr. Pham 06/10/24. The incision site is closed with thomas which will remain in place an additional 3-4 weeks to begin to remove at his outpatient follow-up in the office. Order sent to [facility] for him to be fitted with stump form tamping machine operator; they will come out 06/11 to do so. Postoperatively, he has had some phantom limb pain for which he was initiated on Gabapentin and has been titrated to 300mg PO TID with fair control to this point. His incisional site pain has been steadily improving, well managed with Tylenol and PRN oxycodone. He has had reactive elevated WBC (downtrending) and platelet count (still uptrending, on ASA and lovenox) which we have been monitoring. Hgb has been stable. A1c was in diabetic range at 7.1. He was not on any diabetic medications outpatient. His appetite has been somewhat diminished postoperatively and he has been on a carb control diet with overall stable blood glucose levels to this point. He has a history of hypertesion, he was on lisinopril 20mg daily and lisinopri-HCTZ 20-25mg daily at home; while admitted added amlodipine 10mg daily with good response to this point. He also has stage II lung cancer; he had been in the process of surgery through for this but would prefer to remain closer to home. Our office will try to coordinate referral to [facility] per his preference. He has worked with PT/OT while here. Rehab was recommended and he was approved to go to the inpatient rehab unit here at [facility]. He is discharged to rehab today. Physical Exam Const alert and oriented x3 General Appearance: cooperative HEENT normocephalic, hearing grossly normal bilaterally, external ears normal and external nose normal Eyes EOMs intact bilaterally General Eye: normal appearance of both eyes Neck General: normal visual inspection and trachea midline Resp normal respiratory effort, no retractions and no use of accessory muscles Effort and Inspection: able to speak in complete sentences; Negative for labored, grunting or stridor Cardio regular rate and regular rhythm GI Palpation: soft; Negative for tender Extremity Extremity Narrative: R AKA site with wound vac in place maintaining seal; no drainage in canister, foam does not appear saturated. Mild swelling, soft to palpation throughout. No ecchymosis, focal edema, erythema. Visible skin around incision site appears viable. Neuro oriented x3, CN's II-XII intact bilaterally and no focal motor deficits Speech: speech normal Psych mental status grossly normal Appearance: grossly normal Attitude: calm and engaged Activity / Motor Behavior: appropriate eye contact Speech: normal speech Mood & Affect: euthymic mood Weight / BMI Weight Weight: 248 lb 14.43 oz Body Mass Index (BMI) 35.6 ABG / Lab / Microbiology Data 06/09/24 06:38 06/09/24 06:38 Laboratory: Laboratory Results - last 24 hr 06/08/24 16:51: POC Glucose 101 06/08/24 21:06: POC Glucose 170 H 06/09/24 00:47: Phosphorus 3.7, Magnesium 2.1 06/09/24 06:38: WBC 17.3 H, RBC 4.03 L, Hgb 10.5 L, Hct 32.3 L, MCV 80.1, MCH 26.1 L, MCHC 32.5, RDW Std Deviation 47.4 H, RDW Coeff of Corina 16.3 H, Plt Count 841 H*, MPV 10.0, Immature Gran % (Auto) 1.500 H, Neut % (Auto) 74.8 H, Lymph % (Auto) 11.3 L, [place] % (Auto) 7.4, Eos % (Auto) 4.3, Baso % (Auto) 0.7, Absolute Neuts (auto) 13.0 H, Absolute Lymphs (auto) 1.96, Nucleated RBC % 0, Differential Comment SCANNED, Diff Path Review Reviewed, Platelet Estimate MKD INC, Sodium 139, Potassium 4.2, Chloride 102, Carbon Dioxide 25.5, Anion Gap 12, BUN 22 H, Creatinine 0.92, Estim Creat Clear Calc 104.75, Est GFR (MDRD) Non-Af 94, BUN/Creatinine Ratio 23.4 H, Glucose 115 H, Calcium 9.2 06/09/24 06:59: POC Glucose 113 H 06/09/24 07:58: POC Glucose 111 H 06/09/24 11:22: POC Glucose 153 H D/C Instructions Discharge Diet: Carb Control Diet Call your doctor if your incision/area has: Sudden Increased Bleeding, Increased Pain/ Swelling and Foul Smelling Discharge Call your doctor if you observe: Fever of 101 or Higher and Uncontrolled pain Additional Dressing/Incision Instructions: Currently, there is a wound vac in place over the R AKA incision site. This will be removed by Dr. Pham and Joyce gas welding equipment mechanic on 06/10/24. The incision is closed with thomas which will remain in place for an additional 3-4 weeks to be assessed for removal at his follow-up office visit. Showers are OK. Do not submerge the incision site such as taking a bath, swimming, etc until fully healed (4-6 weeks approximately). DC O2, CPAP, BIPAP Needs Home O2 Discharge instructions: No Please Follow Up With: Beth Hill PA When: 3-4 weeks Meaningful Use Info Meaningful Use Meaningful Use Diagnoses (Choose all that apply): None applicable Ischemic Stroke Statin Dosing Therapy Reference: STATIN DOSE THERAPY REFERENCE: * Patients > 75 years receive moderate or high dose statin therapy. * Patients 75 years or YOUNGER should receive HIGH intensity statin dose unless contraindicated. You will be required to document reason for non-treatment if statin daily dose does not meet guidelines. HIGH DOSE STATIN THERAPY DAILY Atorvastatin > than or = to 40 mg Rosuvastatin > than or = to 20 mg Amlodipine + Atorvastatin > than or = to 2.5/40 mg Ezetimibe + Simvastatin 10/80 mg Simvastatin 80mg Discharge Plan Admission Admit Date/Time: 06/03/24 12:39 Attending Provider: Beth Hill Primary Care Provider: Kylie Anderson Discharge Orders/Prescriptions Prescriptions: New lisinopril 20 mg Tablet 20 mg PO QHS Qty: 0 0RF lisinopril 20 mg Tablet 20 mg PO DAILY Qty: 0 0RF acetaminophen 500 mg Tablet 1,000 mg PO Q8 Qty: 0 0RF amlodipine 10 mg Tablet 10 mg PO DAILY Qty: 0 0RF docusate sodium 100 mg Capsule 100 mg PO BID PRN PRN (Reason: Constipation) Qty: 0 0RF gabapentin 300 mg Capsule 300 mg PO TID Qty: 0 0RF hydrochlorothiazide 25 mg Tablet 25 mg PO DAILY Qty: 0 0RF oxycodone 5 mg Tablet 5 - 10 mg PO Q6H PRN PRN (Reason: Pain Score 4-10) 7 Days Qty: 56 0RF enoxaparin 40 mg/0.4 mL Syringe 40 mg subcut DAILY Qty: 0 0RF Ensure Plus High Protein 0.08 gram-1.5 kcal/mL Liquid 120 ml PO TIDCM Qty: 0 0RF Continued atorvastatin 40 mg tablet 40 mg PO QHS aspirin 81 mg tablet,chewable 1 tab PO DAILY Discontinued lisinopril 20 mg tablet 20 mg PO QHS Qty: 90 1RF lisinopril-hydrochlorothiazide 20-25 mg tablet 1 tab PO DAILY Qty: 90 1RF enoxaparin [Lovenox] 100 mg/mL syringe 100 mg subcut Q12H Referrals / Follow Up: Kylie Anderson MD [Primary Care Provider] - Disposition Disposition (needs filled in before D/C Order can be placed): Inpatient Rehab Unit/Facility
--- NOTE | 2024-06-09 14:44 | PHA.DC.MR.R ---
Pharmacy [place] Med Reconciliation Pharmacy Service has performed discharge medication reconciliation for this patient. The patient's discharge medication list was reviewed for discrepancies and discrepancies were resolved. Medications at Discharge Home Medications aspirin 81 mg chewable tablet 1 tab PO DAILY 06/03/24 atorvastatin 40 mg tablet 40 mg PO QHS cholesterol 06/03/24 acetaminophen 500 mg tablet 1,000 mg (2 x 500 mg) PO Q8 #0 tabs 06/09/24 amlodipine 10 mg tablet 10 mg PO DAILY #0 tabs 06/09/24 docusate sodium 100 mg capsule 100 mg PO BID PRN PRN Constipation #0 caps 06/09/24 enoxaparin 40 mg/0.4 mL subcutaneous syringe 40 mg (0.4 mL) subcut DAILY #0 mL 06/09/24 food supplemt, lactose-reduced 0.08 gram-1.5 kcal/mL oral liquid (Ensure Plus High Protein) 120 ml PO TIDCM #0 mL 06/09/24 gabapentin 300 mg capsule 300 mg PO TID #0 caps 06/09/24 hydrochlorothiazide 25 mg tablet 25 mg PO DAILY #0 tabs 06/09/24 lisinopril 20 mg tablet 20 mg PO DAILY #0 tabs 06/09/24 lisinopril 20 mg tablet 20 mg PO QHS #0 tabs 06/09/24 oxycodone 5 mg tablet 5 - 10 mg (1 - 2 x 5 mg) PO Q6H PRN PRN Pain Score 4-10 7 days #56 tabs 06/09/24
--- NOTE | 2024-06-09 15:09 | CASEMGMT ---
Patient is ready for discharge to [facility] Acute Rehab Unit. SW met with patient and provided him with a list of current available apartments in [facility]. Linh VITALE
[2024-06-09 15:30] LABS: Pathologist Review Reviewed
[2024-06-09 17:14] LABS: Bedside Glucose 108 mg/dL (74-106)
--- NOTE | 2024-06-09 18:00 | NURSING ---
RN called report to inpatient rehab, HALEY Quiñones. Patient and his belongings including wound vac were moved upstairs at 17:30.
[2024-06-12 10:08] LABS: Cotinine Screen Blood 241.4 ng/mL (.); Nicotine Blood 23.1 ng/mL (.)
== END 2024-06-09 17:25 | DRG 305 ==
LOC: ED 12:30 → PCU 16:15
PROVIDERS: Internal Medicine; Surgery Plastic and Reconstructive Surgery; Surgery Trauma Surgery; Admitting Provider Physician Assistant; Emergency Provider Emergency Medicine; PCP Internal Medicine; Visit Provider Physician Assistant
PROC: 0Y6C0Z3 Detachment at Right Upper Leg, Low, Open Approach (ICD-10-PCS; principal; 2024-06-04 11:45)
DX: I70.321 Atherosclerosis of unspecified type of bypass graft(s) of the extremities with rest pain, right leg (principal); T82.599A Other mechanical complication of unspecified cardiac and vascular devices and implants, initial encounter; E11.52 Type 2 diabetes mellitus with diabetic peripheral angiopathy with gangrene; I10 Essential (primary) hypertension; E11.40 Type 2 diabetes mellitus with diabetic neuropathy, unspecified; Z89.611 Acquired absence of right leg above knee; E11.621 Type 2 diabetes mellitus with foot ulcer; L97.519 Non-pressure chronic ulcer of other part of right foot with unspecified severity; E11.51 Type 2 diabetes mellitus with diabetic peripheral angiopathy without gangrene; E78.00 Pure hypercholesterolemia, unspecified; M79.604 Pain in right leg; Z79.01 Long term (current) use of anticoagulants; Z87.891 Personal history of nicotine dependence; Z79.82 Long term (current) use of aspirin; Y71.2 Prosthetic and other implants, materials and accessory cardiovascular devices associated with adverse incidents
CPT/HCPCS: 36415; 75635; 80048; 80076; 80323; 82962; 83036; 83605; 83735; 84100; 85025; 85610; 85730; 86850; 86900; 86901; 88305; 88311; 93005; 97110; 97116; 97162; 97166; 97530; 97533; 97535; 99252; 99285; A4648; Q9967; A4216; G0463; G0480; J2405

== ENCOUNTER 2024-06-09 17:43 | Inpatient (IN) | payer MEDICAID, SELFPAY ==
[2024-06-09 18:03] VITALS: BP 159/74; PULSE 82; RESP 16; O2SAT 92; BMI 35.6
[2024-06-09] MEDS: 0.9% Saline Lock 10 ML Syringe IV (20:56)
[2024-06-09] MEDS: Atorvastatin Calcium 40 MG Tablet PO (21:00)
[2024-06-09] MEDS: Gabapentin 300 MG Capsule PO (21:00)
[2024-06-09] MEDS: Lisinopril 20 MG Tablet PO (21:00)
[2024-06-09] MEDS: Acetaminophen 500 MG Tablet 1000 MG PO (21:00)
[2024-06-09] MEDS: traZODone 100 MG Tablet PO (21:00)
[2024-06-09 21:30] LABS: Bedside Glucose 138 mg/dL (74-106)
[2024-06-10 05:13] VITALS: BMI 33.8
[2024-06-10] MEDS: Acetaminophen 500 MG Tablet 1000 MG PO ×3 (05:14→21:42)
[2024-06-10] MEDS: Enoxaparin 40 MG/0.4 ML Syringe SC (05:14)
[2024-06-10] MEDS: Gabapentin 300 MG Capsule PO ×3 (05:14→21:42)
[2024-06-10 05:55] LABS: Absolute Lymphocyte Count 2.51 X10^3/uL (0.83-4.51); Absolute Neutrophil Count 14.3 X10^3/uL (2.0-7.7); Basophil# 0.15 X10^3/uL; Basophil% 0.8 % (0-1); Eosinophil# 0.71 X10^3/uL; Eosinophils% 3.6 % (0-5); Hematocrit 33.6 % (40-54); Hemoglobin 10.5 g/dL (13.0-16.5); Lymphocyte # 2.51 X10^3/ul (0.83-4.51); Lymphocyte % 12.9 % (19-41); Mean Corp Hgb Conc 31.3 g/dL (32-36); Mean Corpuscular Hgb 25.5 pg (27.0-32.0); Mean Corpuscular Volume 81.6 fL (80-94); Mean Platelet Vol. 9.7 fl (6.2-12.0); Monocyte# 1.35 X10^3/uL; Monocyte% 6.9 % (0-10); NRBC Flagged by Analyzer 0 % (0-5); Neutrophil # 14.27 X10^3/uL (2.7-7.7); Neutrophil % 73.1 % (47-70); POSITIVE COUNT YES; Platelet Count 884 K/mm3 (150-450); RBC Distribution Width CV 16.5 % (11.6-14.6); RBC Distribution Width SD 49.1 fl (35.1-43.9); Red Blood Count 4.12 M/mm3 (4.6-6.2); White Blood Count 19.5 K/mm3 (4.4-11.0)
[2024-06-10 06:00] VITALS: BP 142/70; PULSE 70; RESP 14; TEMP 37.1; O2SAT 95
[2024-06-10 06:27] LABS: ALB/GLOB Ratio 0.8 RATIO (0.9-2.4); AST(SGOT) 25 U/L (<=37); Alanine Aminotransfer ALT/SGPT 17 U/L (<=46); Alkaline Phosphatase 126 U/L (40-129); Anion Gap 12 (5-15); BUN 23 mg/dL (4-19); BUN/Creat Ratio 24.3 RATIO (10-20); Calcium,Total 9.4 mg/dL (7.6-11.0); Carbon Dioxide 25.6 mmol/L (21.0-32.0); Chloride 102 mmol/L (98-108); Creatinine, Serum 0.93 mg/dL (0.70-1.20); EST Glomerular Filtration Rate 92 (>60); Estimated Creatinine Clearance 100.97 ml/min (50-250); Globulin 3.9 g/dL (2.2-4.2); Glucose 127 mg/dL (70-99); Magnesium 2.1 mg/dL (1.5-2.2); Phosphorus 3.5 mg/dL (2.7-4.5); Potassium 4.3 mmol/L (3.3-5.1); Protein, Total 6.8 g/dL (5.9-8.4); Sodium Level 139 mmol/L (133-145); Total Bilirubin 0.27 mg/dL (0.00-1.30)
[2024-06-10 08:28] LABS: Differential Comment SCANNED; Platelet Estimate MKD INC (ADEQ)
--- NOTE | 2024-06-10 08:30 | PCM.HP.STD ---
[facility] - General General Date of Admission: 06/09/24 Date of Service: 06/10/24 HPI Narrative JO ANN MADDOX, is a 64 YO M with a PMH of severe PVD (has had multiple revascularization procedures), stage II lung CA (no tx yet, diabetes mellitus type 2, hypertension, chronic thrombocytosis intermittently, chronic insomnia, chronic diarrhea, hyperlipidemia, tobacco dependence in remission (quit in December 2023), obesity, diabetic peripheral neuropathy and previous amputation of the L great toe who presented to the emergency department at [facility] on 06/03/2024 complaining of increasing right lower extremity pain and pallor. A CTA of the abdomen with runoff revealed an occluded prior synthetic femoral-tibial bypass and occluded prior SFA stents. He was seen in consultation by Dr. Virgilio Sol from vascular surgery who felt remaining revascularization options were very limited and not likely to be durable. He recommended an grbuk-[id number]-guyy amputation and the patient was agreeable. He was taken to the OR on 06/04/2024 and underwent a right [id number] amputation by Dr. Sol and targeted muscle reinnervation by Dr. Pham. Postoperatively he experienced phantom pain and was started on Gabapentin. He had mild acute blood loss anemia related to the surgery and the hemoglobin dropped from 12.1 on -10.5 on 06/09/2024. He was transferred to the acute inpatient rehab unit at [facility] on 06/09/2024 for 3 hours of therapy daily to restore function/independence at or near his level prior to the recent amputation. He had a cardiac catheterization done at [facility] in June 2023 and the end of case report is in the EMR but no report of the results of the cath. Will request this from cardiology. All lab drawn this morning was personally reviewed. White blood cell count is 19.5 with 73% neutrophils.. Hemoglobin is stable at 10.5. Has had recent microcytic indices and an elevated RDW. Platelets are elevated at 884,000. Sodium today is 139 with a potassium of 4.3. BUN is 23 with a creatinine of 0.93 which is within his baseline. LFTs are unremarkable. Serum albumin is 3.0. Calcium phosphorus and magnesium are all within normal limits. Hemoglobin A1c was recently 7.1. The EMR and medication list were reviewed. Currently on Enoxaparin for DVT prophylaxis. Also taking a baby aspirin daily. Pain is being treated with acetaminophen 1000 mg every 8 hours, oxycodone 5 to 10 mg as needed and gabapentin 300 mg 3 times daily. Has not taken any oxycodone since arriving on rehab yesterday afternoon but, is telling nursing that Oxy does not work and he needs Dilaudid. His OARRS report was reviewed. Over the past year he has had 1 prescription for oxycodone 5 mg tablets and that was on 11/22/2023 and he received 28 tablets. Tells me that he slept better with Trazodone given last night........Melatonin was not effective while on the acute side of the hospital. Blood pressure since arrival in rehab has ranged from 142/78 to 159/74. Heart rate is within normal limits. He is maintaining an oxygen saturation of 92 to 95% on room air. Tells me that he has gained 44 pounds in approximately 8 months. 1. Do you snore loudly? Y 2. Do you often feel tired, fatigued or sleepy during the day? Yes 3. Has anyone ever observed you stop breathing during sleep? No 4. Do you have (or are you being treated for) HTN? Yes BMI 33.9 AGE 64 Neck circumference [ ] Gender male Total [ ] Has chronic difficulty sleeping. Has had restless legs. Falls asleep reading and sometimes when using his phone. Naps during the day. Has low energy and dry mouth when awakening. Uses the BR at night fairly frequently. Has never had a sleep study or an overnight trending pulse ox. STOP BANG is 5 .......awaiting the neck circumference to determine final score. [facility] Medical History (Updated 06/10/24 @ 10:[address] Lyudmila Tinajero, ) Fatty infiltration of liver Diverticulosis Chronic insomnia Family history of colonic polyps Acute electrocardiogram changes Dry gangrene Osteomyelitis, unspecified Aftercare following surgery of the circulatory system Gangrene of toe of left foot Atherosclerosis of right lower extremity Gangrene of toe of right foot Vascular occlusion Acute pain of right lower extremity Ischemia of right lower extremity Occlusion of right femoral artery Failing vascular bypass graft Wears glasses Hepatitis High cholesterol Former smoker History of stress test Infected pilonidal cyst Vitamin D deficiency Hx of retinal detachment Amputation of left great toe (~03/2019) Detached retina (~05/2019) PAD (peripheral artery disease) DM2 (diabetes mellitus, type 2) Neuropathy Home Medications ?Medication ?Instructions ?Recorded ?Last Taken ?Type aspirin 81 mg chewable tablet 1 tab PO DAILY heart health 06/03/24 06/09/24 History atorvastatin 40 mg tablet 40 mg PO QHS cholesterol 06/03/24 06/08/24 History acetaminophen 500 mg tablet 1,000 mg (2 x 500 mg) PO Q8 pain 06/09/24 06/09/24 Rx #0 tabs amlodipine 10 mg tablet 10 mg PO DAILY blood pressure #0 06/09/24 06/09/24 Rx tabs enoxaparin 40 mg/0.4 mL 40 mg (0.4 mL) subcut DAILY dvt 06/09/24 06/09/24 Rx subcutaneous syringe prophylaxis #0 mL food supplemt, lactose-reduced 120 ml PO TIDCM supplement #0 mL 06/09/24 06/09/24 Rx 0.08 gram-1.5 kcal/mL oral liquid (Ensure Plus High Protein) gabapentin 300 mg capsule 300 mg PO TID nerve pain #0 caps 06/09/24 06/09/24 Rx hydrochlorothiazide 25 mg tablet 25 mg PO DAILY blood pressure #0 06/09/24 06/09/24 Rx tabs lisinopril 20 mg tablet 20 mg PO DAILY blood pressure #0 06/09/24 06/09/24 Rx tabs lisinopril 20 mg tablet 20 mg PO QHS blood pressure #0 tabs 06/09/24 06/08/24 Rx oxycodone 5 mg tablet 5 - 10 mg (1 - 2 x 5 mg) PO Q6H 06/09/24 06/09/24 Rx PRN PRN Pain Score 4-10 7 days #56 tabs Allergy/AdvReac Type Severity Reaction Status Date / Time No Known Allergies Allergy Verified 06/03/24 10:36 Family History (Updated 06/10/24 @ 10:[address] Lyudmila Tinajero DO) Mother No problems noted. Sister FH: colonic polyps Other Alcohol abuse Surgical History (Updated 06/10/24 @ 10:[address] Lyudmila Tinajero DO) S/P amputation Hx of angioplasty Hx of detached retina repair Hx of cataract surgery History of amputation of left great toe Social History (Updated 06/10/24 @ 10:[address] Lyudmila Tinajero, DO) household members: none housing: apartment number of children: 0 current occupational status: disabled and other details: quit working in November 2023. 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 pets and animals: No sexually active: No Smoking Status: Former smoker Tobacco: How many years used: 40 Electronic Cigarette Use: not used how long ago did patient quit smoking: He quit smoking in December 2023 alcohol intake: never details: Quit drinking in 1994....was a heavy drinker and now has an occasional beer substance use type: does not use what type of physical activity do you participate in: none seatbelt use: always do you feel safe at home: Yes ROS Constitutional Constitutional: Reports change in weight, difficulty sleeping, snoring, weakness and weight gain; Denies anorexia, chills, fatigue, fever(s) or night sweats Eyes Eyes: Denies blurry vision, change in vision, eye pain or loss of vision ENT HEENT: Denies abnormal hearing, dysphagia, headache(s), hearing loss, nasal congestion or sore throat Cardiovascular Cardiovascular: Denies chest pain, dyspnea on exertion, edema, lightheadedness, orthopnea, palpitations, paroxysmal nocturnal dyspnea or syncope Respiratory/Chest Respiratory/Chest: Denies cough, dyspnea, shortness of breath at rest, shortness of breath with exertion or wheezing Gastrointestinal Gastrointestinal: Reports diarrhea, weight changes and other Details: tells me that he has had diarrhea multiple times a day for the past 4 years.....has never discussed this with his PCP. ; Denies abdominal pain, constipation, dyspepsia, hematemesis, hematochezia, nausea or vomiting Genitourinary Genitourinary: Reports nocturia; Denies dysuria, hematuria, urinary frequency, urinary hesitancy, urinary incontinence or urinary urgency Musculoskeletal Musculoskeletal: Denies back pain, joint pain, joint swelling or neck pain Integumentary Integumentary: Denies jaundice, pruritus or rash Neurologic Neurologic: Reports sensory deficit and other Details: numbness in the LE's ; Denies confusion, disequilibrium, dizziness, focal weakness, headache(s), paresthesias, seizures or tremor(s) Psychiatric Psychiatric: Denies anxiety, depression, homicidal ideation, hopelessness, irritability, suicidal ideation or visual hallucinations Endocrine Endocrinology: Denies change in body appearance, polydipsia or polyuria Hematologic/Lymphatic Hematologic/Lymphatic: Denies easy bleeding, easy bruising or lymphadenopathy Allergic/Immunologic Allergic/Immunologic: Denies rhinitis, eczemia or asthma Vital Signs Vital Signs Vital Signs: 06/09/24 18:03 06/09/24 22:00 06/10/24 06:00 Temperature 98.7 F Temperature Source Temporal Temporal Pulse Rate 82 70 Respiratory Rate 16 14 Respiratory Effort Normal Non-Labored Respiratory Depth Normal Respiratory Pattern Normal Blood Pressure 159/74 H 142/70 H Blood Pressure Mean 102 94 Blood Pressure Source Monitor Monitor Blood Pressure Position Semi-Fowlers Sitting Blood Pressure Location Left Arm Right Arm Pulse Ox 92 95 Oxygen Delivery Method Room Air Room Air Room Air Weight Weight: 236 lb 5.369 oz Body Mass Index (BMI) 33.8 Physical Exam Const alert, oriented x3 and no apparent distress Constitutional Narrative: Sitting in the recliner at the bedside. General Appearance: cooperative, well developed and other appears somewhat unkempt. Nutritional Appearance: obese HEENT head/scalp atraumatic and hearing grossly normal bilaterally HEENT Narrative: Dry mucous membrane Eyes PERRL, EOMs intact bilaterally, conjunctivae normal and no scleral icterus Eyes Narrative: No discharge from the eyes or mattering of the eyelashes. Neck supple, No nodes and no carotid bruits Neck Narrative: Carotids have brisk upstroke and good pulse volume bilaterally. General: trachea midline Chest Chest: symmetrical chest wall rise Resp normal respiratory effort and clear to auscultation bilaterally Resp Narrative: No cough with deep breathing. Effort and Inspection: able to speak in complete sentences Cardio regular rate, regular rhythm, S1 normal heart sound, S2 normal heart sound, no murmurs, no rub and no gallops Cardio Narrative: No ectopy GI normal to inspection, nondistended, normoactive bowel sounds, soft to palpation, non-tender and no bruits Extremity no calf tenderness and no pedal edema Neuro oriented x3 and CN's II-XII intact bilaterally Psych thought process normal, cooperative, speech normal, denies hallucinations, denies homicidal ideation and denies suicidal ideation Appearance: disheveled Attitude: calm Activity / Motor Behavior: appropriate eye contact Speech: normal speech Results Lab / Micro Data 06/10/24 05:27 06/10/24 05:27 Labs: Laboratory Results - last 24 hr 06/09/24 21:12: POC Glucose 138 H 06/10/24 05:27: WBC 19.5 H, RBC 4.12 L, Hgb 10.5 L, Hct 33.6 L, MCV 81.6, MCH 25.5 L, MCHC 31.3 L, RDW Std Deviation 49.1 H, RDW Coeff of Corina 16.5 H, Plt Count 884 H*, MPV 9.7, Immature Gran % (Auto) 2.700 H, Neut % (Auto) 73.1 H, Lymph % (Auto) 12.9 L, [place] % (Auto) 6.9, Eos % (Auto) 3.6, Baso % (Auto) 0.8, Absolute Neuts (auto) 14.3 H, Absolute Lymphs (auto) 2.51, Nucleated RBC % 0, Differential Comment SCANNED, Platelet Estimate MKD INC, Sodium 139, Potassium 4.3, Chloride 102, Carbon Dioxide 25.6, Anion Gap 12, BUN 23 H, Creatinine 0.93, Estim Creat Clear Calc 100.97, Est GFR (MDRD) Non-Af 92, BUN/Creatinine Ratio 24.3 H, Glucose 127 H, Calcium 9.4, Phosphorus 3.5, Magnesium 2.1, Total Bilirubin 0.27, AST 25, ALT 17, Alkaline Phosphatase 126, Total Protein 6.8, Albumin 3.0 L, Globulin 3.9, Albumin/Globulin Ratio 0.8 L Assessment & Plan Assessment/Plan (1) Debility: (2) PAD (peripheral artery disease): (3) S/P amputation: (4) Other acute postprocedural pain: (5) Phantom pain after amputation of lower extremity: (6) Acute blood loss anemia: (7) Chronic anemia: (8) Hyperlipidemia: QUALIFIERS: Hyperlipidemia type: unspecified Qualified Code(s): E78.5 - Hyperlipidemia, unspecified (9) Tobacco dependence in remission: (10) Hypertension: QUALIFIERS: Hypertension type: primary hypertension Qualified Code(s): I10 - Essential (primary) hypertension (11) DM2 (diabetes mellitus, type 2): QUALIFIERS: Diabetes mellitus mcc insulin use: without termite treater helper use Diabetes mellitus complication status: with circulatory complication Diabetes mellitus complication detail: with peripheral angiopathy with gangrene Qualified Code(s): E11.52 - Type 2 diabetes mellitus with diabetic peripheral angiopathy with gangrene (12) Thrombocytosis: (13) Chronic insomnia: (14) Chronic diarrhea: (15) Neuropathy: (16) Family history of colonic polyps: (17) Diverticulosis: (18) Fatty infiltration of liver: (19) Vitamin D deficiency: (20) Lung cancer: QUALIFIERS: Laterality: right PLAN: Plan PLAN PT for gait stability OT for ADL's Analgesics as needed Bowel protocol Fall precautions Assess for Anxiety/Depression GI prophylaxis -not necessary at this time. Denies epigastric pain, heartburn, history of peptic ulcer disease, nausea and vomiting. DVT prophylaxis with enoxaparin 40 mg subcu daily Follow up with Dr. Sol, Dr. Anderson and oncology/pulmonology for lung cancer following DC from Rehab AM lab including CMP, CBC, Mag and Phos-all personally reviewed Check a serum iron, TIBC, percent iron saturation and ferritin. Lipid panel today. Hemoccult stool. Has never had a colonoscopy and his sister has colon polyps. Education given regarding the importance of regular medical care with his primary care doctor. Add Gael 1 package twice daily Start vitamin C 500 mg twice daily and zinc 50 mg daily for wound healing The wound drain is to be removed today by surgery. Will need to get Heating Repair Technician in here to supply director security management socks. Obtain records from Dr. Zamorano and [facility]. Try and track down any imaging done to stage lung cancer. Overnight trending pulse ox. Postvoid residual x 3 Continue trazodone 100 mg at at bedtime for chronic insomnia Increase the Gabapentin at HS to 400 mg and continue 300 mg BID during the day. Schedule Oxycodone 10 mg at HS. Monitor stool frequency and timing.........may need to do stool studies. Needs a lot of education on what is needed to take better care of himself. Recommend a colonoscopy going forward since there is a family hx of colon polyps and he has a chronic microcytic anemia. Charges/Coding Visit Charges Inpatient E&M: 03244 Init Hosp L2
[2024-06-10] MEDS: Lisinopril 20 MG Tablet PO ×2 (08:53→21:43)
[2024-06-10] MEDS: Aspirin 81 MG TAB.CHEW PO (08:54)
[2024-06-10] MEDS: hydroCHLOROthiazide 25 MG Tablet PO (08:54)
[2024-06-10] MEDS: oxyCODONE 5 MG Tablet PO (08:54)
[2024-06-10] MEDS: amLODIPine 10 MG Tablet PO (08:54)
[2024-06-10] MEDS: Ensure Plus High Protein 120 ML LIQUID PO (08:56)
[2024-06-10] MEDS: Menthol/Lanolin/Calamine/Znox 113 GM Tube 1 APPLIC TOPICAL ×2 (08:56→21:41)
[2024-06-10 09:05] VITALS: BP 120/62; PULSE 77; RESP 16; O2SAT 97
[2024-06-10 10:18] LABS: Ferritin 154 ng/mL (37-417); Iron 17 ug/dL (65-175); Iron Binding Capacity,Unsat 170 ug/dL (228-428)
--- NOTE | 2024-06-10 10:19 | NURSING ---
This nurse was called to pt's room to assist OT. Pt had LOB during transfer after he tripped on wound vac cord. Pt landed on the ground. Did not hit head. No injures noted. VS WNL. made aware.
[2024-06-10 10:30] LABS: Iron Binding Capacity,Total 187 ug/dL (250-450); PERCENT IRON SATURATION 9.1 % (9-55)
--- NOTE | 2024-06-10 11:02 | REHABEVAL_ITS ---
Admission Information Primary Diagnosis:: Debility secondary to right [id number]-[id number] amputation Status Changes from Prescreening?: No changes Identified Actual Problem List:: Skin Intergrity, Pain, ALteration in Cmfrt, Alteration in Sleep, Mobility Impaired, Self Care Deficit, Diabetes, Hyperglycemia, BP, Hypertension and Alteration-Leisure Activ. Potential Problem List:: DVT, Bleeding, Infection, UTI, Aspiration, Falls, Skin Integrity and Depression Risk of Complications DVT: LMWH and DEANN Hose Bleeding: Monitor Lab Values, Nursing to Teach Precautions for anti-coagulation therapy., Wound, if applicable, to be assessed every shift. and Stroke patients assessed for lethargy or change in status. Infection: Clinical Staff to Monitor for S/S of infection: and S/S of infection include fever, redness, warmth, etc. Urinary Tract Infection: Monitor for frequency, burning, discomfort, or incontinence. and Nursing will obtain urine sample for urinalysis and C&S when ordered. Aspiration: Clinical staff will monitor for coughing, drooling, congestion., Speech will evaluate swallowing and dsyphasia. and Nursing will monitor patient swallowing during meals. Falls: Patient will be evaluated for Fall Precautions and Patient will be placed on Fall Precautions as indicated per protocol. Skin Breakdown: Nursing will assess skin daily using assessment tool. and Nursing will place on Skin Breakdown Precautions as indicated. Pain: Clinical staff will assess patient's pain level per protocol., Medications will be given, if needed, and the pain level reassessed. and Other methods: Massage, distraction, decrease stimulus, etc. used PRN. Plan of Care Patient requires physician specializing in physical medicine and rehab oversight to provide close medical supervision of rehab issues including: Pain Management, Sleep Problems, Bowel and Bladder, Medical and co-morbidity Management, DVT prophylaxis, Rehabilitation Leadership and Coordination of treatment team Patient needs Physical Therapy: For a minimum of 1 hour and At least 5 out of 7 days Patient needs Physical Therapy to improve:: Mobility, Strengthening, Transfers, Stretching, ROM, Endurance, Stairs, Gait and Balance Patient needs Occupational Therapy: For a minimum of 1 hour and At least 5 out of 7 days Patient needs Occupational Therapy to improve ADL's incl.: Eating, Grooming, Bathing, Dressing, Toileting, Toilet transfers, Community Reintegration, Higher functioning activities, Household tasks, Adaptive Equipment, Splinting and Other activities as determined Patient requires 24/ Rehabilitation Nursing for: Pain Issues, Identifying and preventing risk factors, Monitoring and reporting current medical conditions, Assisting with ambulation, transfer, and all ADL's, Teaching patients about disease process and medications, Family teaching, Providing safe environment, Bowel and Bladder Issues, Skin integrity and Medication Management Patient needs Platform Inspector/ Case Management for: Discharge Planning, Arranging Home Equipment or Services and Family Interventions Patient needs Dietary and Nutrition Services for: Adequate Nutrition, Nutritional Supplements and Nutritional Education Goals Goals Patient will remain: free from falls Patient will perform eating at: MOD I level of assist. Patient will perform bed mobility at: MOD I level of assist. Patient will complete transfers from bed to chair at: - (Supervision/modified) Patient will ambulate: - (50 feet with a wheeled walker at supervision/mod I on various surfaces.) Patient will propel wheelchair: - (300 feet on various surfaces at mod I) Patient will complete upper body dressing at: MOD I level of assist. Patient will complete lower body dressing at: MOD I level of assist. (With adaptive equipment as needed) Patient will complete toilet transfer at: MOD I level of assist. Patient will complete toileting at: MOD I level of assist. Patient will perform bathing at: MOD I level of assist. (With adaptive equipment as needed) Patient will perform Tub/Shower transfer at: - (Supervision using DME as needed.) Patient will complete grooming at: MOD I level of assist. Patient will complete home management skills at: MOD I level of assist. Patient will achieve: - (1 curb step with a wheeled walker at contact-guard assist) Patient will have pain level of: of 3 or less Patient's skin will: remain intact Patient will receive: adequate nutrition. Discharge Planning Pt Prognosis for Sig. Practical Improv. w/in Reasonable Time: Good Estimated Length of stay (days): 21 Anticipated D/C Destination: TBD Was Preadmission Assessment Accurate?: Yes
[2024-06-10 11:15] LABS: Cholesterol 77 mg/dL (<=200); High Density Lipoprotein 19 mg/dL; Low Density Lipoprotein Calc. 31 mg/dL; Triglycerides 134 mg/dL; Very Low Density Lipoprotein 27 mg/dL (5-40); cholesterol:hdl ratio screen 3.95
[2024-06-10 12:03] LABS: Bedside Glucose 132 mg/dL (74-106)
[2024-06-10 12:20] LABS: Bedside Glucose 135 mg/dL (74-106)
--- NOTE | 2024-06-10 12:56 | WOUNDNOTE ---
wound photo: right leg
--- NOTE | 2024-06-10 12:56 | WOUNDNOTE ---
wound photo: right leg
--- NOTE | 2024-06-10 14:59 | CASEMGMT ---
Addendum entered by Elsa Zavala 06/10/24 15:10: SW also discussed code status and advance directives. Pt denied wanting to complete AD, but wishes to be DNR-CCA, no intubation. SW notified nursing. Original Note: Social Work SW met with patient to complete initial assessment. Pt's apartment is no longer conducive to his new lifestyle and cannot return. Discussed DC to SNF from and pt/mother continue searching for appropriate apartment. Pt is done working d/t AKA and has concerns about finances. SW offered to refer to [facility] to assist with additional resources from [facility]. Pt agreed. SW encouraged pt to begin contacting apts because insurance does not give any advanced notice for DC date. Educated to [employer] with NRD 06/15, LCD 06/14. Pt expressed understanding. Pt acknowledged his noncompliance and poor decisions the last 40 years that has led to his medical conditions. SW commended pt for taking responsibility for his actions. Pt is has since stopped smoking and interested in following up the oncologist and PCP. SW discussed mental health, but pt denied meds and counseling. SW encouraged to maintain visits with PCP to monitor for changes in mental health and interventions. SW offered ongoing assistance with DC planning and support. Pt appreciative. Elsa Zavala JUTE BAG CUTTING MACHINE OPERATOR SECTION REPAIRER
[2024-06-10] MEDS: Juven (unflavored) Packet 1 PACKET PO (16:20)
[2024-06-10] MEDS: Ascorbic Acid 500 MG Tablet PO (16:20)
[2024-06-10 16:47] LABS: Bedside Glucose 172 mg/dL (74-106)
[2024-06-10 17:25] VITALS: BP 146/75; PULSE 77; RESP 16; TEMP 36.9; O2SAT 97
[2024-06-10] MEDS: metFORMIN (XR) 500 MG Tablet PO (17:37)
[2024-06-10] MEDS: traZODone 100 MG Tablet PO (21:41)
[2024-06-10] MEDS: oxyCODONE 5 MG Tablet 10 MG PO (21:42)
[2024-06-10] MEDS: Gabapentin 100 MG Capsule PO (21:42)
[2024-06-10] MEDS: Atorvastatin Calcium 40 MG Tablet PO (21:42)
[2024-06-10] MEDS: 0.9% Saline Lock 10 ML Syringe IV (21:43)
[2024-06-10 22:00] VITALS: RESP 16
[2024-06-10 22:32] VITALS: PULSE 72; O2SAT 95
[2024-06-10 23:38] LABS: Bedside Glucose 138 mg/dL (74-106)
[2024-06-11 05:52] VITALS: BP 122/67; PULSE 76; RESP 16; TEMP 36.6; O2SAT 99
[2024-06-11] MEDS: Enoxaparin 40 MG/0.4 ML Syringe SC (06:17)
[2024-06-11] MEDS: Acetaminophen 500 MG Tablet 1000 MG PO ×3 (06:18→21:41)
[2024-06-11] MEDS: Gabapentin 300 MG Capsule PO ×3 (06:18→21:40)
[2024-06-11 06:31] LABS: Bedside Glucose 127 mg/dL (74-106)
[2024-06-11] MEDS: Lisinopril 20 MG Tablet PO ×2 (08:06→21:42)
[2024-06-11] MEDS: Ascorbic Acid 500 MG Tablet PO ×2 (08:07→16:12)
[2024-06-11] MEDS: Zinc Sulfate 50 mg zinc (220 mg) ORAL capsule PO (08:07)
[2024-06-11] MEDS: Aspirin 81 MG TAB.CHEW PO (08:07)
[2024-06-11] MEDS: amLODIPine 10 MG Tablet PO (08:07)
[2024-06-11] MEDS: hydroCHLOROthiazide 25 MG Tablet PO (08:07)
[2024-06-11] MEDS: Juven (unflavored) Packet 1 PACKET PO (08:08)
[2024-06-11] MEDS: oxyCODONE 5 MG Tablet PO (08:10)
[2024-06-11] MEDS: Menthol/Lanolin/Calamine/Znox 113 GM Tube 1 APPLIC TOPICAL ×2 (08:12→21:41)
--- NOTE | 2024-06-11 08:50 | WOUNDNOTE ---
In to see patient with Dr Pham. dressing off at this time. nursing states the ALEXYS wraps were not staying in place well. Grid Trimmer to bring industrial relations specialist socks today. will monitor.
--- NOTE | 2024-06-11 10:26 | PCM.PN.SRG ---
Subjective Subjective Phantom limb pain and residual limb pain improving. It is no longer waking him up at night . Neurontin appears to be helping. Doing well overall. Bumped his right AKA stump yesterday but no bruising/hematoma or dehiscence Objective Data Objective Data Vital Signs: Vital Signs Temp Pulse Resp BP Pulse Ox O2 Del Method O2 Flow Rate 97.9 F 76 16 122/67 H 99 Room Air 0 06/11/24 05:52 06/11/24 05:52 06/11/24 05:52 06/11/24 05:52 06/11/24 05:52 06/11/24 05:52 06/10/24 22:32 FiO2 21 06/10/24 22:32 Oxygen Flow Rate (L/min) 0 Oxygen Delivery Method Room Air Weight: 236 lb 5.369 oz Body Mass Index (BMI) 33.8 Intake & Output: Intake and Output for Last 24 Hours 06/09/24 06/10/24 06/11/24 23:59 23:59 23:59 Intake Total 650 / 650 3490 / 3490 640 / 640 Output Total 550 / 550 4250 / 4250 750 / 750 Balance 100 / 100 -760 / -760 -110 / -110 Lab / Micro Data 06/10/24 05:27 06/10/24 05:27 Labs: Laboratory Results - last 24 hr 06/10/24 04:50: POC Glucose 132 H 06/10/24 05:27: TIBC 187 L, Iron Saturation 9.1, Triglycerides 134, Cholesterol 77, LDL Cholesterol, Calc 31, VLDL Cholesterol 27, HDL Cholesterol 19 L, Cholesterol/HDL Ratio 3.95 06/10/24 11:51: POC Glucose 135 H 06/10/24 16:22: POC Glucose 172 H 06/10/24 21:40: POC Glucose 138 H 06/11/24 06:12: POC Glucose 127 H Physical Exam Narrative Right lower extremity Incision clean dry and intact. No signs of hematoma. No signs of infection (no induration or fluid collections). Const alert and oriented x3 Assessment & Plan Assessment/Plan (1) Ischemia of right lower extremity: (2) Occlusion of right femoral artery: (3) Failing vascular bypass graft: (4) Hypertension: QUALIFIERS: Hypertension type: primary hypertension Qualified Code(s): I10 - Essential (primary) hypertension PLAN: Plan Incision appears to be healing well Okay to get wet in the shower Anticipate 3 weeks of thomas. PSU will follow Charges/Coding Procedures Integumentary [id number]: [id number] Global Visit
--- NOTE | 2024-06-11 10:47 | PCM.PROGNOTE ---
Subjective Subjective Rec was seen on team rounds today. No family was available to participate. Afebrile VSS -blood pressure over the past 2 days has ranged from 122/67 to 159/74. Heart rate is within normal limits. Maintaining appropriate oxygen saturation on RA Oral intake - FOOD good FLUIDS good Blood sugar record was reviewed. Blood sugar at supper yesterday was 172. Fasting today is 127. He was started on Glucophage 500 mg with supper yesterday. His last bowel movement was on 06/08/2024 and then he had 1 bowel movement today. The bowel movement today was large and formed. Discussed with nursing - no problems that need addressed Reviewed the THERAPY notes Medication list reviewed. He had a scheduled oxycodone 10 mg at bedtime last night and took 1 dose as needed in the AM. He did not request any pain medication today. Serum iron was low at 17 yesterday and the iron saturation was low at 9.1%. Ferritin was 154. Anisocytosis on peripheral smear. Hemoccult stool was not collected today. Reminded nursing we need a hemoccult. There is a positive family history of colon CA in the paternal GF per the notes from [place]. Sister has known colon polyps. I reviewed notes from [facility]. He was diagnosed with a poorly differentiated NSCLC from a bx on 11/25/23. Lymph nodes were negative. PET negative for mets. The PET scan did show diffuse hypermetabolic activity within the prostate gland and a PSA was recommended. CT brain negative. RUL lobectomy was recommended and patient has not taken any action on this. Slept well last night. Pain is adequately controlled. Denies chest pain, shortness of breath, cough, palpitations, nausea/vomiting/abdominal pain, dysuria and calf tenderness. Hangar came in yesterday and provided dairy cattle farm manager socks. Objective Data Objective Data Vital Signs: Vital Signs Temp Pulse Resp BP Pulse Ox O2 Del Method O2 Flow Rate 97.9 F 76 16 122/67 H 99 Room Air 0 06/11/24 05:52 06/11/24 05:52 06/11/24 05:52 06/11/24 05:52 06/11/24 05:52 06/11/24 05:52 06/10/24 22:32 FiO2 21 06/10/24 22:32 Oxygen Flow Rate (L/min) 0 Oxygen Delivery Method Room Air Weight: 236 lb 5.369 oz Body Mass Index (BMI) 33.8 Intake & Output: Intake and Output for Last 24 Hours 06/09/24 06/10/24 06/11/24 23:59 23:59 23:59 Intake Total 650 / 650 3490 / 3490 640 / 640 Output Total 550 / 550 4250 / 4250 750 / 750 Balance 100 / 100 -760 / -760 -110 / -110 Lab / Micro Data 06/10/24 05:27 06/10/24 05:27 Labs: Laboratory Results - last 24 hr 06/10/24 04:50: POC Glucose 132 H 06/10/24 05:27: Triglycerides 134, Cholesterol 77, LDL Cholesterol, Calc 31, VLDL Cholesterol 27, HDL Cholesterol 19 L, Cholesterol/HDL Ratio 3.95 06/10/24 11:51: POC Glucose 135 H 06/10/24 16:22: POC Glucose 172 H 06/10/24 21:40: POC Glucose 138 H 06/11/24 06:12: POC Glucose 127 H Physical Exam Const alert and oriented x3 General Appearance: cooperative Resp clear to auscultation bilaterally Effort and Inspection: Negative for tachypneic Cardio regular rate, regular rhythm, no murmurs and no gallops Cardio Narrative: No ectopy GI normal to inspection, nondistended, normoactive bowel sounds, soft to palpation and non-tender Extremity no calf tenderness Extremity Narrative: He has edema of the stump but no ankle edema on the left lower extremity. Skin Rashes: no rashes Wound Narrative: The incision is intact with a small amount of serous drainage medially. No chari-incisional erythema and no increased warmth to touch. Assessment & Plan Assessment/Plan (1) Debility: (2) PAD (peripheral artery disease): (3) S/P amputation: (4) Other acute postprocedural pain: (5) Phantom pain after amputation of lower extremity: (6) Acute blood loss anemia: (7) Chronic anemia: (8) Hyperlipidemia: QUALIFIERS: Hyperlipidemia type: unspecified Qualified Code(s): E78.5 - Hyperlipidemia, unspecified (9) Tobacco dependence in remission: (10) Hypertension: QUALIFIERS: Hypertension type: primary hypertension Qualified Code(s): I10 - Essential (primary) hypertension (11) DM2 (diabetes mellitus, type 2): QUALIFIERS: Diabetes mellitus sales service executive insulin use: without sales service executive use Diabetes mellitus complication status: with circulatory complication Diabetes mellitus complication detail: with peripheral angiopathy with gangrene Qualified Code(s): E11.52 - Type 2 diabetes mellitus with diabetic peripheral angiopathy with gangrene (12) Thrombocytosis: (13) Chronic insomnia: (14) Chronic diarrhea: (15) Neuropathy: (16) Family history of colonic polyps: (17) Diverticulosis: (18) Fatty infiltration of liver: (19) Vitamin D deficiency: (20) Lung cancer: QUALIFIERS: Laterality: right Lung location: upper lobe of lung Qualified Code(s): C34.11 - Malignant neoplasm of upper lobe, right bronchus or lung PLAN: Has had no tx for Lung CA in almost 8 months now. He had no metastatic dz last November when he was initially evaluated but, this could have changed in almost 8 months. He is agreeable to following up with oncology.....will likely need additional W/U since he has had no tx. He is under the opinion that Dr. smith is going to get him someone in [place] to take care of the tumor.........RUL resection for chance for cure may no longer be appropriate if it has metasticized. The pathologic diagnosis of the spiculated mass in the right upper lobe last November 24 was a poorly differentiated non-small cell lung cancer. PLAN: Plan 1. Continue therapy 2. Obtain Hemoccult stool 3. Give a test dose of 100 mg of iron sucrose today 4. Check a screening PSA 5. Will have him follow up with Dr. Mcintosh post DC from acute rehab since he wants to be treated in [place] at [facility]. 6. We discussed the importance of regular appts with PCP and addressing the Lung CA ABRAHAM following DC in hopes that it has not already metasticized Charges/Coding Visit Charges Inpatient E&M: 77459 Subs Hosp L2
[2024-06-11 12:18] VITALS: O2SAT 99
[2024-06-11] MEDS: Sodium Ferric Gluconat 125 MG in 0.9% Normal Saline 100 ML 110 MG IV (12:41)
[2024-06-11] MEDS: 0.9% Saline Lock 10 ML Syringe IV (12:42)
[2024-06-11 12:46] LABS: Bedside Glucose 126 mg/dL (74-106)
--- NOTE | 2024-06-11 13:30 | CASEMGMT ---
Social Work IDT met with patient for Team meeting. Discussed patient's progress in PT/OT/SN. Educated to [email or web address] insurance with NRD 06/15, LCD 06/14 if not approved continued stay. SW reiterated from initial assessment for pt and mother to be contacting apartments for new housing during stay. explained likely, pt will need to DC to a SNF for more therapy and nursing care from , and prior to finding new housing. Pt agreed. SW provided list of SNFs in preferred geographical area, INN with pt?s insurance, including quality and resource data via [employer]. Requested pt select 2-3 choices for this worker to make referrals to by 06/15, date of pt's update. Pt expressed understanding. SW will continue to follow for DC planning assistance and support. Elsa Zavala FILTER CLEANER PERMACULTURE DESIGNER
[2024-06-11 14:07] LABS: PSA,Total - Annual Screen 0.75 ng/mL (0.02-4.00)
[2024-06-11] MEDS: metFORMIN (XR) 500 MG Tablet PO (16:12)
[2024-06-11] MEDS: Ensure Plus High Protein 120 ML LIQUID PO (16:12)
[2024-06-11 17:27] LABS: Bedside Glucose 119 mg/dL (74-106)
[2024-06-11 17:35] VITALS: BP 114/66; PULSE 66; RESP 16; TEMP 37.1; O2SAT 94
[2024-06-11 21:30] VITALS: BP 128/65; PULSE 64
[2024-06-11] MEDS: oxyCODONE 5 MG Tablet 10 MG PO (21:40)
[2024-06-11] MEDS: Gabapentin 100 MG Capsule PO (21:40)
[2024-06-11] MEDS: Atorvastatin Calcium 40 MG Tablet PO (21:41)
[2024-06-11] MEDS: traZODone 100 MG Tablet PO (21:41)
[2024-06-11 22:13] LABS: Bedside Glucose 138 mg/dL (74-106)
[2024-06-12] MEDS: Gabapentin 300 MG Capsule PO ×3 (05:20→21:17)
[2024-06-12] MEDS: Enoxaparin 40 MG/0.4 ML Syringe SC (05:20)
[2024-06-12] MEDS: oxyCODONE 5 MG Tablet PO (05:21)
[2024-06-12] MEDS: Acetaminophen 500 MG Tablet 1000 MG PO ×3 (05:21→21:19)
[2024-06-12 06:00] VITALS: BP 129/69; PULSE 63; RESP 16; TEMP 36.6; O2SAT 96
[2024-06-12 07:30] LABS: Bedside Glucose 119 mg/dL (74-106)
[2024-06-12] MEDS: Ensure Plus High Protein 120 ML LIQUID PO ×2 (08:13→17:23)
[2024-06-12] MEDS: Lisinopril 20 MG Tablet PO ×2 (08:13→21:19)
[2024-06-12] MEDS: amLODIPine 10 MG Tablet PO (08:13)
[2024-06-12] MEDS: hydroCHLOROthiazide 25 MG Tablet PO (08:13)
[2024-06-12] MEDS: Aspirin 81 MG TAB.CHEW PO (08:13)
[2024-06-12] MEDS: Zinc Sulfate 50 mg zinc (220 mg) ORAL capsule PO (08:13)
[2024-06-12] MEDS: Menthol/Lanolin/Calamine/Znox 113 GM Tube 1 APPLIC TOPICAL ×2 (08:13→21:20)
[2024-06-12] MEDS: Ascorbic Acid 500 MG Tablet PO ×2 (08:13→17:24)
[2024-06-12 09:26] VITALS: O2SAT 97
--- NOTE | 2024-06-12 09:50 | PCM.PROGNOTE ---
Subjective Subjective Afebrile Vital signs stable-blood pressure is well-controlled and heart rate is within normal limits. Pulse ox has ranged from 94 to 99% on room air. There is only 1 postvoid residual recorded that was 0. The blood sugar record was reviewed. No blood sugars over 150. No hypoglycemia. No diarrhea with the Glucophage. Last bowel movement was 06/11/2024. The results of the ordered night trending pulse ox showed the pulse ox ranged from 80 to 89% 5.02% of the time he was monitored for a total of 26 minutes. There were no desaturation events lasting longer than 60 seconds. Denies CP, SOB, calf tenderness, N/V/abd pain. Phantom pain in the RLE is much better. NO dysuria and no lightheadedness. Objective Data Objective Data Vital Signs: Vital Signs Temp Pulse Resp BP Pulse Ox O2 Del Method O2 Flow Rate 98 F 63 16 129/69 H 97 Room Air 0 06/12/24 06:00 06/12/24 06:00 06/12/24 06:00 06/12/24 06:00 06/12/24 09:26 06/12/24 09:26 06/10/24 22:32 FiO2 21 06/10/24 22:32 Oxygen Flow Rate (L/min) 0 Oxygen Delivery Method Room Air Weight: 236 lb 5.369 oz Body Mass Index (BMI) 33.8 Intake & Output: Intake and Output for Last 24 Hours 06/10/24 06/11/24 06/12/24 23:59 23:59 23:59 Intake Total 3490 / 3490 2029 / 2029 480 / 480 Output Total 4250 / 4250 1250 / 1850 1999 / 1999 Balance -760 / -760 780 / 180 -1520 / -1520 Lab / Micro Data 06/10/24 05:27 06/10/24 05:27 Labs: Laboratory Results - last 24 hr 06/11/24 12:27: POC Glucose 126 H 06/11/24 12:30: PSA Screen 0.75 06/11/24 16:58: POC Glucose 119 H 06/11/24 21:53: POC Glucose 138 H 06/12/24 07:10: POC Glucose 119 H Physical Exam Const alert and oriented x3 General Appearance: cooperative Resp clear to auscultation bilaterally Effort and Inspection: Negative for tachypneic Cardio regular rate, regular rhythm, no murmurs and no gallops Cardio Narrative: No ectopy GI normal to inspection, nondistended, normoactive bowel sounds, soft to palpation and non-tender Extremity no calf tenderness Extremity Narrative: He has edema of the stump but no ankle edema on the left lower extremity. Skin Rashes: no rashes Wound Narrative: The incision is intact with a small amount of serous drainage medially. No chari-incisional erythema and no increased warmth to touch. Assessment & Plan Assessment/Plan (1) Debility: (2) PAD (peripheral artery disease): (3) S/P amputation: (4) Other acute postprocedural pain: (5) Phantom pain after amputation of lower extremity: (6) Acute blood loss anemia: (7) Chronic anemia: PLAN: Due to iron deficiency (8) Hyperlipidemia: QUALIFIERS: Hyperlipidemia type: unspecified Qualified Code(s): E78.5 - Hyperlipidemia, unspecified (9) Hypertension: QUALIFIERS: Hypertension type: primary hypertension Qualified Code(s): I10 - Essential (primary) hypertension (10) DM2 (diabetes mellitus, type 2): QUALIFIERS: Diabetes mellitus senior care insulin use: without manager long term care use Diabetes mellitus complication status: with circulatory complication Diabetes mellitus complication detail: with peripheral angiopathy with gangrene Qualified Code(s): E11.52 - Type 2 diabetes mellitus with diabetic peripheral angiopathy with gangrene (11) Thrombocytosis: (12) Chronic insomnia: PLAN: Sleeping much better with Trazodone at HS. (13) Chronic diarrhea: PLAN: Suspect due to IBS. (14) Neuropathy: (15) Lung cancer: QUALIFIERS: Laterality: right Lung location: upper lobe of lung Qualified Code(s): C34.11 - Malignant neoplasm of upper lobe, right bronchus or lung PLAN: Plan 1. Continue therapy 2. Apply supplemental oxygen anytime he is sleeping. Recommend a formal sleep study going forward. 3. Decrease the Accu-Cheks to twice daily. Continue Glucophage 500 mg daily at supper 4. Follow up with oncology, Dr. Sedrick Mcintosh, at [place]. Has not had any tx for Lung CA in nearly 8 month. W/U in Nov was negative for mets.....this may have changed in 6 months and he may not be a candidate for a RUL lobectomy now if the disease has metastasized. 5. He tolerated the test dose of iron sucrose with no adverse events. Will order 200 mg IV daily x 3 days and then start an oral iron supplement. 6. Hemoccult stool ordered but, not collected yet. Charges/Coding Visit Charges Inpatient E&M: 74982 Subs Hosp L1
[2024-06-12] MEDS: Sodium Ferric Gluconat 250 MG in 0.9% Normal Saline 250 ML 135 MG IV (11:26)
[2024-06-12] MEDS: 0.9% Saline Lock 10 ML Syringe IV (11:26)
[2024-06-12 17:14] LABS: Bedside Glucose 115 mg/dL (74-106)
[2024-06-12 17:22] VITALS: BP 131/57; PULSE 87; RESP 18; TEMP 36.7; O2SAT 93
[2024-06-12] MEDS: metFORMIN (XR) 500 MG Tablet PO (17:24)
[2024-06-12] MEDS: Gabapentin 100 MG Capsule PO (21:17)
[2024-06-12] MEDS: oxyCODONE 5 MG Tablet 10 MG PO (21:18)
[2024-06-12] MEDS: traZODone 100 MG Tablet PO (21:19)
[2024-06-12] MEDS: Atorvastatin Calcium 40 MG Tablet PO (21:20)
[2024-06-13 05:02] VITALS: BP 138/69; PULSE 67; RESP 18; TEMP 36.6; O2SAT 98
[2024-06-13] MEDS: Acetaminophen 500 MG Tablet 1000 MG PO ×3 (05:37→21:32)
[2024-06-13] MEDS: Gabapentin 300 MG Capsule PO ×3 (05:37→21:32)
[2024-06-13] MEDS: oxyCODONE 5 MG Tablet PO (05:41)
--- NOTE | 2024-06-13 05:53 | PCM.HOSP.N ---
Hospitalist Note I was called by rehab services aide at ~5:30 AM and informed this patient fell after behaving after he lost his balance and grabbed onto a metal toilet seat cover container causing him to severely lacerate his Left ring finger due to a sharp metal edge. The patient was nontoxic in appearance and was not actively hemorrhaging at the time of evaluation. Rehab nurse was instructed to send patient to ER for formal evaluation of his underlying tendons and nervous structures plus suturing in addition to antibiotic treatment.
[2024-06-13 05:54] VITALS: BP 119/62; PULSE 62; RESP 20; TEMP 36.6; O2SAT 96
[2024-06-13 06:49] VITALS: O2SAT 97
--- NOTE | 2024-06-13 07:59 | NURSING ---
This nurse was assisted patient with transfer from toilet after morning care around 0515. Gait belt was in placed and walker was in use. Patient stood with minimal assistance. While attempting to pivot, walker caught on elevated toilet seat and patient lost balance. This nurse unable to keep hold of his gaitbelt and patient fell backward, landing on his buttocks; patient did not hit his head. When patient lost his balance, he let go of walker and reached out to grab the wall, getting his finger caught in a wall-mounted metal container for disposable toilet seat covers. Patient noted to have a laceration to his left ring finger and an abrasion on his left pinky finger. This nurse called for assistance and RN entered the room. Patient assisted into wheelchair via 2-assist. Left ring finger wrapped in saline moistened gauze. VS obtained WNL, patient having pain 6/10 in left ring finger and stump, stump pain prior to incident. Hospitalist notified of injury at 0530 and patient sent to emergency department for evaluation.
[2024-06-13] MEDS: Enoxaparin 40 MG/0.4 ML Syringe SC (08:41)
[2024-06-13] MEDS: Lisinopril 20 MG Tablet PO ×2 (08:42→21:32)
[2024-06-13] MEDS: Zinc Sulfate 50 mg zinc (220 mg) ORAL capsule PO (08:42)
[2024-06-13] MEDS: hydroCHLOROthiazide 25 MG Tablet PO (08:42)
[2024-06-13] MEDS: amLODIPine 10 MG Tablet PO (08:42)
[2024-06-13] MEDS: Aspirin 81 MG TAB.CHEW PO (08:42)
[2024-06-13] MEDS: Ascorbic Acid 500 MG Tablet PO ×2 (08:42→16:49)
[2024-06-13] MEDS: Menthol/Lanolin/Calamine/Znox 113 GM Tube 1 APPLIC TOPICAL ×2 (08:44→21:31)
[2024-06-13] MEDS: Ensure Plus High Protein 120 ML LIQUID PO ×3 (08:50→16:47)
[2024-06-13] MEDS: Sodium Ferric Gluconat 250 MG in 0.9% Normal Saline 250 ML 135 MG IV (09:10)
[2024-06-13] MEDS: metFORMIN (XR) 500 MG Tablet PO (16:49)
[2024-06-13 16:51] VITALS: BP 147/77; PULSE 65; RESP 16; TEMP 36.4; O2SAT 97
[2024-06-13 17:21] LABS: Bedside Glucose 110 mg/dL (74-106)
[2024-06-13] MEDS: Gabapentin 100 MG Capsule PO (21:32)
[2024-06-13] MEDS: traZODone 100 MG Tablet PO (21:32)
[2024-06-13] MEDS: oxyCODONE 5 MG Tablet 10 MG PO (21:32)
[2024-06-13] MEDS: Atorvastatin Calcium 40 MG Tablet PO (21:32)
[2024-06-13] MEDS: 0.9% Saline Lock 10 ML Syringe IV (21:34)
[2024-06-14] MEDS: Gabapentin 300 MG Capsule PO ×3 (06:39→21:44)
[2024-06-14] MEDS: Acetaminophen 500 MG Tablet 1000 MG PO ×3 (06:39→21:44)
[2024-06-14] MEDS: Enoxaparin 40 MG/0.4 ML Syringe SC (06:39)
[2024-06-14 06:46] VITALS: BP 122/61; PULSE 74; RESP 17; TEMP 37.1; O2SAT 97
[2024-06-14 07:06] LABS: Bedside Glucose 115 mg/dL (74-106)
[2024-06-14] MEDS: Ensure Plus High Protein 120 ML LIQUID PO ×3 (08:39→16:49)
[2024-06-14] MEDS: Lisinopril 20 MG Tablet PO ×2 (08:39→21:44)
[2024-06-14] MEDS: Ascorbic Acid 500 MG Tablet PO ×2 (08:40→16:49)
[2024-06-14] MEDS: hydroCHLOROthiazide 25 MG Tablet PO (08:40)
[2024-06-14] MEDS: amLODIPine 10 MG Tablet PO (08:40)
[2024-06-14] MEDS: Aspirin 81 MG TAB.CHEW PO (08:40)
[2024-06-14] MEDS: Zinc Sulfate 50 mg zinc (220 mg) ORAL capsule PO (08:40)
[2024-06-14] MEDS: Menthol/Lanolin/Calamine/Znox 113 GM Tube 1 APPLIC TOPICAL ×2 (08:40→21:43)
[2024-06-14] MEDS: Sodium Ferric Gluconat 250 MG in 0.9% Normal Saline 250 ML 135 MG IV (10:02)
[2024-06-14] MEDS: 0.9% Normal Saline (100mL Bag) 100 ML 15 ML IV (10:16)
[2024-06-14] MEDS: metFORMIN (XR) 500 MG Tablet PO (16:49)
[2024-06-14 16:51] VITALS: BP 150/74; PULSE 74; RESP 16; TEMP 37.3; O2SAT 95
[2024-06-14 17:35] LABS: Bedside Glucose 117 mg/dL (74-106)
[2024-06-14 21:40] VITALS: BP 148/55; PULSE 87
[2024-06-14] MEDS: 0.9% Saline Lock 10 ML Syringe IV (21:42)
[2024-06-14] MEDS: traZODone 100 MG Tablet PO (21:43)
[2024-06-14] MEDS: BACITRACIN 15 GM Tube 1 APPLIC TOPICAL (21:43)
[2024-06-14] MEDS: Atorvastatin Calcium 40 MG Tablet PO (21:44)
[2024-06-14] MEDS: Gabapentin 100 MG Capsule PO (21:44)
[2024-06-14] MEDS: oxyCODONE 5 MG Tablet 10 MG PO (21:44)
[2024-06-15] MEDS: oxyCODONE 5 MG Tablet PO ×2 (04:32→11:31)
[2024-06-15] MEDS: Enoxaparin 40 MG/0.4 ML Syringe SC (05:54)
[2024-06-15] MEDS: Gabapentin 300 MG Capsule PO ×3 (05:55→20:57)
[2024-06-15] MEDS: Acetaminophen 500 MG Tablet 1000 MG PO ×3 (05:55→20:57)
[2024-06-15 06:00] VITALS: BP 107/64; PULSE 75; RESP 17; TEMP 36.9; O2SAT 98
[2024-06-15 07:08] LABS: Bedside Glucose 108 mg/dL (74-106)
[2024-06-15] MEDS: BACITRACIN 15 GM Tube 1 APPLIC TOPICAL (09:01)
[2024-06-15] MEDS: Ascorbic Acid 500 MG Tablet PO ×2 (09:01→17:15)
[2024-06-15] MEDS: amLODIPine 10 MG Tablet PO (09:01)
[2024-06-15] MEDS: Ensure Plus High Protein 120 ML LIQUID PO ×3 (09:01→17:14)
[2024-06-15] MEDS: Zinc Sulfate 50 mg zinc (220 mg) ORAL capsule PO (09:01)
[2024-06-15] MEDS: Aspirin 81 MG TAB.CHEW PO (09:01)
[2024-06-15] MEDS: hydroCHLOROthiazide 25 MG Tablet PO (09:01)
[2024-06-15] MEDS: Lisinopril 20 MG Tablet PO ×2 (09:01→20:57)
[2024-06-15] MEDS: Menthol/Lanolin/Calamine/Znox 113 GM Tube 1 APPLIC TOPICAL ×2 (09:02→20:59)
--- NOTE | 2024-06-15 09:49 | PCM.PROGNOTE ---
Subjective Subjective Afebrile VSS -blood pressure over the weekend has ranged from 107/64 (this a.m.) to 150/74. It is usually best in the AM. Heart rate has ranged from 55-87. Maintaining appropriate oxygen saturation on RA Oral intake - FOOD good FLUIDS good Blood sugars are under excellent control and there are no blood sugars over 150. No hypoglycemia and is tolerating 500 mg of Glucophage daily and with no adverse side effects. Having regular bowel movements but no diarrhea since 06/08/2024. Discussed with nursing - He had a fall in the BR over the weekend and sustained a laceration to the left ring finger. The laceration was 7 cm in length and subcu in depth. 17 sutures were applied by the emergency room physician. Reviewed the THERAPY notes Medication list reviewed. Has received a total of 700 mg of IV iron sucrose. He is c/o pain in the left antecubital fossa. there was an IV there at one time. No CP and no SOB. Denies lightheadedness, RUBI, N/V/Abd pain, dysuria and calf tenderness on the LLE. Objective Data Objective Data Vital Signs: Vital Signs Temp Pulse Resp BP Pulse Ox O2 Del Method O2 Flow Rate 98.5 F 75 17 107/64 98 Room Air 0 06/15/24 06:00 06/15/24 06:00 06/15/24 06:00 06/15/24 06:00 06/15/24 06:00 06/15/24 06:00 06/10/24 22:32 FiO2 21 06/10/24 22:32 Oxygen Flow Rate (L/min) 0 Oxygen Delivery Method Room Air Weight: 236 lb 5.369 oz Body Mass Index (BMI) 33.8 Intake & Output: Intake and Output for Last 24 Hours 06/13/24 06/14/24 06/15/24 23:59 23:59 23:59 Intake Total 3730 / 3730 2182.25 / 2182.25 840 / 840 Output Total 3650 / 3650 3850 / 3850 1200 / 1200 Balance 80 / 80 -1667.75 / -1667.75 -360 / -360 Lab / Micro Data 06/10/24 05:27 06/10/24 05:27 Labs: Laboratory Results - last 24 hr 06/14/24 16:53: POC Glucose 117 H 06/15/24 06:49: POC Glucose 108 H Micro: Microbiology 06/12/24 23:25 Stool Stool Occult Blood (RORY) - Final Physical Exam Const alert, oriented x3 and no apparent distress General Appearance: cooperative HEENT head/scalp atraumatic Resp clear to auscultation bilaterally Cardio regular rate, regular rhythm, no murmurs and no gallops Cardio Narrative: No ectopy GI normal to inspection, nondistended, normoactive bowel sounds, soft to palpation and non-tender Extremity Extremity Narrative: The left antecubital fossa is red and there is an indurated superficial vein. It has mildly increased warmth to touch. It is tender to touch. There is swelling.. Had an IV previously. Skin Wound Narrative: The stump incision is intact with no dehiscence. There is some serous DC but nothing purulent. No chari-incisional erythema. Swelling is decreasing. The incision of the left ring finger is intact with no dehiscence. There is some bruising around the incision but no erythema and no purulent discharge. Assessment & Plan Assessment/Plan (1) Debility: (2) PAD (peripheral artery disease): (3) S/P amputation: (4) Other acute postprocedural pain: (5) Phantom pain after amputation of lower extremity: (6) Acute blood loss anemia: (7) Chronic anemia: (8) Hyperlipidemia: QUALIFIERS: Hyperlipidemia type: unspecified Qualified Code(s): E78.5 - Hyperlipidemia, unspecified (9) Hypertension: QUALIFIERS: Hypertension type: primary hypertension Qualified Code(s): I10 - Essential (primary) hypertension (10) DM2 (diabetes mellitus, type 2): QUALIFIERS: Diabetes mellitus exterminator helper termite insulin use: without jail use Diabetes mellitus complication status: with circulatory complication Diabetes mellitus complication detail: with peripheral angiopathy with gangrene Qualified Code(s): E11.52 - Type 2 diabetes mellitus with diabetic peripheral angiopathy with gangrene (11) Thrombocytosis: (12) Chronic insomnia: (13) Chronic diarrhea: (14) Neuropathy: (15) Lung cancer: QUALIFIERS: Laterality: right Lung location: upper lobe of lung Qualified Code(s): C34.11 - Malignant neoplasm of upper lobe, right bronchus or lung (16) Laceration of left ring finger w/o foreign body w/o damage to nail: QUALIFIERS: Encounter type: subsequent encounter Qualified Code(s): S61.215D - Laceration without foreign body of left ring finger without damage to nail, subsequent encounter PLAN: Plan 1. Continue therapy 2. Start ferrous sulfate 325 mg daily with a meal 3. Check a venous ultrasound of the left upper extremity to exclude deep vein thrombosis. Apply warm compresses for 10 minutes 3 times daily for suspected superficial thrombophlebitis. 4. Stool for occult blood was negative..... Still recommending a colonoscopy going forward Charges/Coding Visit Charges Inpatient E&M: 04217 Subs Hosp L1
--- NOTE | 2024-06-15 10:30 | CASEMGMT ---
Social Work EDITH phoned pt's [facility] insurance to inquire about additional community assistance since income has changed d/t amputation. [facility] stated for pt to contact JFS directly. EDITH phoned Diya at [facility] to inquire about steps. Diya reviewed patient information. Pt has full JOSE LUIS through [facility] and pt would need to apply or call [facility] to report a change in income and condition to see if he is eligible for hodgson or food assistance. EDITH appreciative. - EDITH met with patient to update on above SW provided information on how to apply online or phone number to call. Pt expressed understanding. Elsa Zavala CAR REPAIRMAN SWITCHMAN
[2024-06-15] MEDS: Ferrous Sulfate 325 MG Tablet PO (11:29)
--- NOTE | 2024-06-15 11:48 | VDUE_ITS ---
Reason For Study Reason For Study: Left arm swelling Left Proximal Left jugular vein is spontaneous, widely patent, phasic, with no intraluminal echogenicity noted. Left subclavian vein is spontaneous, widely patent, phasic, with no intraluminal echogenicity noted. Left Arm Left axillary vein is spontaneous, patent, phasic, competent, compressible and demonstrates augmentation. Left brachial vein is compressible. Acute superficial vein thrombosis is noted in the left Cephalic vein from prox bicep to antecube. It is dilated and NONCOMPRESSIBLE. Remaining Cephalic vein is compressible. Left basilic vein is compressible. Left Lower Arm Left radial vein is compressible. Left ulnar vein is compressible. Procedure This was a unilateral left upper extremity venous doppler examination. A preliminary report was called and/or faxed to [facility]. VL/Venous Duplex US, Unilateral Interpretation Summary Acute superficial vein thrombosis noted in the left cephalic vein. Deep veins of the left upper extremity are patent and compressible segmentally. There is no evidence of deep vein thrombosis. Ordering Physician: Lyudmila Tinajero Referring Physician: Kylie Anderson Performed By: Tamie Hatfield RVT ???
[2024-06-15] MEDS: metFORMIN (XR) 500 MG Tablet PO (17:14)
[2024-06-15 17:23] LABS: Bedside Glucose 147 mg/dL (74-106)
[2024-06-15 18:00] VITALS: BP 157/64; PULSE 68; RESP 16; TEMP 36.6; O2SAT 98
[2024-06-15] MEDS: traZODone 100 MG Tablet PO (20:57)
[2024-06-15] MEDS: oxyCODONE 5 MG Tablet 10 MG PO (20:57)
[2024-06-15] MEDS: Gabapentin 100 MG Capsule PO (20:57)
[2024-06-15] MEDS: Atorvastatin Calcium 40 MG Tablet PO (20:57)
[2024-06-15 21:31] LABS: Bedside Glucose 111 mg/dL (74-106)
[2024-06-16] MEDS: Gabapentin 300 MG Capsule PO ×3 (05:15→21:26)
[2024-06-16] MEDS: Acetaminophen 500 MG Tablet 1000 MG PO ×3 (05:15→21:27)
[2024-06-16] MEDS: Enoxaparin 40 MG/0.4 ML Syringe SC (05:15)
[2024-06-16 05:22] VITALS: BP 141/71; PULSE 78; RESP 16; TEMP 36.6; O2SAT 95
[2024-06-16 07:14] LABS: Bedside Glucose 126 mg/dL (74-106)
[2024-06-16] MEDS: Aspirin 81 MG TAB.CHEW PO (08:01)
[2024-06-16] MEDS: hydroCHLOROthiazide 25 MG Tablet PO (08:01)
[2024-06-16] MEDS: oxyCODONE 5 MG Tablet PO ×2 (08:01→16:28)
[2024-06-16] MEDS: amLODIPine 10 MG Tablet PO (08:01)
[2024-06-16] MEDS: Ascorbic Acid 500 MG Tablet PO ×2 (08:01→16:28)
[2024-06-16] MEDS: Lisinopril 20 MG Tablet PO ×2 (08:02→21:26)
[2024-06-16] MEDS: Zinc Sulfate 50 mg zinc (220 mg) ORAL capsule PO (08:02)
[2024-06-16] MEDS: Menthol/Lanolin/Calamine/Znox 113 GM Tube 1 APPLIC TOPICAL ×2 (08:02→21:27)
[2024-06-16] MEDS: Ensure Plus High Protein 120 ML LIQUID PO ×3 (08:02→16:28)
--- NOTE | 2024-06-16 09:59 | PN_ITS ---
Subjective Subjective Afebrile VSS -blood pressures over the past 24 hours have ranged from 107/64 to 157/64. Heart rate is within normal limits. Amlodipine recently increased to 10 mg daily. Also on HCTZ and Lisinopril Maintaining appropriate oxygen saturation on RA Oral intake - FOOD good FLUIDS good The blood sugar record was reviewed and the blood sugars are under excellent control. Tolerating Glucophage 500 mg once daily at supper with no adverse side effects. Discussed with nursing - no problems that need addressed. Reviewed the THERAPY notes Medication list reviewed. Seen by Dr. Pham today. There is some erythema of the stump today. This is more so toward the lateral side of the leg. There was drainage on the dressing. NO odor, no purulent looking DC. Denies sweats and chills. No change in his pain. Denies diarrhea, N/V/abd pain, dysuria, L calf pain. sleeping well at night. Objective Data Objective Data Vital Signs: Vital Signs Temp Pulse Resp BP Pulse Ox O2 Del Method O2 Flow Rate 97.8 F 78 16 141/71 H 95 Room Air 0 06/16/24 05:22 06/16/24 05:22 06/16/24 05:22 06/16/24 05:22 06/16/24 05:22 06/16/24 05:22 06/10/24 22:32 FiO2 21 06/10/24 22:32 Oxygen Flow Rate (L/min) 0 Oxygen Delivery Method Room Air Weight: 236 lb 5.369 oz Body Mass Index (BMI) 33.8 Intake & Output: Intake and Output for Last 24 Hours 06/14/24 06/15/24 06/16/24 23:59 23:59 23:59 Intake Total 2182.25 / 2182.25 2660 / 2660 1695 / 1695 Output Total 3850 / 3850 2900 / 2900 2150 / 2150 Balance -1667.75 / -1667.75 -240 / -240 -455 / -455 Lab / Micro Data 06/10/24 05:27 06/10/24 05:27 Labs: Laboratory Results - last 24 hr 06/15/24 17:05: POC Glucose 147 H 06/15/24 21:07: POC Glucose 111 H 06/16/24 06:46: POC Glucose 126 H Micro: Microbiology 04/25/25 23:25 Stool Stool Occult Blood (RORY) - Final Radiography Diagnostic Testing: Radiology Impression Venous Doppler Study 06/15/24 11:48 Interpretation Summary Acute superficial vein thrombosis noted in the left cephalic vein. Deep veins of the left upper extremity are patent and compressible segmentally. There is no evidence of deep vein thrombosis. Ordering Physician: Lyudmila Tinajero Referring Physician: Kylie Anderson Performed By: Tamie Hatfield RVT ??? Physical Exam Const alert, oriented x3 and no apparent distress General Appearance: cooperative Resp clear to auscultation bilaterally Cardio regular rate and regular rhythm GI normal to inspection, nondistended, normoactive bowel sounds, soft to palpation and non-tender Extremity no calf tenderness Extremity Narrative: No edema of the LLE. Still with stump edema. Skin Skin Narrative: the stump incision is intact. some drainage....looks serous to me. Has erythema today of the anterior lateral thigh. Mild increased warmth to touch. No odor to the DC and it is thin and yellow. Left ring finger is unchanged from yesterday. Rashes: no rashes Psych Psych Narrative: He is much more interactive than at admission to rehab. Joking with the staff....has a good sense of humor. Seems more engaged when we talk about things he needs to follow up with post DC. Paying more attention to what he is eating. Sleeping well with Trazodone. Good eye contact. Affect is not flat like it was at admission to rehab. Appearance: appropriate Assessment & Plan Assessment/Plan (1) Debility: (2) PAD (peripheral artery disease): (3) S/P amputation: (4) Other acute postprocedural pain: (5) Phantom pain after amputation of lower extremity: (6) Acute blood loss anemia: (7) Chronic anemia: (8) Hyperlipidemia: QUALIFIERS: Hyperlipidemia type: unspecified Qualified Code(s): E 78.5 - Hyperlipidemia, unspecified (9) Hypertension: QUALIFIERS: Hypertension type: primary hypertension Qualified Code(s): I10 - Essential (primary) hypertension (10) DM2 (diabetes mellitus, type 2): QUALIFIERS: Diabetes mellitus long term care administrator insulin use: without [place] [facility] use Diabetes mellitus complication status: with circulatory complication Diabetes mellitus complication detail: with peripheral angiopathy with gangrene Qualified Code(s): E11.52 - Type 2 diabetes mellitus with diabetic peripheral angiopathy with gangrene (11) Thrombocytosis: (12) Chronic insomnia: (13) Chronic diarrhea: (14) Neuropathy: (15) Lung cancer: QUALIFIERS: Laterality: right Lung location: upper lobe of lung Qualified Code(s): C34.11 - Malignant neoplasm of upper lobe, right bronchus or lung (16) Laceration of left ring finger w/o foreign body w/o damage to nail: QUALIFIERS: Encounter type: subsequent encounter Qualified Code(s): S61.215D - Laceration without foreign body of left ring finger without damage to nail, subsequent encounter (17) Cellulitis: QUALIFIERS: Site of cellulitis: extremity Site of cellulitis of extremity: lower extremity Laterality: right Qualified Code(s): L03.115 - Cellulitis of right lower limb (18) Chronic depression: PLAN: Plan 1. Continue therapy 2. Start Keflex 500 mg p.o. 3 times daily. No other changes to the drug regimen today. 3. Schedule a follow up with Dr. Arnaldo abbasi DC from rehab to address dx of NSCLC 4. Continue to monitor the BP closely.......would like to see BP < 140/80 5. BMP, CBC with differential in the a.m. Charges/Coding Visit Charges Inpatient E&M: 00378 Subs Hosp L1
--- NOTE | 2024-06-16 10:09 | WOUNDNOTE ---
wound photo: right stump
--- NOTE | 2024-06-16 10:13 | WOUNDNOTE ---
wound photo: left 3rd finger
[2024-06-16] MEDS: BACITRACIN 15 GM Tube 1 APPLIC TOPICAL (12:08)
[2024-06-16] MEDS: Ferrous Sulfate 325 MG Tablet PO (12:08)
[2024-06-16] MEDS: Cephalexin 500 MG Capsule PO ×2 (13:49→21:27)
[2024-06-16] MEDS: metFORMIN (XR) 500 MG Tablet PO (16:28)
[2024-06-16 17:24] VITALS: BP 133/67; PULSE 67; RESP 16; TEMP 36.6; O2SAT 97
[2024-06-16 21:24] VITALS: BP 118/57; PULSE 78
[2024-06-16] MEDS: Gabapentin 100 MG Capsule PO (21:26)
[2024-06-16] MEDS: traZODone 100 MG Tablet PO (21:27)
[2024-06-16] MEDS: Atorvastatin Calcium 40 MG Tablet PO (21:27)
[2024-06-16] MEDS: oxyCODONE 5 MG Tablet 10 MG PO (21:27)
[2024-06-17 04:27] VITALS: BMI 33.3
[2024-06-17 04:28] VITALS: BP 147/67; PULSE 63; RESP 14; TEMP 36.6; O2SAT 96
[2024-06-17] MEDS: oxyCODONE 5 MG Tablet PO ×2 (05:09→14:21)
[2024-06-17] MEDS: Gabapentin 300 MG Capsule PO ×3 (05:09→20:39)
[2024-06-17] MEDS: Acetaminophen 500 MG Tablet 1000 MG PO ×3 (05:09→20:38)
[2024-06-17] MEDS: Cephalexin 500 MG Capsule PO ×3 (05:09→20:38)
[2024-06-17] MEDS: Enoxaparin 40 MG/0.4 ML Syringe SC (05:10)
[2024-06-17 06:25] LABS: Absolute Lymphocyte Count 2.35 X10^3/uL (0.83-4.51); Absolute Neutrophil Count 15.1 X10^3/uL (2.0-7.7); Basophil# 0.13 X10^3/uL; Basophil% 0.7 % (0-1); Eosinophils% 2.5 % (0-5); Hematocrit 33.6 % (40-54); Hemoglobin 10.4 g/dL (13.0-16.5); Lymphocyte # 2.35 X10^3/ul (0.83-4.51); Lymphocyte % 11.9 % (19-41); Mean Corpuscular Hgb 25.5 pg (27.0-32.0); Mean Corpuscular Volume 82.4 fL (80-94); Mean Platelet Vol. 9.9 fl (6.2-12.0); Monocyte# 1.13 X10^3/uL; Monocyte% 5.7 % (0-10); NRBC Flagged by Analyzer 0 % (0-5); Neutrophil % 76.3 % (47-70); POSITIVE COUNT YES; RBC Distribution Width CV 16.4 % (11.6-14.6); RBC Distribution Width SD 48.9 fl (35.1-43.9); Red Blood Count 4.08 M/mm3 (4.6-6.2); White Blood Count 19.8 K/mm3 (4.4-11.0)
[2024-06-17 06:54] LABS: Anion Gap 12 (5-15); BUN 51 mg/dL (4-19); BUN/Creat Ratio 43.2 RATIO (10-20); Calcium,Total 9.8 mg/dL (7.6-11.0); Carbon Dioxide 25.5 mmol/L (21.0-32.0); Chloride 100 mmol/L (98-108); Creatinine, Serum 1.17 mg/dL (0.70-1.20); EST Glomerular Filtration Rate 70 (>60); Estimated Creatinine Clearance 79.59 ml/min (50-250); Glucose 116 mg/dL (70-99); Platelet Count 927 K/mm3 (150-450); Potassium 4.7 mmol/L (3.3-5.1); Sodium Level 137 mmol/L (133-145)
[2024-06-17] MEDS: Aspirin 81 MG TAB.CHEW PO (07:55)
[2024-06-17] MEDS: Ascorbic Acid 500 MG Tablet PO ×2 (07:55→17:16)
[2024-06-17] MEDS: amLODIPine 10 MG Tablet PO (07:55)
[2024-06-17] MEDS: Menthol/Lanolin/Calamine/Znox 113 GM Tube 1 APPLIC TOPICAL ×2 (07:56→20:39)
[2024-06-17] MEDS: Zinc Sulfate 50 mg zinc (220 mg) ORAL capsule PO (07:56)
[2024-06-17] MEDS: Lisinopril 20 MG Tablet PO ×2 (07:56→20:38)
[2024-06-17] MEDS: hydroCHLOROthiazide 25 MG Tablet PO (07:56)
[2024-06-17] MEDS: Ensure Plus High Protein 120 ML LIQUID PO ×3 (07:58→17:17)
[2024-06-17] MEDS: BACITRACIN 15 GM Tube 1 APPLIC TOPICAL (08:01)
--- NOTE | 2024-06-17 09:13 | PN.SURG_ITS ---
Subjective Subjective Seen and examined 16 June 2024 Feeling well. Phantum limb pain improving. Objective Data Objective Data Vital Signs: Vital Signs Temp Pulse Resp BP Pulse Ox O2 Del Method O2 Flow Rate 97.8 F 63 14 147/67 H 96 Room Air 0 06/17/24 04:28 06/17/24 04:28 06/17/24 04:28 06/17/24 04:28 06/17/24 04:28 06/17/24 04:28 06/10/24 22:32 FiO2 21 06/10/24 22:32 Oxygen Flow Rate (L/min) 0 Oxygen Delivery Method Room Air Weight: 232 lb 5.875 oz Body Mass Index (BMI) 33.3 Intake & Output: Intake and Output for Last 24 Hours 06/15/24 06/16/24 06/17/24 23:59 23:59 23:59 Intake Total 2660 / 2660 3690 / 3690 550 / 550 Output Total 2900 / 2900 3850 / 3850 1625 / 1625 Balance -240 / -240 -160 / -160 -1075 / -1075 Lab / Micro Data 06/17/24 05:21 06/17/24 05:21 Labs: Laboratory Results - last 24 hr 06/17/24 05:21: WBC 19.8 H, RBC 4.08 L, Hgb 10.4 L, Hct 33.6 L, MCV 82.4, MCH 25.5 L, MCHC 31.0 L, RDW Std Deviation 48.9 H, RDW Coeff of [place] 16.4 H, Plt Count 927 H*, MPV 9.9, Immature Gran % (Auto) 2.900 H, Neut % (Auto) 76.3 H, L ymph % (Auto) 11.9 L, [place] % (Auto) 5.7, Eos % (Auto) 2.5, Baso % (Auto) 0.7, A bsolute Neuts (auto) 15.1 H, Absolute Lymphs (auto) 2.35, Nucleated RBC % 0, Sodium 137, Potassium 4.7, Chloride 100, Carbon Dioxide 25.5, Anion Gap 12, BUN 51 H, Creatinine 1.17, Estim Creat Clear Calc 79.59, Est GFR (MDRD) Non-Af 70, B UN/Creatinine Ratio 43.2 H, Glucose 116 H, Calcium 9.8 Micro: Microbiology 06/12/24 23:25 Stool Stool Occult Blood (RORY) - Final Physical Exam Narrative RLE: Suture line intact with thomas, but there is some induration along the suture line with some reactive erythema. Assessment & Plan Assessment/Plan (1) Ischemia of right lower extremity: (2) Occlusion of right femoral artery: (3) Failing vascular bypass graft: (4) Hypertension: QUALIFIERS: Hypertension type: primary hypertension Qualified Code(s): I10 - Essential (primary) hypertension PLAN: Plan Incision appears to be healing but there is some cellulitis Discussed with Dr. Crockett Starting PO antibiotics Anticipate 3 weeks of thomas. PSU will follow
--- NOTE | 2024-06-17 10:23 | PN_ITS ---
Subjective Subjective Afebrile VSS - Maintaining appropriate oxygen saturation on RA Oral intake - FOOD [] FLUIDS [] Discussed with nursing - no problems that need addressed Reviewed the THERAPY notes Medication list reviewed. Objective Data Objective Data Vital Signs: Vital Signs Temp Pulse Resp BP Pulse Ox O2 Del Method O2 Flow Rate 97.8 F 63 14 147/67 H 96 Room Air 0 06/17/24 04:28 06/17/24 04:28 06/17/24 04:28 06/17/24 04:28 06/17/24 04:28 06/17/24 04:28 06/10/24 22:32 FiO2 21 06/10/24 22:32 Oxygen Flow Rate (L/min) 0 Oxygen Delivery Method Room Air Weight: 232 lb 5.875 oz Body Mass Index (BMI) 33.3 Intake & Output: Intake and Output for Last 24 Hours 06/15/24 06/16/24 06/17/24 23:59 23:59 23:59 Intake Total 2660 / 2660 3690 / 3690 1270 / 1270 Output Total 2900 / 2900 3850 / 3850 1925 / 1925 Balance -240 / -240 -160 / -160 -655 / -655 Lab / Micro Data 06/17/24 05:21 06/17/24 05:21 Labs: Laboratory Results - last 24 hr 06/17/24 05:21: WBC 19.8 H, RBC 4.08 L, Hgb 10.4 L, Hct 33.6 L, MCV 82.4, MCH 25.5 L, MCHC 31.0 L, RDW Std Deviation 48.9 H, RDW Coeff of [place] 16.4 H, Plt Count 927 H*, MPV 9.9, Immature Gran % (Auto) 2.900 H, Neut % (Auto) 76.3 H, L ymph % (Auto) 11.9 L, [place] % (Auto) 5.7, Eos % (Auto) 2.5, Baso % (Auto) 0.7, A bsolute Neuts (auto) 15.1 H, Absolute Lymphs (auto) 2.35, Nucleated RBC % 0, Sodium 137, Potassium 4.7, Chloride 100, Carbon Dioxide 25.5, Anion Gap 12, BUN 51 H, Creatinine 1.17, Estim Creat Clear Calc 79.59, Est GFR (MDRD) Non-Af 70, B UN/Creatinine Ratio 43.2 H, Glucose 116 H, Calcium 9.8 Micro: Microbiology 06/12/24 23:25 Stool Stool Occult Blood (RORY) - Final Physical Exam Const alert, oriented x3 and no apparent distress Skin Skin Narrative: The redness of the distal anterolateral thigh is improved today. There is a smaller amount of redness in the chari-incisional area. Continues to have some serosanguineous drainage from the wound. Edema is improving. The incision is intact with no dehiscence. No purulent discharge observed. Assessment & Plan Assessment/Plan PLAN: Plan 1. Continue therapy 2. Start Wellbutrin XL 150 mg daily in the a.m. 3. Consult the dietitian to educate risk about carbohydrates and calories.
--- NOTE | 2024-06-17 10:23 | PCM.PROGNOTE ---
Subjective Subjective Afebrile VSS - Maintaining appropriate oxygen saturation on RA Oral intake - FOOD good FLUIDS good Discussed with nursing - poor safety awareness. Reviewed the THERAPY notes Medication list reviewed. No change in pain. Taking oxycodone 10 mg usually twice daily. On scheduled Tylenol 1 g p.o. every 8 hours and gabapentin 300 mg twice daily and 400 mg at bedtime. Denies CP, SOB, palpitations, nausea/vomiting/abdominal pain, lightheadedness, dysuria and left calf pain. Objective Data Objective Data Vital Signs: Vital Signs Temp Pulse Resp BP Pulse Ox O2 Del Method O2 Flow Rate 97.8 F 63 14 147/67 H 96 Room Air 0 06/17/24 04:28 06/17/24 04:28 06/17/24 04:06/17/24 04:06/17/24 04:06/17/24 04:28 06/10/24 22:32 FiO2 21 06/10/24 22:32 Oxygen Flow Rate (L/min) 0 Oxygen Delivery Method Room Air Weight: 232 lb 5.875 oz Body Mass Index (BMI) 33.3 Intake & Output: Intake and Output for Last 24 Hours 06/15/24 06/16/24 06/17/24 23:59 23:59 23:59 Intake Total 2660 / 2660 3690 / 3690 1270 / 1270 Output Total 2900 / 2900 3850 / 3850 1925 / 1925 Balance -240 / -240 -160 / -160 -655 / -655 Lab / Micro Data 06/17/24 05:21 06/17/24 05:21 Labs: Laboratory Results - last 24 hr 06/17/24 05:21: WBC 19.8 H, RBC 4.08 L, Hgb 10.4 L, Hct 33.6 L, MCV 82.4, MCH 25.5 L, MCHC 31.0 L, RDW Std Deviation 48.9 H, RDW Coeff of [place] 16.4 H, Plt Count 927 H*, MPV 9.9, Immature Gran % (Auto) 2.900 H, Neut % (Auto) 76.3 H, Lymph % (Auto) 11.9 L, [place] % (Auto) 5.7, Eos % (Auto) 2.5, Baso % (Auto) 0.7, Absolute Neuts (auto) 15.1 H, Absolute Lymphs (auto) 2.35, Nucleated RBC % 0, Sodium 137, Potassium 4.7, Chloride 100, Carbon Dioxide 25.5, Anion Gap 12, BUN 51 H, Creatinine 1.17, Estim Creat Clear Calc 79.59, Est GFR (MDRD) Non-Af 70, BUN/Creatinine Ratio 43.2 H, Glucose 116 H, Calcium 9.8 Micro: Microbiology 06/12/24 23:25 Stool Stool Occult Blood (RORY) - Final Physical Exam Const alert, oriented x3 and no apparent distress Resp clear to auscultation bilaterally Cardio regular rate and regular rhythm Extremity Extremity Narrative: Edema in the right stump is slowly decreasing. General Extremity: edema Skin Skin Narrative: The redness of the distal anterolateral thigh is improved today. There is a smaller amount of redness in the chari-incisional area. Continues to have some serosanguineous drainage from the wound. Edema is improving. The incision is intact with no dehiscence. No purulent discharge observed. Assessment & Plan Assessment/Plan (1) Debility: (2) PAD (peripheral artery disease): (3) S/P amputation: (4) Other acute postprocedural pain: (5) Phantom pain after amputation of lower extremity: (6) Acute blood loss anemia: (7) Chronic anemia: (8) Hyperlipidemia: QUALIFIERS: Hyperlipidemia type: unspecified Qualified Code(s): E78.5 - Hyperlipidemia, unspecified (9) Hypertension: QUALIFIERS: Hypertension type: primary hypertension Qualified Code(s): I10 - Essential (primary) hypertension (10) DM2 (diabetes mellitus, type 2): QUALIFIERS: Diabetes mellitus nursing home insulin use: without nursing home use Diabetes mellitus complication status: with circulatory complication Diabetes mellitus complication detail: with peripheral angiopathy with gangrene Qualified Code(s): E11.52 - Type 2 diabetes mellitus with diabetic peripheral angiopathy with gangrene (11) Thrombocytosis: (12) Chronic insomnia: (13) Chronic diarrhea: (14) Neuropathy: (15) Lung cancer: QUALIFIERS: Laterality: right Lung location: upper lobe of lung Qualified Code(s): C34.11 - Malignant neoplasm of upper lobe, right bronchus or lung (16) Laceration of left ring finger w/o foreign body w/o damage to nail: QUALIFIERS: Encounter type: subsequent encounter Qualified Code(s): S61.215D - Laceration without foreign body of left ring finger without damage to nail, subsequent encounter (17) Cellulitis: QUALIFIERS: Site of cellulitis: extremity Site of cellulitis of extremity: lower extremity Laterality: right Qualified Code(s): L03.115 - Cellulitis of right lower limb (18) Chronic depression: PLAN: Plan 1. Continue therapy 2. Start Wellbutrin XL 150 mg daily in the a.m. 3. Consult the dietitian to educate risk about carbohydrates and calories. 4. Continue Keflex 3 times daily and reevaluate at 7 days. Charges/Coding Visit Charges Inpatient E&M: 32807 Subs Hosp L1
[2024-06-17] MEDS: Ferrous Sulfate 325 MG Tablet PO (12:28)
[2024-06-17] MEDS: buPROPion (XL) 150 MG TABLET.XL PO (12:33)
[2024-06-17] MEDS: metFORMIN (XR) 500 MG Tablet PO (17:17)
[2024-06-17 17:45] VITALS: BP 124/56; PULSE 67; RESP 18; TEMP 36.6; O2SAT 95
[2024-06-17 20:37] VITALS: BP 116/69; PULSE 71
[2024-06-17] MEDS: Atorvastatin Calcium 40 MG Tablet PO (20:38)
[2024-06-17] MEDS: Gabapentin 100 MG Capsule PO (20:38)
[2024-06-17] MEDS: traZODone 100 MG Tablet PO (20:38)
[2024-06-17] MEDS: oxyCODONE 5 MG Tablet 10 MG PO (20:39)
[2024-06-18] MEDS: Cephalexin 500 MG Capsule PO ×3 (05:28→21:35)
[2024-06-18] MEDS: Enoxaparin 40 MG/0.4 ML Syringe SC (05:28)
[2024-06-18] MEDS: Acetaminophen 500 MG Tablet 1000 MG PO ×3 (05:28→21:35)
[2024-06-18] MEDS: oxyCODONE 5 MG Tablet PO ×2 (05:29→14:19)
[2024-06-18] MEDS: Gabapentin 300 MG Capsule PO ×3 (05:29→21:35)
[2024-06-18 06:00] VITALS: BP 106/70; PULSE 82; RESP 16; TEMP 36.1; O2SAT 93
[2024-06-18] MEDS: hydroCHLOROthiazide 25 MG Tablet PO (07:43)
[2024-06-18] MEDS: Lisinopril 20 MG Tablet PO ×2 (07:43→21:37)
[2024-06-18] MEDS: amLODIPine 10 MG Tablet PO (07:43)
[2024-06-18] MEDS: Ensure Plus High Protein 120 ML LIQUID PO ×2 (07:43→12:27)
[2024-06-18] MEDS: Zinc Sulfate 50 mg zinc (220 mg) ORAL capsule PO (07:43)
[2024-06-18] MEDS: Aspirin 81 MG TAB.CHEW PO (07:43)
[2024-06-18] MEDS: Ascorbic Acid 500 MG Tablet PO ×2 (07:43→16:45)
[2024-06-18] MEDS: buPROPion (XL) 150 MG TABLET.XL PO (07:44)
[2024-06-18] MEDS: BACITRACIN 15 GM Tube 1 APPLIC TOPICAL (07:44)
[2024-06-18] MEDS: Ferrous Sulfate 325 MG Tablet PO (12:27)
--- NOTE | 2024-06-18 12:43 | CASEMGMT ---
Addendum entered by Elsa Zavala 06/19/24 10:39: [facility] can accept. Addendum entered by Elsa Zavala 06/19/24 08:53: [facility] is reviewing. [facility] requested to meet with pt this afternoon. SW scheduled. Original Note: Social Work IDT met with patient for Team meeting. Discussed patient's progress in PT/OT/SN. [facility], LCD 5/4, if continued stay is not approved. SW requested pt choose SNF choices to being placing referrals. Pt provided choices of [facility]. SW to place referrals. Pt stated his mom is actively looking for apts for pt, but it will not be ready for pt to move into if LCD is 5/4. Pt agreed. - EDITH [facility] Elsa Zavala LABEL PRINTING MACHINIST RETOUCHER
[2024-06-18] MEDS: metFORMIN (XR) 500 MG Tablet PO (16:45)
[2024-06-18 17:44] VITALS: BP 124/65; PULSE 72; RESP 18; TEMP 36.3; O2SAT 94
[2024-06-18 21:00] VITALS: BP 118/64; PULSE 80
[2024-06-18] MEDS: Atorvastatin Calcium 40 MG Tablet PO (21:35)
[2024-06-18] MEDS: Gabapentin 100 MG Capsule PO (21:35)
[2024-06-18] MEDS: traZODone 100 MG Tablet PO (21:35)
[2024-06-18] MEDS: oxyCODONE 5 MG Tablet 10 MG PO (21:35)
[2024-06-19 06:00] VITALS: BP 122/59; PULSE 66; RESP 17; TEMP 36; O2SAT 93
[2024-06-19] MEDS: Cephalexin 500 MG Capsule PO ×3 (06:04→21:33)
[2024-06-19] MEDS: Gabapentin 300 MG Capsule PO ×3 (06:04→21:34)
[2024-06-19] MEDS: Enoxaparin 40 MG/0.4 ML Syringe SC (06:04)
[2024-06-19] MEDS: Acetaminophen 500 MG Tablet 1000 MG PO ×3 (06:04→21:34)
[2024-06-19] MEDS: 0.9% Saline Lock 10 ML Syringe IV (07:38)
[2024-06-19] MEDS: Lisinopril 20 MG Tablet PO ×2 (08:12→21:33)
[2024-06-19] MEDS: BACITRACIN 15 GM Tube 1 APPLIC TOPICAL (08:12)
[2024-06-19] MEDS: amLODIPine 10 MG Tablet PO (08:12)
[2024-06-19] MEDS: buPROPion (XL) 150 MG TABLET.XL PO (08:12)
[2024-06-19] MEDS: hydroCHLOROthiazide 25 MG Tablet PO (08:13)
[2024-06-19] MEDS: Zinc Sulfate 50 mg zinc (220 mg) ORAL capsule PO (08:13)
[2024-06-19] MEDS: Aspirin 81 MG TAB.CHEW PO (08:13)
[2024-06-19] MEDS: Ensure Plus High Protein 120 ML LIQUID PO ×3 (08:13→17:03)
[2024-06-19] MEDS: Ascorbic Acid 500 MG Tablet PO ×2 (08:13→17:03)
[2024-06-19] MEDS: oxyCODONE 5 MG Tablet PO (08:16)
--- NOTE | 2024-06-19 09:03 | PCM.PN.SRG ---
Subjective Subjective Doing well overall. No fevers or chills. Reports intermittent phantom sensations from the old right foot, but otherwise RLP and PLP improving. Objective Data Objective Data Vital Signs: Vital Signs Temp Pulse Resp BP Pulse Ox O2 Del Method O2 Flow Rate 96.8 F L 66 17 122/59 H 93 Room Air 0 06/19/24 06:00 06/19/24 06:00 06/19/24 06:00 06/19/24 06:00 06/19/24 06:00 06/19/24 06:00 06/10/24 22:32 FiO2 21 06/10/24 22:32 Oxygen Flow Rate (L/min) 0 Oxygen Delivery Method Room Air Weight: 232 lb 5.875 oz Body Mass Index (BMI) 33.3 Intake & Output: Intake and Output for Last 24 Hours 06/17/24 06/18/24 06/19/24 23:59 23:59 23:59 Intake Total 3310 / 3310 3545 / 3545 720 / 720 Output Total 4100 / 4900 5175 / 5175 400 / 400 Balance -790 / -1590 -1630 / -1630 320 / 320 Lab / Micro Data 06/17/24 05:21 06/17/24 05:21 Micro: Microbiology 06/12/24 23:25 Stool Stool Occult Blood (RORY) - Final Physical Exam Narrative RLE: Suture line intact with thomas, but there is some persistent induration along the suture line with some reactive erythema. o significant drainage today. Assessment & Plan Assessment/Plan (1) Ischemia of right lower extremity: (2) Occlusion of right femoral artery: (3) Failing vascular bypass graft: (4) Hypertension: QUALIFIERS: Hypertension type: primary hypertension Qualified Code(s): I10 - Essential (primary) hypertension PLAN: Plan Incision appears to be healing but there is some cellulitis Continue PO antibiotics Anticipate 3 weeks of thomas. [facility]SU will follow Charges/Coding Procedures Integumentary [id number]: [id number] Global Visit
[2024-06-19] MEDS: Ferrous Sulfate 325 MG Tablet PO (12:43)
--- NOTE | 2024-06-19 13:22 | PCM.PROGNOTE ---
Subjective Subjective Afebrile Blood pressure is now well-controlled with addition of hydrochlorothiazide to the drug regimen. Heart rate is within normal limits. Maintaining appropriate oxygen saturation on room air while awake. Sleeping well at night with trazodone. Did not complain of lightheadedness or nausea with therapy today. No chest pain or shortness of breath. Phantom pain in the right leg is well-controlled with gabapentin. Sleeping well at night with trazodone and good appetite/intake. Objective Data Objective Data Vital Signs: Vital Signs Temp Pulse Resp BP Pulse Ox O2 Del Method O2 Flow Rate 96.8 F L 66 17 122/59 H 93 Room Air 0 06/19/24 06:00 06/19/24 06:00 06/19/24 06:00 06/19/24 06:00 06/19/24 06:00 06/19/24 06:00 06/10/24 22:32 FiO2 21 06/10/24 22:32 Oxygen Flow Rate (L/min) 0 Oxygen Delivery Method Room Air Weight: 232 lb 5.875 oz Body Mass Index (BMI) 33.3 Intake & Output: Intake and Output for Last 24 Hours 06/17/24 06/18/24 06/19/24 23:59 23:59 23:59 Intake Total 3310 / 3310 3545 / 3545 720 / 720 Output Total 4100 / 4900 5175 / 5175 400 / 400 Balance -790 / -1590 -1630 / -1630 320 / 320 Lab / Micro Data 06/17/24 05:21 06/17/24 05:21 Micro: Microbiology 06/12/24 23:25 Stool Stool Occult Blood (RORY) - Final Physical Exam Const alert General Appearance: cooperative HEENT HEENT Narrative: Mucous membranes are little dry. Resp normal respiratory effort and clear to auscultation bilaterally Resp Narrative: No conversational dyspnea Effort and Inspection: Negative for tachypneic Cardio regular rate and regular rhythm Cardio Narrative: No ectopy GI normal to inspection, nondistended, normoactive bowel sounds, soft to palpation and non-tender Extremity no calf tenderness Extremity Narrative: Edema of the stump is slowly improving. No ankle edema. General Extremity: edema Skin Skin Narrative: The stump incision is intact there is no dehiscence. There is still a small amount of serosanguineous drainage from the wound. The erythema of the thigh has resolved. No odor to the discharge. Small amount of reactive erythema around the incision. Rashes: no rashes Assessment & Plan Assessment/Plan (1) Debility: (2) S/P amputation: (3) Phantom pain after amputation of lower extremity: (4) Acute blood loss anemia: (5) Hypertension: QUALIFIERS: Hypertension type: primary hypertension Qualified Code(s): I10 - Essential (primary) hypertension (6) DM2 (diabetes mellitus, type 2): QUALIFIERS: Diabetes mellitus longwall headgate operator insulin use: without correction use Diabetes mellitus complication status: with circulatory complication Diabetes mellitus complication detail: with peripheral angiopathy with gangrene Qualified Code(s): E11.52 - Type 2 diabetes mellitus with diabetic peripheral angiopathy with gangrene (7) Thrombocytosis: (8) Chronic insomnia: (9) Lung cancer: QUALIFIERS: Laterality: right Lung location: upper lobe of lung Qualified Code(s): C34.11 - Malignant neoplasm of upper lobe, right bronchus or lung (10) Laceration of left ring finger w/o foreign body w/o damage to nail: QUALIFIERS: Encounter type: subsequent encounter Qualified Code(s): S61.215D - Laceration without foreign body of left ring finger without damage to nail, subsequent encounter (11) Cellulitis: QUALIFIERS: Site of cellulitis: extremity Site of cellulitis of extremity: lower extremity Laterality: right Qualified Code(s): L03.115 - Cellulitis of right lower limb PLAN: R AKA incision. Improving with Keflex (12) Chronic depression: PLAN: Started Wellbutrin. PLAN: Plan 1. Continue therapy 2. Continue Keflex 3. Plan SNF at discharge. 4. Recheck a CBC with differential and a BMP on Saturday. 5. Continue hydrochlorothiazide 25 mg daily for blood pressure control. Charges/Coding Visit Charges Inpatient E&M: 43466 Subs Hosp L1
[2024-06-19] MEDS: metFORMIN (XR) 500 MG Tablet PO (17:03)
[2024-06-19 17:48] VITALS: BP 112/65; PULSE 71; RESP 17; TEMP 37; O2SAT 98
[2024-06-19] MEDS: Gabapentin 100 MG Capsule PO (21:33)
[2024-06-19] MEDS: Atorvastatin Calcium 40 MG Tablet PO (21:34)
[2024-06-19] MEDS: oxyCODONE 5 MG Tablet 10 MG PO (21:34)
[2024-06-19] MEDS: traZODone 100 MG Tablet PO (21:34)
[2024-06-20 04:52] VITALS: BP 131/63; PULSE 67; RESP 18; TEMP 36.8; O2SAT 96
[2024-06-20] MEDS: Acetaminophen 500 MG Tablet 1000 MG PO ×3 (05:14→21:07)
[2024-06-20] MEDS: Gabapentin 300 MG Capsule PO ×3 (05:14→21:07)
[2024-06-20] MEDS: Enoxaparin 40 MG/0.4 ML Syringe SC (05:14)
[2024-06-20] MEDS: Cephalexin 500 MG Capsule PO ×3 (05:14→21:08)
[2024-06-20 06:02] LABS: Absolute Neutrophil Count 15.3 X10^3/uL (2.0-7.7); Basophil% 0.5 % (0-1); Eosinophils% 2.1 % (0-5); Hematocrit 31.1 % (40-54); Hemoglobin 9.8 g/dL (13.0-16.5); Mean Corp Hgb Conc 31.5 g/dL (32-36); Mean Corpuscular Hgb 25.9 pg (27.0-32.0); Mean Corpuscular Volume 82.1 fL (80-94); Mean Platelet Vol. 9.5 fl (6.2-12.0); Monocyte# 1.24 X10^3/uL; Monocyte% 6.6 % (0-10); NRBC Flagged by Analyzer 0 % (0-5); Neutrophil % 81.3 % (47-70); POSITIVE COUNT YES; RBC Distribution Width SD 49.8 fl (35.1-43.9); Red Blood Count 3.79 M/mm3 (4.6-6.2); White Blood Count 18.8 K/mm3 (4.4-11.0)
[2024-06-20 06:07] LABS: Differential Indicated SCAN CRITERIA MET; Platelet Count 844 K/mm3 (150-450)
[2024-06-20 06:20] LABS: Bedside Glucose 142 mg/dL (74-106)
[2024-06-20 06:33] LABS: Differential Comment SCANNED; Platelet Estimate MKD INC (ADEQ)
[2024-06-20] MEDS: Zinc Sulfate 50 mg zinc (220 mg) ORAL capsule PO (07:57)
[2024-06-20] MEDS: hydroCHLOROthiazide 25 MG Tablet PO (07:57)
[2024-06-20] MEDS: Ascorbic Acid 500 MG Tablet PO ×2 (07:57→17:03)
[2024-06-20] MEDS: BACITRACIN 15 GM Tube 1 APPLIC TOPICAL (07:57)
[2024-06-20] MEDS: Aspirin 81 MG TAB.CHEW PO (07:58)
[2024-06-20] MEDS: buPROPion (XL) 150 MG TABLET.XL PO (07:59)
[2024-06-20] MEDS: Ensure Plus High Protein 120 ML LIQUID PO ×3 (08:03→17:03)
[2024-06-20 08:12] VITALS: BP 110/58
[2024-06-20 10:20] VITALS: BP 129/66; PULSE 70
[2024-06-20] MEDS: amLODIPine 10 MG Tablet PO (10:30)
[2024-06-20] MEDS: Lisinopril 20 MG Tablet PO ×2 (10:31→21:09)
[2024-06-20] MEDS: Ferrous Sulfate 325 MG Tablet PO (12:58)
[2024-06-20] MEDS: oxyCODONE 5 MG Tablet PO (15:06)
[2024-06-20] MEDS: metFORMIN (XR) 500 MG Tablet PO (17:03)
[2024-06-20 18:00] VITALS: BP 142/77; PULSE 71; RESP 16; TEMP 37.1; O2SAT 98
[2024-06-20 19:57] VITALS: RESP 16
[2024-06-20] MEDS: Atorvastatin Calcium 40 MG Tablet PO (21:08)
[2024-06-20] MEDS: Gabapentin 100 MG Capsule PO (21:08)
[2024-06-20] MEDS: traZODone 100 MG Tablet PO (21:08)
[2024-06-20] MEDS: oxyCODONE 5 MG Tablet 10 MG PO (21:08)
[2024-06-21 03:56] LABS: Absolute Lymphocyte Count 1.79 X10^3/uL (0.83-4.51); Basophil# 0.12 X10^3/uL; Basophil% 0.7 % (0-1); Eosinophil# 0.55 X10^3/uL; Eosinophils% 3.1 % (0-5); Hematocrit 31.3 % (40-54); Lymphocyte # 1.79 X10^3/ul (0.83-4.51); Mean Corp Hgb Conc 31.9 g/dL (32-36); Mean Corpuscular Hgb 26.1 pg (27.0-32.0); Mean Corpuscular Volume 81.7 fL (80-94); Mean Platelet Vol. 9.5 fl (6.2-12.0); Monocyte# 1.32 X10^3/uL; Monocyte% 7.4 % (0-10); NRBC Flagged by Analyzer 0 % (0-5); Neutrophil # 13.95 X10^3/uL (2.7-7.7); Neutrophil % 77.6 % (47-70); POSITIVE COUNT YES; RBC Distribution Width CV 17.1 % (11.6-14.6); RBC Distribution Width SD 49.9 fl (35.1-43.9); Red Blood Count 3.83 M/mm3 (4.6-6.2)
[2024-06-21 04:06] LABS: Platelet Count 868 K/mm3 (150-450)
[2024-06-21] MEDS: Cephalexin 500 MG Capsule PO ×3 (05:03→21:04)
[2024-06-21] MEDS: Enoxaparin 40 MG/0.4 ML Syringe SC (05:03)
[2024-06-21] MEDS: Gabapentin 300 MG Capsule PO ×3 (05:04→21:07)
[2024-06-21] MEDS: Acetaminophen 500 MG Tablet 1000 MG PO ×3 (05:04→21:04)
[2024-06-21 06:00] VITALS: BP 144/73; PULSE 79; RESP 16; TEMP 36.4; O2SAT 96
[2024-06-21 06:57] LABS: Bedside Glucose 155 mg/dL (74-106)
[2024-06-21] MEDS: Ascorbic Acid 500 MG Tablet PO ×2 (07:48→16:59)
[2024-06-21] MEDS: Aspirin 81 MG TAB.CHEW PO (07:48)
[2024-06-21] MEDS: Zinc Sulfate 50 mg zinc (220 mg) ORAL capsule PO (07:49)
[2024-06-21] MEDS: Ensure Plus High Protein 120 ML LIQUID PO ×3 (07:51→16:58)
[2024-06-21] MEDS: amLODIPine 10 MG Tablet PO (09:15)
[2024-06-21] MEDS: Lisinopril 20 MG Tablet PO ×2 (09:15→21:04)
[2024-06-21] MEDS: hydroCHLOROthiazide 25 MG Tablet PO (09:16)
[2024-06-21] MEDS: BACITRACIN 15 GM Tube 1 APPLIC TOPICAL (09:17)
[2024-06-21] MEDS: buPROPion (XL) 150 MG TABLET.XL PO (09:17)
[2024-06-21] MEDS: Menthol/Lanolin/Calamine/Znox 113 GM Tube 1 APPLIC TOPICAL (09:19)
[2024-06-21] MEDS: Ferrous Sulfate 325 MG Tablet PO (12:44)
[2024-06-21] MEDS: metFORMIN (XR) 500 MG Tablet PO (16:59)
[2024-06-21 18:00] VITALS: BP 138/69; PULSE 78; RESP 16; TEMP 36.9; O2SAT 99
[2024-06-21] MEDS: Atorvastatin Calcium 40 MG Tablet PO (21:04)
[2024-06-21] MEDS: traZODone 100 MG Tablet PO (21:04)
[2024-06-21] MEDS: oxyCODONE 5 MG Tablet 10 MG PO (21:07)
[2024-06-21] MEDS: Gabapentin 100 MG Capsule PO (21:07)
[2024-06-21 22:00] VITALS: PULSE 78; RESP 16; O2SAT 97
--- NOTE | 2024-06-22 00:30 | NURSING ---
Pt states he is not tired tonight d/t sleeping a lot throughout the day as there was no scheduled therapy. Pt is scrolling through his phone listening to various short stories or music and states he just isn't ready to sleep yet.
[2024-06-22 00:55] VITALS: O2SAT 97
[2024-06-22] MEDS: Cephalexin 500 MG Capsule PO ×3 (05:07→21:25)
[2024-06-22] MEDS: Enoxaparin 40 MG/0.4 ML Syringe SC (05:07)
[2024-06-22] MEDS: Gabapentin 300 MG Capsule PO ×3 (05:07→21:25)
[2024-06-22] MEDS: Acetaminophen 500 MG Tablet 1000 MG PO ×3 (05:07→21:26)
[2024-06-22 06:00] VITALS: BP 136/70; PULSE 69; RESP 16; TEMP 36.3; O2SAT 98
[2024-06-22 06:14] LABS: Absolute Lymphocyte Count 1.77 X10^3/uL (0.83-4.51); Absolute Neutrophil Count 14.1 X10^3/uL (2.0-7.7); Basophil# 0.13 X10^3/uL; Basophil% 0.7 % (0-1); Eosinophil# 0.51 X10^3/uL; Eosinophils% 2.8 % (0-5); Hematocrit 31.2 % (40-54); Lymphocyte # 1.77 X10^3/ul (0.83-4.51); Lymphocyte % 9.9 % (19-41); Mean Corp Hgb Conc 32.1 g/dL (32-36); Mean Corpuscular Hgb 26.2 pg (27.0-32.0); Mean Corpuscular Volume 81.7 fL (80-94); Mean Platelet Vol. 9.4 fl (6.2-12.0); Monocyte# 1.22 X10^3/uL; Monocyte% 6.8 % (0-10); NRBC Flagged by Analyzer 0 % (0-5); Neutrophil # 14.07 X10^3/uL (2.7-7.7); Neutrophil % 78.4 % (47-70); POSITIVE COUNT YES; RBC Distribution Width CV 17.2 % (11.6-14.6); RBC Distribution Width SD 49.8 fl (35.1-43.9); Red Blood Count 3.82 M/mm3 (4.6-6.2)
[2024-06-22 06:17] LABS: Differential Indicated SCAN CRITERIA MET; Platelet Count 865 K/mm3 (150-450); Scan Indicated on CBC? Y/N YES- FLAGS NOTED
[2024-06-22 06:57] LABS: Anion Gap 11 (5-15); BUN 39 mg/dL (4-19); BUN/Creat Ratio 35.8 RATIO (10-20); Calcium,Total 9.3 mg/dL (7.6-11.0); Chloride 102 mmol/L (98-108); EST Glomerular Filtration Rate 76 (>60); Estimated Creatinine Clearance 84.66 ml/min (50-250); Glucose 143 mg/dL (70-99); Potassium 4.2 mmol/L (3.3-5.1); Sodium Level 137 mmol/L (133-145)
[2024-06-22 07:01] LABS: Bedside Glucose 138 mg/dL (74-106)
[2024-06-22 07:17] LABS: LDH 251 U/L (87-241); Uric Acid 6.3 mg/dL (3.5-7.2)
[2024-06-22 08:02] LABS: Platelet Estimate MKD INC (ADEQ)
[2024-06-22] MEDS: BACITRACIN 15 GM Tube 1 APPLIC TOPICAL (09:16)
[2024-06-22] MEDS: Lisinopril 20 MG Tablet PO ×2 (09:16→21:26)
[2024-06-22] MEDS: Aspirin 81 MG TAB.CHEW PO (09:16)
[2024-06-22] MEDS: buPROPion (XL) 150 MG TABLET.XL PO (09:17)
[2024-06-22] MEDS: Ascorbic Acid 500 MG Tablet PO ×2 (09:17→16:57)
[2024-06-22] MEDS: hydroCHLOROthiazide 25 MG Tablet PO (09:17)
[2024-06-22] MEDS: Ensure Plus High Protein 120 ML LIQUID PO ×3 (09:17→16:57)
[2024-06-22] MEDS: Zinc Sulfate 50 mg zinc (220 mg) ORAL capsule PO (09:17)
[2024-06-22] MEDS: amLODIPine 10 MG Tablet PO (09:17)
--- NOTE | 2024-06-22 09:34 | PCM.PROGNOTE ---
Subjective Subjective Afebrile VSS -systolic is mildly elevated at times but the highest systolic recently has been 142. Diastolics are always within normal limits. The heart rate is within normal limits. Maintaining appropriate oxygen saturation on RA Oral intake - FOOD good FLUIDS good Discussed with nursing - no problems that need addressed Reviewed the THERAPY notes Medication list reviewed. All lab from this morning was personally reviewed. White blood cell count remains elevated at 18,000 despite treatment of cellulitis. There is a persistent left shift. Hemoglobin is stable at 10. Platelets are still elevated at 865,000. Sodium is 137 and the potassium is 4.2. The BUN is 39 with a creatinine of 1.10 which is stable. Uric acid is normal at 6.3 and he has no history of gout. Calcium is within normal limits at 9.3. LDH is mildly increased at 251. Pain is adequately controlled. Denies chest pain, shortness of breath, cough, lightheadedness, abdominal pain, dysuria and left calf tenderness. Objective Data Objective Data Vital Signs: Vital Signs Temp Pulse Resp BP Pulse Ox O2 Del Method O2 Flow Rate 97.3 F L 69 16 136/70 H 98 Nasal Cannula 2 06/22/24 06:00 06/22/24 06:00 06/22/24 06:00 06/22/24 06:00 06/22/24 06:00 06/22/24 06:00 06/22/24 06:00 FiO2 21 06/10/24 22:32 Oxygen Flow Rate (L/min) 2 Oxygen Delivery Method Nasal Cannula Weight: 232 lb 5.875 oz Body Mass Index (BMI) 33.3 Intake & Output: Intake and Output for Last 24 Hours 06/20/24 06/21/24 06/22/24 23:59 23:59 23:59 Intake Total 2650 / 2650 3610 / 3610 650 / 650 Output Total 4650 / 4650 4850 / 5200 925 / 925 Balance -2000 / -2000 -1240 / -1590 -275 / -275 Lab / Micro Data 06/22/24 05:54 06/22/24 05:54 Labs: Laboratory Results - last 24 hr 06/22/24 05:54: WBC 18.0 H, RBC 3.82 L, Hgb 10.0 L, Hct 31.2 L, MCV 81.7, MCH 26.2 L, MCHC 32.1, RDW Std Deviation 49.8 H, RDW Coeff of Corina 17.2 H, Plt Count 865 H*, MPV 9.4, Immature Gran % (Auto) 1.400 H, Neut % (Auto) 78.4 H, Lymph % (Auto) 9.9 L, Ector % (Auto) 6.8, Eos % (Auto) 2.8, Baso % (Auto) 0.7, Absolute Neuts (auto) 14.1 H, Absolute Lymphs (auto) 1.77, Nucleated RBC % 0, Platelet Estimate MKD INC, Sodium 137, Potassium 4.2, Chloride 102, Carbon Dioxide 25.0, Anion Gap 11, BUN 39 H, Creatinine 1.10, Estim Creat Clear Calc 84.66, Est GFR (MDRD) Non-Af 76, BUN/Creatinine Ratio 35.8 H, Glucose 143 H, Uric Acid 6.3, Calcium 9.3, Lactate Dehydrogenase 251 H 06/22/24 06:39: POC Glucose 138 H Micro: Microbiology 06/12/24 23:25 Stool Stool Occult Blood (RORY) - Final Physical Exam Const alert, oriented x3 and no apparent distress Constitutional Narrative: Sitting in the recliner at the bedside Resp clear to auscultation bilaterally Cardio regular rate and regular rhythm GI normal to inspection, nondistended, normoactive bowel sounds, soft to palpation and non-tender Extremity Extremity Narrative: No left calf tenderness. No ankle edema on the left. Skin Wound Narrative: Incision is intact. Still with a small amount of serosanguineous drainage. No purulent discharge. No erythema of the stump. [place] are in place. Assessment & Plan Assessment/Plan (1) Debility: (2) S/P amputation: (3) Phantom pain after amputation of lower extremity: (4) Acute blood loss anemia: (5) Hypertension: QUALIFIERS: Hypertension type: primary hypertension Qualified Code(s): I10 - Essential (primary) hypertension (6) DM2 (diabetes mellitus, type 2): QUALIFIERS: Diabetes mellitus manager long term care insulin use: without manager long term care use Diabetes mellitus complication status: with circulatory complication Diabetes mellitus complication detail: with peripheral angiopathy with gangrene Qualified Code(s): E11.52 - Type 2 diabetes mellitus with diabetic peripheral angiopathy with gangrene (7) Thrombocytosis: (8) Chronic insomnia: (9) Lung cancer: QUALIFIERS: Laterality: right Lung location: upper lobe of lung Qualified Code(s): C34.11 - Malignant neoplasm of upper lobe, right bronchus or lung (10) Laceration of left ring finger w/o foreign body w/o damage to nail: QUALIFIERS: Encounter type: subsequent encounter Qualified Code(s): S61.215D - Laceration without foreign body of left ring finger without damage to nail, subsequent encounter (11) Cellulitis: QUALIFIERS: Site of cellulitis: extremity Site of cellulitis of extremity: lower extremity Laterality: right Qualified Code(s): L03.115 - Cellulitis of right lower limb (12) Chronic depression: PLAN: Plan 1. Continue therapy 2. Has persistent increase in WBC and PLT's.......myeloproliferative? Needs follow up with oncology for lung CA and for the persistent elevated WBC and PLT. Charges/Coding Visit Charges Inpatient E&M: 05119 Subs Hosp L1
[2024-06-22] MEDS: Ferrous Sulfate 325 MG Tablet PO (11:16)
--- NOTE | 2024-06-22 14:46 | CASEMGMT ---
Social Work SW spoke with pt to get FOC. Pt prefers [facility]. SW to secure. SW explained insurance approved with [employer] 06/28, however, IDT is setting DC date. Pt agreeable. EDITH explained precert will be started, and pending approval, pt will DC to [facility]. Sleep study is postponed d/t not having bed availability. Pt will complete once DCd from [facility]. Pt requested this worker contact mother. SW agreed. - EDITH updated [facility] - sent updated notes. Precert started. Elsa Zavala LINOLEUM MECHANIC PROCESS CONTROL SPECIALIST
[2024-06-22] MEDS: metFORMIN (XR) 500 MG Tablet PO (16:57)
[2024-06-22 17:30] VITALS: BP 133/58; PULSE 76; RESP 16; TEMP 36.6; O2SAT 93
[2024-06-22 21:00] VITALS: PULSE 76; RESP 16; O2SAT 93
[2024-06-22] MEDS: traZODone 100 MG Tablet PO (21:25)
[2024-06-22] MEDS: Gabapentin 100 MG Capsule PO (21:25)
[2024-06-22] MEDS: oxyCODONE 5 MG Tablet 10 MG PO (21:25)
[2024-06-22] MEDS: Atorvastatin Calcium 40 MG Tablet PO (21:25)
[2024-06-23 06:00] VITALS: BP 138/64; PULSE 67; RESP 17; TEMP 36.5; O2SAT 98
[2024-06-23] MEDS: Cephalexin 500 MG Capsule PO (06:01)
[2024-06-23] MEDS: Gabapentin 300 MG Capsule PO ×3 (06:02→20:28)
[2024-06-23] MEDS: Acetaminophen 500 MG Tablet 1000 MG PO ×3 (06:02→20:27)
[2024-06-23] MEDS: Enoxaparin 40 MG/0.4 ML Syringe SC (06:02)
[2024-06-23] MEDS: oxyCODONE 5 MG Tablet PO (06:03)
[2024-06-23] MEDS: BACITRACIN 15 GM Tube 1 APPLIC TOPICAL (07:48)
[2024-06-23] MEDS: Zinc Sulfate 50 mg zinc (220 mg) ORAL capsule PO (07:49)
[2024-06-23] MEDS: hydroCHLOROthiazide 25 MG Tablet PO (07:49)
[2024-06-23] MEDS: Ascorbic Acid 500 MG Tablet PO ×2 (07:49→16:37)
[2024-06-23] MEDS: Lisinopril 20 MG Tablet PO ×2 (07:49→20:28)
[2024-06-23] MEDS: amLODIPine 10 MG Tablet PO (07:49)
[2024-06-23] MEDS: Aspirin 81 MG TAB.CHEW PO (07:49)
[2024-06-23] MEDS: buPROPion (XL) 150 MG TABLET.XL PO (07:49)
[2024-06-23] MEDS: Ferrous Sulfate 325 MG Tablet PO (07:49)
[2024-06-23] MEDS: Ensure Plus High Protein 120 ML LIQUID PO ×3 (07:51→16:38)
[2024-06-23] MEDS: metFORMIN (XR) 500 MG Tablet PO (16:37)
--- NOTE | 2024-06-23 16:56 | CASEMGMT ---
Addendum entered by Elsa Zavala 06/24/24 15:55: Still awaiting outcome from precert. Original Note: Social Work SW spoke with Davie at [facility] - insurance is requesting 7000. EDITH explained 7000 cannot be completed until there are DC orders, which cannot be completed until the outcome of the precert is given. Insurance then asked for PASRR. EDITH completed PASRR in [place]. Davie provided to insurance. will continue awaiting precert outcome for DC. Elsa Zavala FARM CREW MEMBER LAWYER REAL ESTATE
[2024-06-23 17:21] VITALS: BP 136/68; PULSE 70; RESP 16; TEMP 36.6; O2SAT 97
[2024-06-23 20:20] VITALS: PULSE 70; RESP 16; O2SAT 97
[2024-06-23] MEDS: oxyCODONE 5 MG Tablet 10 MG PO (20:28)
[2024-06-23] MEDS: Gabapentin 100 MG Capsule PO (20:28)
[2024-06-23] MEDS: traZODone 100 MG Tablet PO (20:28)
[2024-06-23] MEDS: Atorvastatin Calcium 40 MG Tablet PO (20:28)
[2024-06-24 00:56] VITALS: PULSE 66; O2SAT 97
[2024-06-24] MEDS: Gabapentin 300 MG Capsule PO ×3 (05:41→20:18)
[2024-06-24] MEDS: Acetaminophen 500 MG Tablet 1000 MG PO ×3 (05:41→20:18)
[2024-06-24] MEDS: Enoxaparin 40 MG/0.4 ML Syringe SC (05:42)
[2024-06-24 05:45] VITALS: BP 113/72; PULSE 72; RESP 17; TEMP 36.4; O2SAT 96
[2024-06-24 06:00] VITALS: BMI 32.9
[2024-06-24] MEDS: BACITRACIN 15 GM Tube 1 APPLIC TOPICAL (08:13)
[2024-06-24] MEDS: Lisinopril 20 MG Tablet PO ×3 (08:14→20:22)
[2024-06-24] MEDS: buPROPion (XL) 150 MG TABLET.XL PO (08:14)
[2024-06-24] MEDS: amLODIPine 10 MG Tablet PO (08:14)
[2024-06-24] MEDS: Aspirin 81 MG TAB.CHEW PO (08:14)
[2024-06-24] MEDS: Ferrous Sulfate 325 MG Tablet PO (08:14)
[2024-06-24] MEDS: hydroCHLOROthiazide 25 MG Tablet PO (08:14)
[2024-06-24] MEDS: Ascorbic Acid 500 MG Tablet PO ×2 (08:14→17:58)
[2024-06-24] MEDS: Zinc Sulfate 50 mg zinc (220 mg) ORAL capsule PO (08:14)
[2024-06-24] MEDS: Ensure Plus High Protein 120 ML LIQUID PO ×3 (08:15→17:58)
--- NOTE | 2024-06-24 11:42 | PCM.PROGNOTE ---
Subjective Subjective Afebrile Blood pressure over the past 48 hours has ranged from 113/72 to 138/64. Heart rate is within normal limits. Maintaining appropriate oxygen saturation on room air while awake and is wearing 2 L/min of supplemental oxygen at night for abnormal overnight trending pulse ox with hypoxemia. No complaints. he is frustrated that we have not heard back from insurance about pre-cert for SN at DC from rehab. Tolerating Wellbutrin without adverse side effects. Denies lightheadedness, chest pain, shortness of breath, cough, nausea/vomiting/abdominal pain, dysuria and left calf tenderness. Had 1 oxycodone yesterday but prior to that had not had oxycodone since 06/20/2024 except for the scheduled 10 mg at HS. Objective Data Objective Data Vital Signs: Vital Signs Temp Pulse Resp BP Pulse Ox O2 Del Method O2 Flow Rate 97.6 F L 72 17 113/72 96 Nasal Cannula 2 06/24/24 05:45 06/24/24 05:45 06/24/24 05:45 06/24/24 05:45 06/24/24 05:45 06/24/24 05:45 06/24/24 05:45 FiO2 21 06/10/24 22:32 Oxygen Flow Rate (L/min) 2 Oxygen Delivery Method Nasal Cannula Weight: 232 lb 5.875 oz Body Mass Index (BMI) 33.3 Intake & Output: Intake and Output for Last 24 Hours 06/22/24 06/23/24 06/24/24 23:59 23:59 23:59 Intake Total 2560 / 2560 2860 / 2860 600 / 600 Output Total 3175 / 3175 4100 / 4100 1999 Balance -615 / -615 -1240 / -1240 -1400 / -1400 Lab / Micro Data 06/22/24 05:54 06/22/24 05:54 Micro: Microbiology 06/12/24 23:25 Stool Stool Occult Blood (RORY) - Final Physical Exam Const alert and no apparent distress Cardio regular rate and regular rhythm Skin Skin Narrative: The stump incision is intact and thomas are still in place. The redness of the R anterior lateral thigh has completely resolved. There is still chari-incisional erythema in the mid to medial portion of the incision and there is persistent drainage. Assessment & Plan Assessment/Plan (1) Debility: (2) S/P amputation: (3) Phantom pain after amputation of lower extremity: (4) Acute blood loss anemia: (5) Hypertension: QUALIFIERS: Hypertension type: primary hypertension Qualified Code(s): I10 - Essential (primary) hypertension (6) DM2 (diabetes mellitus, type 2): QUALIFIERS: Diabetes mellitus intermediate frame tender insulin use: without half-way use Diabetes mellitus complication status: with circulatory complication Diabetes mellitus complication detail: with peripheral angiopathy with gangrene Qualified Code(s): E11.52 - Type 2 diabetes mellitus with diabetic peripheral angiopathy with gangrene (7) Thrombocytosis: (8) Chronic insomnia: (9) Lung cancer: QUALIFIERS: Laterality: right Lung location: upper lobe of lung Qualified Code(s): C34.11 - Malignant neoplasm of upper lobe, right bronchus or lung (10) Laceration of left ring finger w/o foreign body w/o damage to nail: QUALIFIERS: Encounter type: subsequent encounter Qualified Code(s): S61.215D - Laceration without foreign body of left ring finger without damage to nail, subsequent encounter (11) Cellulitis: QUALIFIERS: Site of cellulitis: extremity Site of cellulitis of extremity: lower extremity Laterality: right Qualified Code(s): L03.115 - Cellulitis of right lower limb (12) Chronic depression: PLAN: Plan 1. Continue therapy 2. Remove every other suture from the left ring finger today. 3. Discussed with marriage and family social worker and we are still awaiting precertification for transfer to senior care. 4. A culture was ordered for the discharge from the midportion of the stump incision. He finished an appropriate course of Keflex for cellulitis of the right stump. 5. Discontinue scheduled oxycodone at at bedtime but continue the oxycodone every 6 hours as needed for pain. Charges/Coding Visit Charges Inpatient E&M: 40684 Subs Hosp L1
[2024-06-24] MEDS: metFORMIN (XR) 500 MG Tablet PO (17:58)
[2024-06-24 18:00] VITALS: BP 120/67; PULSE 76; RESP 16; TEMP 37.1; O2SAT 96
[2024-06-24 19:55] VITALS: PULSE 61; RESP 17; O2SAT 96
[2024-06-24] MEDS: traZODone 100 MG Tablet PO (20:17)
[2024-06-24] MEDS: Atorvastatin Calcium 40 MG Tablet PO (20:18)
[2024-06-24] MEDS: Gabapentin 100 MG Capsule PO (20:18)
[2024-06-24] MEDS: oxyCODONE 5 MG Tablet 10 MG PO (20:18)
--- NOTE | 2024-06-24 23:09 | NURSING ---
1954 every other suture removed from the incision on the pt finger as per order. pt tolerated well and ten sutures were removed. area cleansed and dsd reapplied to finger
[2024-06-25 03:00] VITALS: O2SAT 97
[2024-06-25 05:00] VITALS: BP 127/64; PULSE 72; RESP 16; TEMP 36.4; O2SAT 97
[2024-06-25] MEDS: Enoxaparin 40 MG/0.4 ML Syringe SC (05:33)
[2024-06-25] MEDS: Acetaminophen 500 MG Tablet 1000 MG PO ×3 (05:33→21:41)
[2024-06-25] MEDS: Gabapentin 300 MG Capsule PO ×3 (05:33→21:41)
--- NOTE | 2024-06-25 07:40 | PCM.PN.SRG ---
Subjective Subjective Doing well overall. No fevers or chills. Reports intermittent phantom sensations from the old right foot. Objective Data Objective Data Vital Signs: Vital Signs Temp Pulse Resp BP Pulse Ox O2 Del Method O2 Flow Rate 97.6 F L 72 16 127/64 H 97 Room Air 2 06/25/24 05:00 06/25/24 05:00 06/25/24 05:00 06/25/24 05:00 06/25/24 05:00 06/25/24 05:00 06/25/24 03:00 FiO2 21 06/10/24 22:32 Oxygen Flow Rate (L/min) 2 Oxygen Delivery Method Room Air Weight: 232 lb 5.875 oz Body Mass Index (BMI) 32.9 Intake & Output: Intake and Output for Last 24 Hours 06/23/24 06/24/24 06/25/24 23:59 23:59 23:59 Intake Total 2860 / 2860 1720 / 1720 940 / 940 Output Total 4100 / 4100 4700 / 4700 1500 / 1500 Balance -1240 / -1240 -2980 / -2980 -560 / -560 Lab / Micro Data 06/22/24 05:54 06/22/24 05:54 Micro: Microbiology 06/24/24 09:30 Amputation - Below Knee Amputation Gram Stain - Final 06/12/24 23:25 Stool Stool Occult Blood (RORY) - Final Physical Exam Narrative RLE: Suture line intact with thomas, minimal induration but some reactive erythema along the suture line. No drainage today. 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 antibiotics Anticipate 3 weeks of thomas. PSU will follow Charges/Coding Procedures Integumentary [id number]: [id number] Global Visit
[2024-06-25] MEDS: Zinc Sulfate 50 mg zinc (220 mg) ORAL capsule PO (08:25)
[2024-06-25] MEDS: BACITRACIN 15 GM Tube 1 APPLIC TOPICAL (08:25)
[2024-06-25] MEDS: Ensure Plus High Protein 120 ML LIQUID PO (08:25)
[2024-06-25] MEDS: Lisinopril 20 MG Tablet PO ×2 (08:25→21:42)
[2024-06-25] MEDS: amLODIPine 10 MG Tablet PO (08:25)
[2024-06-25] MEDS: Aspirin 81 MG TAB.CHEW PO (08:25)
[2024-06-25] MEDS: Ascorbic Acid 500 MG Tablet PO ×2 (08:25→16:55)
[2024-06-25] MEDS: buPROPion (XL) 150 MG TABLET.XL PO (08:25)
[2024-06-25] MEDS: hydroCHLOROthiazide 25 MG Tablet PO (08:25)
[2024-06-25] MEDS: Ferrous Sulfate 325 MG Tablet PO (08:26)
--- NOTE | 2024-06-25 10:29 | PCM.PROGNOTE ---
Subjective Subjective Parag was seen on team rounds today. No family was available to participate. All his questions were answered to his satisfaction. He is frustrated about the delay with the insurance company completing pre-CERT for senior living. Afebrile Blood pressure is well-controlled. Heart rate is within normal limits. Maintaining an oxygen saturation of 97% on room air while awake. Wear 2 L of oxygen at night for an abnormal overnight trending pulse ox. Has lost approximately 4 pounds since admission to rehab. Denies lightheadedness, chest pain, cough, shortness of breath, shaking chills, night sweats, left calf pain and dysuria. I reviewed Dr. Pham's note from today. There was no discharge today when he examined the wound. He feels the erythema in the midportion of the incision and the medial portion is reactive. Rare white blood cells on the Gram stain of the drainage from the incision yesterday. He had 2+ gram-positive rods and 2+ gram-positive cocci. Objective Data Objective Data Vital Signs: Vital Signs Temp Pulse Resp BP Pulse Ox O2 Del Method O2 Flow Rate 97.6 F L 72 16 127/64 H 97 Room Air 2 06/25/24 05:00 06/25/24 05:00 06/25/24 05:00 06/25/24 05:00 06/25/24 05:00 06/25/24 05:00 06/25/24 03:00 FiO2 21 06/10/24 22:32 Oxygen Flow Rate (L/min) 2 Oxygen Delivery Method Room Air Weight: 232 lb 5.875 oz Body Mass Index (BMI) 32.9 Intake & Output: Intake and Output for Last 24 Hours 06/23/24 06/24/24 06/25/24 23:59 23:59 23:59 Intake Total 2860 / 2860 1720 / 1720 1660 / 1660 Output Total 4100 / 4100 4700 / 4700 1500 / 1500 Balance -1240 / -1240 -2980 / -2980 160 / 160 Lab / Micro Data 06/22/24 05:54 06/22/24 05:54 Micro: Microbiology 06/24/24 09:30 Amputation - Below Knee Amputation Gram Stain - Final 06/12/24 23:25 Stool Stool Occult Blood (RORY) - Final Physical Exam Const alert, oriented x3 and no apparent distress Resp clear to auscultation bilaterally Cardio regular rate and regular rhythm GI normal to inspection, nondistended, normoactive bowel sounds, soft to palpation and non-tender Extremity no calf tenderness Skin Skin Narrative: See Dr. Pham's note for description of the stump incision. Every other staple was removed from the L ring finger yesterday.........will re-examine in the AM and if it looks good remove the remainder of the thomas. Assessment & Plan Assessment/Plan (1) Debility: (2) S/P amputation: (3) Phantom pain after amputation of lower extremity: (4) Acute blood loss anemia: (5) Hypertension: QUALIFIERS: Hypertension type: primary hypertension Qualified Code(s): I10 - Essential (primary) hypertension (6) DM2 (diabetes mellitus, type 2): QUALIFIERS: Diabetes mellitus intermediate insulin use: without intermediate use Diabetes mellitus complication status: with circulatory complication Diabetes mellitus complication detail: with peripheral angiopathy with gangrene Qualified Code(s): E11.52 - Type 2 diabetes mellitus with diabetic peripheral angiopathy with gangrene (7) Thrombocytosis: (8) Chronic insomnia: (9) Lung cancer: QUALIFIERS: Laterality: right Lung location: upper lobe of lung Qualified Code(s): C34.11 - Malignant neoplasm of upper lobe, right bronchus or lung (10) Laceration of left ring finger w/o foreign body w/o damage to nail: QUALIFIERS: Encounter type: subsequent encounter Qualified Code(s): S61.215D - Laceration without foreign body of left ring finger without damage to nail, subsequent encounter (11) Cellulitis: QUALIFIERS: Site of cellulitis: extremity Site of cellulitis of extremity: lower extremity Laterality: right Qualified Code(s): L03.115 - Cellulitis of right lower limb (12) Chronic depression: PLAN: Plan 1. Continue therapy. Awaiting precertification from insurance company for transfer to senior living 2. Check a BMP in the a.m. 3. Check orthostatics today - they were negative. Charges/Coding Visit Charges Inpatient E&M: 10661 Subs Hosp L1
[2024-06-25 11:15] VITALS: BP 122/67; BP 128/68; PULSE 70; PULSE 72
--- NOTE | 2024-06-25 13:39 | CASEMGMT ---
Social Work IDT met with patient for Team meeting. Discussed patient's progress in PT/OT/SN. Awaiting precert results for DC to [facility]. SW will continue to follow. Elsa Zavala SHOE SPRAYER LEAD BUSINESS SYSTEMS ANALYST
[2024-06-25] MEDS: metFORMIN (XR) 500 MG Tablet PO (16:55)
[2024-06-25 17:44] VITALS: BP 136/74; PULSE 67; RESP 17; TEMP 36.6; O2SAT 96
[2024-06-25 19:27] VITALS: PULSE 67; RESP 16; O2SAT 96
[2024-06-25] MEDS: oxyCODONE 5 MG Tablet 10 MG PO (21:41)
[2024-06-25] MEDS: Gabapentin 100 MG Capsule PO (21:41)
[2024-06-25] MEDS: traZODone 100 MG Tablet PO (21:42)
[2024-06-25] MEDS: Atorvastatin Calcium 40 MG Tablet PO (21:42)
[2024-06-26 00:09] VITALS: O2SAT 96
[2024-06-26] MEDS: Enoxaparin 40 MG/0.4 ML Syringe SC (05:26)
[2024-06-26] MEDS: Gabapentin 300 MG Capsule PO ×3 (05:26→21:42)
[2024-06-26] MEDS: Acetaminophen 500 MG Tablet 1000 MG PO ×2 (05:27→13:53)
[2024-06-26 06:00] VITALS: BP 137/71; PULSE 66; RESP 16; TEMP 36.5; O2SAT 99
[2024-06-26 06:30] LABS: Anion Gap 9 (5-15); BUN 39 mg/dL (4-19); BUN/Creat Ratio 35.2 RATIO (10-20); Calcium,Total 9.6 mg/dL (7.6-11.0); Carbon Dioxide 25.4 mmol/L (21.0-32.0); Chloride 104 mmol/L (98-108); EST Glomerular Filtration Rate 76 (>60); Estimated Creatinine Clearance 84.66 ml/min (50-250); Glucose 121 mg/dL (70-99); Potassium 4.7 mmol/L (3.3-5.1); Sodium Level 139 mmol/L (133-145)
[2024-06-26] MEDS: hydroCHLOROthiazide 25 MG Tablet PO (07:43)
[2024-06-26] MEDS: amLODIPine 10 MG Tablet PO (07:44)
[2024-06-26] MEDS: Zinc Sulfate 50 mg zinc (220 mg) ORAL capsule PO (07:44)
[2024-06-26] MEDS: Aspirin 81 MG TAB.CHEW PO (07:44)
[2024-06-26] MEDS: buPROPion (XL) 150 MG TABLET.XL PO (07:44)
[2024-06-26] MEDS: Ascorbic Acid 500 MG Tablet PO ×2 (07:44→17:22)
[2024-06-26 07:48] VITALS: BP 112/63; PULSE 69
[2024-06-26] MEDS: Ferrous Sulfate 325 MG Tablet PO (12:42)
--- NOTE | 2024-06-26 13:42 | PCM.PROGNOTE ---
Subjective Subjective Afebrile Vital signs stable, blood pressure is now well-controlled. Maintaining appropriate oxygen saturation on room air while awake Good appetite and fluid intake. Denies lightheadedness. No chest pain, shortness of breath, cough, left calf pain or dysuria. Sleeping well at night. The wound culture is growing an Enterococcus species, 2+. There were only rare white blood cells. ? infection or contamination. WBC is elevated but, this has been chronic and did not change with Kefelx for cellulitis. Continue to monitor closely. Objective Data Objective Data Vital Signs: Vital Signs Temp Pulse Resp BP Pulse Ox O2 Del Method O2 Flow Rate 97.7 F L 69 16 112/63 99 Room Air 2 06/26/24 06:00 06/26/24 07:48 06/26/24 06:00 06/26/24 07:48 06/26/24 06:00 06/26/24 06:00 06/26/24 00:09 FiO2 21 06/10/24 22:32 Oxygen Flow Rate (L/min) 2 Oxygen Delivery Method Room Air Weight: 232 lb 5.875 oz Body Mass Index (BMI) 32.9 Intake & Output: Intake and Output for Last 24 Hours 06/24/24 06/25/24 06/26/24 23:59 23:59 23:59 Intake Total 1720 / 1720 2740 / 2740 1100 / 1100 Output Total 4700 / 4700 5600 / 6150 1850 / 1850 Balance -2980 / -2980 -2860 / -3410 -750 / -750 Lab / Micro Data 06/22/24 05:54 06/26/24 05:14 Labs: Laboratory Results - last 24 hr 06/26/24 05:14: Sodium 139, Potassium 4.7, Chloride 104, Carbon Dioxide 25.4, Anion Gap 9, BUN 39 H, Creatinine 1.10, Estim Creat Clear Calc 84.66, Est GFR (MDRD) Non-Af 76, BUN/Creatinine Ratio 35.2 H, Glucose 121 H, Calcium 9.6 Micro: Microbiology 06/24/24 09:30 Amputation - Below Knee Amputation Gram Stain - Final 06/24/24 09:30 Amputation - Below Knee Amputation Wound Culture - Preliminary GPC Poss Enterococcus sp 06/12/24 23:25 Stool Stool Occult Blood (RORY) - Final Physical Exam Const alert, oriented x3 and no apparent distress Resp clear to auscultation bilaterally Cardio regular rate and regular rhythm GI normal to inspection, nondistended, normoactive bowel sounds, soft to palpation and non-tender Extremity no calf tenderness Skin Wound Narrative: The stump incision is intact with no dehiscence. There is a very small amount of discharge on the dressing. No odor to the discharge. Swelling continues to decrease. Small amount of redness around the incsion medially and in mid incision. I reviewed Dr. Pham's note and he feels this is reactive and not infectious. will continue to monitor closely. The left ring finger laceration is intact with no dehiscence. Every other suture was removed 2 days ago. There is erythema and no discharge from the wound. Assessment & Plan Assessment/Plan (1) Debility: (2) S/P amputation: (3) Phantom pain after amputation of lower extremity: (4) Acute blood loss anemia: (5) Hypertension: QUALIFIERS: Hypertension type: primary hypertension Qualified Code(s): I10 - Essential (primary) hypertension (6) DM2 (diabetes mellitus, type 2): QUALIFIERS: Diabetes mellitus fdc insulin use: without exterminator helper termite use Diabetes mellitus complication status: with circulatory complication Diabetes mellitus complication detail: with peripheral angiopathy with gangrene Qualified Code(s): E11.52 - Type 2 diabetes mellitus with diabetic peripheral angiopathy with gangrene (7) Thrombocytosis: (8) Chronic insomnia: (9) Lung cancer: QUALIFIERS: Laterality: right Lung location: upper lobe of lung Qualified Code(s): C34.11 - Malignant neoplasm of upper lobe, right bronchus or lung (10) Laceration of left ring finger w/o foreign body w/o damage to nail: QUALIFIERS: Encounter type: subsequent encounter Qualified Code(s): S61.215D - Laceration without foreign body of left ring finger without damage to nail, subsequent encounter (11) Cellulitis: QUALIFIERS: Site of cellulitis: extremity Site of cellulitis of extremity: lower extremity Laterality: right Qualified Code(s): L03.115 - Cellulitis of right lower limb (12) Chronic depression: PLAN: Plan 1. Continue therapy 2. Continue to observe the stump incision very closely for any signs of infection. The WBC is chronically elevated and he has been afebrile however, he is on scheduled Tylenol which may be preventing a fever. Make the Tylenol as needed. Recheck a CBC with differential, ESR and CRP on Saturday. No antibiotics at this time. 3. Remove the remainder of the sutures from the left ring finger. 4. He has decided to follow-up with [facility] has made an appointment with Dr. Rosario. Charges/Coding Visit Charges Inpatient E&M: 47027 Subs Hosp L1
[2024-06-26] MEDS: BACITRACIN 15 GM Tube 1 APPLIC TOPICAL (13:52)
[2024-06-26] MEDS: metFORMIN (XR) 500 MG Tablet PO (17:22)
[2024-06-26 18:00] VITALS: BP 134/83; PULSE 71; RESP 18; TEMP 36.1; O2SAT 96
[2024-06-26] MEDS: Atorvastatin Calcium 40 MG Tablet PO (21:41)
[2024-06-26] MEDS: oxyCODONE 5 MG Tablet 10 MG PO (21:41)
[2024-06-26] MEDS: traZODone 100 MG Tablet PO (21:41)
[2024-06-26] MEDS: Lisinopril 20 MG Tablet PO (21:42)
[2024-06-26] MEDS: Gabapentin 100 MG Capsule PO (21:42)
[2024-06-26 22:00] VITALS: PULSE 71; O2SAT 96
[2024-06-27 00:15] VITALS: O2SAT 97
[2024-06-27] MEDS: Gabapentin 300 MG Capsule PO ×3 (05:11→20:37)
[2024-06-27] MEDS: Enoxaparin 40 MG/0.4 ML Syringe SC (05:11)
[2024-06-27 06:00] VITALS: BP 114/57; PULSE 81; RESP 16; TEMP 36.7; O2SAT 97
[2024-06-27] MEDS: BACITRACIN 15 GM Tube 1 APPLIC TOPICAL (07:53)
[2024-06-27] MEDS: amLODIPine 10 MG Tablet PO (07:53)
[2024-06-27] MEDS: Zinc Sulfate 50 mg zinc (220 mg) ORAL capsule PO (07:53)
[2024-06-27] MEDS: Aspirin 81 MG TAB.CHEW PO (07:53)
[2024-06-27] MEDS: buPROPion (XL) 150 MG TABLET.XL PO (07:54)
[2024-06-27] MEDS: Lisinopril 20 MG Tablet PO ×2 (07:54→20:37)
[2024-06-27] MEDS: Ascorbic Acid 500 MG Tablet PO ×2 (07:54→17:04)
[2024-06-27] MEDS: hydroCHLOROthiazide 25 MG Tablet PO (07:54)
[2024-06-27 07:58] VITALS: BP 138/65; PULSE 76
[2024-06-27] MEDS: Ferrous Sulfate 325 MG Tablet PO (13:10)
[2024-06-27] MEDS: metFORMIN (XR) 500 MG Tablet PO (17:04)
[2024-06-27 17:58] VITALS: BP 134/53; PULSE 68; RESP 17; TEMP 36.7; O2SAT 97
[2024-06-27] MEDS: traZODone 100 MG Tablet PO (20:37)
[2024-06-27] MEDS: oxyCODONE 5 MG Tablet 10 MG PO (20:37)
[2024-06-27] MEDS: Gabapentin 100 MG Capsule PO (20:37)
[2024-06-27] MEDS: Atorvastatin Calcium 40 MG Tablet PO (20:37)
[2024-06-27 20:43] VITALS: PULSE 75; RESP 18; O2SAT 98
[2024-06-28 04:45] VITALS: BP 127/65; PULSE 68; RESP 18; TEMP 36.6; O2SAT 95
[2024-06-28] MEDS: Enoxaparin 40 MG/0.4 ML Syringe SC (04:49)
[2024-06-28] MEDS: Gabapentin 300 MG Capsule PO ×3 (04:49→23:02)
[2024-06-28] MEDS: Aspirin 81 MG TAB.CHEW PO (07:31)
[2024-06-28] MEDS: amLODIPine 10 MG Tablet PO (07:32)
[2024-06-28] MEDS: hydroCHLOROthiazide 25 MG Tablet PO (07:32)
[2024-06-28] MEDS: Ascorbic Acid 500 MG Tablet PO ×2 (07:32→16:29)
[2024-06-28] MEDS: Zinc Sulfate 50 mg zinc (220 mg) ORAL capsule PO (07:32)
[2024-06-28] MEDS: Lisinopril 20 MG Tablet PO ×2 (07:32→23:03)
[2024-06-28] MEDS: BACITRACIN 15 GM Tube 1 APPLIC TOPICAL (07:33)
[2024-06-28] MEDS: buPROPion (XL) 150 MG TABLET.XL PO (07:34)
[2024-06-28 07:36] VITALS: BP 115/65; PULSE 76
[2024-06-28] MEDS: Ferrous Sulfate 325 MG Tablet PO (12:12)
[2024-06-28] MEDS: metFORMIN (XR) 500 MG Tablet PO (16:29)
[2024-06-28 17:39] VITALS: BP 101/61; PULSE 69; RESP 17; TEMP 36.7; O2SAT 97
[2024-06-28] MEDS: oxyCODONE 5 MG Tablet 10 MG PO (23:02)
[2024-06-28] MEDS: traZODone 100 MG Tablet PO (23:02)
[2024-06-28] MEDS: Gabapentin 100 MG Capsule PO (23:02)
[2024-06-28] MEDS: Atorvastatin Calcium 40 MG Tablet PO (23:02)
[2024-06-28] MEDS: Menthol/Lanolin/Calamine/Znox 113 GM Tube 1 APPLIC TOPICAL (23:07)
[2024-06-29 00:43] VITALS: RESP 18; O2SAT 95
[2024-06-29] MEDS: Gabapentin 300 MG Capsule PO ×3 (05:11→22:27)
[2024-06-29] MEDS: Enoxaparin 40 MG/0.4 ML Syringe SC (05:11)
[2024-06-29 05:23] VITALS: BP 92/57; PULSE 82; RESP 18; TEMP 36.6; O2SAT 97
[2024-06-29 05:55] LABS: Erythrocyte Sedimentation Rate 47 mm/hr (0-20)
[2024-06-29 05:57] LABS: Absolute Lymphocyte Count 1.88 X10^3/uL (0.83-4.51); Absolute Neutrophil Count 11.6 X10^3/uL (2.0-7.7); Basophil# 0.14 X10^3/uL; Basophil% 0.9 % (0-1); Eosinophil# 0.57 X10^3/uL; Eosinophils% 3.7 % (0-5); Hematocrit 32.3 % (40-54); Hemoglobin 10.1 g/dL (13.0-16.5); Lymphocyte # 1.88 X10^3/ul (0.83-4.51); Lymphocyte % 12.1 % (19-41); Mean Corp Hgb Conc 31.3 g/dL (32-36); Mean Corpuscular Hgb 26.1 pg (27.0-32.0); Mean Corpuscular Volume 83.5 fL (80-94); Mean Platelet Vol. 9.6 fl (6.2-12.0); Monocyte# 1.18 X10^3/uL; Monocyte% 7.6 % (0-10); NRBC Flagged by Analyzer 0 % (0-5); Neutrophil # 11.56 X10^3/uL (2.7-7.7); Neutrophil % 74.6 % (47-70); Platelet Count 676 K/mm3 (150-450); RBC Distribution Width CV 17.2 % (11.6-14.6); RBC Distribution Width SD 52.1 fl (35.1-43.9); Red Blood Count 3.87 M/mm3 (4.6-6.2); White Blood Count 15.5 K/mm3 (4.4-11.0)
[2024-06-29] MEDS: Ascorbic Acid 500 MG Tablet PO ×2 (08:06→16:42)
[2024-06-29] MEDS: Aspirin 81 MG TAB.CHEW PO (08:06)
[2024-06-29] MEDS: Zinc Sulfate 50 mg zinc (220 mg) ORAL capsule PO (08:07)
[2024-06-29 10:00] VITALS: BP 102/60
[2024-06-29] MEDS: Lisinopril 20 MG Tablet PO ×2 (10:00→22:18)
[2024-06-29] MEDS: hydroCHLOROthiazide 25 MG Tablet PO (10:00)
[2024-06-29] MEDS: amLODIPine 10 MG Tablet PO (10:00)
[2024-06-29] MEDS: buPROPion (XL) 150 MG TABLET.XL PO (10:00)
--- NOTE | 2024-06-29 10:40 | PN_ITS ---
Subjective Subjective Afebrile VSS -blood pressure this morning was low at 92/57. Maintaining appropriate oxygen saturation on RA Oral intake - FOOD good FLUIDS good Discussed with nursing - no problems that need addressed Reviewed the THERAPY notes Medication list reviewed. The wound culture grew Staph epidermidis and corynebacterium. This is likely contamination. All lab from today was personally reviewed. The white blood cell count is down to 15.5 today from 18 on 06/22/2024. Hemoglobin is stable at 10.1. Platelets are down to 676,000. The ESR is 47. CRP is elevated at 53.8 Denies lightheadedness, chest pain, shortness of breath, cough, nausea/vomiting/abdominal pain, dysuria and calf tenderness. Objective Data Objective Data Vital Signs: Vital Signs Temp Pulse Resp BP Pulse Ox O2 Del Method O2 Flow Rate 97.8 F 82 18 92/57 L 97 Room Air 2 06/29/24 05:23 06/29/24 05:23 06/29/24 05:23 06/29/24 05:23 06/29/24 05:23 06/29/24 05:23 06/29/24 00:43 FiO2 21 06/10/24 22:32 Oxygen Flow Rate (L/min) 2 Oxygen Delivery Method Room Air Weight: 232 lb 5.875 oz Body Mass Index (BMI) 32.9 Intake & Output: Intake and Output for Last 24 Hours 06/27/24 06/28/24 06/29/24 23:59 23:59 23:59 Intake Total 1800 / 1800 2019 / 2019 2079 / 2079 Output Total 4150 / 4150 2925 / 2925 1949 / 1949 Balance -2350 / -2350 -905 / -905 130 / 130 Lab / Micro Data 06/29/24 05:10 06/29/24 11:15 Labs: Laboratory Results - last 24 hr 06/29/24 05:10: WBC 15.5 H, RBC 3.87 L, Hgb 10.1 L, Hct 32.3 L, MCV 83.5, MCH 26.1 L, MCHC 31.3 L, RDW Std Deviation 52.1 H, RDW Coeff of Corina 17.2 H, Plt Count 676 H, MPV 9.6, Immature Gran % (Auto) 1.100 H, Neut % (Auto) 74.6 H, L ymph % (Auto) 12.1 L, Fleming % (Auto) 7.6, Eos % (Auto) 3.7, Baso % (Auto) 0.9, A bsolute Neuts (auto) 11.6 H, Absolute Lymphs (auto) 1.88, Nucleated RBC % 0, ESR 47 H, C-React Prot Ext Range 53.80 H Micro: Microbiology 06/24/24 09:30 Amputation - Below Knee Amputation Gram Stain - Final 06/24/24 09:30 Amputation - Below Knee Amputation Wound Culture - Preliminary Staphylococcus epidermidis Gram positive kamini 06/12/24 23:25 Stool Stool Occult Blood (RORY) - Final Physical Exam Const alert, oriented x3 and no apparent distress General Appearance: cooperative Resp clear to auscultation bilaterally Cardio regular rate, regular rhythm, no murmurs and no gallops GI normal to inspection, nondistended, normoactive bowel sounds, soft to palpation and non-tender GI Narrative: Having regular BM's Extremity no calf tenderness Extremity Narrative: edema in the stump is gradually decreasing. General Extremity: Negative for edema Skin Rashes: no rashes Wound Narrative: The AKA incision is intact with no dehiscence. Brewster are present. They will be removed as an outpatient when he sees Dr. Sol/Dr. Pham. There is no significant erythema and no increased warmth to touch around the incision. No purulent discharge. There is some tissue reaction in the medial and midportion of the incision. Psych Psych Narrative: Now realizes that he was likely depressed at admission to rehab and this contributed to his failure to address the lung CA and other health issues. He is making better choices now and he is more engaged with listening to what is being said than he was at admission when he had many excuses for not taking care of himself. He is appropriate and making good eye contact with me. Assessment & Plan Assessment/Plan (1) Debility: PLAN: Due to RLE AKA. Transfer to SNF for additional PT/OT prior to returning home. (2) S/P amputation: (3) Phantom pain after amputation of lower extremity: PLAN: Well controlled with Gabapentin 300 mg BID and 400 mg at HS. (4) Acute blood loss anemia: PLAN: HBG is stable at 10.1 at DC from rehab. Recheck a CBC in 1 week. He was iron deficient at admission to rehab with a iron saturation of only 9.1%. He received 700 mg of IV iron sucrose and then was placed on an oral iron supplement. Would recheck iron studies in 6-8 weeks. (5) Hypertension: QUALIFIERS: Hypertension type: primary hypertension Qualified Code(s): I10 - Essential (primary) hypertension PLAN: antihypertensives at SD include Lisinopril 20 mg in the AM and 10 mg at HS and HCTZ 12.5 mg BID. He was on 25 mg daily but, creat increased and he was orthostatic so the dose was decreased to 12.5 mg daily. Would recheck a BMP in 1 week. (6) DM2 (diabetes mellitus, type 2): QUALIFIERS: Diabetes mellitus long term care social worker insulin use: without longterm use Diabetes mellitus complication status: with circulatory complication Diabetes mellitus complication detail: with peripheral angiopathy with gangrene Qualified Code(s): E11.52 - Type 2 diabetes mellitus with diabetic peripheral angiopathy with gangrene PLAN: Hemoglobin A1c was 7.1 on 06/03/2024. Blood sugars are very well- controlled on an 1800-calorie, carb consistent, heart healthy diet and Glucophage 500 mg daily with supper. (7) Thrombocytosis: PLAN: WBC and PLT's have been persistently elevated while on rehab. May be due to inflammation? Myeloproliferative disease? Will be following up with oncology for known RUL lung CA post DC and they can address the leukocytosis/thrombocytosis. Most recent CBC on 06/29/2024 showed a white blood cell count of 15.5, down from 18-20,000, and a PLT count of 676,000 ( has been running in the 800,00 - 900,000 range. (8) Chronic insomnia: PLAN: Continue trazodone 100 mg nightly at discharge. (9) Lung cancer: QUALIFIERS: Laterality: right Lung location: upper lobe of lung Qualified Code(s): C34.11 - Malignant neoplasm of upper lobe, right bronchus or lung (10) Laceration of left ring finger w/o foreign body w/o damage to nail: QUALIFIERS: Encounter type: subsequent encounter Qualified Code(s): S61.215D - Laceration without foreign body of left ring finger without damage to nail, subsequent encounter PLAN: Sutured in the ED by Dr. Walker. All sutures have been removed and the laceration is well coapted and healing well with no dehiscence, no erythema and no DC. (11) Cellulitis: QUALIFIERS: Site of cellulitis: extremity Site of cellulitis of extremity: lower extremity Laterality: right Qualified Code(s): L03.115 - Cellulitis of right lower limb PLAN: Cellulitis of the R stump. Resolved with an appropriate course of Keflex. At the time of DC the thomas are still in place and there is no dehiscence. There is some redness around the incision but, this is reactive to thomas and not due to infection. (12) Chronic depression: PLAN: Will continue Wellbutrin. He has a lot to deal with now with the recent AKA and now he will be following up with oncology for known lung CA diagnosed in November of 2023. He has had no adverse side effects with Wellbutrin. (13) Fatty infiltration of liver: (14) Diverticulosis: (15) PAD (peripheral artery disease): (16) Neuropathy: (17) Family history of colonic polyps: (18) Chronic anemia: PLAN: Was iron deficient at presentation to rehab and received 700 mg of iron sucrose and then was placed on oral iron supplementation which is being continued at SD. HGBA is stable at 10.1 at SD from rehab. 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 Schedule OP sleep study at [facility] and then follow up with pulmonary. The sleep lab already has an order for the sleep study we just need to get in scheduled. (23) Orthostatic hypotension: PLAN: Plan 1. Continue therapy 2. Check a BMP 3. Orthostatic vital signs this morning -blood pressure lying down was 144/73 with a heart rate of 64. Sitting the blood pressure was 124/68 with a pulse rate of 75 and standing the blood pressure was 104/60 with a pulse rate of 79. He denied lightheadedness. Hydrochlorothiazide was decreased to 12.5 mg and will hold the dose tomorrow and start on Saturday. He was encouraged to increase his fluid intake. Charges/Coding Visit Charges Inpatient E&M: 93125 Subs Hosp L1
[2024-06-29 11:00] VITALS: BP 104/60; BP 124/68; BP 144/73; PULSE 64; PULSE 75; PULSE 79
[2024-06-29 11:02] VITALS: BMI 32.3
[2024-06-29] MEDS: Ferrous Sulfate 325 MG Tablet PO (11:17)
[2024-06-29] MEDS: BACITRACIN 15 GM Tube 1 APPLIC TOPICAL (11:17)
[2024-06-29 12:49] LABS: Anion Gap 11 (5-15); BUN 42 mg/dL (4-19); BUN/Creat Ratio 34.5 RATIO (10-20); Calcium,Total 9.6 mg/dL (7.6-11.0); Carbon Dioxide 24.8 mmol/L (21.0-32.0); Chloride 101 mmol/L (98-108); Creatinine, Serum 1.23 mg/dL (0.70-1.20); EST Glomerular Filtration Rate 66 (>60); Estimated Creatinine Clearance 74.53 ml/min (50-250); Glucose 120 mg/dL (70-99); Potassium 4.5 mmol/L (3.3-5.1); Sodium Level 137 mmol/L (133-145)
[2024-06-29] MEDS: metFORMIN (XR) 500 MG Tablet PO (16:42)
[2024-06-29 18:00] VITALS: BP 109/66; PULSE 75; RESP 17; TEMP 37.2; O2SAT 97
[2024-06-29 22:00] VITALS: BP 113/60; PULSE 70; RESP 15; O2SAT 97
[2024-06-29] MEDS: Atorvastatin Calcium 40 MG Tablet PO (22:16)
[2024-06-29] MEDS: traZODone 100 MG Tablet PO (22:17)
[2024-06-29] MEDS: Gabapentin 100 MG Capsule PO (22:27)
[2024-06-29] MEDS: oxyCODONE 5 MG Tablet 10 MG PO (22:27)
[2024-06-30] VITALS: O2SAT 95
[2024-06-30] MEDS: Gabapentin 300 MG Capsule PO ×3 (05:43→21:46)
[2024-06-30] MEDS: Enoxaparin 40 MG/0.4 ML Syringe SC (05:43)
[2024-06-30] MEDS: oxyCODONE 5 MG Tablet PO ×2 (05:51→14:14)
[2024-06-30 06:00] VITALS: BP 127/71; PULSE 76; RESP 15; TEMP 36.6; O2SAT 96
[2024-06-30] MEDS: Aspirin 81 MG TAB.CHEW PO (09:02)
[2024-06-30] MEDS: Zinc Sulfate 50 mg zinc (220 mg) ORAL capsule PO (09:02)
[2024-06-30] MEDS: buPROPion (XL) 150 MG TABLET.XL PO (09:02)
[2024-06-30] MEDS: Ascorbic Acid 500 MG Tablet PO ×2 (09:02→17:05)
[2024-06-30] MEDS: amLODIPine 10 MG Tablet PO (09:07)
[2024-06-30] MEDS: Lisinopril 20 MG Tablet PO (09:07)
[2024-06-30 09:08] VITALS: BP 93/50; PULSE 80
--- NOTE | 2024-06-30 11:23 | CASEMGMT ---
Social Work Precert approved for pt to transfer to [facility]. SW updated IDT and pt. Pt will DC 07/01. Mother can transport. DC Summary will be sent to the SNF once available. Plan: DC 07/01, [facility], skilled - precert approved Elsa Zavala [employer]
[2024-06-30] MEDS: Ferrous Sulfate 325 MG Tablet PO (12:15)
--- NOTE | 2024-06-30 12:17 | PCM.TXEXTCAR ---
Diet Diet Order/Speech Therapy: 06/09/24 18:22 Diet: Consistent Carb - Calorie Controlled Dietary Modifications:: Cardiac / Heart Healthy Type of Dietary Supplement:: Gael with meals How many daily calories?: 1800 calorie Routine Orders/Code Status Enema Type: Fleetz Enema Frequency: Daily PRN Suppository Type: Dulcolax 10mg Suppository Frequency: Daily PRN Routine Lab Work: - (CBC, BMP in 1 week. ) Code Status: DNRCC-A (No intubation. ) DC O2, CPAP, BIPAP needs Home O2 Discharge instructions: Yes Type of respiratory needs?: Oxygen Oxygen frequency: With Sleeping Oxygen liters per minute when sleepin Wound(s) RLE: Wound Type: Surgical Incision Dressing Change: dry dressing Left Foot: Wound Type: scattered scabs LT RING FINGER: Wound Type: Laceration Dressing Change: bacitracin with dry dressing Therapies Weight Bearing: Full weight bearing Extremity Affected:: Right Lower Physical Therapy: Eval and Treat Occupational Therapy: Eval and Treat Problem/Diagnosis (1) Debility: Status: Acute Code(s): R53.81 - Other malaise Plan: Due to RLE AKA. Transfer to SNF for additional PT/OT prior to returning home. (2) S/P amputation: Status: Inactive Code(s): Z89.9 - Acquired absence of limb, unspecified Comment: Right lower extremity above-knee amputation by Dr. Sol and Targeted muscle reinnervation by Dr. Pham on 06/03/2024. (3) Phantom pain after amputation of lower extremity: Status: Acute Code(s): G54.6 - Phantom limb syndrome with pain Plan: Well controlled with Gabapentin 300 mg BID and 400 mg at HS. (4) Acute blood loss anemia: Status: Acute Code(s): D62 - Acute posthemorrhagic anemia Plan: HBG is stable at 10.1 at [facility] from rehab. Recheck a CBC in 1 week. He was iron deficient at admission to rehab with a iron saturation of only 9.1%. He received 700 mg of IV iron sucrose and then was placed on an oral iron supplement. Would recheck iron studies in 6-8 weeks. (5) Hypertension: Status: Chronic Code(s): I10 - Essential (primary) hypertension Plan: antihypertensives at [facility] include Lisinopril 20 mg in the AM and 10 mg at HS and HCTZ 12.5 mg BID. He was on 25 mg daily but, creat increased and he was orthostatic so the dose was decreased to 12.5 mg daily. Would recheck a BMP in 1 week. (6) DM2 (diabetes mellitus, type 2): Status: Chronic Code(s): E11.9 - Type 2 diabetes mellitus without complications Plan: Hemoglobin A1c was 7.1 on 06/03/2024. Blood sugars are very well-controlled on an 1800-calorie, carb consistent, heart healthy diet and Glucophage 500 mg daily with supper. (7) Thrombocytosis: Status: Acute Code(s): D75.839 - Thrombocytosis, unspecified Plan: WBC and PLT's have been persistently elevated while on rehab. May be due to inflammation? Myeloproliferative disease? Will be following up with oncology for known RUL lung CA post DC and they can address the leukocytosis/thrombocytosis. Most recent CBC on 06/29/2024 showed a white blood cell count of 15.5, down from 18-20,000, and a PLT count of 676,000 ( has been running in the 800,00 - 900,000 range. (8) Chronic insomnia: Status: Chronic Code(s): F51.04 - Psychophysiologic insomnia Plan: Continue trazodone 100 mg nightly at discharge. (9) Lung cancer: Status: Chronic Code(s): C34.90 - Malignant neoplasm of unspecified part of unspecified bronchus or lung Comment: Stage 2 poorly differentiated non-small cell lung cancer. Diagnosed in early November 2023. Lymph nodes were negative. PET scan was negative for mets from lung cancer but did show diffuse hypermetabolic activity within the prostate gland. PSA was checked at [facility] and was within normal limits.. Seen at [facility] [place] and RUL lobectomy was recommended but, he never followed up and has not had any treatment yet. W/U in November 2023 was negative for metastatic disease. He is going to follow up with Dr. Rosario at [facility] for treatment going forward. (10) Laceration of left ring finger w/o foreign body w/o damage to nail: Status: Acute Code(s): S61.215A - Laceration without foreign body of left ring finger without damage to nail, initial encounter Plan: Sutured in the ED by Dr. Walker. All sutures have been removed and the laceration is well coapted and healing well with no dehiscence, no erythema and no DC. (11) Cellulitis: Status: Resolved Code(s): L03.90 - Cellulitis, unspecified Plan: Cellulitis of the R stump. Resolved with an appropriate course of Keflex. At the time of DC the thomas are still in place and there is no dehiscence. There is some redness around the incision but, this is reactive to thomas and not due to infection. Comment: R leg (12) Chronic depression: Status: Suspected Code(s): F32.A - Depression, unspecified Plan: Will continue Wellbutrin. He has a lot to deal with now with the recent AKA and now he will be following up with oncology for known lung CA diagnosed in November of 2023. He has had no adverse side effects with Wellbutrin. (13) Fatty infiltration of liver: Status: Chronic Code(s): K76.0 - Fatty (change of) liver, not elsewhere classified (14) Diverticulosis: Status: Chronic Code(s): K57.90 - Diverticulosis of intestine, part unspecified, without perforation or abscess without bleeding (15) PAD (peripheral artery disease): Status: Chronic Code(s): I73.9 - Peripheral vascular disease, unspecified (16) Neuropathy: Status: Chronic Code(s): G62.9 - Polyneuropathy, unspecified (17) Family history of colonic polyps: Status: Chronic Code(s): Z83.719 - Family history of colon polyps, unspecified (18) Chronic anemia: Status: Chronic Code(s): D64.9 - Anemia, unspecified Plan: Was iron deficient at presentation to rehab and received 700 mg of iron sucrose and then was placed on oral iron supplementation which is being continued at [facility]. HGBA is stable at 10.1 at [facility] from rehab. (19) Hyperlipidemia: Status: Chronic Code(s): E78.5 - Hyperlipidemia, unspecified (20) Tobacco dependence in remission: Status: Chronic Code(s): F17.201 - Nicotine dependence, unspecified, in remission Comment: He quit smoking in December 2023. Diagnosed with lung CA in November of 2023. (21) Vitamin D deficiency: Status: Chronic Code(s): E55.9 - Vitamin D deficiency, unspecified (22) Sleep-disordered breathing: Status: Acute Code(s): G47.30 - Sleep apnea, unspecified Plan: Continue oxygen supplementation while sleeping. Schedule OP sleep study at [facility] and then follow up with pulmonary. The sleep lab already has an order for the sleep study we just need to get in scheduled. Comment: Had RLS which has improved with iron supplementation and O2 while sleeping. He is also on Gabapentin. (23) Orthostatic hypotension: Status: Acute Code(s): I95.1 - Orthostatic hypotension Comment: Related to intravascular volume depletion (24) Superficial thrombophlebitis of arm: Status: Resolved Code(s): I80.8 - Phlebitis and thrombophlebitis of other sites Plan 1. DC tomorrow to SNF for additional therapy prior to DC home. He will no longer be able to live in the apt he was living in prior to the amputation due to multiple steps to enter the apt. 2. Will follow up with Dr. Rosario for lung CA 3. Follow up with Dr. Sol and Dr. Pham 4. Will need to follow up with Dr. Anderson for PCP. Allergies/Procedures Done in Hospital Allergies No Known Allergies Allergy (Verified 06/13/24 06:22) Procedures: - (Left upper extremity venous ultrasound positive for superficial thrombophlebitis on 06/15/2024.) Type of Care/Length of Stay Estimated LOS: Convalescent Care Less Than 30 days Type of Care Needed: Skilled Rehab Potential: Good Prognosis: Good Additional Orders/Day of Discharge H&P will serve as current which was dated: 06/10/24 Day of Discharge: 07/01/24 Dietary and Speech Recommendations Dietitian Recommendations/Changes: Continue 1800CCD diet to manage blood sugars. Continue 120mL Ensure TID with medpass to provide supplemental energy. Continue Gael BID with meals to help promote wound healing. Follow Up Care Please follow up with your Primary Care Physician in: appts are listed later in this document. Discharge Plan Admission Admit Date/Time: 06/09/24 17:43 Primary Reason for Your Visit: DEBILITY DUE TO R AKA Attending Provider: Lyudmila Tinajero Primary Care Provider: Kylie Anderson Discharge Orders/Prescriptions Prescriptions: New bacitracin zinc 500 unit/gram Ointment 1 applic topical DAILY Qty: 0 0RF Protocol: *Topical Application Instructions APPLICATION INSTRUCTIONS: lt ring finger Rx Instructions: apply to the R AKA incision acetaminophen 500 mg Tablet 1,000 mg PO Q8 PRN (Reason: Pain 1-10 Or Fever) Qty: 1 0RF ascorbic acid (vitamin C) 500 mg Tablet 500 mg PO BIDCM Qty: 0 0RF lisinopril 20 mg Tablet 20 mg PO DAILY Qty: 0 0RF magnesium hydroxide 400 mg/5 mL Suspension 30 ml PO X1 PRN (Reason: Constipation) Qty: 1 0RF ferrous sulfate [FeroSul] 325 mg (65 mg iron) Tablet 325 mg PO DAILY@1200 Qty: 0 0RF hydrochlorothiazide 12.5 mg Capsule 12.5 mg PO DAILY Qty: 1 0RF gabapentin 300 mg Capsule 300 mg PO TID Qty: 0 0RF gabapentin 100 mg Capsule 100 mg PO QHS Qty: 1 0RF bupropion HCl 150 mg Tablet Extended Release 24 Hr 150 mg PO DAILY Qty: 0 0RF menthol-zinc oxide [Calmoseptine] 0.44-20.6 % Ointment 1 applic topical BID Qty: 1 0RF Protocol: *Topical Application Instructions APPLICATION INSTRUCTIONS: left groin Ensure Plus High Protein 0.08 gram-1.5 kcal/mL Liquid 120 ml PO TIDCM Qty: 1 0RF metformin 500 mg Tablet Extended Release 24 Hr 500 mg PO DINNER Qty: 1 0RF oxycodone 5 mg Tablet 5 - 10 mg PO Q6H PRN PRN (Reason: Pain Score 1-10) 7 Days Qty: 30 0RF zinc sulfate 50 mg zinc (220 mg) Capsule 50 mg PO DAILYCM Qty: 1 0RF lisinopril 10 mg tablet 10 mg PO QHS Qty: 30 0RF Continued atorvastatin 40 mg tablet 40 mg PO QHS aspirin 81 mg tablet,chewable 1 tab PO DAILY amlodipine 10 mg Tablet 10 mg PO DAILY Qty: 0 0RF Discontinued acetaminophen 500 mg Tablet 1,000 mg PO Q8 Qty: 0 0RF hydrochlorothiazide 25 mg Tablet 25 mg PO DAILY Qty: 0 0RF oxycodone 5 mg Tablet 5 - 10 mg PO Q6H PRN PRN (Reason: Pain Score 4-10) 7 Days Qty: 56 0RF enoxaparin 40 mg/0.4 mL Syringe 40 mg subcut DAILY Qty: 0 0RF No Action lisinopril 20 mg Tablet 20 mg PO QHS Qty: 0 0RF lisinopril 20 mg Tablet 20 mg PO DAILY Qty: 0 0RF gabapentin 300 mg Capsule 300 mg PO TID Qty: 0 0RF Ensure Plus High Protein 0.08 gram-1.5 kcal/mL Liquid 120 ml PO TIDCM Qty: 0 0RF Referrals / Follow Up: Kylie Anderson MD [Primary Care Provider] - 07/15/24 8:30 am (Will see JESUS Alvarez) Lion Rosario MD [Med Staff - Active Staff] - 07/09/24 3:30 pm Beth Hill PA [Med Staff - Adv Practice Prof] - 07/10/24 2:00 pm Disposition Disposition (needs filled in before D/C Order can be placed): Detention Facility (5) Hypertension Qualifiers: Hypertension type: primary hypertension Qualified Code(s): I10 - Essential (primary) hypertension (6) DM2 (diabetes mellitus, type 2) Qualifiers: Diabetes mellitus complication detail: with peripheral angiopathy with gangrene Diabetes mellitus complication status: with circulatory complication Diabetes mellitus long term care pharmacist insulin use: without snf use Qualified Code(s): E11.52 - Type 2 diabetes mellitus with diabetic peripheral angiopathy with gangrene (9) Lung cancer Qualifiers: Laterality: right Lung location: upper lobe of lung Qualified Code(s): C34.11 - Malignant neoplasm of upper lobe, right bronchus or lung (10) Laceration of left ring finger w/o foreign body w/o damage to nail Qualifiers: Encounter type: subsequent encounter Qualified Code(s): S61.215D - Laceration without foreign body of left ring finger without damage to nail, subsequent encounter (11) Cellulitis Qualifiers: Laterality: right Site of cellulitis: extremity Site of cellulitis of extremity: lower extremity Qualified Code(s): L03.115 - Cellulitis of right lower limb (19) Hyperlipidemia Qualifiers: Hyperlipidemia type: unspecified Qualified Code(s): E78.5 - Hyperlipidemia, unspecified (24) Superficial thrombophlebitis of arm Qualifiers: Laterality: right Qualified Code(s): I80.8 - Phlebitis and thrombophlebitis of other sites
[2024-06-30] MEDS: BACITRACIN 15 GM Tube 1 APPLIC TOPICAL (14:39)
--- NOTE | 2024-06-30 15:12 | NURSING ---
Dr Rosario's office returned call. They are reviewing his records and will call with appt time tomorrow morning.
--- NOTE | 2024-06-30 17:04 | DS.PCM_ITS ---
Providers Date of Admission: 06/09/24 Date of Discharge: 07/01/24 Primary Care Physician: Dr. Kylie Anderson MD Consultations 06/09/24 18:27 Consult: Onc/Wound/broth mixer Routine Comment: Reason for Consult:: wound vac in place to RLE Reason For Visit: RIGHT AKA Diagnosis Discharge Diagnosis (1) Debility: Status: Acute Code(s): R53.81 - Other malaise Plan: Due to RLE AKA. Transfer to SNF for additional PT/OT prior to returning home. (2) S/P amputation: Status: Inactive Code(s): Z89.9 - Acquired absence of limb, unspecified (3) Phantom pain after amputation of lower extremity: Status: Acute Code(s): G54.6 - Phantom limb syndrome with pain Plan: Well controlled with Gabapentin 300 mg BID and 400 mg at HS. (4) Acute blood loss anemia: Status: Acute Code(s): D62 - Acute posthemorrhagic anemia Plan: HBG is stable at 10.1 at NC from rehab. Recheck a CBC in 1 week. He was iron deficient at admission to rehab with a iron saturation of only 9.1%. He received 700 mg of IV iron sucrose and then was placed on an oral iron supplement. Would recheck iron studies in 6-8 weeks. (5) Hypertension: Status: Chronic Code(s): I10 - Essential (primary) hypertension Qualifiers: Hypertension type: primary hypertension Qualified Code(s): I10 - Essential (primary) hypertension Plan: antihypertensives at NC include Lisinopril 20 mg in the AM and 10 mg at HS and HCTZ 12.5 mg BID. He was on 25 mg daily but, creat increased and he was orthostatic so the dose was decreased to 12.5 mg daily. Would recheck a BMP in 1 week. (6) DM2 (diabetes mellitus, type 2): Status: Chronic Code(s): E11.9 - Type 2 diabetes mellitus without complications Qualifiers: Diabetes mellitus care home insulin use: without parts counterman use Diabetes mellitus complication status: with circulatory complication Diabetes mellitus complication detail: with peripheral angiopathy with gangrene Qualified Code(s): E11.52 - Type 2 diabetes mellitus with diabetic peripheral angiopathy with gangrene Plan: Hemoglobin A1c was 7.1 on 06/03/2024. Blood sugars are very well-controlled on an 1800-calorie, carb consistent, heart healthy diet and Glucophage 500 mg daily with supper. (7) Thrombocytosis: Status: Acute Code(s): D75.839 - Thrombocytosis, unspecified Plan: WBC and PLT's have been persistently elevated while on rehab. May be due to inflammation? Myeloproliferative disease? Will be following up with oncology for known RUL lung CA post DC and they can address the leukocytosis/thrombocytosis. Most recent CBC on 06/29/2024 showed a white blood cell count of 15.5, down from 18-20,000, and a PLT count of 676,000 ( has been running in the 800,00 - 900,000 range. (8) Chronic insomnia: Status: Chronic Code(s): F51.04 - Psychophysiologic insomnia Plan: Continue trazodone 100 mg nightly at discharge. (9) Lung cancer: Status: Chronic Code(s): C34.90 - Malignant neoplasm of unspecified part of unspecified bronchus or lung Qualifiers: Laterality: right Lung location: upper lobe of lung Qualified Code(s): C34.11 - Malignant neoplasm of upper lobe, right bronchus or lung (10) Laceration of left ring finger w/o foreign body w/o damage to nail: Status: Acute Code(s): S61.215A - Laceration without foreign body of left ring finger without damage to nail, initial encounter Qualifiers: Encounter type: subsequent encounter Qualified Code(s): S61.215D - Laceration without foreign body of left ring finger without damage to nail, subsequent encounter Plan: Sutured in the ED by Dr. Walker. All sutures have been removed and the laceration is well coapted and healing well with no dehiscence, no erythema and no DC. (11) Cellulitis: Status: Resolved Code(s): L03.90 - Cellulitis, unspecified Qualifiers: Site of cellulitis: extremity Site of cellulitis of extremity: lower extremity Laterality: right Qualified Code(s): L03.115 - Cellulitis of right lower limb Plan: Cellulitis of the R stump. Resolved with an appropriate course of Keflex. At the time of DC the alissa are still in place and there is no dehiscence. There is some redness around the incision but, this is reactive to alissa and not due to infection. (12) Chronic depression: Status: Suspected Code(s): F32.A - Depression, unspecified Plan: Will continue Wellbutrin. He has a lot to deal with now with the recent AKA and now he will be following up with oncology for known lung CA diagnosed in November of 2023. He has had no adverse side effects with Wellbutrin. (13) Fatty infiltration of liver: Status: Chronic Code(s): K76.0 - Fatty (change of) liver, not elsewhere classified (14) Diverticulosis: Status: Chronic Code(s): K57.90 - Diverticulosis of intestine, part unspecified, without perforation or abscess without bleeding (15) PAD (peripheral artery disease): Status: Chronic Code(s): I73.9 - Peripheral vascular disease, unspecified (16) Neuropathy: Status: Chronic Code(s): G62.9 - Polyneuropathy, unspecified (17) Family history of colonic polyps: Status: Chronic Code(s): Z83.719 - Family history of colon polyps, unspecified (18) Chronic anemia: Status: Chronic Code(s): D64.9 - Anemia, unspecified Plan: Was iron deficient at presentation to rehab and received 700 mg of iron sucrose and then was placed on oral iron supplementation which is being continued at NC. HGBA is stable at 10.1 at NC from rehab. (19) Hyperlipidemia: Status: Chronic Code(s): E78.5 - Hyperlipidemia, unspecified Qualifiers: Hyperlipidemia type: unspecified Qualified Code(s): E78.5 - Hyperlipidemia, unspecified (20) Tobacco dependence in remission: Status: Chronic Code(s): F17.201 - Nicotine dependence, unspecified, in remission (21) Vitamin D deficiency: Status: Chronic Code(s): E55.9 - Vitamin D deficiency, unspecified (22) Sleep-disordered breathing: Status: Acute Code(s): G47.30 - Sleep apnea, unspecified Plan: Continue oxygen supplementation while sleeping. Schedule OP sleep study at [facility] and then follow up with pulmonary. The sleep lab already has an order for the sleep study we just need to get in scheduled. (23) Orthostatic hypotension: Status: Resolved Code(s): I95.1 - Orthostatic hypotension (24) Superficial thrombophlebitis of arm: Status: Resolved Code(s): I80.8 - Phlebitis and thrombophlebitis of other sites Qualifiers: Laterality: right Qualified Code(s): I80.8 - Phlebitis and thrombophlebitis of other sites Plan 1. DC 07/01/24 to SNF for additional therapy prior to DC home. He will no longer be able to live in the apt he was living in prior to the amputation due to multiple steps to enter the apt. 2. Will follow up with Dr. Rosario for lung CA 3. Follow up with Dr. Sol/Dr. Pham/Beth LEE 4. Will need to follow up with Dr. Anderson for PCP. Medications at Discharge Home Medications aspirin 81 mg chewable tablet 1 tab PO DAILY heart health 06/03/24 atorvastatin 40 mg tablet 40 mg PO QHS cholesterol 06/03/24 amlodipine 10 mg tablet 10 mg PO DAILY blood pressure #0 tabs 06/09/24 food supplemt, lactose-reduced 0.08 gram-1.5 kcal/mL oral liquid (Ensure Plus High Protein) 120 ml PO TIDCM supplement #0 mL 06/09/24 gabapentin 300 mg capsule 300 mg PO TID nerve pain #0 caps 06/09/24 lisinopril 20 mg tablet 20 mg PO DAILY blood pressure #0 tabs 06/09/24 lisinopril 20 mg tablet 20 mg PO QHS blood pressure #0 tabs 06/09/24 acetaminophen 500 mg tablet 1,000 mg (2 x 500 mg) PO Q8 PRN Pain 1-10 Or Fever #1 TAB 06/30/24 ascorbic acid (vitamin C) 500 mg tablet 500 mg PO BIDCM #0 tabs 06/30/24 bacitracin zinc 500 unit/gram topical ointment 1 applic topical DAILY #0 grams 06/30/24 bupropion HCl 150 mg 24 hr tablet, extended release 150 mg PO DAILY #0 tabs 06/30/24 ferrous sulfate 325 mg (65 mg iron) tablet (FeroSul) 325 mg PO DAILY@1200 #0 tabs 06/30/24 food supplemt, lactose-reduced 0.08 gram-1.5 kcal/mL oral liquid (Ensure Plus High Protein) 120 ml PO TIDCM #1 mL 06/30/24 gabapentin 100 mg capsule 100 mg PO QHS #1 cap 06/30/24 gabapentin 300 mg capsule 300 mg PO TID #0 caps 06/30/24 hydrochlorothiazide 12.5 mg capsule 12.5 mg PO DAILY #1 cap 06/30/24 lisinopril 10 mg tablet 10 mg PO QHS #30 tabs 06/30/24 lisinopril 20 mg tablet 20 mg PO DAILY #0 tabs 06/30/24 magnesium hydroxide 400 mg/5 mL oral suspension 30 ml PO X1 PRN Constipation #1 mL 06/30/24 menthol 0.44 %-zinc oxide 20.6 % topical ointment (Calmoseptine) 1 applic topical BID #1 g 06/30/24 metformin 500 mg tablet,extended release 24 hr 500 mg PO DINNER #1 TAB 06/30/24 oxycodone 5 mg tablet 5 - 10 mg (1 - 2 x 5 mg) PO Q6H PRN PRN Pain Score 1-10 1 week #30 tabs 06/30/24 zinc sulfate 50 mg zinc (220 mg) capsule 50 mg PO DAILYCM #1 cap 06/30/24 Hospital Course Operations - (06/04/2024-right grfaw-iju-pesi amputation by Dr. Sol and targeted muscle reinnervation by Dr. Pham.) Procedures - (Ultrasound right upper extremity on 06/15/2024 with superficial thrombophlebitis in the left antecubital fossa.) Summary of Care Provided Minutes Spent on Discharge: 40 Hospital Course: JO ANN MADDOX, is a 64 YO M with a PMH of severe PVD (has had multiple revascularization procedures), stage II poorly differentiated non-small cell lung CA diagnosed in Nov 2023 (no tx yet), diabetes mellitus type 2, hypertension, chronic thrombocytosis intermittently, chronic insomnia, chronic diarrhea, hyperlipidemia, tobacco dependence in remission (quit in December 2023), obesity, diabetic peripheral neuropathy and previous amputation of the L great toe who presented to the emergency department at [facility] on 06/03/2024 complaining of increasing right lower extremity pain and pallor. A CTA of the abdomen with runoff revealed an occluded prior synthetic femoral-tibial bypass and occluded prior SFA stents. He was seen in consultation by Dr. Virgilio Sol from vascular surgery who felt remaining revascularization options were very limited and not likely to be durable. He recommended an [id number]-cri-[id number] amputation and the patient was agreeable. He was taken to the OR on 06/04/2024 and underwent a right hukpw-[id number]-zkvx amputation by Dr. Sol and targeted muscle reinnervation by Dr. Pham. Postoperatively he experienced phantom pain and was started on Gabapentin. He had mild acute blood loss anemia related to the surgery and the hemoglobin dropped from 12.1 on 06/03/24 to 10.5 on 06/09/2024. He was transferred to the acute inpatient rehab unit at [facility] on 06/09/2024 for 3 hours of therapy daily to restore function/independence at or near his level prior to the recent amputation. Complications while on rehab include superficial thrombophlebitis in the left antecubital fossa, iron deficiency, depression, sleep disordered breathing (abnormal overnight trending pulse ox) and poorly controlled BP. He was given 700 mg of IV iron sucrose and then started on ferrous sulfate PO. The superficial thrombophlebitis was treated with warm compresses and resolved. He was started on Wellbutrin XL 150 mg daily and is tolerating this well prior to discharge. He is more engaged in his health care and making better choices prior to DC from rehab. He is eating well and sleeping well and he is making good eye contact with me when we talk. He now realizes that he was depressed and he is willing to take the antidepressant for the next 3-6 months at least because he has a lot of things to take care of following DC from rehab....the most important at this time being addressing/treating the lungs CA. He had no metastatic disease at the time of the initial w/U at [facility] but, he has not had any treatment in the past 8 months and this may have changed in that time. He is going to follow up with Dr. Rosario and an appt has been made for him. He has chronic leukocytosis and thrombocytosis and this can be addressed by Dr. Rosario as well. His blood sugars are under excellent control and he is making much better dietary choices. He had an overnight trending pulse ox that was abnormal with hypoxemia/desaturations. Since we have treated the iron deficiency and he is wearing O2 at night he is no longer c/o restless legs. The sleep lab has an order for a sleep study and this can be arranged following DC from rehab. He developed cellulitis of the right stump and this was treated with 10 days of Keflex 500 mg 3 times daily. Cellulitis resolved and at the time of discharge the incision is intact with no dehiscence, no purulent discharge, no increased warmth to touch in the chari-incisional area. There is some tissue reaction around the medial and midportion of the incision but no sign of infection. Alissa are still present at the time of discharge and will be removed at the time of his follow-up appointment with JESUS Anguiano. Parag did very well on rehab. He can no longer live at the apt he was previously renting because there were many stairs to climb and he is not able to do this currently. His mother is searching for an acceptable living arrangement for him when he is discharged from SNF. At the time of DC from rehab he is able to propel the wheelchair on various surfaces for up to 300 feet at modified. He is able to ambulate using a front wheel walker over thresholds with tile to carpet and carpet up to 92 feet at contact-guard assist. He is mod I with bed mobility and can go from sitting to standing from various surfaces at contact- guard assist/standby assist. He is able to do 11 sit to stands in 30 seconds using his upper extremities to rise. He is able to ascend a 6 inch step with 2 handrails by hopping up forward and then back down backwards and he is able to do this 10 times at contact-guard assist. He is independent with eating and grooming. He is supervision/set up for bathing and independent with upper body dressing. He is standby assist for lower body dressing and tub/shower transfer and contact-guard assist for toileting. He requires minimal assistance with toilet transfer. HGB is stable at 10.1. The white blood cell count has been persistently elevated the entire time he has been on rehab. 2 days prior to discharge the white blood cell count was 15,500. Platelets have been in the 800-900,000 range but they have come down somewhat and on 06/29/2024 they were 676,000. On 06/29/2024 orthostatics were positive and the BUN was elevated at 42 with a creatinine of 1.23. He was taking hydrochlorothiazide 25 mg daily and drinking large amounts of caffeine daily. The diuretic was held for 2 days and will be restarted at 12.5 mg daily on Saturday. Blood sugars have been under excellent control on an 1800-calorie carb consistent diet. Parag was discharged to nursing home on 07/01/2024 for additional therapy prior to being discharged to a new apartment. He is still requiring some assistance for toilet transfer and he will be living alone once he has an apartment. He needs to be able to do this at mod I. Follow-up appointments were made for him to follow-up with Dr. Kylie Anderson (PCP), Dr. Rosario (oncology) and Beth LEE (vascular surgery). Physical Exam Const alert, oriented x3 and no apparent distress Constitutional Narrative: He is better kempt than at admission is he is not so argumentative. He is interacting well with staff without being irritable. He is calm and engaged when I talk with him and he is listening rather than trying to argue with me. General Appearance: cooperative and well kempt HEENT head/scalp atraumatic HEENT Narrative: MM are dry but, he has significantly increased fluid intake prior to DC from rehab. He is shaving and combing his hair now and taking more interest in his appearance. Eyes PERRL, EOMs intact bilaterally, conjunctivae normal and no scleral icterus Eyes Narrative: No DC from the eyes. General Eye: normal appearance of both eyes Neck supple, No nodes and no carotid bruits Neck Narrative: No supraclavicular adenopathy detected General: trachea midline Chest Chest: symmetrical chest wall rise Resp normal respiratory effort and clear to auscultation bilaterally Effort and Inspection: able to speak in complete sentences Cardio regular rate, regular rhythm, no murmurs, no rub and no gallops Cardio Narrative: No ectopy GI normal to inspection, nondistended, normoactive bowel sounds, soft to palpation and non-tender GI Narrative: Having regular BM's. No guarding with palpation no CVA tenderness Extremity no calf tenderness Extremity Narrative: edema in the stump is gradually decreasing. General Extremity: Negative for edema Skin Rashes: no rashes Wound Narrative: The AKA incision is intact with no dehiscence. Alissa are present. They will be removed as an outpatient when he sees Dr. Sol/Dr. Pham. There is no significant erythema and no increased warmth to touch around the incision. No purulent discharge. There is some tissue reaction in the medial and midportion of the incision. Neuro oriented x3, CN's II-XII intact bilaterally and no focal motor deficits Psych Psych Narrative: Now realizes that he was likely depressed at admission to rehab and this contributed to his failure to address the lung CA and other health issues. He is making better choices now and he is more engaged with listening to what is being said than he was at admission when he had many excuses for not taking care of himself. He is appropriate and making good eye contact with me. Weight / BMI Weight Weight: 225 lb Body Mass Index (BMI) 32.3 ABG / Lab / Microbiology Data 06/29/24 05:10 06/29/24 11:15 Microbiology: Microbiology 06/24/24 09:30 Amputation - Below Knee Amputation Gram Stain - Final 06/24/24 09:30 Amputation - Below Knee Amputation Wound Culture - Final Staphylococcus epidermidis Corynebacterium jeikeium 06/12/24 23:25 Stool Stool Occult Blood (RORY) - Final D/C Instructions DC O2, CPAP, BIPAP Needs Home O2 Discharge instructions: Yes Type of respiratory needs?: Oxygen Oxygen frequency: With Sleeping Oxygen liters per minute when sleepin DC home with Oxygen: Yes Home O2 MD Review: I have reviewed the oxygen testing, and the patient qualifies for home oxygen equipment and portability. The patient is mobile in the home and the community. Meaningful Use Info Meaningful Use Meaningful Use Diagnoses (Choose all that apply): None applicable Ischemic Stroke Statin Dosing Therapy Reference: STATIN DOSE THERAPY REFERENCE: * Patients > 75 years receive moderate or high dose statin therapy. * Patients 75 years or YOUNGER should receive HIGH intensity statin dose unless contraindicated. You will be required to document reason for non-treatment if statin daily dose does not meet guidelines. HIGH DOSE STATIN THERAPY DAILY Atorvastatin > than or = to 40 mg Rosuvastatin > than or = to 20 mg Amlodipine + Atorvastatin > than or = to 2.5/40 mg Ezetimibe + Simvastatin 10/80 mg Simvastatin 80mg Discharge Plan Admission Admit Date/Time: 06/09/24 17:43 Primary Reason for Your Visit: DEBILITY DUE TO R AKA Attending Provider: Lyudmila Tinajero Primary Care Provider: Justin,Kylie Discharge Orders/Prescriptions Prescriptions: New bacitracin zinc 500 unit/gram Ointment 1 applic topical DAILY Qty: 0 0RF Protocol: *Topical Application Instructions APPLICATION INSTRUCTIONS: lt ring finger Rx Instructions: apply to the R AKA incision acetaminophen 500 mg Tablet 1,000 mg PO Q8 PRN (Reason: Pain 1-10 Or Fever) Qty: 1 0RF ascorbic acid (vitamin C) 500 mg Tablet 500 mg PO BIDCM Qty: 0 0RF lisinopril 20 mg Tablet 20 mg PO DAILY Qty: 0 0RF magnesium hydroxide 400 mg/5 mL Suspension 30 ml PO X1 PRN (Reason: Constipation) Qty: 1 0RF ferrous sulfate [FeroSul] 325 mg (65 mg iron) Tablet 325 mg PO DAILY@1200 Qty: 0 0RF hydrochlorothiazide 12.5 mg Capsule 12.5 mg PO DAILY Qty: 1 0RF gabapentin 300 mg Capsule 300 mg PO TID Qty: 0 0RF gabapentin 100 mg Capsule 100 mg PO QHS Qty: 1 0RF bupropion HCl 150 mg Tablet Extended Release 24 Hr 150 mg PO DAILY Qty: 0 0RF menthol-zinc oxide [Calmoseptine] 0.44-20.6 % Ointment 1 applic topical BID Qty: 1 0RF Protocol: *Topical Application Instructions APPLICATION INSTRUCTIONS: left groin Ensure Plus High Protein 0.08 gram-1.5 kcal/mL Liquid 120 ml PO TIDCM Qty: 1 0RF metformin 500 mg Tablet Extended Release 24 Hr 500 mg PO DINNER Qty: 1 0RF oxycodone 5 mg Tablet 5 - 10 mg PO Q6H PRN PRN (Reason: Pain Score 1-10) 7 Days Qty: 30 0RF zinc sulfate 50 mg zinc (220 mg) Capsule 50 mg PO DAILYCM Qty: 1 0RF lisinopril 10 mg tablet 10 mg PO QHS Qty: 30 0RF Continued atorvastatin 40 mg tablet 40 mg PO QHS aspirin 81 mg tablet,chewable 1 tab PO DAILY amlodipine 10 mg Tablet 10 mg PO DAILY Qty: 0 0RF Discontinued acetaminophen 500 mg Tablet 1,000 mg PO Q8 Qty: 0 0RF hydrochlorothiazide 25 mg Tablet 25 mg PO DAILY Qty: 0 0RF oxycodone 5 mg Tablet 5 - 10 mg PO Q6H PRN PRN (Reason: Pain Score 4-10) 7 Days Qty: 56 0RF enoxaparin 40 mg/0.4 mL Syringe 40 mg subcut DAILY Qty: 0 0RF No Action lisinopril 20 mg Tablet 20 mg PO QHS Qty: 0 0RF lisinopril 20 mg Tablet 20 mg PO DAILY Qty: 0 0RF gabapentin 300 mg Capsule 300 mg PO TID Qty: 0 0RF Ensure Plus High Protein 0.08 gram-1.5 kcal/mL Liquid 120 ml PO TIDCM Qty: 0 0RF Referrals / Follow Up: Kylie Anderson MD [Primary Care Provider] - 07/15/24 8:30 am (Will see JESUS Alvarez) Lion Rosario MD [Med Staff - Active Staff] - 07/09/24 3:30 pm Beth Hill PA [Med Staff - Adv Practice Prof] - 07/10/24 2:00 pm Disposition Disposition (needs filled in before D/C Order can be placed): [facility] Charges/Coding Visit Charges Inpatient E&M: 74075 Disch Hosp >30min
[2024-06-30] MEDS: metFORMIN (XR) 500 MG Tablet PO (17:05)
[2024-06-30 17:32] VITALS: BP 134/73; PULSE 65; RESP 16; TEMP 37.2; O2SAT 97
[2024-06-30 21:45] VITALS: BP 140/74; PULSE 73; RESP 18; O2SAT 95
[2024-06-30] MEDS: Atorvastatin Calcium 40 MG Tablet PO (21:46)
[2024-06-30] MEDS: oxyCODONE 5 MG Tablet 10 MG PO (21:46)
[2024-06-30] MEDS: traZODone 100 MG Tablet PO (21:47)
[2024-06-30] MEDS: Gabapentin 100 MG Capsule PO (21:47)
[2024-06-30] MEDS: Lisinopril 10 MG Tablet PO (21:47)
[2024-07-01] MEDS: Enoxaparin 40 MG/0.4 ML Syringe SC (05:35)
[2024-07-01] MEDS: Gabapentin 300 MG Capsule PO (05:35)
[2024-07-01 06:00] VITALS: BP 106/63; PULSE 68; RESP 17; TEMP 36.2; O2SAT 97
[2024-07-01] MEDS: Aspirin 81 MG TAB.CHEW PO (08:22)
[2024-07-01] MEDS: Ascorbic Acid 500 MG Tablet PO (08:22)
[2024-07-01] MEDS: Zinc Sulfate 50 mg zinc (220 mg) ORAL capsule PO (08:22)
[2024-07-01] MEDS: amLODIPine 10 MG Tablet PO (08:23)
[2024-07-01] MEDS: buPROPion (XL) 150 MG TABLET.XL PO (08:23)
[2024-07-01] MEDS: Lisinopril 20 MG Tablet PO (10:07)
--- NOTE | 2024-07-01 11:04 | NURSING ---
discharged to [facility] via family transport. Report called to Karol.
[2024-07-01 11:10] VITALS: BP 106/63; PULSE 68; RESP 17; TEMP 36.2; O2SAT 97
== END 2024-07-01 11:15 | disposition skilled nursing facility (03) | DRG 862 ==
PROVIDERS: Admitting Provider Internal Medicine; PCP Internal Medicine; Referring Provider Internal Medicine; Visit Provider Internal Medicine
DX: Z47.81 Encounter for orthopedic aftercare following surgical amputation (principal); G54.6 Phantom limb syndrome with pain; D62 Acute posthemorrhagic anemia; I80.8 Phlebitis and thrombophlebitis of other sites; L03.115 Cellulitis of right lower limb; C34.11 Malignant neoplasm of upper lobe, right bronchus or lung; E11.52 Type 2 diabetes mellitus with diabetic peripheral angiopathy with gangrene; G25.81 Restless legs syndrome; F32.A Depression, unspecified; K76.0 Fatty (change of) liver, not elsewhere classified; I10 Essential (primary) hypertension; Z68.33 Body mass index [BMI] 33.0-33.9, adult; E11.42 Type 2 diabetes mellitus with diabetic polyneuropathy; Z89.611 Acquired absence of right leg above knee; E55.9 Vitamin D deficiency, unspecified; E78.00 Pure hypercholesterolemia, unspecified; K58.0 Irritable bowel syndrome with diarrhea; G47.30 Sleep apnea, unspecified; S61.215A Laceration without foreign body of left ring finger without damage to nail, initial encounter; I95.1 Orthostatic hypotension; Z79.01 Long term (current) use of anticoagulants; Z87.891 Personal history of nicotine dependence; Z79.84 Long term (current) use of oral hypoglycemic drugs; F51.04 Psychophysiologic insomnia; E66.9 Obesity, unspecified; Z79.899 Other long term (current) drug therapy; W26.8XXA Contact with other sharp object(s), not elsewhere classified, initial encounter; Y92.89 Other specified places as the place of occurrence of the external cause
CPT/HCPCS: 36415; 80048; 80053; 80061; 82274; 82728; 82962; 83540; 83550; 83615; 83735; 84100; 84153; 84550; 85025; 85027; 85652; 86140; 87070; 87077; 87186; 87205; 93971; 94762; 97110; 97112; 97116; 97162; 97166; 97530; 97535; 97542; 97802; A4216; G0103; J2916

== ENCOUNTER 2024-06-13 06:16 | Emergency (ER) | payer MEDICAID, SELFPAY ==
[2024-06-13 06:16] VITALS: BP 128/55; PULSE 64; RESP 18; TEMP 36.4; O2SAT 96
--- NOTE | 2024-06-13 06:21 | EX.ED.UPPERE ---
HPI History of Present Illness Chief Complaint: Laceration Informant: patient and other (Rehab staff) Narrative Narrative: 64-year-old male recently to inpatient rehab here at [facility] after having right above-knee amputation. This morning he was in the bathroom and he was exiting with his walker, which got caught on the threshold, he lost his balance, without feeling dizzy, was falling backward reached out and caught his finger on the metal wall-mounted toilet cover box dispenser, sustained a laceration to his left ring finger. [id number]. No other injury, he fell to his buttocks which is not injured. Tetanus Immunization: 5-10 years [facility] Medical History Fatty infiltration of liver Diverticulosis Chronic insomnia Family history of colonic polyps Acute electrocardiogram changes Dry gangrene Osteomyelitis, unspecified Aftercare following surgery of the circulatory system Gangrene of toe of left foot Atherosclerosis of right lower extremity Gangrene of toe of right foot Vascular occlusion Acute pain of right lower extremity Ischemia of right lower extremity Occlusion of right femoral artery Failing vascular bypass graft Wears glasses Hepatitis High cholesterol Former smoker History of stress test Infected pilonidal cyst Vitamin D deficiency Hx of retinal detachment Amputation of left great toe (~03/2019) Detached retina (~05/2019) PAD (peripheral artery disease) DM2 (diabetes mellitus, type 2) Neuropathy Home Medications ?Medication ?Instructions ?Recorded ?Last Taken ?Type aspirin 81 mg chewable tablet 1 tab PO DAILY heart health 06/03/24 06/09/24 History atorvastatin 40 mg tablet 40 mg PO QHS cholesterol 06/03/24 06/08/24 History acetaminophen 500 mg tablet 1,000 mg (2 x 500 mg) PO Q8 pain 06/09/24 06/09/24 Rx #0 tabs amlodipine 10 mg tablet 10 mg PO DAILY blood pressure #0 06/09/24 06/09/24 Rx tabs enoxaparin 40 mg/0.4 mL 40 mg (0.4 mL) subcut DAILY dvt 06/09/24 06/09/24 Rx subcutaneous syringe prophylaxis #0 mL food supplemt, lactose-reduced 120 ml PO TIDCM supplement #0 mL 06/09/24 06/09/24 Rx 0.08 gram-1.5 kcal/mL oral liquid (Ensure Plus High Protein) gabapentin 300 mg capsule 300 mg PO TID nerve pain #0 caps 06/09/24 06/09/24 Rx hydrochlorothiazide 25 mg tablet 25 mg PO DAILY blood pressure #0 06/09/24 06/09/24 Rx tabs lisinopril 20 mg tablet 20 mg PO DAILY blood pressure #0 06/09/24 06/09/24 Rx tabs lisinopril 20 mg tablet 20 mg PO QHS blood pressure #0 tabs 06/09/24 06/08/24 Rx oxycodone 5 mg tablet 5 - 10 mg (1 - 2 x 5 mg) PO Q6H 06/09/24 06/09/24 Rx PRN PRN Pain Score 4-10 7 days #56 tabs Allergy/AdvReac Type Severity Reaction Status Date / Time No Known Allergies Allergy Verified 06/13/24 06:22 Family History (Updated 06/10/24 @ 10:[address] Lyudmila Tinajero DO) Mother No problems noted. Sister FH: colonic polyps Other Alcohol abuse Surgical History (Updated 06/10/24 @ 10:[address] Lyudmila Tinajero DO) S/P amputation Hx of angioplasty Hx of detached retina repair Hx of cataract surgery History of amputation of left great toe Social History (Updated 06/10/24 @ 10:[address] Lyudmila Tinajero DO) household members: none housing: apartment number of children: 0 current occupational status: disabled and other details: quit working in November 2023. 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 pets and animals: No sexually active: No Smoking Status: Former smoker Tobacco: How many years used: 40 Electronic Cigarette Use: not used how long ago did patient quit smoking: He quit smoking in December 2023 alcohol intake: never details: Quit drinking in 1994....was a heavy drinker and now has an occasional beer substance use type: does not use what type of physical activity do you participate in: none seatbelt use: always do you feel safe at home: Yes ROS ROS ED Constitutional Constitutional ED: Denies chills or fever(s) Musculoskeletal Musculoskeletal: Reports extremity pain; Denies neck pain Integumentary Reports laceration; Denies Abrasions or rash Neurologic Neurologic: Denies paresthesias or weakness EXAM Physical Exam Const Vital Signs: 06/13/24 06:16 Temperature 97.6 F L Temperature Source Oral Pulse Rate 64 Respiratory Rate 18 Blood Pressure 128/55 H Blood Pressure Mean 79 Pulse Ox 96 Oxygen Delivery Method Room Air Positive well nourished and well developed General Appearance ED: well developed and NAD Neck full ROM and supple Back/Spine normal ROM and normal to inspection Extremity full ROM Extremity Narrative: Laceration to the left volar ring finger. FDS, FDP, extensor all intact. Neurovascular intact distally. No significant bleeding to the wound. Neuro oriented x3, no focal motor deficits and no sensory deficits noted Sensorium / Orientation: alert Psych mental status grossly normal and thought process normal Skin Skin Narrative: L-shaped volar left ring finger laceration, 7 cm, full-thickness, clean appearing Rashes: no rashes MDM MDM MDM Narrative Medical decision making narrative: There is no bony tenderness and it is clear that there is no foreign body or since it is a large flap that is open and I can see all of the injury beneath the skin. Therefore I do not think he needs an x-ray. The sutures were placed to repair the skin edges closely, see the procedure note. Do not think he needs antibiotics and he does not need a tetanus update. I do not think he needs a splint either since it was all volar and he can bend but is relatively limited just due to the swelling for now. Procedures Lacerations left ring finger: Length: 7 cm Depth: Sub Q Shape: Flap (L-shaped) Prep: Sterile Conditions and Chlorhexadine Laceration repair: Irrigated, Lidocaine (1%, 4cc), Local and Skin sutures Irrigated (ml): 80 Number of Sutures/[place]: 17 Suture Information: Ethilon, Simple and 5-0 Comment: Good skin edge apposition, no complications tolerated well Discharge Plan Triage Chief Complaint: Laceration ED Provider: Luke Walker Dx/Rx/DC Orders Clinical Impression: Laceration of left ring finger w/o foreign body w/o damage to nail Instructions: ED Laceration, Hand: All Closures Prescriptions: No Action atorvastatin 40 mg tablet 40 mg PO QHS aspirin 81 mg tablet,chewable 1 tab PO DAILY lisinopril 20 mg Tablet 20 mg PO QHS Qty: 0 0RF lisinopril 20 mg Tablet 20 mg PO DAILY Qty: 0 0RF acetaminophen 500 mg Tablet 1,000 mg PO Q8 Qty: 0 0RF amlodipine 10 mg Tablet 10 mg PO DAILY Qty: 0 0RF gabapentin 300 mg Capsule 300 mg PO TID Qty: 0 0RF hydrochlorothiazide 25 mg Tablet 25 mg PO DAILY Qty: 0 0RF oxycodone 5 mg Tablet 5 - 10 mg PO Q6H PRN PRN (Reason: Pain Score 4-10) 7 Days Qty: 56 0RF enoxaparin 40 mg/0.4 mL Syringe 40 mg subcut DAILY Qty: 0 0RF Ensure Plus High Protein 0.08 gram-1.5 kcal/mL Liquid 120 ml PO TIDCM Qty: 0 0RF Primary Care Provider: Kylie Anderson Referrals: Kylie Anderson MD [Primary Care Provider] - 10-14 Days suture removal Activity Restrictions/Additional Instructions: The first 24 hours, change gauze with new bacitracin ointment as needed/dirty, then once daily for at least the first 4 or 5 days. After that if it is not looking infected and there is no bleeding or drainage, you can either dress it with a bandage or leave it open. Okay to clean with soap and water, pat dry afterwards and put a new dressing on it. Print Language: Palauan Disposition Disposition: Home, Self Care
[2024-06-13 07:16] VITALS: BP 119/69; PULSE 55; RESP 16; TEMP 36.6; O2SAT 95
== END 2024-06-13 07:21 | disposition home or self-care (01) ==
PROVIDERS: Emergency Provider Emergency Medicine; PCP Internal Medicine; Visit Provider Emergency Medicine
DX: S61.215A Laceration without foreign body of left ring finger without damage to nail, initial encounter (principal); E11.9 Type 2 diabetes mellitus without complications; Z87.891 Personal history of nicotine dependence; E78.00 Pure hypercholesterolemia, unspecified; Z79.899 Other long term (current) drug therapy; W26.8XXA Contact with other sharp object(s), not elsewhere classified, initial encounter; W19.XXXA Unspecified fall, initial encounter
CPT/HCPCS: 12002; 99283

== ENCOUNTER 2024-07-16 12:53 | Outpatient (RCR) | payer MEDICAID, SELFPAY ==
[2024-07-16 13:10] VITALS: BP 121/71; PULSE 84; RESP 18; TEMP 36.4; BMI 33.0
--- NOTE | 2024-07-16 14:30 | PCM.PN.SRG ---
Subjective Subjective Operative Information Date of Procedure: 06/04/24 Pre-Operative Diagnosis: Right lower extremity ischemia Post-Operative Diagnosis: Same Surgery/Procedure Performed: 1) Targeted muscle reinnervation (TMR), tibial nerve fibers of the sciatic nerve to motor branch of the semimembranosus, right thigh (CPT Code: 69957) 2) Regenerative Peripheral Nerve Interface (RPNI), peroneal nerve fibers the sciatic nerve, (CPT Codes: 14058 (muscle harvest for tissue graft) and 38990 (implantation of nerve into muscle)) Current encounter, 16 Jul 2024: Patient here for 6-week follow-up. He reports significant improvement in the initial postoperative pain. He is no longer having any phantom limb pain or any residual limb pain/stump pain. He denies any electrical pain sensations along the stump. He does report some phantom itching of his right knee from time to time, but otherwise no issues. He has been seeing vascular surgery for follow-up with regards to his thomas. They are going to see him tomorrow to evaluate the suture line and likely remove the remaining thomas. He has been treated with oral antibiotics for some redness along the suture line but this is improving significantly. Objective Data Objective Data Vital Signs: Vital Signs Temp Pulse Resp BP 97.5 F L 84 18 121/71 H 07/16/24 13:10 07/16/24 13:10 07/16/24 13:10 07/16/24 13:10 Weight: 230 lb 1.011 oz Body Mass Index (BMI) 33.0 Physical Exam Narrative Right lower extremity Above-knee amputation incision line clean dry and intact up until the central portion of the incision where there is a fibrinous eschar that is small (approximately 2 cm). No fluid collection. There is some reactive erythema around the medial suture line, but there is no induration and no warmth. Assessment & Plan Assessment/Plan (1) S/P amputation: PLAN: Right lower extremity above-knee amputation by Dr. Sol and Targeted muscle reinnervation by Dr. Pham on 06/03/2024. Significant improvement of phantom limb pain. He appears to be doing well overall. Patient will continue to follow with vascular for management of the above-knee amputation stump and fitting of the prosthesis with the [employer]. Plastic surgery available for any wound issues that develop, but otherwise patient will see me in clinic in 6 months for follow-up. Patient happy with the plan. Discussed with vascular surgery, and they are in agreement Charges/Coding Procedures Integumentary [id number]: 04379 Global Visit
--- NOTE | 2024-07-17 12:53 | WC ---
PHOTO 07/16/24 RIGHT STUMP
== END 2024-07-16 14:45 | disposition home or self-care (01) ==
LOC: WC 12:53
PROVIDERS: PCP Internal Medicine; Referring Provider Surgery Plastic and Reconstructive Surgery; Visit Provider Surgery Plastic and Reconstructive Surgery
DX: Z89.611 Acquired absence of right leg above knee (principal)
CPT/HCPCS: 99213; G0463

== ENCOUNTER 2024-08-07 09:08 | Outpatient (CLI) | payer MEDICAID, SELFPAY ==
[2024-08-07] VITALS (18 sets, daily range): BP systolic 130–177; BP diastolic 64–75; PULSE 62–74; RESP 12–18; TEMP 37.3; O2SAT 85–99; BMI 33.0
[2024-08-07 09:59] LABS: Absolute Lymphocyte Count 1.86 X10^3/uL (0.83-4.51); Basophil# 0.14 X10^3/uL; Basophil% 0.7 % (0-1); Eosinophil# 0.58 X10^3/uL; Hematocrit 34.2 % (40-54); Hemoglobin 10.8 g/dL (13.0-16.5); Lymphocyte # 1.86 X10^3/ul (0.83-4.51); Lymphocyte % 9.8 % (19-41); Mean Corp Hgb Conc 31.6 g/dL (32-36); Mean Corpuscular Hgb 26.9 pg (27.0-32.0); Mean Corpuscular Volume 85.1 fL (80-94); Mean Platelet Vol. 10.3 fl (6.2-12.0); Monocyte# 1.15 X10^3/uL; NRBC Flagged by Analyzer 0 % (0-5); Neutrophil # 15.04 X10^3/uL (2.7-7.7); Platelet Count 527 K/mm3 (150-450); RBC Distribution Width CV 18.9 % (11.6-14.6); RBC Distribution Width SD 59.1 fl (35.1-43.9); Red Blood Count 4.02 M/mm3 (4.6-6.2); White Blood Count 19.1 K/mm3 (4.4-11.0)
[2024-08-07 10:08] LABS: Prothrombin Time (Protime)PT. 13.2 SECONDS (11.7-14.9)
[2024-08-07 10:09] LABS: Partial Thromboplast Time 31.2 Seconds (24.1-36.2)
--- NOTE | 2024-08-07 10:15 | RAD_ITS ---
PROCEDURE: CHEST INSP/EXP 2 VIEW 08/07/2024 REASON FOR EXAM: POST LUNG BIOPSY TECHNIQUE: CHEST INSP/EXP 2 VIEW COMPARISON: None FINDINGS: Right upper lobe mass. Line the patient is status post right lung biopsy. No evidence of pneumothorax. RAD/Chest Insp/Exp 2 View IMPRESSION: No evidence of pneumothorax on the immediate post right lung biopsy radiographs . Right upper lobe mass. Reading Location: [place] [address]
[2024-08-07] MEDS: Midazolam 2 MG/2 ML Syringe IV (10:30)
--- NOTE | 2024-08-07 10:30 | CT_ITS ---
EXAM: CT-guided biopsy of the right upper lobe mass. CLINICAL HISTORY: Right upper lobe mass. COMPARISON: Prior PET scan dated July 21, 2024. TECHNIQUE: The procedure as well as the benefits and possible complications including infection, bleeding and pneumothorax were explained to the patient. Informed consent was obtained. Conscious sedation was performed. The patient received 2 mg of Versed and 25 mcg of fentanyl intravenously. Conscious sedation was started at 10:30 a.m. and terminated at 10:55 a.m.. The patient was independently monitored by the department nurse. The overlying skin was prepped and draped in the usual sterile fashion. Following local anesthetic application, a 20 gauge core biopsy needle was placed into the mass. 4 core biopsies were obtained. The pathology deemed the specimen adequate. The patient tolerated the procedure well. No immediate complication is noted. FINDINGS: Status post biopsy of the right upper lobe mass as described. The patient tolerated the procedure well. CT/Biopsy/Inj or Needle Placement IMPRESSION: Status post biopsy of the right upper lobe mass. Reading Location: [place] [address]
[2024-08-07] MEDS: 0.9% Normal Saline (250mL Bag) 250 ML 15 ML IV (10:32)
[2024-08-07] MEDS: fentaNYL 100 MCG/2 ML Ampul IV (10:37)
[2024-08-07] MEDS: Lidocaine 2% (20 ml mdv) 20 ML Vial INFILT (10:50)
--- NOTE | 2024-08-07 11:30 | ASPIGT_PTH ---
PATIENT: JO ANN MADDOX LOC: CT U#:[id number] AGE/SX: 64/M ROOM: RE08/07/[address]: Dr. Lion Rosario MD : 1960 BED: DIS: 08/07/2024 SPEC #: [id number] RECD: 08/07/24 11:45 STATUS: SOFÍA REGabriela #: [id number] MUKUND: 08/07/24 11:[address]: Lion Rosario DEPT: SURGICAL PATHOLOGY RECD BY: Cecil Snow ENTERED: 08/07/24 11:18 SP TYPE: ASP RAD OTHR DR: Dr. Kylie Anderson MD Tissues: A - Lung, NOS Procedures: FNA Specimen Adequacy Immunohistochemical Stains Special Stain Group II Surgery Specimen Level IV Imprint (control) IHC Stain ADDITIONAL HEADER OPERATION: CT guided right lung biopsy PRE-OP DIAGNOSIS: Right upper lobe mass TISSUE SUBMITTED: A- Right upper lobe mass, 20 gauge x 4 cores MICROSCOPIC DIAGNOSIS A. 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 * IHC performed: * Positive - Pancytokeratin, Ki67 (100%), Synaptophysin (focal). * Negative - CK7, CK20, CK5/6, p40, Chromogranin, TTF-1. COMMENT The specimen is evaluated at the time of biopsy by Dr. Lynch. Immediate Evaluation = 1. Malignant. 2. Malignant. This case was discussed with Dr Rosario at 3:30 pm on 08/11/24. The findings are compatible with the previous pathology evaluated at [facility]. 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 Further evaluation with molecular testing at [facility] is pending and the results will be reported separately. MICROSCOPIC DESCRIPTION Slides are reviewed. All matched controls reacted appropriately. These tests were developed and their performance characteristics determined by [facility]. They may not have been cleared or approved by the U.S. Food and Drug Administration. The FDA has determined that such clearance or approval is not necessary.? The above immunohistochemical/dualISH?markers are reviewed by the Pathologist. GROSS DESCRIPTION A. Received in formalin following CT-guided lung biopsy, labeled the patient's name and date of are multiple welch tissue core fragments, collectively measuring 1.0 x 0.3 x 0.1 cm in aggregate. Touch preparations are made. Entirely submitted in 1 cassette. IL 08/07/2024 CPT:56196,[id number],[id number] ADDENDUM ADDENDUM ADDENDUM ADDENDUM ADDENDUM ADDENDUM ADDENDUM ADDENDUM ADDENDUM ADDENDUM ADDENDUM ADDENDUM ADDENDUM ADDENDUM ADDENDUM ADDENDUM ADDENDUM ADDENDUM ADDENDUM ADDENDUM ADDENDUM ADDENDUM ADDENDUM ADDENDUM ADDENDUM ADDENDUM ADDENDUM ADDENDUM ADDENDUM ADDENDUM ADDENDUM ADDENDUM ADDENDUM ADDENDUM ADDENDUM 08/24/2024 08:59 ADDENDUM 08/24/2024 08:59 ADDENDUM 08/24/2024 08:59 ADDENDUM 08/24/2024 08:59 ADDENDUM 08/24/2024 08:59 This addendum is added to incorporate an outside pathology consultation report. The case was examined at [facility] by Dr. Bishop (#[id number]) and the following diagnosis was rendered. A. Lung, right, mass, CT- core biopsy: PD-L1 IHC 22C3 pharmDx Result: Positive, TPS: 5% HER2 IHC (4B5) result: Negative (0) Lung cancer mutation panel: CDKN2A and TP53 mutations with no BRAF, EGFR, MET, LIZZY or other targetable variants. FISH: No ALK or ROS1 rearrangement and no MET amplification detected. FISH, lung panel (ALK, MET, ROS1) result: INTERPRETATION: No rearrangements of the ALK or ROS1 genes or amplifications of the MET gene are detected. The clinical relevance of this result should be interpreted in the context of the tumor morphology and other testing. Internal and external controls show expected signal pattern. ALK Rearrangement: Negative MET Amplification: Not detected MET / CEP7 ratio: 0.6 Copy number: 1.9 ROS1 Rearrangement: Negative Lung Cancer Mutation Panel result: INTERPREATION: Fully predominant inavtivating CDKN2A mutation and TP53 mutation detected in this tumor, at high levels suggesting EARL or loss of other allele of both genes. Please see complete above mentioned consultation report in EMR
--- NOTE | 2024-08-07 12:15 | RAD_ITS ---
PROCEDURE: CHEST INSP/EXP 2 VIEW 08/07/2024 REASON FOR EXAM: POST LUNG BIOPSY TECHNIQUE: CHEST INSP/EXP 2 VIEW COMPARISON: Prior study done earlier in the day. FINDINGS: No evidence of pneumothorax on the 2 hour post right lung biopsy radiographs. RAD/Chest Insp/Exp 2 View IMPRESSION: No evidence of pneumothorax on the 2 hour post right lung biopsy radiographs. Reading Location: [place] [address]
== END 2024-08-07 23:59 | disposition home or self-care (01) ==
PROVIDERS: Radiology Diagnostic Radiology; PCP Internal Medicine; Referring Provider Internal Medicine Medical Oncology; Visit Provider Internal Medicine Medical Oncology
DX: C34.11 Malignant neoplasm of upper lobe, right bronchus or lung (principal)
CPT/HCPCS: 32408; 36415; 71046; 77012; 85025; 85610; 85730; 88172; 88305; 88313; 88341; 88342; 99156; A4216; C2613

== ENCOUNTER 2024-08-13 14:00 | Outpatient (RCR) | payer MEDICAID, SELFPAY ==
[2024-08-06 13:58] VITALS: BP 149/84; PULSE 69; RESP 18; TEMP 36.7; BMI 33.0
[2024-08-13 13:59] VITALS: BP 171/86; PULSE 73; RESP 18; TEMP 36.9; BMI 33.0
== END 2024-08-17 23:59 | disposition home or self-care (01) ==
LOC: WC 14:00
PROVIDERS: PCP Internal Medicine; Referring Provider Physician Assistant; Visit Provider Physician Assistant
DX: T87.81 Dehiscence of amputation stump (principal); Z89.611 Acquired absence of right leg above knee; E11.40 Type 2 diabetes mellitus with diabetic neuropathy, unspecified; E11.51 Type 2 diabetes mellitus with diabetic peripheral angiopathy without gangrene; Y83.5 Amputation of limb(s) as the cause of abnormal reaction of the patient, or of later complication, without mention of misadventure at the time of the procedure; I10 Essential (primary) hypertension; E78.00 Pure hypercholesterolemia, unspecified; Z79.01 Long term (current) use of anticoagulants; Z79.82 Long term (current) use of aspirin; Z79.84 Long term (current) use of oral hypoglycemic drugs; Z79.899 Other long term (current) drug therapy; Z87.891 Personal history of nicotine dependence
CPT/HCPCS: 11042; 99213; G0463

== ENCOUNTER 2024-09-09 08:57 | Day surgery (SDC) | payer MEDICAID, SELFPAY ==
--- NOTE | 2024-08-27 19:27 | PAT.ANE_ITS ---
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 When Was Last Pacemaker Check QUESTION #4 FULL TEXT: You/Your Family Experience fever (hyperthermia) with Anesthesia Last Oral Intake Last Oral intake: Last Oral Intake NPO since Meds taken in AM with sips of water? 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 Female No 08/27/24 13:11 HX of Motion Sickness No 08/27/24 13:11 HX of N/V After Surgery No 08/27/24 13:11 Non-Smoker Yes 08/27/24 13:11 Duration of Surgery greater No 08/27/24 13:11 than 60 minutes Number of Risk Factors 1 08/27/24 13:11 PONV Score Low Risk 08/27/24 13:11 Height & Weight Height & Weight: Anesthesia: Height & Weight Height 5 ft 10 in 08/26/24 09:09 Respiratory Assessment Respiratory Assessment - furniture sales associate: Respiratory Tract Infection Hx - furniture sales associate Hx Respiratory Tract Infection No 08/27/24 13:11 STOP Sleep Apnea STOP Sleep Apnea - furniture sales associate: STOP Sleep Apnea - furniture sales associate Hx Hypertension Yes: CONTROLLED WITH MED 08/27/24 13:11 Hx Sleep Apnea No 08/27/24 13:11 CPAP BIPAP Do you snore loudly (louder No 08/27/24 13:11 than talking or can be heard Do you often feel tired/ No 08/27/24 13:11 fatigued/ sleepy during daytime? Has anyone observed you stop No 08/27/24 13:11 breathing during sleep? STOP Results Negative 08/27/24 13:11 QUESTION #5 FULL TEXT : Do you snore loudly (louder than talking or can be heard through closed doors)? 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 Specify any problems Hx of Preganancy in last 3 N/A 08/27/24 13:11 Months Nurse Filling Out Transfusion [email or web address] 08/27/24 13:11 & Questions: Date: 08/27/24 08/27/24 13:11 Time: 13:12 08/27/24 13:11 Patient unable to answer at this time (ie. confused, unrespo /Reproduction History /Reproductive History - furniture sales associate: /Reproductive Hx- furniture sales associate Hx Now No 08/27/24 13:11 Gestational Age (in weeks): EDC: Hx Hx Para Hx Section SAB No 08/27/24 13:11 PFSH Medical History (Updated 08/27/24 @ 13:20 by Melody Carlos) Cancer Depression Alcohol use Walker as ambulation aid Lung cancer Phantom pain Chest pain Fatty infiltration of liver Diverticulosis Chronic insomnia Family history of colonic polyps Hyperlipidemia Tobacco dependence in remission Open wound of right great toe Failing vascular bypass graft Occlusion of right femoral artery Ischemia of right lower extremity Hypertension Acute pain of right lower extremity Vascular occlusion Gangrene of toe of right foot Atherosclerosis of right lower extremity Aftercare following surgery of the circulatory system Osteomyelitis, unspecified Other acute postprocedural pain Wears glasses Hepatitis High cholesterol Former smoker History of stress test Infected pilonidal cyst Vitamin D deficiency Hx of retinal detachment Amputation of left great toe (~03/2019) Detached retina (~05/2019) Gangrene of toe of left foot PAD (peripheral artery disease) DM2 (diabetes mellitus, type 2) Neuropathy Dry gangrene Acute electrocardiogram changes Home Medications ?Medication ?Instructions ?Recorded ?Last Taken ?Type aspirin 81 mg chewable tablet 1 tab PO DAILY heart hea lth 06/03/24 06/09/24 History atorvastatin 40 mg tablet 40 mg PO QHS cholesterol 06/08/24 History amlodipine 10 mg tablet 10 mg PO DAILY blood pressur e #0 06/09/24 06/09/24 Rx tabs acetaminophen 500 mg tablet 1,000 mg (2 x 500 mg) PO Q 8 PRN 06/30/24 Unknown Rx Pain 1-10 Or Fever #1 TAB ascorbic acid (vitamin C) 500 mg 500 mg PO BIDCM #0 ta bs 06/30/24 Unknown Rx tablet bupropion HCl 150 mg 24 hr tablet, 150 mg PO DAILY #0 tabs 06/30/24 Unknown Rx extended release ferrous sulfate 325 mg (65 mg 325 mg PO DAILY@1200 #0 tabs 06/30/24 Unknown Rx iron) tablet (FeroSul) magnesium hydroxide 400 mg/5 mL 30 ml PO X1 PRN Consti pation #1 mL 06/30/24 Unknown Rx oral suspension metformin 500 mg tablet,extended 500 mg PO DINNER #1 T AB 06/30/24 Unknown Rx release 24 hr zinc sulfate 50 mg zinc (220 mg) 50 mg PO DAILYCM #1 c ap 06/30/24 Unknown Rx capsule gabapentin 100 mg capsule 400 mg PO QHS 07/10/24 Unkno wn History gabapentin 300 mg capsule 300 mg PO BID nerve pain Unknown History hydrochlorothiazide 12.5 mg capsule 12.5 mg PO QDAY Unknown History lisinopril 10 mg tablet 10 mg PO QHS 07/10/24 Unknow n History lisinopril 20 mg tablet 20 mg PO QDAY 07/10/24 Unkno wn History doxycycline hyclate 100 mg tablet 100 mg PO BID 14 day s #28 tabs 08/27/24 Unknown Rx ibuprofen 400 mg tablet (IBU) 400 mg PO Q8H PRN pain 0 08/27/24 Unknown History Allergy/AdvReac Type Severity Reaction Status Date / Time No Known Allergies Allergy Verified 08/27/24 13:07 Family History Mother No problems noted. Sister FH: colonic polyps pre-cancerous Other Alcohol abuse Surgical History (Updated 08/27/24 @ 13:20 by Melody Carlos) Hx of leg amputation Laceration of left ring finger w/o foreign body w/o damage to nail S/P amputation Hx of angioplasty Hx of detached retina repair Hx of cataract surgery History of amputation of left great toe Social History household members: none housing: apartment number of children: 0 current occupational status: disabled and other details: quit working in November 2023. 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 Sinus rhythm with PACs. Minimal voltage criteria for LVH. Prolonged QT. Stress test pertinent findings: April 21, 2020. Rest and stress nuclear imaging demonstrate relative uniform tracer uptake and myocardial perfusion appearing within normal limits. Recommendation Anesthesia Recommendation Anesthesia recommendation: OPTIMIZED for anesthesia
[2024-09-09] VITALS (8 sets, daily range): BP systolic 131–159; BP diastolic 71–85; PULSE 61–69; RESP 16–20; TEMP 36–36.8; O2SAT 99–100; BMI 35.6
[2024-09-09] MEDS: Lactated Ringers 1,000 ML 15 ML IV (09:25)
--- NOTE | 2024-09-09 10:24 | PCM.PRE.AN2 ---
ASA Classification* ASA Classification ASA Classification: 3 Assessment & Plan Anesthesia* Anesthesia Assessment Anesthesia Assessment: Discussed sedation and/or anesthesia options, risks, benefits, and alternatives with patient/parents/legal guardian/POA. Questions invited. The patient/parents/legal guardian/POA seems to understand and agrees to proceed with anesthesia plan. Reviewed the physical assessment, medical history, allergy history and patient home medications list prior to surgery/procedure/anesthetic and documented any changes. Performed airway and anesthesia risk assessments. Anesthesia Type Anesthesia Type: MAC History Source History Obtained from:: Patient and Chart Anesthesia Focused Assessment* Temperature: 98.2 F Pulse Rate: 69 Blood Pressure: 159/85 Respiratory Rate: 16 Pulse Ox: 100 Oxygen Delivery Method: Room Air Airway Assessment Mouth opens: >3 cm Mallampati Score: IV Teeth Condition: Missing (Patient has multiple missing teeth. Rest are tight.) Neck Range of motion (ROM): Full ROM Labs Anesthesia Preop lab: CBC WBC 14.6 K/mm3 (4.4-11.0) H 09/07/24 08:05 09/07/24 RBC 4.23 M/mm3 (4.6-6.2) L 09/07/24 08:05 09/07/24 Hgb 11.7 g/dL (13.0-16.5) L 09/07/24 08:05 09/07/24 Hct 37.6 % (40-54) L 09/07/24 08:05 09/07/24 Plt Count 531 K/mm3 (150-450) H 09/07/24 08:05 09/07/24 CHEMISTRY Potassium 4.2 mmol/L (3.3-5.1) 09/07/24 08:05 09/07/24 Sodium 142 mmol/L (133-145) 09/07/24 08:05 09/07/24 Magnesium 1.9 mg/dL (1.5-2.2) 09/07/24 08:05 09/07/24 Phosphorus 2.3 mg/dL (2.7-4.5) L 09/07/24 08:05 09/07/24 BUN 19 mg/dL (4-19) 09/07/24 08:05 09/07/24 Creatinine 0.86 mg/dL (0.70-1.20) 09/07/24 08:05 09/07/24 Glucose 148 mg/dL (70-99) H 09/07/24 08:05 09/07/24 POC Glucose 175 mg/dL (74-106) H 09/09/24 09:24 09/09/24 TSH 2.28 uIU/mL (0.358-3.74) 07/03/22 14:42 07/03/22 COAG PT 13.2 SECONDS (11.7-14.9) 08/07/24 09:16 08/07/24 Pre-Assessment Diagnosis/Proposed Procedure Planned Operative Procedure(s): INSERTION VASCULAR PORT RIGHT POSS LEFT Anesthesia History 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 When Was Last Pacemaker Check QUESTION #4 FULL TEXT: You/Your Family Experience fever (hyperthermia) with Anesthesia Last Oral Intake Last Oral intake: Last Oral Intake NPO since 06:30 09/09/24 09:18 Meds taken in AM with sips of Yes 09/09/24 09:18 water? Meds patient instructed to AMLODIPINE,GABAPENTIN, 09/09/24 09:18 take am of surgery WELLBUTRIN Any additional information?: Yes NPO since: 06:30 (Patient took his listed meds with sip of water at 6:30 AM.) Meds taken in AM with sips of water?: Yes PONV PONV - model set artist: PONV - model set artist Female No 08/27/24 13:11 HX of Motion Sickness No 08/27/24 13:11 HX of N/V After Surgery No 08/27/24 13:11 Non-Smoker Yes 08/27/24 13:11 Duration of Surgery greater No 08/27/24 13:11 than 60 minutes Number of Risk Factors 1 08/27/24 13:11 PONV Score Low Risk 08/27/24 13:11 Height & Weight Height & Weight: Anesthesia: Height & Weight Height 5 ft 10 in 09/09/24 09:18 Weight: 112.491 kg 09/09/24 09:18 Body Mass Index (BMI) 35.6 09/09/24 09:18 Respiratory Assessment Respiratory Assessment - model set artist: Respiratory Tract Infection Hx - model set artist Hx Respiratory Tract Infection No 08/27/24 13:11 STOP Sleep Apnea STOP Sleep Apnea - model set artist: STOP Sleep Apnea - model set artist Hx Hypertension Yes: CONTROLLED WITH MED 08/27/24 13:11 Hx Sleep Apnea No 08/27/24 13:11 CPAP BIPAP Do you snore loudly (louder No 08/27/24 13:11 than talking or can be heard Do you often feel tired/ No 08/27/24 13:11 fatigued/ sleepy during daytime? Has anyone observed you stop No 08/27/24 13:11 breathing during sleep? STOP Results Negative 08/27/24 13:11 QUESTION #5 FULL TEXT : Do you snore loudly (louder than talking or can be heard through closed doors)? 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 Specify any problems Hx of Preganancy in last 3 N/A 08/27/24 13:11 Months Nurse Filling Out Transfusion [email or web address] 08/27/24 13:11 & Questions: Date: 08/27/24 08/27/24 13:11 Time: 13:12 08/27/24 13:11 Patient unable to answer at this time (ie. confused, unrespo /Reproduction History /Reproductive History - model set artist: /Reproductive Hx- model set artist Hx Now No 08/27/24 13:11 Gestational Age (in weeks): EDC: Hx Hx Para Hx Section SAB No 08/27/24 13:11 Active Medications Active Medications: Current Medications Generic Name Dose Route Start Last Admin Trade Name Freq PRN Reason Stop Dose Admin Lactated Ringer's 1,000 mls @ 15 mls/hr 09/09/24 09:15 09/09/24 09:25 IV 15 mls/hr .Q48H FRANKLIN Administration PFSH Medical History DM2 (diabetes mellitus, type 2) Encounter for education Cancer Depression Alcohol use Walker as ambulation aid Lung cancer Phantom pain Chest pain Fatty infiltration of liver Diverticulosis Chronic insomnia Family history of colonic polyps Hyperlipidemia Tobacco dependence in remission Open wound of right great toe Failing vascular bypass graft Occlusion of right femoral artery Ischemia of right lower extremity Hypertension Acute pain of right lower extremity Vascular occlusion Gangrene of toe of right foot Atherosclerosis of right lower extremity Aftercare following surgery of the circulatory system Osteomyelitis, unspecified Other acute postprocedural pain Wears glasses Hepatitis High cholesterol Former smoker History of stress test Infected pilonidal cyst Vitamin D deficiency Hx of retinal detachment Amputation of left great toe (~03/2019) Detached retina (~05/2019) Gangrene of toe of left foot PAD (peripheral artery disease) Neuropathy Dry gangrene Acute electrocardiogram changes Home Medications ?Medication ?Instructions ?Recorded ?Last Taken ?Type aspirin 81 mg chewable tablet 1 tab PO DAILY heart health 06/03/24 09/03/24 History atorvastatin 40 mg tablet 40 mg PO QHS cholesterol 06/03/24 09/07/24 History amlodipine 10 mg tablet 10 mg PO DAILY blood pressure #0 06/09/24 09/09/24 Rx tabs acetaminophen 500 mg tablet 1,000 mg (2 x 500 mg) PO Q8 PRN 06/30/24 Unknown Rx Pain 1-10 Or Fever #1 TAB ascorbic acid (vitamin C) 500 mg 500 mg PO BIDCM #0 tabs 06/30/24 Unknown Rx tablet bupropion HCl 150 mg 24 hr tablet, 150 mg PO DAILY #0 tabs 06/30/24 09/09/24 Rx extended release ferrous sulfate 325 mg (65 mg 325 mg PO DAILY@1200 #0 tabs 06/30/24 Unknown Rx iron) tablet (FeroSul) magnesium hydroxide 400 mg/5 mL 30 ml PO X1 PRN Constipation #1 mL 06/30/24 Unknown Rx oral suspension metformin 500 mg tablet,extended 500 mg PO DINNER #1 TAB 06/30/24 09/08/24 Rx release 24 hr zinc sulfate 50 mg zinc (220 mg) 50 mg PO DAILYCM #1 cap 06/30/24 Unknown Rx capsule gabapentin 100 mg capsule 400 mg PO QHS 07/10/24 09/08/24 History gabapentin 300 mg capsule 300 mg PO BID nerve pain 07/10/24 09/09/24 History hydrochlorothiazide 12.5 mg capsule 12.5 mg PO QDAY 07/10/24 09/08/24 History lisinopril 10 mg tablet 10 mg PO QHS 07/10/24 09/08/24 History lisinopril 20 mg tablet 20 mg PO QDAY 07/10/24 09/08/24 History doxycycline hyclate 100 mg tablet 100 mg PO BID 14 days #28 tabs 08/27/24 09/08/24 Rx ibuprofen 400 mg tablet (IBU) 400 mg PO Q8H PRN pain 08/27/24 Unknown History ondansetron 8 mg disintegrating 8 mg PO Q8H PRN nausea and 08/31/24 Unknown Rx tablet vomiting #30 tabs lidocaine-prilocaine 2.5 %-2.5 % 1 applic topical ONCE PRN port 09/08/24 Unknown Rx topical cream access 30 days #30 grams Allergy/AdvReac Type Severity Reaction Status Date / Time No Known Allergies Allergy Verified 09/09/24 09:15 Family History Mother No problems noted. Sister FH: colonic polyps pre-cancerous Other Alcohol abuse Surgical History Hx of leg amputation Laceration of left ring finger w/o foreign body w/o damage to nail S/P amputation Hx of angioplasty Hx of detached retina repair Hx of cataract surgery History of amputation of left great toe Social History household members: none housing: apartment number of children: 0 current occupational status: disabled and other details: quit working in November 2023. 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 pets and animals: No sexually active: No Smoking Status: Former smoker quit date: 02/19/24 pack-years: 40 Tobacco: How many years used: 40 Electronic Cigarette Use: not used how long ago did patient quit smoking: He quit smoking in December 2023 alcohol intake: never details: Quit drinking in 1994....was a heavy drinker and now has an occasional beer substance use type: does not use what type of physical activity do you participate in: none seatbelt use: always do you feel safe at home: Yes Review of Systems (Anesthesia) ROS Narrative System reviewed and no additional complaints, except as documented.
--- NOTE | 2024-09-09 10:44 | PCM.HP.BLA ---
History and Physical Date of Admission: 09/09/24 Intake Vital Signs 08/24/2509:28 08/26/2508:09 Height 5 ft 10 in 5 ft 10 in Weight: 230 lb BMI 33.0 BP 149/86 H 162/81 H Blood Pressure Location Lt brachial Lt brachial Position Sitting Sitting Respiration 18 18 Pulse 84 68 Pulse Source Monitor Monitor Temp 98.9 F 97.2 F L Temp Source Temporal Pulse Oximetry (%) 97 99 Oxygen Delivery Method room air room air Intake Visit Reasons: PORT PLACEMENT Chief Complaint: port placement Accompanied by: Mother Is patient in pain?: No Allergies No Known Allergies Allergy (Verified 08/26/24 09:10) Medications ?Medication ?Instructions ?Recorded ?Confirmed ?Type aspirin 81 mg chewable tablet 1 tab PO DAILY heart health 06/03/24 08/26/24 History atorvastatin 40 mg tablet 40 mg PO QHS cholesterol 06/03/24 08/26/24 History amlodipine 10 mg tablet 10 mg PO DAILY blood pressure #0 06/09/24 08/26/24 Rx tabs food supplemt, lactose-reduced 120 ml PO TIDCM supplement #0 mL 06/09/24 08/26/24 Rx 0.08 gram-1.5 kcal/mL oral liquid (Ensure Plus High Protein) Held on 08/06/24. Instructions: loose stool acetaminophen 500 mg tablet 1,000 mg (2 x 500 mg) PO Q8 PRN 06/30/24 08/26/24 Rx Pain 1-10 Or Fever #1 TAB ascorbic acid (vitamin C) 500 mg 500 mg PO BIDCM #0 tabs 06/30/24 08/26/24 Rx tablet bupropion HCl 150 mg 24 hr tablet, 150 mg PO DAILY #0 tabs 06/30/24 08/26/24 Rx extended release ferrous sulfate 325 mg (65 mg 325 mg PO DAILY@1200 #0 tabs 06/30/24 08/26/24 Rx iron) tablet (FeroSul) food supplemt, lactose-reduced 120 ml PO TIDCM #1 mL 06/30/24 08/26/24 Rx 0.08 gram-1.5 kcal/mL oral liquid (Ensure Plus High Protein) magnesium hydroxide 400 mg/5 mL 30 ml PO X1 PRN Constipation #1 mL 06/30/24 08/26/24 Rx oral suspension metformin 500 mg tablet,extended 500 mg PO DINNER #1 TAB 06/30/24 08/26/24 Rx release 24 hr zinc sulfate 50 mg zinc (220 mg) 50 mg PO DAILYCM #1 cap 06/30/24 08/26/24 Rx capsule gabapentin 100 mg capsule 400 mg PO QHS 07/10/24 08/26/24 History gabapentin 300 mg capsule 300 mg PO BID nerve pain 07/10/24 08/26/24 History hydrochlorothiazide 12.5 mg capsule 12.5 mg PO QDAY 07/10/24 08/26/24 History lisinopril 10 mg tablet 10 mg PO QHS 07/10/24 08/26/24 History lisinopril 20 mg tablet 20 mg PO QDAY 07/10/24 08/26/24 History PFSH Medical History Chronic anemia Hyperlipidemia Tobacco dependence in remission Hypertension Other acute postprocedural pain Open wound of right great toe Fatty infiltration of liver Diverticulosis Chronic insomnia Family history of colonic polyps Acute electrocardiogram changes Dry gangrene Osteomyelitis, unspecified Aftercare following surgery of the circulatory system Gangrene of toe of left foot Atherosclerosis of right lower extremity Gangrene of toe of right foot Vascular occlusion Acute pain of right lower extremity Ischemia of right lower extremity Occlusion of right femoral artery Failing vascular bypass graft Wears glasses Hepatitis High cholesterol Former smoker History of stress test Infected pilonidal cyst Vitamin D deficiency Hx of retinal detachment Amputation of left great toe (~03/2019) Detached retina (~05/2019) PAD (peripheral artery disease) DM2 (diabetes mellitus, type 2) Neuropathy Surgical History S/P amputation Laceration of left ring finger w/o foreign body w/o damage to nail Hx of angioplasty Hx of detached retina repair Hx of cataract surgery History of amputation of left great toe Family History Mother No problems noted. Sister FH: colonic polyps pre-cancerousOther Alcohol abuse Social History household members: none housing: apartment number of children: 0 current occupational status: disabled and other details: quit working in November 2023. 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 ROS General General: No weight change, appetite, fatigue, colon cancer, breast cancer or weakness HEENT HEENT: No difficulty swallowing, eye injury, eye surgery, swollen glands or hoarseness Endo Endocrine: Yes diabetes mellitus; No thyroid disease, thyroid cancer, Hair loss, heat intolerance or cold intolerance Skin Skin: No rash or changing moles Musc Musculoskeletal: No back problems, arthritis, rheumatoid arthritis, gout or joint pain Cardio Cardiovascular: No murmur, pacemaker, heart disease, atrial fibrillation, high blood pressure, heart attack, heart stent, palpitations, shortness of breath with exertion or chest pain Psych Psychiatric: No depression, anxiety or hearing voices Resp Respiratory: Yes shortness of breath, No sleep apnea, No cough, No COPD, No asthma, No emphysema and No wheezing Gastro Gastrointestinal: No abdominal pain, No nausea or vomiting, Yes diarrhea, No constipation, No blood in stool, No acid reflux, No hemorrhoids, No ulcers, No gallbladder problem and No black,tarry stools Rafael Hematologic: Yes blood thinners, No blood disorders, No bleeding, No anemia and No blood clots Additional Details: 81mg aspirin Neuro Neurologic: Yes numbness, Yes tingling and No weakness Exam Const General: cooperative Orientation: alert and oriented x3 HENMT Head: normal to inspection Neck Neck: normal visual inspection and full ROM Chest Chest palpation & inspection: normal inspection of the chest Resp Effort & Inspection: normal respiratory effort Auscultation: clear to auscultation bilaterally Cardio Rate: regular rate Rhythm: regular rhythm GI Inspection: non-distended Palpation: soft and nontender Skin General: no rashes or lesions noted Neuro General: patient alert and patient oriented x3 Extrem General: full ROM Psych Appearance: grossly normal Mental Status: mental status grossly normal Assessment and Plan Assessment and Plan (1) Non-small cell lung cancer: Status: Chronic Qualifiers: Laterality: right Qualified Code(s): C34.91 - Malignant neoplasm of unspecified part of right bronchus or lung Comment: RUL NSCLC Poorly differentiated carcinoma with neuroendocrine features. Tumor size was 4.4cm, no mediastinal nodes. PET/CT for restaging on 07/21/2024 reviewed, showed 10cm RUL mass, adjacent to 1-4 ribs, no mediastinal node involvement. 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 PD-L1 5%, EGFR, ALK, BRAF, MET, RET, KRAS, ROS1 negative. Discussed further therapy with combined chemotherapy and radiation therapy as definitive therapy or before surgery. Pt agrees to proceed with chemoradiation therapy. Suggested Weekly Taxol and Carboplatin with Radiation. (2) Encounter for insertion of venous access port: Status: Acute Plan I discussed right chest port placement with the patient in detail. I discussed the procedure as well as the risks including but not limited to bleeding, infection, pneumothorax, line infection or DVT. Patient understands the risks and will hold his aspirin for 5 days prior to the procedure. Wayne Rosas MD Pager: [facility] [address] [place] [address], [address] [place] [address] Office: I have examined the patient and the H&P has been reviewed. There are no clinical changes since date of exam.
[2024-09-09] MEDS: Lidocaine 1%/Epi 1:200 (30ml) 30 ML AMPUL (11:35)
--- NOTE | 2024-09-09 11:38 | PCM.OPRPT ---
Operative Report (Standard) Operative Information Date of Procedure: 09/09/24 Pre-Operative Diagnosis: Need for vascular access for chemotherapy for lung cancer Post-Operative Diagnosis: Same Surgery/Procedure Performed: Ultrasound and fluoroscopy guided right chest port placement utilizing right IJ central services tech: No Type of Anesthesia: Local MAC RN Documented Start/Stop Times: Operation Date: 09/09/24 11:00 Case Time Into Pre-Op 09/09/24 09:07 Out of Pre-Op 09/09/24 11:03 Anesthesia Start 09/09/24 11:06 Into Room 09/09/24 11:06 Procedure Start 09/09/24 11:20 Procedure End 09/09/24 11:38 Procedure Start Time: 11:20 Procedure Stop Time: :38 Select all DRAINS/GRAFTS/IMPLANTS that apply: Prosthetic device Prosthetic device details: 8 [place] PowerPort Estimated Blood Loss: 5 Specimen collected: No Description of surgery: After obtaining informed consent patient was brought back to the operating room MAC anesthesia was induced and the right chest and neck were prepped in normal sterile fashion. Ultrasound was used to evaluate both IJs and the right IJ was selected. Next, using a needle, the right IJ was accessed and a guidewire was passed on into the superior vena cava under fluoroscopy guidance. A small incision was made over the puncture site and the dilator introducer was placed over the guidewire. Next this was capped and the pocket was made for the port. 1% lidocaine with epinephrine was injected in the proposed port site. An incision was made with scalpel. Electrocautery was used to make a pocket under the skin and subcutaneous tissue. Hemostasis was obtained. Next, the catheter was tunneled up to the neck incision site and placed through the introducer. The peel-away introducer was removed and the position of the catheter was confirmed on fluoroscopy. Next, the catheter was trimmed and attached to the port with the locking device. Interrupted 2-0 Vicryl sutures were used to anchor the port to the chest wall and then the port was placed inside the pocket. The pocket was then flushed with saline and the port irrigated with saline. There was good blood return and the port flushed easily. Next, heparin was injected into the port. The skin was closed with subcutaneous interrupted 3-0 Vicryl sutures. A single 3-0 Vicryl sutures placed under the skin at the neck incision site. Steri-Strips were placed as well as op sites. Patient tolerated procedure well, was taken to PACU in stable condition. Chest x-ray will be obtained. Surgical Findings: None Complications Complications: No Admit VTE Documentation VTE Mechan Device Prophylaxis: SCD's
--- NOTE | 2024-09-09 11:39 | DCINST_ITS ---
Discharge Instructions Procedure Port-A-Cath Diet Discharge Diet: Light diet - advance as tolerated (Pain medication may cause nausea. You should typically eat light foods as you take your pain medication.) Activity Discharge Activity: Return to Normal Activity and May Shower (with your bandage in place in 1-2 days after surgery. DO NOT SHOWER WHEN YOUR PORT IS ACCESSED.) Additional Activity Instructions:: Resume aspirin tomorrow, alternate ibuprofen and Tylenol for pain control Dressing / Incision Call your doctor if your incision/area has: Continuous Slow Oozing, Sudden Increased Bleeding, Increased Pain/ Swelling, Increased Redness and Foul Smelling Discharge Call your doctor if you observe: Fever of 101 or Higher Remove Dressing in: 2 days Cleanse incision/area with: Soap & Water Follow Up Care Please Follow Up With: Wayne Rosas MD When: as needed [phone] Test Results: Test results from this visit will be discussed in further detail at your follow- up appointment, if applicable. Discharge Plan Admission Attending Provider: Wayne Rosas Primary Care Provider: Kylie Anderson Instructions Print Language: [place] Citizen Discharge Orders/Prescriptions Prescriptions: No Action gabapentin 100 mg capsule 400 mg PO QHS gabapentin 300 mg capsule 300 mg PO BID lisinopril 20 mg tablet 20 mg PO QDAY lisinopril 10 mg tablet 10 mg PO QHS hydrochlorothiazide 12.5 mg capsule 12.5 mg PO QDAY ondansetron 8 mg tablet,disintegrating 8 mg PO Q8H PRN (Reason: nausea and vomiting) Qty: 30 2RF atorvastatin 40 mg tablet 40 mg PO QHS aspirin 81 mg tablet,chewable 1 tab PO DAILY amlodipine 10 mg Tablet 10 mg PO DAILY Qty: 0 0RF acetaminophen 500 mg Tablet 1,000 mg PO Q8 PRN (Reason: Pain 1-10 Or Fever) Qty: 1 0RF ascorbic acid (vitamin C) 500 mg Tablet 500 mg PO BIDCM Qty: 0 0RF magnesium hydroxide 400 mg/5 mL Suspension 30 ml PO X1 PRN (Reason: Constipation) Qty: 1 0RF ferrous sulfate [FeroSul] 325 mg (65 mg iron) Tablet 325 mg PO DAILY@1200 Qty: 0 0RF bupropion HCl 150 mg Tablet Extended Release 24 Hr 150 mg PO DAILY Qty: 0 0RF metformin 500 mg Tablet Extended Release 24 Hr 500 mg PO DINNER Qty: 1 0RF zinc sulfate 50 mg zinc (220 mg) Capsule 50 mg PO DAILYCM Qty: 1 0RF ibuprofen [IBU] 400 mg tablet 400 mg PO Q8H PRN (Reason: pain) doxycycline hyclate 100 mg tablet 100 mg PO BID 14 Days Qty: 28 0RF lidocaine-prilocaine 2.5-2.5 % cream 1 applic topical ONCE PRN (Reason: port access) 30 Days Qty: 30 2RF Referrals / Follow Up: Kylie Anderson MD [Primary Care Provider] - Disposition Disposition (needs filled in before D/C Order can be placed): Home, Self Care
--- NOTE | 2024-09-09 11:43 | PCM.POST.ANE ---
Anesthesia: Postop Eval I Current Vital Signs Temperature: 96.8 F Pulse Rate: 65 Blood Pressure: 134/71 Respiratory Rate: 20 Pulse Ox: 99 Oxygen Delivery Method: Room Air Assessment Airway patent: Yes Spontaneous unlabored respirations: Yes Mental status: Awake and Calm nausea: No Vomiting: No Anesthesia Complication: No Fluid Hydration Crystalloid volume administer (ml): 400 Total IV fluid infused: 400 Progress Note Anesthesia document: Postop Eval 1 completed: Yes
--- NOTE | 2024-09-09 11:50 | RAD_ITS ---
PROCEDURE: CXR FOR LINE PLACEMENT 09/09/2024 REASON FOR EXAM: LINE PLACEMENT TECHNIQUE: Frontal view of the chest. COMPARISON: Chest radiograph 07/2024. FINDINGS: Hardware: Interval right IJ chest port placement with tip overlying the SVC. Heart: Stable mild cardiomegaly. Lungs: Stable opacity overlying the right upper lung zone. No obvious pleural effusion or pneumothorax. Bones: Degenerative changes are identified within the thoracic spine. RAD/CXR for Line Placement IMPRESSION: Chest port placement as described. Stable right upper lung zone pulmonary mass . Reading Location: [id number]
--- NOTE | 2024-09-09 19:10 | POSTOPAN2_ITS ---
Anesthesia Postop Eval I Sum Postop Eval Completion status Anesthesia document: Postop Eval 1 completed: Yes Anesthesia Postop Eval I Summary Anesthesia Postop Eval I Summary: Anesthesia Postop Eval I: Assessment Summary Airway patent Yes 09/09/24 11:44 [email or web address] Spontaneous unlabored Yes 09/09/24 11:44 [email or web address] respirations Mental status Awake,Calm 09/09/24 11:44 [email or web address] nausea No 09/09/24 11:44 [email or web address] Vomiting No 09/09/24 11:44 [email or web address] Anesthesia Postop Eval I: Fluid Summary Crystalloid volume administer 400 09/09/24 11:44 [email or web address] (ml) Colloids volume administered ( ml) Blood Product volume administered (ml) Total IV fluid infused 400 09/09/24 11:44 [email or web address] Anesthesia Postop Eval I: Summary Notes Anesthesia Complication No 09/09/24 11:44 [email or web address] Anesthesia Complication Comment: Post-operative progress note Anesthesia: Postop Eval II Evaluation Mental status: Awake Pain Level: 3 nausea: No Vomiting: No
--- NOTE | 2024-09-09 19:10 | PCM.POSTANE2 ---
Anesthesia Postop Eval I Sum Postop Eval Completion status Anesthesia document: Postop Eval 1 completed: Yes Anesthesia Postop Eval I Summary Anesthesia Postop Eval I Summary: Anesthesia Postop Eval I: Assessment Summary Airway patent Yes 09/09/24 11:44 [email or web address] Spontaneous unlabored Yes 09/09/24 11:44 [email or web address] respirations Mental status Awake,Calm 09/09/24 11:44 [email or web address] nausea No 09/09/24 11:44 [email or web address] Vomiting No 09/09/24 11:44 [email or web address] Anesthesia Postop Eval I: Fluid Summary Crystalloid volume administer 400 09/09/24 11:44 [email or web address] (ml) Colloids volume administered ( ml) Blood Product volume administered (ml) Total IV fluid infused 400 09/09/24 11:44 [email or web address] Anesthesia Postop Eval I: Summary Notes Anesthesia Complication No 09/09/24 11:44 [email or web address] Anesthesia Complication Comment: Post-operative progress note Anesthesia: Postop Eval II Evaluation Mental status: Awake Pain Level: 3 nausea: No Vomiting: No
== END 2024-09-09 12:50 | disposition home or self-care (01) ==
LOC: SDC 09:01 → AC 09:02
PROVIDERS: PCP Internal Medicine; Referring Provider Surgery; Visit Provider Surgery
PROC: (CPT 36561; principal; 2024-09-09 10:45)
DX: Z45.2 Encounter for adjustment and management of vascular access device (principal); C34.91 Malignant neoplasm of unspecified part of right bronchus or lung; E11.40 Type 2 diabetes mellitus with diabetic neuropathy, unspecified; E78.00 Pure hypercholesterolemia, unspecified; Z87.891 Personal history of nicotine dependence; Z79.84 Long term (current) use of oral hypoglycemic drugs; I10 Essential (primary) hypertension; Z79.82 Long term (current) use of aspirin; Z79.899 Other long term (current) drug therapy; Z79.01 Long term (current) use of anticoagulants
CPT/HCPCS: 36561; 00532; 71045; 77001; 82962; C1788

== ENCOUNTER 2024-09-10 14:30 | Outpatient (RCR) | payer MEDICAID, SELFPAY ==
[2024-08-27 14:38] VITALS: BP 158/100; PULSE 78; RESP 18; TEMP 36.2
--- NOTE | 2024-08-27 17:23 | PCM.WC.PN ---
History of Present Illness Date of Service: 08/27/24 Chief Complaint: R AKA incisional wound History of Wound: Mr. Bruce Kohler presents to the wound center today for management of his R AKA incision site wound. To this point, I have been seeing him in the vascular surgery office. 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 Most of the incision has healed with the exception of this central, superficially dehisced section. He has had persistent serous drainage from this area, it has significant overlying slough. He previously had cellulitis in this area which was successfully treated with a 14 day course of cellulitis and which has not recurred. He currently resides in SNF and they provide wound care. Subjective Subjective Mr. Kohler reports he has been doing well overall. He was discharged from SNF last week and has been living at home alone, he does not have any HHC. He has been performing his own dressing changes and has not been able to do any packing as he cannot see it very well. He does note that he has recently noticed much less drainage from the wound. He reports no new/worsened pain. He denies any fevers/chills. He has been applying Dakins to gauze and placing this over the wound. He has been following with oncology Dr. Rosario for his lung cancer. He is scheduled to have medport placed near the end of August and expects to start chemo shortly after. He also is being prepared for radiation to start later this month or next month as well. Objective Data Objective Data Vital Signs: Vital Signs Temp Pulse Resp BP O2 Del Method 97.2 F L 78 18 158/100 H Room Air 08/27/24 14:38 08/27/24 14:38 08/27/24 14:38 08/27/24 14:38 08/27/24 14:38 Oxygen Delivery Method Room Air Charges/Coding Procedures Integumentary 111xxx-113xx: [id number] Global Visit Physical Exam Const alert, oriented x3 and no apparent distress General Appearance: cooperative and comfortable HEENT normocephalic, head/scalp atraumatic, hearing grossly normal bilaterally and external ears normal Eyes General Eye: normal appearance of both eyes Neck General: normal visual inspection and trachea midline Resp normal respiratory effort, normal air movement, no retractions and no use of accessory muscles Effort and Inspection: able to speak in complete sentences Extremity Extremity Narrative: R AKA Skin Wounds: wounds noted Wound Narrative: Superficial dehiscence of the central portion of the R AKA incision site 0.5 x 1.0 cm which probes to 0.4 cm depth with significant overlying adherent yellow slough and mild serous drainage. There is some surrounding mild erythema/pink discoloration with dermatitic appearance. No purulent drainage. Neuro oriented x3, moves all extremities and no focal motor deficits Speech: speech normal Psych mental status grossly normal Appearance: grossly normal Attitude: calm and engaged Activity / Motor Behavior: appropriate eye contact Speech: normal speech Debridement Note Debridement Note Wound debrided: R AKA wound Laterality: Right Type of Debridement: Excisional debridement Anesthesia Used: 5% Lidocaine Gel Depth: in the subcutaneous layer Percentage of wound debrided: 100 Instrument Used: 3mm curette Tissue Removed: slough/bioburden Severity: Fat Layer Exposed Amount of bleeding with debridement: Mild Bleeding Controlled with: Pressure Patient tolerated procedure: Patient tolerated procedure well Post-Debridement Measurements and Additional Note: Post-Debridement Measurements/Treatment - Nurse 1 - General Ulcer Assessment Start: 08/27/24 14:38 Freq: Status: Active Protocol: ADIN.TRUNG Activity Type Activity Date Activity User E-sign Co-sign Detail Recorded Client Recorded Date Recorded By Document 08/27/24 14:38 VIANNEY [id number] 08/27/24 14:44 VIANNEY 08/27/24 14:38 - Today's Visit Information Type of service 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 Any new allergies or adverse reactions No Had a fall/change in ADL's that may No increase risk of falls Signs or symptoms of abuse and/or No neglect since last visit Have you been in the hospital since your No last visit? Has dressing in place as prescribed Yes Has compression in place as prescribed Yes Has offloadiing in place as prescribed Yes Experienced any changes in pain level or No management Left Footwear Regular Shoe Right Footwear No Footwear Pain Scale: 0-10 Numeric Is Patient Pain Free? Yes - Nurse 1 - General Ulcer Measurement Start: 08/27/24 14:38 Freq: Status: Active Protocol: Activity Type Activity Date Activity User E-sign Co-sign Detail Recorded Client Recorded Date Recorded By Document 08/27/24 14:38 [id number] 08/27/24 14:44 08/27/24 14:38 Wound Center Nurse 1 #2 R Stump -Current Size (cm) - Length 0.6 -Current Size (cm) - Width 0.8 -Current Size (cm) - Depth 0.3 -Total Square Cm 0.48 -Date of Last Picture (Recall this 08/27/24 field) -Exudate Amt Medium -Exudate Type Serosanguineous -Wound Margin Distinct, Outline Attached -Granulation Amt Small (1-33%) -Granulation Quality [place] -Necrosis Amt Medium (34-66%) -Necrotic Tissue Type Adherent Slough -Texture (Reny-wound Skin Appearance) Assessed,Rash -Moisture (Reny-wound Skin Appearance) Assessed -Color (Reny-wound Skin Appearance) Assessed, Erythema -Temperature (Reny-wound Skin No Abnormality Appearance) (Pt Warm) -Tenderness on Palpation (Reny-wound No Skin Appearance) -Ulcer Cleansing Soap and Water -Foul Odor after Cleansing No -Anesthetic Used 5% Lidocaine Gel - Nurse 2 - General Ulcer CM Notes Start: 08/27/24 14:38 Freq: Status: Active Protocol: Activity Type Activity Date Activity User E-sign Co-sign Detail Recorded Client Recorded Date Recorded By Document 08/27/24 15:19 [id number] 08/27/24 15:24 08/27/24 15:19 Wound Center Nurse 2 -Time 15:20 -Correct Patient Yes -Correct Side, Site, Position Yes -Correct Procedure Yes -Procedure Performed Yes -Type of Procedure Debridement -Clinical Debridement Subcutaneous -Tissue Removed Subcutaneous -Post Debridement (cm) - Length 0.5 -Post Debridement (cm) - Width 1.0 -Post Debridement (cm) - Depth 0.4 -Total Square (Post) (cm) 0.50 -Area of Debridement (cm) - Length 0.5 -Area of Debridement (cm) - Width 1.0 -Total Square (Area) (cm) 0.50 -Tunneling No -Undermining/Tunneling No -Circular Undermining No -Wound/Ulcer Outcome Not Healed -Ulcer Cleansing Rinsed/ Irrigated with Saline -Foul Odor after Cleansing No -Bioengineered Tissue No -Bleeding Controlled with Pressure -Treatment Response Procedure Tolerated Well -Offloading No -Debridement - Subq, 1st 20sq cm Yes Pain Scale: 0-10 Numeric Is Patient Pain Free? Yes - Nurse 3 - General Ulcer D/C NN Start: 08/27/24 14:38 Freq: Status: Active Protocol: Activity Type Activity Date Activity User E-sign Co-sign Detail Recorded Client Recorded Date Recorded By Document 08/27/24 15:33 [email or web address] [id number] 08/27/24 15:34 KW 08/27/24 15:33 Wound Care Center Nurse 3 #2 R Stump -Primary Dressing Applied Promogran Moisés Matter, Silicone Border Foam 4x4 -Other Dressing LIGHTELY MOISTENED MOISÉS -Promogran Moisés Matter 1 -Silicone Border Foam 4x4 1 Pain Scale: 0-10 Numeric Is Patient Pain Free? Yes WC - Visit Discharge Discharge Condition Stable Ambulatory Status Wheelchair Transportation Private Auto Medication Reconcilliation completed & No provided to patient/care provider Clinical Summary of Care Provided Yes Assessment/Plan Assessment/Plan (1) S/P amputation: CODE(S): Z89.9 - Acquired absence of limb, unspecified (2) Dehiscence of surgical wound: CODE(S): T81.31XA - Disruption of external operation (surgical) wound, not elsewhere classified, initial encounter (3) Delayed surgical wound healing: CODE(S): T81.89XA - Other complications of procedures, not elsewhere classified, initial encounter PLAN: Plan R AKA stump with central portion which has superficially dehisced/ leading to a wound. This wound has significantly improved in size and depth since his last visit. There is surrounding erythema which is perhaps dermatitis from the Dakins/gauze dressing vs early cellulitis. Will treat for cellulitis with doxycycline 100mg tab PO BID x 14 days empirically; this was effective the last time he had cellulitis. Wound cultures were also obtained and I will adjust antibiotic therapy as indicated. Debridement was performed as above and he tolerated this well. For wound care: (1) Cleanse the area with antibacterial soap and water, pat to dry (2) Apply lightly-moistened Moisés to the wound bed (3) Cover with Mepilex or ExcelSAP dressing (4) Change daily or more often as needed to manage drainage. He will return in 1 week, sooner as needed.
--- NOTE | 2024-08-28 10:29 | WC ---
PHOTO 08/27/24 RIGHT STUMP
--- NOTE | 2024-09-03 08:57 | PCM.WC.PN ---
History of Present Illness Date of Service: 09/03/24 Chief Complaint: R AKA incisional wound History of Wound: Mr. Bruce Kohler presents to the wound center today for management of his R AKA incision site wound. To this point, I have been seeing him in the vascular surgery office. 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 Most of the incision has healed with the exception of this central, superficially dehisced section. Notably, he has stage III lung cancer and is starting radiation and chemotherapy. Subjective Subjective The redness around his wound has improved with the doxycycline to this point. He has not noticed any new/worsening drainage. He has not acute concerns over the wound. He is starting chemotherapy and radiation next week for treatment of his stage III lung cancer; he will be going M-F. Objective Data Objective Data Vital Signs: Vital Signs Temp Pulse Resp BP O2 Del Method 97.2 F L 78 18 158/100 H Room Air 08/27/24 14:38 08/27/24 14:38 08/27/24 14:38 08/27/24 14:38 08/27/24 14:38 Oxygen Delivery Method Room Air Lab / Micro Data Micro: Microbiology 08/28/24 13:21 Amputation - Leg, Right Gram Stain - Final 08/28/24 13:21 Amputation - Leg, Right Wound Culture - Final Pseudomonas spp Staphylococcus haemolyticus Corynebacterium striatum Charges/Coding Procedures Integumentary [id number]: [id number] Senait subq tissue 20 sq cm/< Physical Exam Const alert, oriented x3 and no apparent distress General Appearance: cooperative and comfortable HEENT normocephalic, head/scalp atraumatic, hearing grossly normal bilaterally and external ears normal Eyes General Eye: normal appearance of both eyes Neck General: normal visual inspection and trachea midline Resp normal respiratory effort, normal air movement, no retractions and no use of accessory muscles Effort and Inspection: able to speak in complete sentences Extremity Extremity Narrative: R AKA Skin Wounds: wounds noted Wound Narrative: Superficial dehiscence of the central portion of the R AKA incision site 0.5 x 0.5 cm which probes to 0.4 cm depth with significant overlying adherent yellow slough and mild serous drainage. Prior erythema and dermatitis has resolved. Neuro oriented x3, moves all extremities and no focal motor deficits Speech: speech normal Psych mental status grossly normal Appearance: grossly normal Attitude: calm and engaged Activity / Motor Behavior: appropriate eye contact Speech: normal speech Debridement Note Debridement Note Wound debrided: R AKA wound Laterality: Right Type of Debridement: Excisional debridement Anesthesia Used: 5% Lidocaine Gel Depth: in the subcutaneous layer Percentage of wound debrided: 100 Instrument Used: 3mm curette Tissue Removed: slough/bioburden Severity: Fat Layer Exposed Amount of bleeding with debridement: Mild Bleeding Controlled with: Pressure Patient tolerated procedure: Patient tolerated procedure well Post-Debridement Measurements and Additional Note: Post-Debridement Measurements/Treatment WC - Nurse 1 - General Ulcer Assessment Start: 08/27/24 14:38 Freq: Status: Active Protocol: TREY Activity Type Activity Date Activity User E-sign Co-sign Detail Recorded Client Recorded Date Recorded By Document 08/27/24 14:38 VIANNEY [id number] 08/27/24 14:44 KW 08/27/24 14:38 WC - Today's Visit Information Type of service Follow-up Visit (Physician/DEPUT[facility]ONER ) Arrival Mode Wheelchair Patient Identification Verified (Name & Yes ) Vital Signs Temperature (97.8 F-99.1 F) 97.2 F L Temperature Source Temporal Pulse Rate (60-100) 78 Pulse Location Monitor Respiratory Rate (12-18) 18 Respiratory rate source Observation Oxygen Delivery Method Room Air Blood Pressure (90/60-120/80) 158/100 H Blood Pressure Mean (mm Hg) 119 Source Monitor Position Semi-Fowlers Blood Pressure Location Left Arm History Since Last Visit- (Skip if this is Patient's initial visit) Have you changed medications since your No last visit? Any new allergies or adverse reactions No Had a fall/change in ADL's that may No increase risk of falls Signs or symptoms of abuse and/or No neglect since last visit Have you been in the hospital since your No last visit? Has dressing in place as prescribed Yes Has compression in place as prescribed Yes Has offloadiing in place as prescribed Yes Experienced any changes in pain level or No management Left Footwear Regular Shoe Right Footwear No Footwear Pain Scale: 0-10 Numeric Is Patient Pain Free? Yes - Nurse 1 - General Ulcer Measurement Start: 08/27/24 14:38 Freq: Status: Active Protocol: Activity Type Activity Date Activity User E-sign Co-sign Detail Recorded Client Recorded Date Recorded By Document 08/27/24 14:38 [id number] 08/27/24 14:44 08/27/24 14:38 Wound Center Nurse 1 #2 R Stump -Current Size (cm) - Length 0.6 -Current Size (cm) - Width 0.8 -Current Size (cm) - Depth 0.3 -Total Square Cm 0.48 -Date of Last Picture (Recall this 08/27/24 field) -Exudate Amt Medium -Exudate Type Serosanguineous -Wound Margin Distinct, Outline Attached -Granulation Amt Small (1-33%) -Granulation Quality [place] -Necrosis Amt Medium (34-66%) -Necrotic Tissue Type Adherent Slough -Texture (Reny-wound Skin Appearance) Assessed,Rash -Moisture (Reny-wound Skin Appearance) Assessed -Color (Reny-wound Skin Appearance) Assessed, Erythema -Temperature (Reny-wound Skin No Abnormality Appearance) (Pt Warm) -Tenderness on Palpation (Reny-wound No Skin Appearance) -Ulcer Cleansing Soap and Water -Foul Odor after Cleansing No -Anesthetic Used 5% Lidocaine Gel WC - Nurse 2 - General Ulcer CM Notes Start: 08/27/24 14:38 Freq: Status: Active Protocol: Activity Type Activity Date Activity User E-sign Co-sign Detail Recorded Client Recorded Date Recorded By Document 08/27/24 15:19 [id number] 08/27/24 15:24 08/27/24 15:19 Wound Center Nurse 2 -Time 15:20 -Correct Patient Yes -Correct Side, Site, Position Yes -Correct Procedure Yes -Procedure Performed Yes -Type of Procedure Debridement -Clinical Debridement Subcutaneous -Tissue Removed Subcutaneous -Post Debridement (cm) - Length 0.5 -Post Debridement (cm) - Width 1.0 -Post Debridement (cm) - Depth 0.4 -Total Square (Post) (cm) 0.50 -Area of Debridement (cm) - Length 0.5 -Area of Debridement (cm) - Width 1.0 -Total Square (Area) (cm) 0.50 -Tunneling No -Undermining/Tunneling No -Circular Undermining No -Wound/Ulcer Outcome Not Healed -Ulcer Cleansing Rinsed/ Irrigated with Saline -Foul Odor after Cleansing No -Bioengineered Tissue No -Bleeding Controlled with Pressure -Treatment Response Procedure Tolerated Well -Offloading No -Debridement - Subq, 1st 20sq cm Yes Pain Scale: 0-10 Numeric Is Patient Pain Free? Yes - Nurse 3 - General Ulcer D/C NN Start: 08/27/24 14:38 Freq: Status: Active Protocol: Activity Type Activity Date Activity User E-sign Co-sign Detail Recorded Client Recorded Date Recorded By Document 08/27/24 15:33 [email or web address] [id number] 08/27/24 15:34 KW 08/27/24 15:33 Wound Care Center Nurse 3 #2 R Stump -Primary Dressing Applied Promogran Moisés Matter, Silicone Border Foam 4x4 -Other Dressing LIGHTELY MOISTENED MOISÉS -Promogran Moisés Matter 1 -Silicone Border Foam 4x4 1 Pain Scale: 0-10 Numeric Is Patient Pain Free? Yes WC - Visit Discharge Discharge Condition Stable Ambulatory Status Wheelchair Transportation Private Auto Medication Reconcilliation completed & No provided to patient/care provider Clinical Summary of Care Provided Yes Assessment/Plan Assessment/Plan (1) S/P amputation: CODE(S): Z89.9 - Acquired absence of limb, unspecified (2) Dehiscence of surgical wound: CODE(S): T81.31XA - Disruption of external operation (surgical) wound, not elsewhere classified, initial encounter (3) Delayed surgical wound healing: CODE(S): T81.89XA - Other complications of procedures, not elsewhere classified, initial encounter PLAN: Plan Erythema and dermatitic appearance from last week has resolved. He will complete his current course of doxycycline. Debridement was performed as above and he tolerated this well. For wound care: (1) Cleanse the area with antibacterial soap and water, pat to dry (2) Apply lightly-moistened Moisés to the wound bed (3) Cover with Mepilex or ExcelSAP dressing (4) Change daily or more often as needed to manage drainage. He will return in 1 week, sooner as needed.
[2024-09-03 14:11] VITALS: BP 159/92; PULSE 80; RESP 16; TEMP 36.1
--- NOTE | 2024-09-07 09:47 | WC ---
PHOTO 09/03/24 RIGHT STUMP
[2024-09-10 14:40] VITALS: BP 132/78; PULSE 80; RESP 16; TEMP 36.8
--- NOTE | 2024-09-10 15:30 | WC ---
PHOTO-RIGHT STUMP 09/10/24
--- NOTE | 2024-09-10 16:04 | PCM.WC.PN ---
History of Present Illness Date of Service: 09/10/24 Chief Complaint: R AKA incisional wound History of Wound: Mr. Bruce Kohler presents to the wound center today for management of his R AKA incision site wound. To this point, I have been seeing him in the vascular surgery office. 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 Most of the incision has healed with the exception of this central, superficially dehisced section. Notably, he has stage III lung cancer and is starting radiation and chemotherapy. Subjective Subjective Mr. Kohler is doing okay this week. No new concerns about the R stump wound, he continues to notice lessening drainage. He did start chemotherapy and radiation since last week, he is having nausea but otherwise tolerating this okay so far. Objective Data Objective Data Vital Signs: Vital Signs Temp Pulse Resp BP O2 Del Method 98.3 F 80 16 132/78 H Room Air 09/10/24 14:40 09/10/24 14:40 09/10/24 14:40 09/10/24 14:40 09/10/24 14:40 Oxygen Delivery Method Room Air Lab / Micro Data Micro: Microbiology 08/28/24 13:21 Amputation - Leg, Right Gram Stain - Final 08/28/24 13:21 Amputation - Leg, Right Wound Culture - Final Pseudomonas spp Staphylococcus haemolyticus Corynebacterium striatum 08/28/24 13:21 Amputation - Leg, Right Anaerobic Culture - Final No anaerobic bacteria isolated. Charges/Coding Procedures Integumentary 111xxx-113xx: [id number] Senait subq tissue 20 sq cm/< Physical Exam Const alert, oriented x3 and no apparent distress General Appearance: cooperative and comfortable HEENT normocephalic, head/scalp atraumatic, hearing grossly normal bilaterally and external ears normal Eyes General Eye: normal appearance of both eyes Neck General: normal visual inspection and trachea midline Resp normal respiratory effort, normal air movement, no retractions and no use of accessory muscles Effort and Inspection: able to speak in complete sentences Extremity Extremity Narrative: R AKA Skin Wounds: wounds noted Wound Narrative: Superficial dehiscence of the central portion of the R AKA incision site 0.4 x 0.4 x 0.2 cm with moderate adherent yellow slough and no significant drainage. Prior erythema and dermatitis has resolved. Neuro oriented x3, moves all extremities and no focal motor deficits Speech: speech normal Psych mental status grossly normal Appearance: grossly normal Attitude: calm and engaged Activity / Motor Behavior: appropriate eye contact Speech: normal speech Debridement Note Debridement Note Wound debrided: R AKA wound Laterality: Right Type of Debridement: Excisional debridement Anesthesia Used: 5% Lidocaine Gel Depth: in the subcutaneous layer Percentage of wound debrided: 100 Instrument Used: 3mm curette Tissue Removed: slough/bioburden Severity: Fat Layer Exposed Amount of bleeding with debridement: Mild Bleeding Controlled with: Pressure Patient tolerated procedure: Patient tolerated procedure well Post-Debridement Measurements and Additional Note: Post-Debridement Measurements/Treatment - Nurse 1 - General Ulcer Assessment Start: 08/27/24 14:38 Freq: Status: Active Protocol: TREY Activity Type Activity Date Activity User E-sign Co-sign Detail Recorded Client Recorded Date Recorded By Document 08/27/24 14:38 KW [id number] 08/27/24 14:44 KW Document 09/03/24 14:11 DL [id number] 09/03/24 14:16 DL Document 09/10/24 14:40 BMF [id number] 09/10/24 14:46 BMF 08/27/24 09/03/24 09/10/24 14:38 14:11 14:40 - Today's Visit Information Type of service Follow-up Visit Follow-up Visit Follow-up Visit (Physician/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 MACHINE 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 (Physician/BLIND 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 MACHINE OPERATOR (Physician/BLIND 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 MACHINE OPERATOR ) ) ) Arrival Mode Wheelchair Wheelchair Wheelchair Transfer Assistance None Other Transfer Assist (Other) STAND BY Patient Identification Verified (Name & Yes Yes Yes ) Patient Requires Transmission-Based No No Precautions Vital Signs Temperature (97.8 F-99.1 F) 97.2 F L 96.9 F L 98.3 F Temperature Source Temporal Temporal Temporal Pulse Rate (60-100) 78 80 80 Pulse Location Monitor Monitor Monitor Respiratory Rate (12-18) 18 16 16 Respiratory rate source Observation Observation Observation Oxygen Delivery Method Room Air Room Air Blood Pressure (90/60-120/80) 158/100 H 159/92 H 132/78 H Blood Pressure Mean (mm Hg) 119 114 96 Source Monitor Monitor Monitor Position Semi-Fowlers Sitting Blood Pressure Location Left Arm Left Arm History Since Last Visit- (Skip if this is Patient's initial visit) Have you changed medications since your No No last visit? Any new allergies or adverse reactions No No No Had a fall/change in ADL's that may No No No increase risk of falls Signs or symptoms of abuse and/or No No No neglect since last visit Have you been in the hospital since your No No No last visit? Has dressing in place as prescribed Yes Yes Yes Has compression in place as prescribed Yes Yes Has offloadiing in place as prescribed Yes Yes Experienced any changes in pain level or No No management Left Footwear Regular Shoe Regular Shoe Right Footwear No Footwear Pain Scale: 0-10 Numeric Is Patient Pain Free? Yes Yes Yes WC - Nurse 1 - General Ulcer Measurement Start: 08/27/24 14:38 Freq: Status: Active Protocol: Activity Type Activity Date Activity User E-sign Co-sign Detail Recorded Client Recorded Date Recorded By Document 08/27/24 14:38 KW [id number] 08/27/24 14:44 KW Document 09/03/24 14:11 DL [id number] 09/03/24 14:16 DL Document 09/10/24 14:40 [facility] [id number] 09/10/24 14:46 BM 08/27/24 09/03/24 09/10/24 14:38 14:11 14:40 Wound Center Nurse 1 #2 R Stump -Combined with other wound No -Current Size (cm) - Length 0.6 0.4 0.5 -Current Size (cm) - Width 0.8 0.6 0.6 -Current Size (cm) - Depth 0.3 0.1 0.1 -Total Square Cm 0.48 0.24 0.30 -Date of Last Picture (Recall this 08/27/24 09/10/24 field) -Photo Taken Yes Yes -Epithelialization Small 1-33% -Tunneling No -Undermining/Tunneling No -Circular Undermining No -Exudate Amt Medium Small Medium -Exudate Type Serosanguineous Serosanguineous Serosanguineous -Wound Margin Distinct, Distinct, Distinct, Outline Outline Outline Attached Attached Attached -Granulation Amt Small (1-33%) Small (1-33%) Large (67-100%) -Granulation Quality Gladwin Gladwin -Slough/Fibrin Yes -Necrosis Amt Medium (34-66%) Large (67-100%) Small (1-33%) -Necrotic Tissue Type Adherent Slough Adherent Slough Adherent Slough -Structure Exposed N/A -Texture (Reny-wound Skin Appearance) Assessed,Rash Scarring Assessed, Scarring -Moisture (Reny-wound Skin Appearance) Assessed No Abnormality Assessed,Dry/ Scaly -Color (Reny-wound Skin Appearance) Assessed, No Abnormality Assessed Erythema -Temperature (Reny-wound Skin No Abnormality No Abnormality No Abnormality Appearance) (Pt Warm) (Pt Warm) (Pt Warm) -Tenderness on Palpation (Reny-wound No No No Skin Appearance) -Ulcer Cleansing Soap and Water Soap and Water Rinsed/ Irrigated with Saline -Foul Odor after Cleansing No No No -Anesthetic Used 5% Lidocaine 5% Lidocaine 5% Lidocaine Gel Gel Gel WC - Nurse 2 - General Ulcer CM Notes Start: 08/27/24 14:38 Freq: Status: Active Protocol: Activity Type Activity Date Activity User E-sign Co-sign Detail Recorded Client Recorded Date Recorded By Document 08/27/24 15:19 [id number] 08/27/24 15:24 Document 09/03/24 14:26 [facility] [id number] 09/03/24 14:31 [facility] Document 09/10/24 15:14 DS [id number] 09/10/24 15:14 DS 08/27/24 09/03/24 09/10/24 15:19 14:26 15:14 Wound Center Nurse 2 #2 R Stump -Time 15:20 14:27 15:14 -Correct Patient Yes Yes Yes -Correct Side, Site, Position Yes Yes Yes -Correct Procedure Yes Yes Yes -Procedure Performed Yes Yes Yes -Type of Procedure Debridement Debridement Debridement -Clinical Debridement Subcutaneous Subcutaneous Subcutaneous -Tissue Removed Subcutaneous Subcutaneous Subcutaneous -Post Debridement (cm) - Length 0.5 0.5 0.4 -Post Debridement (cm) - Width 1.0 0.4 0.4 -Post Debridement (cm) - Depth 0.4 0.3 0.2 -Total Square (Post) (cm) 0.50 0.20 0.16 -Area of Debridement (cm) - Length 0.5 0.5 0.4 -Area of Debridement (cm) - Width 1.0 0.4 0.4 -Total Square (Area) (cm) 0.50 0.20 0.16 -Tunneling No No No -Undermining/Tunneling No No No -Circular Undermining No No No -Wound/Ulcer Outcome Not Healed Not Healed Not Healed -Ulcer Cleansing Rinsed/ Rinsed/ Rinsed/ Irrigated with Irrigated with Irrigated with Saline Saline Saline -Foul Odor after Cleansing No No No -Bioengineered Tissue No No No -Bleeding Controlled with Pressure Pressure Pressure -Treatment Response Procedure Procedure Procedure Tolerated Well Tolerated Well Tolerated Well -Offloading No -Debridement - Subq, 1st 20sq cm Yes Yes Yes Pain Scale: 0-10 Numeric Is Patient Pain Free? Yes Yes Yes - Nurse 3 - General Ulcer D/C NN Start: 08/27/24 14:38 Freq: Status: Active Protocol: Activity Type Activity Date Activity User E-sign Co-sign Detail Recorded Client Recorded Date Recorded By Document 08/27/24 15:33 KW [id number] 08/27/24 15:34 KW Document 09/03/24 14:38 DL [id number] 09/03/24 14:39 DL Document 09/10/24 15:21 [facility] [id number] 09/10/24 15:22 [facility] 08/27/24 09/03/24 09/10/24 15:33 14:38 15:21 Wound Care Center Nurse 3 #2 R Stump -Ulcer Cleansing Rinsed/ Rinsed/ Irrigated with Irrigated with Saline Saline -Foul Odor after Cleansing No No -Primary Dressing Applied Promogran Promogran Promogran Moisés Matter, Moisés Matter, Moisés Matter, Silicone Border Silicone Border Silicone Border Foam 4x4 Foam 6x6 Foam 4x4 -Other Dressing LIGHTELY MOISTENED MOISÉS -Promogran Moisés Matter 1 1 1 -Silicone Border Foam 4x4 1 1 -Silicone Border Foam 6x6 1 Treatment Response Procedure Procedure Tolerated Well Tolerated Well Pain Scale: 0-10 Numeric Is Patient Pain Free? Yes Yes Yes - Visit Discharge Discharge Condition Stable Stable Stable Ambulatory Status Wheelchair Wheelchair Wheelchair Transportation Private Auto Private Auto Medication Reconcilliation completed & No provided to patient/care provider Clinical Summary of Care Provided Yes Assessment/Plan Assessment/Plan (1) S/P amputation: CODE(S): Z89.9 - Acquired absence of limb, unspecified (2) Dehiscence of surgical wound: CODE(S): T81.31XA - Disruption of external operation (surgical) wound, not elsewhere classified, initial encounter (3) Delayed surgical wound healing: CODE(S): T81.89XA - Other complications of procedures, not elsewhere classified, initial encounter PLAN: Plan His R AKA stump wound continues to improve, nearly healed. Debridement was performed as above and he tolerated this well. For wound care: (1) Cleanse the area with antibacterial soap and water, pat to dry (2) Apply lightly-moistened Moisés to the wound bed (3) Cover with Mepilex or ExcelSAP dressing (4) Change daily or more often as needed to manage drainage. He will return in 2 weeks, sooner as needed.
== END 2024-09-17 23:59 | disposition home or self-care (01) ==
LOC: WC 14:30
PROVIDERS: PCP Internal Medicine; Referring Provider Physician Assistant; Visit Provider Physician Assistant
DX: T81.31XA Disruption of external operation (surgical) wound, not elsewhere classified, initial encounter (principal); C34.90 Malignant neoplasm of unspecified part of unspecified bronchus or lung; Z89.611 Acquired absence of right leg above knee; T81.89XA Other complications of procedures, not elsewhere classified, initial encounter
CPT/HCPCS: 11042; 87070; 87075; 87077; 87186; 87205

== ENCOUNTER 2024-09-24 14:03 | Outpatient (RCR) | payer MEDICAID, SELFPAY ==
[2024-09-24 14:08] VITALS: BP 174/96; PULSE 79; RESP 16; TEMP 36.6
--- NOTE | 2024-09-24 17:50 | PCM.WC.PN ---
History of Present Illness Date of Service: 09/24/24 Chief Complaint: R AKA incisional wound History of Wound: Mr. Bruce Kohler presents to the wound center today for management of his R AKA incision site wound. To this point, I have been seeing him in the vascular surgery office. 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 Most of the incision has healed with the exception of this central, superficially dehisced section. Notably, he has stage III lung cancer and is starting radiation and chemotherapy. Subjective Subjective He reports he has had no drainage from the wound this week. No new wounds or other concerns. Reports he is tolerating radiation and chemo well so far. He wonders if he can start prosthesis process. Also has not noted much phantom pain; he saw Dr. Pham earlier today and he advised trying to come off the gabapentin as he may not need it. Right now, he takes 1,000mg of gabapentin a day; 300MG morning and lunch and 400MG at night. Objective Data Objective Data Vital Signs: Vital Signs Temp Pulse Resp BP 98 F 79 16 174/96 H 09/24/24 14:08 09/24/24 14:08 09/24/24 14:08 09/24/24 14:08 Charges/Coding Visit Charges Office Visits / Consults: [id number] OV L3 Est 20min Physical Exam Const alert, oriented x3 and no apparent distress General Appearance: cooperative and comfortable HEENT normocephalic, head/scalp atraumatic, hearing grossly normal bilaterally and external ears normal Eyes General Eye: normal appearance of both eyes Neck General: normal visual inspection and trachea midline Resp normal respiratory effort, normal air movement, no retractions and no use of accessory muscles Effort and Inspection: able to speak in complete sentences Extremity Extremity Narrative: R AKA Skin Wounds: wounds noted Wound Narrative: R AKA incision site wound is essentially healed ~0.1x0.1x0.1 portion remains slightly open, but no drainage appreciated, no erythema/warmth. Neuro oriented x3, moves all extremities and no focal motor deficits Speech: speech normal Psych mental status grossly normal Appearance: grossly normal Attitude: calm and engaged Activity / Motor Behavior: appropriate eye contact Speech: normal speech Debridement Note Debridement Note No debridement was completed: No debridement was completed today Post-Debridement Measurements and Additional Note: Post-Debridement Measurements/Treatment WC - Nurse 1 - General Ulcer Assessment Start: 09/24/24 14:08 Freq: Status: Active Protocol: TREY Activity Type Activity Date Activity User E-sign Co-sign Detail Recorded Client Recorded Date Recorded By Document 09/24/24 14:08 DEVON [id number] 09/24/24 14:14 DL 09/24/24 14:08 WC - Today's Visit Information Type of service Follow-up Visit (Physician/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 Any new allergies or adverse reactions No Had a fall/change in ADL's that may No increase risk of falls Signs or symptoms of abuse and/or No neglect since last visit Have you been in the hospital since your No last visit? Has dressing in place as prescribed Yes Has compression in place as prescribed Yes Has offloadiing in place as prescribed Yes Experienced any changes in pain level or No management Pain Scale: 0-10 Numeric Is Patient Pain Free? Yes ADIN - Nurse 1 - General Ulcer Measurement Start: 09/24/24 14:08 Freq: Status: Active Protocol: Activity Type Activity Date Activity User E-sign Co-sign Detail Recorded Client Recorded Date Recorded By Document 09/24/24 14:08 DEVON [id number] 09/24/24 14:14 DEVON 09/24/24 14:08 Wound Center Nurse 1 #2 R Stump -Current Size (cm) - Length 0.1 -Current Size (cm) - Width 0.1 -Current Size (cm) - Depth 0.1 -Total Square Cm 0.01 -Exudate Amt None Present -Wound Margin Flat & Intact -Granulation Amt Small (1-33%) -Granulation Quality Pale,[place] -Necrosis Amt None Present (0 %) -Structure Exposed N/A -Texture (Reny-wound Skin Appearance) Scarring -Moisture (Reny-wound Skin Appearance) No Abnormality -Color (Reny-wound Skin Appearance) No Abnormality -Temperature (Reny-wound Skin No Abnormality Appearance) (Pt Warm) -Tenderness on Palpation (Reny-wound No Skin Appearance) -Ulcer Cleansing Rinsed/ Irrigated with Saline -Foul Odor after Cleansing No WC - Nurse 2 - General Ulcer CM Notes Start: 09/24/24 14:08 Freq: Status: Active Protocol: Activity Type Activity Date Activity User E-sign Co-sign Detail Recorded Client Recorded Date Recorded By Document 09/24/24 14:28 [id number] 09/24/24 14:29 09/24/24 14:28 Wound Center Nurse 2 -Time 14:28 -Correct Patient Yes -Correct Side, Site, Position Yes -Correct Procedure No -Procedure Performed No -Wound/Ulcer Outcome Healed- Epithelialized Pain Scale: 0-10 Numeric Is Patient Pain Free? Yes - Nurse 3 - General Ulcer D/C NN Start: 09/24/24 14:08 Freq: Status: Active Protocol: Activity Type Activity Date Activity User E-sign Co-sign Detail Recorded Client Recorded Date Recorded By Document 09/24/24 14:29 [id number] 09/24/24 14:31 09/24/24 14:29 Wound Care Center Nurse 3 #2 R Stump -Ulcer Cleansing Not Cleansed -Foul Odor after Cleansing No -Primary Dressing Applied Silicone Border Foam 4x4 -Silicone Border Foam 4x4 1 Pain Scale: 0-10 Numeric Is Patient Pain Free? Yes - Visit Discharge Discharge Condition Stable Ambulatory Status Wheelchair Transportation Private Auto Clinical Summary of Care Provided Yes Assessment/Plan Assessment/Plan (1) S/P amputation: CODE(S): Z89.9 - Acquired absence of limb, unspecified (2) Dehiscence of surgical wound: CODE(S): T81.31XA - Disruption of external operation (surgical) wound, not elsewhere classified, initial encounter (3) Delayed surgical wound healing: CODE(S): T81.89XA - Other complications of procedures, not elsewhere classified, initial encounter PLAN: Plan His R AKA stump wound is healed today; I do recommend continuing to cover/pad/protect the area of freshly healed skin for the next 7-10 days. Will reach out to [employer] and advise them he is appropriate to begin prosthetics process and then they should reach out to him for scheduling; he is happy about this. Will trial taper off of gabapentin to see if he tolerates; Dr. Pham did perform targeted muscle reinnervation to reduce phantom pains long-term so certainly reasonable to see if this has improved. He has been on gabapentin <6 months and at relatively low dose however advised that a taper is still the safest way to discontinue it; he is instructed to stop his 300 mg mid-day dose but continue AM and PM doses for 5 days, if no adverse effects/return of phantom pains then stop the morning 300mg dose and continue only the PM dose for 5 days, then if that is tolerated can stop the evening dose. He is to call with any questions/concerns. He will return in 2 weeks, sooner as needed.
== END 2024-10-15 07:51 | disposition home or self-care (01) ==
LOC: WC 14:03
PROVIDERS: PCP Internal Medicine; Referring Provider Physician Assistant; Visit Provider Physician Assistant
DX: T81.31XA Disruption of external operation (surgical) wound, not elsewhere classified, initial encounter (principal); C34.90 Malignant neoplasm of unspecified part of unspecified bronchus or lung; Z89.611 Acquired absence of right leg above knee; T81.89XA Other complications of procedures, not elsewhere classified, initial encounter
CPT/HCPCS: 99213; G0463

== ENCOUNTER → 2024-11-12 | Outpatient (CLI) | payer MEDICAID, SELFPAY ==
--- NOTE | 2024-11-12 15:38 | CT_ITS ---
PROCEDURE: CT CHEST AND ABD W/ CONTRAST 11/12/2024 REASON FOR EXAM: History of lung cancer status post chemoradiation therapy, completed 2 weeks ago. TECHNIQUE: CT of the chest and abdomen with intravenous contrast. Coronal and Sagittal reconstruction series were provided. One or more dose reduction techniques were used (e.g., Automated exposure control, adjustment of the mA and/or kV according to patient size, use of iterative reconstruction technique. CONTRAST: Isovue 300 VOLUME: 99mL RADIATION DOSE SUMMARY: DLP: 1900.35 mGycm COMPARISON: Correlation with PET-CT 07/21/2024. CT chest 09/29/2024. FINDINGS: DEVICES: Right chest wall MediPort with catheter tip at the superior cavoatrial junction. LUNGS/PLEURA: Redemonstrated right upper lobe mass lesion with central cystic/necrotic component, measuring roughly 6.6 x 6.5 x 6.3 cm (AP, TV, CC), no significant interval change. Cystic change/pneumatocele formation at the superior aspect of the lesion, also unchanged. No additional pulmonary nodules, or airspace consolidation elsewhere. No pneumothorax or pleural effusions. The central airways are patent. MEDIASTINUM/NODES: Mildly enlarged right hilar lymph nodes. Additional subcentimeter mediastinal and axillary lymph nodes are nonspecific. HEART: Normal in size. No pericardial effusion. No coronary artery calcification. PULMONARY VESSELS: Acute pulmonary arterial emboli within the lobar, segmental and subsegmental branches of the left lower lobe. No central PE. No evidence of right heart strain. AORTA: Normal in course and caliber. Mild atherosclerotic disease. LIVER: No suspicious focal lesion. Calcified granuloma inferior right lobe, and few scattered tiny subcentimeter benign-appearing probable hepatic cysts, unchanged. GALLBLADDER: Unremarkable. No biliary ductal dilatation. SPLEEN: Normal size and morphology. PANCREAS: Unremarkable. ADRENALS: Unremarkable. KIDNEYS: Symmetric enhancement. No urolithiasis or hydronephrosis. BOWEL: Visualized bowel segments demonstrate no evidence of obstruction or active inflammatory process. Normal appendix is visualized in the right lower quadrant. PERITONEUM / RETROPERITONEUM: No ascites, free air, or suspicious lymph node enlargement is seen in the visualized portions of the abdomen. MUSCULOSKELETAL: Mild degenerative changes of the spine. No suspicious osseous lytic or blastic lesion. Stable appearing scattered small sclerotic foci in the spine, sternum manubrium, posterior right 2nd rib, right scapula, and the left humeral head are nonspecific but most likely benign bone islands. CT/CT Chest AND Abd W/ Contrast IMPRESSION: 1. Acute left lower lobe pulmonary arterial emboli, as noted above. 2. No acute airspace disease. No pneumothorax or pleural effusions. 3. Redemonstrated right upper lobe pulmonary mass, unchanged from 09/29/2024. Enlarged right hilar lymph nodes, also no significant interval change. No findings suspicious for progression elsewhere i n the thorax or abdomen. 4. No acute or active inflammatory intra-abdominal pathology. Reading Location: [id number]
== END | disposition home or self-care (01) ==
LOC: CT 15:38
PROVIDERS: PCP Internal Medicine; Referring Provider Nurse Practitioner Family; Visit Provider Nurse Practitioner Family
DX: C34.91 Malignant neoplasm of unspecified part of right bronchus or lung (principal)
CPT/HCPCS: 71260; 74160; Q9967; A4216